=== PATIENT | male | born 1940 | race Caucasian/White ===

== ENCOUNTER 2018-09-17 13:54 | Emergency (ER) | payer OTHER ==
--- NOTE | 2018-09-17 14:24 | RAD REPORT ---
EXAM DESCRIPTION: CT - Ct Stroke Brain Wo Cont - 09/17/2018 2:13 pm CLINICAL HISTORY: Syncope COMPARISON: None. TECHNIQUE: Computed axial tomography of the head was obtained without contrast. All CT scans are performed using dose optimization technique as appropriate and may include automated exposure control or mA/KV adjustment according to patient size. FINDINGS: Right parietal scalp hematoma. Underlying skull fracture is not seen. An intracranial bleed is not seen . The ventricles are normal in caliber. No extra-axial fluid collection is noted. 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 Fluid within the sinuses/ mastoids is not seen. IMPRESSION: No acute intracranial abnormality is seen. If patient's symptoms persist MRI of the bra in would be recommended. Exam discussed doctor Brennan 2:15 p.m. September 17, 2018
[2018-09-17 14:31] LABS: Absolute Lymphocytes (CBC) 1.5 K/uL (0.7-4.9); Absolute Monocytes 0.5 K/uL (0.1-1.3); Absolute Neutrophil 4.9 K/uL (1.8-8.0); Basophils % 0.3 % (0-1.3); Eosinophils % 1.9 % (0-4.4); Hematocrit 44.5 % (39.6-49.0); Lymphocytes % 20.7 % (15.3-44.8); MPV 7.4 fL (7.6-11.3); Monocytes % 7.7 % (3.3-12.3); RBC Red Blood Cell Count 4.96 M/uL (4.33-5.43)
[2018-09-17 14:33] LABS: Protime INR 0.99
[2018-09-17 14:44] LABS: Potassium 4.8 mmol/L (3.5-5.1)
--- NOTE | 2018-09-17 15:03 | RAD REPORT ---
EXAM DESCRIPTION: Saravanan Single View09/17/2018 2:55 pm CLINICAL HISTORY: Chest pain COMPARISON: none FINDINGS: The lungs appear clear of acute infiltrate. The heart is normal size IMPRESSION: No acute abnormalities displayed
[2018-09-17] MEDS ORDERED: NA CHLORIDE 0.9% 1,000 ML ONE (15:09)
--- NOTE | 2018-09-17 15:49 | ER ---
Nurse's Notes [facility] Name: Eleazar Crawford Jr Age: 78 yrs Sex: Male : 1940 Arrival Date: 09/17/2018 Time: 14:02 Bed 23 Private MD: Diagnosis: Fall due to bumping against object;Syncope and collapse-near ;Superficial injury of head-right posterior hematoma;Unspecified kidney failure Presentation: 09/17 13:50 Presenting complaint: EMS states: syncopal episode from standing while outside for sv awhile, unknown LOC. [place] negative per EMS. c/o head injury with small hematoma on right side. Transition of care: patient was not received from another setting of care. An acute neurological deficit is present. The charge nurse has been notified. Pre-hospital glucose is not applicable to this patient. Onset of symptoms was September 17, 2018 at 13:30. Risk Assessment: Do you want to hurt yourself or someone else? Patient reports no desire to harm self or others. Initial Sepsis Screen: Does the patient meet any 2 criteria? No. Patient's initial sepsis screen is negative. Does the patient have a suspected source of infection? No. Patient's initial sepsis screen is negative. Care prior to arrival: Medication(s) given: Normal saline infusion, 500 mL, IV initiated. 20 GA, in the right forearm. 13:50 Method Of Arrival: EMS: [facility] 14:08 Acuity: ALMA 2 sv Triage Assessment: 13:50 The onset of the patients symptoms was less than three hours ago. General: Appears in sv no apparent distress. uncomfortable, well groomed, well developed, Behavior is calm, cooperative, appropriate for age. Pain: Complains of pain in scalp Pain currently is 3 out of 10 on a pain scale. Neuro: Level of Consciousness is awake, alert, obeys commands, Oriented to person, place, time, situation, Electric Clock Mechanic are equal bilaterally Moves all extremities. Full function Speech is normal, Facial symmetry appears normal, Facial symmetry: tongue is midline, Reports blurred vision in right eye and left eye in front of his vision of field. Neuro: Reports a syncopal episode. Respiratory: Airway is patent Respiratory effort is even, unlabored, Respiratory pattern is regular, symmetrical. Derm: Skin is pink, warm \T\ dry. skin tear to the left elbow. Musculoskeletal: Range of motion: intact in all extremities. 13:50 Injury Description: Head injury sustained to right side of the back of head is open, sv small amount of bleeding with unknown LOC. Golf ball size hematoma noted. was sustained less than 30 minutes ago. 15:40 The onset of the patients symptoms was. ao 17:00 The onset of the patients symptoms was September 17, 2018 at 13:00. ao Stroke Activation: Symptom onset < 3 hours Physician: Stroke Attending; Name: ; Notified At: ; Arrived At: Physician: Chief Stroke Resident; Name: ; Notified At: ; Arrived At: Physician: Stroke Resident; Name: ; Notified At: ; Arrived At: Physician: ED Attending; Name: Dr Brennan; Notified At: 14:03; Arrived At: Physician: ED Resident; Name: ; Notified At: ; Arrived At: Historical: - Allergies: 14:28 No Known Allergies; sv - Home Meds: 14:28 Plavix 75 mg Oral tab 1 tab once daily [Active]; metoprolol tartrate 25 mg Oral tab 1 sv tab nightly [Active]; Lipitor 40 mg Oral tab 1 tab once daily [Active]; irbesartan 150 mg oral tab [Active]; lamotrigine 300 mg oral tr24 1 tab once daily [Active]; Melatonin Oral [Active]; - 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 - Social history:: Smoking status: Patient/guardian denies using tobacco. - Ebola Screening: : No symptoms or risks identified at this time. - Family history:: not pertinent. Screenin:05 Abuse screen: Denies threats or abuse. Denies injuries from another. Nutritional sv screening: No deficits noted. Tuberculosis screening: No symptoms or risk factors identified. Fall Risk None identified. Assessment: 13:55 VAN Scoring: Arm Drift: Patients demonstrates NO arm weakness. Patient is VAN Negative. sv Visual Disturbance: Field Cut: Abnormal visual paulino noted. Provider notified of +VAN scoring. Pt stated blurry vision in front of him, but stated he had cataract surgery a month ago and vision was clear afterwards. Pt states that for about 2-3 days he has been having blurry vision. Aphasia: No aphasia noted. Neglect: No neglect noted. 14:10 Reassessment: Patient appears in no apparent distress at this time. No changes from sv previously documented assessment. Patient and/or family updated on plan of care and expected duration. Pain level reassessed. Patient is alert, oriented x 3, equal unlabored respirations, skin warm/dry/pink. 14:40 Reassessment: Dr Brennan at bedside. sv 15:00 The patient has not been NPO before screening. The patient is alert, and able to follow ao commands. The patient does not exhibit slurred or garbled speech. The patient is not exhibiting difficulty speaking. The patient does not exhibit difficulty understanding words. The patient is able to swallow own secretions with no drooling or need for suction. Patient tolerated one teaspoon of water. No drooling, immediate coughing, gurgling, or clearing of the throat was noted. The patient tolerated 90mL of water. No drooling, immediate coughing, gurgling, or clearing of the throat was noted. The patient passed the bedside swallow screening. Oral medications may be given as ordered. Contact Physician for further diet orders. Provider notified of bedside swallow screening results: Cristian Brennan MD. 15:00 General: Appears in no apparent distress. comfortable, Behavior is calm, cooperative, ao appropriate for age. Pain: Complains of pain in scalp Pain does not radiate. Pain currently is 3 out of 10 on a pain scale. Neuro: Level of Consciousness is awake, alert, obeys commands, Oriented to person, place, time, situation, Appropriate for age Electric Clock Mechanic are equal bilaterally Moves all extremities. Full function Gait is steady, Speech is normal, Facial symmetry appears normal, Pupils are PERRLA, Intact. Cardiovascular: Heart tones S1 S2 Capillary refill < 3 seconds Patient's skin is warm and dry. Rhythm is regular. Respiratory: Airway is patent Respiratory effort is even, unlabored, Respiratory pattern is regular, symmetrical. GI: Abdomen is flat, non-distended. : No signs and/or symptoms were reported regarding the genitourinary system. EENT: No signs and/or symptoms were reported regarding the EENT system. Derm: Skin is intact, Skin is pink, warm \T\ dry. normal, Skin temperature is warm Wound noted left elbow Wound is Small amount of bleeding noted. Applied a clean dressing with 2x2 antibiotics ointment. Musculoskeletal: Amputation of Range of motion: limited in all extremities. Injury Description: Head injury sustained to scalp is closed, bleeding, had loss of consciousness, Hematoma noted in the back of the head. was sustained 1-2 hours ago. 16:06 Reassessment: DC pending on Cardiac labs at this time. ao 17:00 T-PA (Activase) Screening: Contraindications: Other: Pt negative for stroke per Dr xin Brennan. Pt was syncope. Vital Signs: 13:53 BP 120 / 66; Pulse 73; Resp 18; Temp 97.8(O); Pulse Ox 97% on R/A; sv 14:08 BP 129 / 64; Pulse 77; Resp 16; Pulse Ox 98% on R/A; sv 15:30 BP 126 / 68 Supine; Pulse 65; Resp 14; Pulse Ox 99% on R/A; ao 15:35 BP 156 / 91 Sitting; Pulse 74; ao 15:38 BP 144 / 76; Pulse 77; ao 16:30 BP 142 / 74; Pulse 74; Resp 16; Pulse Ox 98% on R/A; ao NIH Stroke Scale Scores: 13:55 NIHSS Score: 1 sv ED Course: 13:50 Maintain EMS IV. Dressing intact. Good blood return noted. Site clean \T\ dry. Gauge \T\ sv site: 20G R FA. 13:55 Arm band placed on. sv 13:55 Patient has correct armband on for positive identification. Placed in gown. Bed in low sv position. Call light in reach. Side rails up X2. Adult w/ patient. manager monitoring on. Pulse ox on. NIBP on. Door closed. Head of bed elevated. 14:02 Patient arrived in ED. sv 14:02 Blanka Rider RN is Primary Nurse. sv 14:[address] via stretcher. sv 14:08 Triage completed. sv 14:08 Cristian Brennan MD is Attending Physician. renato 14:10 Patient moved back from CT. sv 14:13 CT Stroke Brain w/o Contrast In Process Unspecified. EDMS 14:13 Initial lab(s) drawn, by laborer petroleum refinery, sent to lab. sv 14:24 EKG done, by ag equipment field service technician. reviewed by Cristian Brennan MD. sm3 14:37 X-ray(s) taken. sv 14:37 Report given to Randolph MEZA. sv 14:56 Stroke CXR 1 View In Process Unspecified. EDMS 15:49 Paulo Nicole MD is Referral Physician. renato 16:59 No provider procedures requiring assistance completed. IV discontinued, intact, ao bleeding controlled, No redness/swelling at site. Pressure dressing applied. Administered Medications: 15:07 Drug: NS 0.9% 1000 ml Route: IV; Rate: 1 bolus; Site: right forearm; ao Point of Care Testing: Blood Glucose: 14:27 Blood Glucose: 126 mg/dL; sv Ranges: Outcome: 15:49 Discharge ordered by . renato 15:55 Patient left the ED. renato 16:59 Discharged to home ambulatory. ao 16:59 Condition: stable 16:59 Discharge instructions given to patient, Instructed on discharge instructions, follow up and referral plans. the need for admit, Demonstrated understanding of instructions, follow-up care, wound care. 17:02 Patient left the ED. ao NIH Stroke Scale - NIH Stroke Score Date: 09/17/2018 Time: 13:55 Total Score = 1 1a. Level of Consciousness (LOC) - 0(Alert) 1b. Level of Consciousness (LOC) (Year \T\ Age) - 0(Both) 1c. LOC Commands (Open \T\ Closes Eyes/Organic Lab Worker) - 0(Both) 2. Best Gaze (Lateral Gaze Paresis) - 0(Normal) 3. Visual Field Loss - 1(Partial hemianopia) 4. Facial Palsy - 0(Normal) 5a. Left Arm: Motor (10-second hold) - 0(No drift) 5b. Right Arm: Motor (10-second hold) - 0(No drift) 6a. Left Leg: Motor (5-second hold - always test supine) - 0(No drift) 6b. Right Leg: Motor (5-second hold - always test supine) - 0(No drift) 7. Limb Ataxia (finger/nose \T\ heel/tapia - test with eyes open) - 0(Absent) 8. Sensory Loss (pinprick arms/legs/face) - 0(Normal) 9. Best Language: Aphasia (description/naming/reading) - 0(No aphasia) 10. Dysarthria (speech clarity - read or repeat words) - 0(Normal) 11. Extinction and Inattention (visual/tactile/auditory/spatial/personal) - 0(No abnormality) Initials: sv Signatures: Dispatcher [employer] EDMS Adry, Blanka, RN RN sv Mika, Cristian, MD MD renato Jiménez, Randolph, RN RN ao Romero, Shahnaz Savanna
--- NOTE | 2018-09-17 15:49 | EDPHYS ---
Physician Documentation [facility] Name: Eleazar Crawford Jr Age: 78 yrs Sex: Male : 1940 Arrival Date: 09/17/2018 Time: 14:02 Bed 23 Private MD: ED Physician Cristian Brennan HPI: 09/17 14:42 This 78 yrs old Male presents to ER via EMS with complaints of Syncope, Head renato Injury-Adult. 14:42 The patient has experienced near-syncope, almost passed out. Onset: The renato symptoms/episode began/occurred just prior to arrival. Duration: This was a single episode, that lasted an unknown period of time. Context: the episode(s) was witnessed, by family. Associated injury: The patient did not suffer any apparent associated injury. Associated signs and symptoms: The patient has no apparent associated signs or symptoms. Current symptoms: Currently, the patient is not experiencing any symptoms. 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 - Social history:: Smoking status: Patient/guardian denies using tobacco. - Ebola Screening: : No symptoms or risks identified at this time. - Family history:: not pertinent. ROS: 14:42 Constitutional: Negative for fever, chills, and weight loss, Eyes: Negative for injury, renato pain, redness, and discharge, ENT: Negative for injury, pain, and discharge, Neck: Negative for injury, pain, and swelling, Cardiovascular: Negative for chest pain, palpitations, and edema, Respiratory: Negative for shortness of breath, cough, wheezing, and pleuritic chest pain, Abdomen/GI: Negative for abdominal pain, nausea, vomiting, diarrhea, and constipation, Back: Negative for injury and pain, : Negative for injury, bleeding, discharge, and swelling, MS/Extremity: Negative for injury and deformity, Skin: Negative for injury, rash, and discoloration, Psych: Negative for depression, anxiety, suicide ideation, homicidal ideation, and hallucinations, Allergy/Immunology: Negative for hives, rash, and allergies, Endocrine: Negative for neck swelling, polydipsia, polyuria, polyphagia, and marked weight changes, Hematologic/Lymphatic: Negative for swollen nodes, abnormal bleeding, and unusual bruising. 14:42 Neuro: Positive for near syncope. Exam: 14:42 Constitutional: This is a well developed, well nourished patient who is awake, alert, renato and in no acute distress. Eyes: Pupils equal round and reactive to light, extra-ocular motions intact. Lids and lashes normal. Conjunctiva and sclera are non-icteric and not injected. Cornea within normal limits. Periorbital areas with no swelling, redness, or edema. ENT: Nares patent. No nasal discharge, no septal abnormalities noted. Tympanic membranes are normal and external auditory canals are clear. Oropharynx with no redness, swelling, or masses, exudates, or evidence of obstruction, uvula midline. Mucous membranes moist. Neck: Trachea midline, no thyromegaly or masses palpated, and no cervical lymphadenopathy. Supple, full range of motion without nuchal rigidity, or vertebral point tenderness. No Meningismus. Chest/axilla: Normal chest wall appearance and motion. Nontender with no deformity. No lesions are appreciated. Cardiovascular: Regular rate and rhythm with a normal S1 and S2. No gallops, murmurs, or rubs. Normal PMI, no JVD. No pulse deficits. Respiratory: Lungs have equal breath sounds bilaterally, clear to auscultation and percussion. No rales, rhonchi or wheezes noted. No increased work of breathing, no retractions or nasal flaring. Abdomen/GI: Soft, non-tender, with normal bowel sounds. No distension or tympany. No guarding or rebound. No evidence of tenderness throughout. Back: No spinal tenderness. No costovertebral tenderness. Full range of motion. Male : Normal genitalia with no discharge or lesions. Skin: Warm, dry with normal turgor. Normal color with no rashes, no lesions, and no evidence of cellulitis. MS/ Extremity: Pulses equal, no cyanosis. Neurovascular intact. Full, normal range of motion. Neuro: Awake and alert, GCS 15, oriented to person, place, time, and situation. Cranial nerves II-XII grossly intact. Motor strength 5/5 in all extremities. Sensory grossly intact. Cerebellar exam normal. Normal gait. Psych: Awake, alert, with orientation to person, place and time. Behavior, mood, and affect are within normal limits. 14:42 Head/face: Noted is abrasion(s), that are mild, of the right side of the back of head, contusion, hematoma, swelling, tenderness. 14:42 Eyes: Periorbital structures: appear normal, no acute changes, Pupils: no acute changes, equal, round, and reactive to light and accomodation, Extraocular movements: no acute changes, Conjunctiva: normal, Corneas: are normal, Sclera: no appreciated abnormality. Vital Signs: 13:53 BP 120 / 66; Pulse 73; Resp 18; Temp 97.8(O); Pulse Ox 97% on R/A; sv 14:08 BP 129 / 64; Pulse 77; Resp 16; Pulse Ox 98% on R/A; sv 15:30 BP 126 / 68 Supine; Pulse 65; Resp 14; Pulse Ox 99% on R/A; ao 15:35 BP 156 / 91 Sitting; Pulse 74; ao 15:38 BP 144 / 76; Pulse 77; ao 16:30 BP 142 / 74; Pulse 74; Resp 16; Pulse Ox 98% on R/A; ao NIH Stroke Scale Scores: 13:55 NIHSS Score: 1 sv MDM: 14:08 Patient medically screened. [facility] 14:46 Data reviewed: vital signs, nurses notes, lab test result(s), EKG, radiologic studies, renato CT scan, plain films. 09/17 14:07 Order name: Basic Metabolic Panel; Complete Time: 14:49 sv 09/17 14:07 Order name: CBC with Diff; Complete Time: 14:49 sv 09/17 14:07 Order name: Protime (+inr); Complete Time: 14:49 sv 09/17 14:07 Order name: Ptt, Activated; Complete Time: 14:49 sv 09/17 15:48 Order name: LFT's renato 09/17 15:48 Order name: Magnesium renato 09/17 14:07 Order name: CT Stroke Brain w/o Contrast; Complete Time: 14:49 sv 09/17 14:07 Order name: Stroke CXR 1 View; Complete Time: 15:47 09/17 14:07 Order name: EKG; Complete Time: 14:07 09/17 14:07 Order name: Accucheck; Complete Time: 15:02 sv 09/17 14:07 Order name: Cardiac monitoring; Complete Time: 15:02 09/17 15:48 Order name: NT PRO-BNP [facility] 09/17 15:48 Order name: Troponin (emerg Dept Use Only) [facility] 09/17 14:07 Order name: EKG - Nurse/Tech; Complete Time: 15:02 09/17 14:07 Order name: IV Saline Lock; Complete Time: 15:02 09/17 14:07 Order name: Labs collected and sent; Complete Time: 15:02 09/17 14:07 Order name: NPO; Complete Time: 15:02 09/17 14:07 Order name: O2 Per Protocol; Complete Time: 15:02 09/17 14:07 Order name: O2 Sat Monitoring; Complete Time: 15:02 09/17 14:07 Order name: Stroke Swallow Screen; Complete Time: 15:24 09/17 14:42 Order name: Orthostatic Blood Pressure; Complete Time: 15:40 [facility] 09/17 14:50 Order name: Ice pack; Complete Time: 15:40 [facility] Administered Medications: 15:07 Drug: NS 0.9% 1000 ml Route: IV; Rate: 1 bolus; Site: right forearm; ao Point of Care Testing: Blood Glucose: 14:27 Blood Glucose: 126 mg/dL; sv Ranges: Critical Glucose Levels:Adult <50 mg/dl or >400 mg/dl <40 mg/dl or >180 mg/dl Disposition: 09/17/18 15:49 Discharged to Home. Impression: Fall due to bumping against object, Syncope and collapse - near , Superficial injury of head - right posterior hematoma, Unspecified kidney failure. - Condition is Stable. - Discharge Instructions: Head Injury, Adult, Near-Syncope, Weakness, Near-Syncope, [id number], Syncope, [id number]-[id number], Weakness, Dxsf-pl-[id number], Head Injury, Adult, Rgeu-sk-Govn. - Medication Reconciliation Form, Thank You Letter, Antibiotic Education, Prescription Opioid Use form. - Follow up: Private Physician; When: 2 - 3 days; Reason: Recheck today's complaints, Continuance of care, Re-evaluation by your physician. Follow up: Paulo Nicole; When: 2 - 3 days; Reason: Recheck today's complaints, Continuance of care, Re-evaluation by your physician. - Problem is new. - Symptoms have improved. NIH Stroke Scale - NIH Stroke Score Date: 09/17/2018 Time: 13:55 Total Score = 1 1a. Level of Consciousness (LOC) - 0(Alert) 1b. Level of Consciousness (LOC) (Year \T\ Age) - 0(Both) 1c. LOC Commands (Open \T\ Closes Eyes/Emc Storage Architect) - 0(Both) 2. Best Gaze (Lateral Gaze Paresis) - 0(Normal) 3. Visual Field Loss - 1(Partial hemianopia) 4. Facial Palsy - 0(Normal) 5a. Left Arm: Motor (10-second hold) - 0(No drift) 5b. Right Arm: Motor (10-second hold) - 0(No drift) 6a. Left Leg: Motor (5-second hold - always test supine) - 0(No drift) 6b. Right Leg: Motor (5-second hold - always test supine) - 0(No drift) 7. Limb Ataxia (finger/nose \T\ heel/tapia - test with eyes open) - 0(Absent) 8. Sensory Loss (pinprick arms/legs/face) - 0(Normal) 9. Best Language: Aphasia (description/naming/reading) - 0(No aphasia) 10. Dysarthria (speech clarity - read or repeat words) - 0(Normal) 11. Extinction and Inattention (visual/tactile/auditory/spatial/personal) - 0(No abnormality) Initials: sv Signatures: Dispatcher [employer] Blanka Dejesus RN RN Cristian Wagoner MD MD cha Ortiz, Alex, RN RN xin Corrections: (The following items were deleted from the chart) 15:55 15:49 09/17/2018 15:49 Discharged to Home. Impression: Fall due to bumping renato against object; Syncope and collapse - near ; Superficial injury of head - right posterior hematoma. Condition is Stable. Discharge Instructions: Head Injury, Adult, Near-Syncope, Weakness, Near-Syncope, [id number]-sm-[id number], Syncope, Wyge-fr-Noln, Weakness, Xjzd-vx-Adbs, Head Injury, Adult, Pjmv-or-Obus. Forms are Medication Reconciliation Form, Thank You Letter, Antibiotic Education, Prescription Opioid Use. Follow up: Private Physician; When: 2 - 3 days; Reason: Recheck today's complaints, Continuance of care, Re-evaluation by your physician. Follow up: Paulo Nicole; When: 2 - 3 days; Reason: Recheck today's complaints, Continuance of care, Re-evaluation by your physician. Problem is new. Symptoms have improved. renato 17:02 15:55 09/17/2018 15:49 Discharged to Home. Impression: Fall due to bumping ao against object; Syncope and collapse - near ; Superficial injury of head - right posterior hematoma; Unspecified kidney failure. Condition is Stable. Discharge Instructions: Head Injury, Adult, Near-Syncope, Weakness, Near-Syncope, [id number], Syncope, Zlzd-nv-Birw, Weakness, Viqs-rd-Ipty, Head Injury, Adult, Oedo-zc-Ljmk. Forms are Medication Reconciliation Form, Thank You Letter, Antibiotic Education, Prescription Opioid Use. Follow up: Private Physician; When: 2 - 3 days; Reason: Recheck today's complaints, Continuance of care, Re-evaluation by your physician. Follow up: Paulo Nicole; When: 2 - 3 days; Reason: Recheck today's complaints, Continuance of care, Re-evaluation by your physician. Problem is new. Symptoms have improved. renato
[2018-09-17 16:42] LABS: ALT/SGPT 31 U/L (12-78); AST/SGOT 18 U/L (15-37); Albumin 3.7 g/dL (3.4-5.0); Alkaline Phosphatase 96 U/L (45-117); Bilirubin Direct 0.2 mg/dL (0-0.2); Bilirubin Total 0.8 mg/dL (0.2-1.0); NT PRO-BNP 211 pg/mL (<450); Protein, Total 6.2 g/dL (6.4-8.2); Troponin (Emerg Dept Use Only) < 0.02 ng/mL (0.0-0.045)
== END 2018-09-17 17:02 | disposition home or self-care (01) ==
LOC: ER 13:54
DX: S00.83XA Contusion of other part of head, initial encounter (principal); N19 Unspecified kidney failure; W18.00XA Striking against unspecified object with subsequent fall, initial encounter; Y93.9 Activity, unspecified; Y92.9 Unspecified place or not applicable; Z79.01 Long term (current) use of anticoagulants; Z86.73 Personal history of transient ischemic attack (TIA), and cerebral infarction without residual deficits; G40.909 Epilepsy, unspecified, not intractable, without status epilepticus
CPT/HCPCS: 93005; 85025; 80048; 36415; 83735; 85610; 82962; 80076; 85730; 84484; 83880; 70450; 71045; 99285; J7030

== ENCOUNTER 2024-05-30 11:45 | Emergency (ER) | payer OTHER ==
--- OUTSIDE RECORDS SUMMARY | 2024-05-30 11:53 | XMS REPORT | Continuity of Care Document ---
Author Name Unknown Address [address] [facility] [place] [address] [facility] Address [address] [place] [address] Care Team Providers Care Senior Resident Care Director Name Role Phone Tala Laws MD Primary Care Physician [phone] ILENE KIRK Attending Clinician Unavaila Jerry Kwong Attending Clinician UnavailDarren De La Torre Attending Clinician Unavail KARIN Owen Attending Clinician Unavailable Shalonda Francois MA Attending Clinician UnavaKathy Fry Attending Clinician Unavailable Kathy MACIAS Attending Clinician Unavailable RADIOLOGY Attending Clinician Unavailable Radiology Attending Clinician Unavailable HERMINIO ELLISON Attending Clinician Unavailable Herminio Ellison PA-C Attending Clinician [phone] Unknown, Attending Attending Clinician Unavailab le DIANE HALLMAN Attending Clinician Unavailable Arabella LIBERAL ARTS TEACHER, Cyndrew Attending Clinician +[phone] NOLVIA LLOYD Attending Clinician Unavailab Nolvia Burnham DO Attending Clinician +[phone] Vaccine, [facility] Attending Clinician Unavailable Jose Zelaya DO Attending Clinician [phone] JOSE ZELAYA Attending Clinician Unavail able Luke Plata Attending Clinician Unavailable Nurse, [facility] Pob Immunization Attending Clinician Unavailable Ibikunle LIBERAL ARTS TEACHER, Folusho F Attending Clinician [phone] Doctor Unassigned, Barling Attending Clinician U navailKARIN Owen M.D. Attending Clinician Unava ilable Duarte EMCandice KEBEDE R Attending Clinician + [phone] SEGUNDO PERRY Attending Clinician Unavailable Lupe Briones Attending Clinician [phone] LUPE ARMSTRONG Attending Clinician Unavailable JOBY HOLMAN Attending Clinician Unavailable Trey MEZA, Prabhakar Chowdary Attending Clinician Unavail able Chelsea Schmidt MD Attending Clinician [phone] Marvin CABALLERO, Romana Tucker Attending Clinician + CHELSEA SCHMIDT Attending Clinician Unavailable Venkata Snyder Attending Clinician UnavailOliverio FLEMINGP, Cyndi Brown Attending Clinician [phone] Thomas Allen Attending Clinician UnavailHUGO Junior M.D. Attending Clinician Nelly vailable AMBULATORY, BLOOD Attending Clinician UnavailLIZ Yepez, PHD Attending Clinician Unav ailable Physician, No Primary or Family Admitting Clinic keegan Unavailable Darren Amezcua Admitting Clinician Unavail able Kathy MACIAS Admitting Clinician Unavailable BENNY ROCHA Admitting Clinician Unavailab DIANE Hull Admitting Clinician Unavailable NOLVIA LLOYD Admitting Clinician Unavailab Luke Luu Admitting Clinician Unavailable LUPE ARMSTRONG Admitting Clinician Unavailable Marvin CABALLERO, Romana Tucker Admitting Clinician + UNDEFINED Admitting Clinician Unavailable Kathy MACIAS Admitting Clinician Unavailable Payers Payer Name Policy Type Policy Number Effective Date Expirati on Date Source [facility] MEDIC[facility] ADVANTAGE [id number] 2020 00:00:00 2024 00:00:00 [facility] PPO [id number] 2020 00:00:00 Problems Condition Name Condition Details Condition Category Status Onset Date Resolution Date Last Treatment Date Treating Clinician Comments Source Arterioscl erosis of coronary artery Arterioscl erosis of coronary artery Disease Active 03-24 00:00: 00 Radha Vazquez Hypertensi on Hypertensi on Disease Active 03-24 00:00: 00 Radha Vazquez Obesity Obesity Disease Active 03-24 00:00: 00 Radha Vazquez Stroke Stroke Disease Active 03-24 00:00: 00 Radha Vazquez Seizure Seizure Disease Active 03-24 00:00: 00 Radha Vazquez History of stroke History of stroke Disease Active 03-24 00:00: 00 Radha Vazquez Apraxia Apraxia Disease Active 03-24 00:00: 00 Radha Vazquez F/U BLACK OUTS/SEIZU RES DR. Marshall GONZALEZ TO OVER F/U BLACK OUTS/SEIZU RES DR. Marshall GONZALEZ TO OVER Active 01/05/2021 [facility] Diagnosis Active 01-05 00:00: 00 2021-01-26 08:25:00 Radha Perez TELEPHONE VISIT F/U SEIZURES TELEPHONE VISIT F/U SEIZURES Active 05/04/2020 [facility] Diagnosis Active 2019-07 00:00: 00 2020-05-05 08:37:00 Radha Perez Seizure Seizure Disease Active 2019-07 0 00:00: 00 [facility] Seizure-li ke activity Seizure-li ke activity Disease Active 2019-07 00:00: 00 [facility] TELEMEDICI NE VIA VIRTUAL VIDEO APPOINTME TELEMEDICI NE VIA VIRTUAL VIDEO APPOINTME Active 01/19/2020 [facility] Diagnosis Active 01-18 00:00: 00 2020-02-18 09:26:00 Radha Perez 6 MONTH FOLLOW UP 6 MONTH FOLLOW UP Active 05/21/2019 [facility] Diagnosis Active 2018-07 00:00: 00 2019-07-29 13:08:00 Radha Perez FOLLOW UP PER DR. ALLAN PFEIFFER FOLLOW UP PER DR. ALLAN PFEIFFER Active 12/03/2018 [facility] Diagnosis Active 12-03 00:00: 00 2019-02-10 09:54:00 Radha Perez FOLLOW UP FOLLOW UP Active 09/18/2018 [facility] Diagnosis Active 09-18 00:00: 00 2018-12-03 12:27:00 Radha Perez SEIZURE; SYNCOPE SEIZURE; SYNCOPE Active 11/21/2017 [facility] Diagnosis Active 11-21 00:00: 00 2017-12-09 07:18:00 Radha Perez F/U F/U Active 09/09/2017 [facility] Diagnosis Active 09-09 00:00: 00 2018-06-13 14:17:00 Radha Perez Syncope Syncope Disease Active 2016-07 00:00: 00 [facility] SEIZERS SEIZERS Active 03/18/2017 [facility] Diagnosis Active 03-18 00:00: 00 2017-06-12 11:55:00 Radha Perez NONE NONE Active 03/19/2016 [facility] Diagnosis Active 03-19 00:00: 00 2016-05-25 10:48:00 Radha Perez Expressive aphasia Expressive aphasia Disease Active 11-30 00:00: 00 [facility] TBI TBI Active [facility] Diagnosis Active 11-02 00:00: 00 2015-11-15 16:11:00 Radha Perez NEW PT NEW PT Active 08/01/2015 [facility] Diagnosis Active 08-01 00:00: 00 2015-10-29 16:52:00 Radha Perez DC F/U DC F/U Active 06/29/2015 [facility] Diagnosis Active 2014-07 00:00: 00 2015-08-01 08:53:00 Radha Perez INTRACRANI AL HEMORRHAGE INTRACRANI AL HEMORRHAGE Active 05/17/2015 [facility] Diagnosis Active 2014-07 00:00: 00 2015-05-19 20:38:00 Radha Perez Intracrani al hemorrhage Intracrani al hemorrhage Disease Active 2014-07 00:00: 00 [facility] Cerebral edema Cerebral edema Disease Active 2014-07 00:00: 00 [facility] At risk for seizures At risk for seizures Disease Active 2014-07 00:00: 00 [facility] At risk for aspiration At risk for aspiration Disease Active 2014-07 00:00: 00 [facility] Hemorrhagi c cerebrovas cular accident (CVA) (CMS/HCC) Hemorrhagi c cerebrovas cular accident (CVA) (CMS/HCC) Disease Active 2014-07 00:00: 00 Radha Perez Epic Right hemiplegia (CMS/HCC) Right hemiplegia (CMS/HCC) Disease Active 2014-07 00:00: 00 Radha Perez Epic Right homonymous hemianopsi a Right homonymous hemianopsi a Disease Active 2014-07 00:00: 00 Radha Vazquez INTRACRANI AL HERMORRAGE INTRACRANI AL HERMORRAGE Active 07/01/2000 [facility] Diagnosis Active 07-01 08:00: 00 2016-11-14 16:14:00 Radha Perez No known active problems No known active problems Disease [facility] of [facility]ia [facility] of [facility] of History of cholecyste ctomy History of History of cholecyste ctomy Problem [facility]olve [facility] History of Meniscus tear History of Meniscus tear Problem [facility]olve [facility] 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 Problem Active [facility] Insomnia Insomnia Problem Active [facility] 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 Active [facility] Chronic orthostati c hypotensio n Chronic orthostati c hypotensio n Problem Active [facility] Benign essential hypertensi on Benign essential hypertensi on Problem Active [facility] 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 w/o 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 Problem Active [facility] Impaired memory Impaired memory Problem Active [facility] Obesity, unspecifie d Obesity, unspecifie d 12/31/2018 [facility] Problem 2018-12-31 11:31:01 Radha Perez Other sequelae of cerebral infarction Other sequelae of cerebral infarction 12/31/2018 [facility] Problem 2018-12-31 11:31:01 Radha Perez Final: Intracrani al abscess and granuloma Final: Intracrani al abscess and granuloma 07/02/2015 [facility] Problem 2015-07-02 01:18:55 Radha Perez ENCOUNTER FOR OTHER SPECIFIED SURGICAL A ENCOUNTER FOR OTHER SPECIFIED SURGICAL A Active [facility] Diagnosis Active 2021-01-09 08:16:00 Radha Perez OTHER SEIZURES OTHER SEIZURES Active [facility] Diagnosis Active 2021-01-26 08:25:00 Radha Perez ENCNTR FOR F/U EXAM AFT TRTMT FOR COND O ENCNTR FOR F/U EXAM AFT TRTMT FOR COND O Active [facility] Diagnosis Active 2016-01-11 12:35:00 Radha Perez INTRACRANI AL ABSCESS AND GRANULOMA INTRACRANI AL ABSCESS AND GRANULOMA Active [facility] Diagnosis Active 2015-05-19 20:38:00 Radha Perez ANOXIC BRAIN DAMAGE, 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, 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 Active [facility] Diagnosis Active 2015-08-01 08:53:00 Radha Perez EPILEPSY, UNSP, NOT INTRACTABL E, WITH ST EPILEPSY, UNSP, NOT INTRACTABL E, WITH ST Active [facility] Diagnosis Active 2015-08-30 09:56:00 Radha Perez ESSENTIAL (PRIMARY) HYPERTENSI ON ESSENTIAL (PRIMARY) HYPERTENSI ON Active [facility] Diagnosis Active 2016-07-26 10:44:00 Radha Perez INTCRAN INJ W/O LOSS OF CONSCIOUSN ESS, I INTCRAN INJ W/O LOSS OF CONSCIOUSN ESS, I Active [facility] Diagnosis Active 2016-12-04 12:40:00 Radha Perez EPILEPSY, UNSPECIFIE D, INTRACTABL E, WITH EPILEPSY, UNSPECIFIE D, INTRACTABL E, WITH Active [facility] Diagnosis Active 2017-06-12 11:55:00 Radha Perez UNSPECIFIE D CONVULSION S UNSPECIFIE D CONVULSION S Active [facility] Diagnosis Active 2015-12-07 14:19:00 Radha Perez OBSTRUCTIV E SLEEP APNEA (ADULT) (PEDIATR OBSTRUCTIV E SLEEP APNEA (ADULT) (PEDIATR Active [facility] Diagnosis Active 2016-02-21 09:46:00 Radha Perez DYSPHAGIA, UNSPECIFIE D DYSPHAGIA, UNSPECIFIE D Active [facility] Diagnosis Active 2016-05-25 10:48:00 Radha Perez At risk for dehydratio n At risk for dehydratio n Disease Resolve d 2014-07 00:00: 00 2015-05-12 00:00:00 2015-05-12 15:49:50 [facility] History of Past Illness Condition Name Condition Details Condition Category Status Onset Date Resolution Date Last Treatment Date Treating Clinician Comments Source Unspecifie d convulsion s Unspecifie d convulsion s 01/11/2021 01/13/2021 [facility] Problem 01-11 19:46: 00 2021-01-13 23:50:43 2021-01-13 23:50:43 Radha Perez Personal history of transient ischemic attack (TIA), and cerebral infarction without residual deficits Personal history of transient ischemic attack (TIA), and cerebral infarction without residual deficits 01/11/2021 01/13/2021 [facility] Problem 01-11 19:46: 00 2021-01-13 23:50:43 2021-01-13 23:50:43 Radha Perez Epilepsy, unspecifie d, not intractabl e, without status epilepticu s Epilepsy, unspecifie d, not intractabl e, without status epilepticu s 06/19/2018 12/31/2018 [facility] Problem 2017-07- 06:30: 38 2018-12-31 11:31:2018-12-31 11:31: Radha Perez Allergies, Adverse Reactions, Alerts Allergy Name Allergy Type Status Severity Reaction(s) Onset Date Inactive Date Treating Clinician Comments Source Tams[place] in Allergy to substanc e Active 03-24 00:00: 00 Radha Vazquez No Known Allergie s DA Active U 0 2-10 00:00: 00 [facility] No Known Allergie s DA Active U 0 2-10 00:00: 00 [facility] No Known Allergie s DA Active U 0 1-23 00:00: 00 [facility] No Known Allergie s DA Active U 0 1-23 00:00: 00 [facility] No Known Allergie s DA Active U 1 0- 00:00: 00 [facility] No Known Allergie s DA Active U 2018-07 0- 00:00: 00 [facility] No Known Allergie s DA Active U 0 4-25 00:00: 00 [facility] No Known Allergie s DA Active U 0 1-24 00:00: 00 [facility] [place]ams[place] in Allergy to substanc e Active 02-20 00:00: 00 [facility] tamsulos in DA Active SV 02-20 00:00: 00 [facility] NO KNOWN ALLERGIE S Drug Class Active [facility] Family History Family Member Diagnosis Comments Start Date Stop Date Sourc e Unknown Family Member Family history of HTN (hypertension), benign Other [facility] Unknown Family Member Family history of cardiac disorder Other [facility] Unknown Family Member Family history of cerebrovascular accident (CVA) Other [facility] Sibling Family history of Myocardial infarction in recovery phase [facility] Mother Family history of malignant neoplasm of kidney [facility] Father Family history of dementia [facility] Social History Social Habit Start Date Stop Date Quantity Comments Source Gender identity 2023-09-22 05:48:41 Identifies as male gender (finding) Priyanka Vazquez [facility] Alcoholic beverage intake 2024-01-28 00:00:00 2024-01-28 00:00:00 0 /d [facility] History of Social function 2023-10-18 00:00:00 2023-10-18 00:00:00 [facility] Exposure to SARS-CoV-2 (event) 2022-03-03 00:00:00 2022-03-13 11:03:00 Not sure [facility] Tobacco use and exposure 2022-03-13 00:00:00 2022-03-13 00:00:00 Smokeless tobacco non-user [facility] Alcohol intake 2022-03-13 00:00:00 2022-03-13 00:00:00 Lifetime non-drinker (finding) [facility] Sex assigned at 1940 00:00:00 1940 00:00:00 [facility] Smoking Status Start Date Stop Date Source Tobacco smoking consumption unknown [facility] Never smoked tobacco Radha Perez [facility] Medications Ordered Medication Name Filled Medication Name Start Date Stop Date Current Medication? Ordering Clinician Indication Dosage Frequency Signature (SIG) Comments Components Source NaCl 0.9% (NS) bolus infusion 500 mL 01-27 19:00: 00 01-27 20:47 :00 No 500mL at 999 mL/hr, 500 mL, IV Infusion, ONCE, 1 dose, On Sat01/28/24 at 1400, STAT [facility] lamoTRIgine 300 mg [facility] 01-27 15:44: 52 Yes Take by mouth. [facility] lamoTRIgine (LAMICTAL) 200 mg tablet 01-27 00:00: 00 02-27 04:59 :00 No [id number] 200mg Take 1 tablet by mouth in the morning for 30 days. [facility] lamoTRIgine 300 mg TR24 10-02 09:50: 38 Yes Take by mouth. [facility] midodrine 2.5 mg tablet 10-02 09:50: 38 Yes 2.5mg Take 1 tablet by mouth in the morning and 1 tablet at noon and 1 tablet in the evening. [facility] vitamin B-12 (B-12 DOTS) 500 mcg tablet 10-02 09:50: 38 Yes Take by mouth daily. [facility] benzonatate (TESSALON PERLES) 100 mg capsule 04 00:00: 00 Yes [id number] 100mg Take 1 capsule by mouth every 8 (eight) hours as needed for Cough. [facility] loratadine 10 mg tablet 10-02 00:00: 00 Yes [id number] 10mg Take 1 tablet by mouth in the morning. [facility] Apoaequorin (PREVAGEN PO) Apoaequorin (PREVAGEN PO) 2022-07 0 00:00: 00 Yes = 1 tab, PO, Daily, OTC for memory loss, 0 Refill(s) Radha Vazquez lamoTRIgine (LaMICtal XR) 300 mg tablet sustained-r elease 24 hour 24 hr tablet lamoTRIgine (LaMICtal XR) 300 mg tablet sustained-r elease 24 hour 24 hr tablet 2022-07 0 00:00: 00 10-19 23:59 :00 No Take by mouth at bedtime. Radha Vazquez lidocaine 2% (XYLOCAINE) 20 mg/mL (2 %) injection 10 mL 02-12 03:15: 00 02-12 03:15 :00 No 10mL 10 mL, Infiltrati on, ONCE, 1 dose, On Sat02/11/23 at 2215, CHRISTOFER [facility] spironolact one (Aldactone) 25 MG tablet spironolact one (Aldactone) 25 MG tablet 2021-07 0-05 00:00: 00 Yes QD Take by mouth 1 time each day. Radha Vazquez olmesartan (BENIcar) 40 MG tablet olmesartan (BENIcar) 40 MG tablet 2021-07 0-05 00:00: 00 Yes 40mg QD Take 40 mg by mouth 1 time each day. Radha Vazquez lamoTRIgine (LaMICtal XR) 300 mg tablet sustained-r elease 24 hour 24 hr tablet 7-25 00:00: 00 Yes [facility] clopidogrel (Plavix) 75 MG tablet 6-30 00:00: 00 Yes [facility] spironolact one (Aldactone) 25 MG tablet 6-30 00:00: 00 Yes [facility] olmesartan (BENIcar) 40 MG tablet 6-21 00:00: 00 Yes [facility] carvedilol (Coreg) 6.25 MG tablet 5-12 00:00: 00 Yes [facility] amLODIPine (Norvasc) 10 MG tablet amLODIPine (Norvasc) 10 MG tablet 2020-07 0-13 00:00: 00 Yes 10mg QD Take 10 mg by mouth 1 time each day. Radha Perez Epic fludrocorti sone (Florinef) 0.1 MG tablet fludrocorti sone (Florinef) 0.1 MG tablet 2020-07 0-13 00:00: 00 Yes .1mg/d QD Take 0.1 mg/day by mouth 1 time each day. Radha Perez Epic amLODIPine (Norvasc) 2.5 MG tablet 8- 00:00: 00 Yes 1{tbl} QD Take 1 tablet by mouth 1 (one) time each day. [facility] 24 HR lamotrigine 100 MG Extended Release Tablet - 19:57: 00 Yes See Instructio ns, 1 tab po QAM and 3 tab po QPM. do not crush or chew, # 360 tab, 3 Refill(s), [facility]: [facility] [address], 177.8, cm, 07/29/19 13:21:00 [employer], Height, 82.33, kg, 01/11/21 13:44:00 CDT, Weight Radha Perez ondansetron (ZOFRAN (PF)) injection 4 mg 12-14 16:45: 00 12-14 15:43 :00 No 4mg 4 mg, Slow IV Push, ONCE, 1 dose, Sat12/14/20 at 1145, CHRISTOFER [facility] 24 HR lamotrigine 50 MG Extended Release Tablet 2019-07 16:01: 00 Yes 50 mg = 1 tab, PO, Daily, Add to 300 mg ER nightly dose to make 300 mg ER QPM and 50 mg XR QAM, # 30 tab, 5 Refill(s), [facility]: [facility] [address], 177.8, cm, 07/29/19 13:21:00 [employer], Height, 79.545, kg, 07/29/19 13:21:00 [employer], Weight Radha Perez midodrine 2.5 mg oral tablet 2019-07 15:21: 00 Yes 2.5 mg = 1 tab, PO, TID, 0 Refill(s) Radha Perez Tylenol Extra Strength 500 MG Oral Tablet Tylenol Extra Strength 500 MG Oral Tablet 2019-07 00:00: 00 Yes TAKE 1 TABLET EVERY 4 TO 6 HOURS NEEDED. [facility] lamoTRIgine 300 mg TR24 2019-07 22:14: 36 Yes Take by mouth. [facility] Melatonin 5 mg tablet 2019-07 22:14: 36 Yes 5mg Take 5 mg by mouth as needed for Insomnia. [facility] midodrine 2.5 mg tablet 2019-07 22:14: 36 Yes 2.5mg Take 2.5 mg by mouth 3 (three) times daily. [facility] vitamin B-12 (B-12 DOTS) 500 mcg tablet 2019-07 22:14: 36 Yes Take by mouth daily. [facility] carvediloL 3.125 mg tablet 2019-07 19:07: 42 04-29 00:00 :00 No 3.125mg Take 3.125 mg by mouth 2 (two) times daily with meals. [facility] olmesartan 20 mg tablet 2019-07 19:07: 42 04-29 00:00 :00 No 20mg Take 20 mg by mouth. [facility] Saline Bubble Study 2019-07 18:16: 22 Yes 6mL 6 mL, Injection, SEE-INSTRU CTIONS, Starting Sat04/29/20 at 1316, Until Discontinu ed, Routine [facility] lamoTRIgine 300 mg TR24 2019-07 17:14: 36 Yes Take by mouth. [facility] Melatonin 5 mg tablet 2019-07 17:14: 36 Yes 5mg Take 5 mg by mouth as needed for Insomnia. [facility] midodrine 2.5 mg tablet 2019-07 17:14: 36 Yes 2.5mg Take 2.5 mg by mouth 3 (three) times daily. [facility] vitamin B-12 (B-12 DOTS) 500 mcg tablet 2019-07 17:14: 36 Yes Take by mouth daily. [facility] clopidogreL (PLAVIX) tablet 75 mg 2019-07 14:00: 00 Yes 75mg 75 mg, Oral, DAILY, First dose on Sat04/29/20 at 0900, Until Discontinu ed, Routine [facility] lamoTRIgine (LAMICTAL) tablet 300 mg 2019-07 02:00: 00 Yes 300mg 300 mg, Oral, QHS, First dose on Sat04/28/20 at 2100, Until Discontinu ed [facility] atorvastati n (LIPITOR) tablet 40 mg 2019-07 02:00: 00 Yes 40mg 40 mg, Oral, QHS, First dose on Sat04/28/20 at 2100, Until Discontinu ed, Routine [facility] midodrine (PROAMATINE ) tablet 2.5 mg 2019-07 01:00: 00 Yes 2.5mg 2.5 mg, Oral, TID, First dose on Sat04/28/20 at 2000, Until Discontinu ed, Routine [facility] furosemide (LASIX) 20 mg tablet 2019-07 23:39: 45 04-28 00:00 :00 No 20mg Take 20 mg by mouth every other day. [facility] aspirin 81 mg chewable tablet 2019-07 23:20: 01 04-28 00:00 :00 No 81mg Take 81 mg by mouth daily. [facility] irbesartan (AVAPRO) 300 mg tablet 2019-07 23:18: 47 04-28 00:00 :00 No 150mg Take 150 mg by mouth daily. [facility] metoprolol tartrate 12.5 mg 2019-07 23:18: 38 04-28 00:00 :00 No 12.5mg Take 12.5 mg by mouth every morning. [facility] metoprolol tartrate 25 mg tablet 2019-07 23:18: 35 04-28 00:00 :00 No 25mg Take 25 mg by mouth 2 (two) times daily. [facility] METOPROLOL TARTRATE ORAL 2019-07 23:18: 16 04-28 00:00 :00 No 12.5mg Take 12.5 mg by mouth 2 (two) times daily. [facility] Lamotrigine (LAMICTAL ODT) 25 mg TbDL 2019-07 23:17: 12 04-28 00:00 :00 No 300mg Take 300 mg by mouth once now. [facility] irbesartan 150 mg tablet 2019-07 23:15: 44 04-28 00:00 :00 No 150mg Take 150 mg by mouth at bedtime. [facility] furosemide 20 mg tablet 2019-07 23:15: 26 04-28 00:00 :00 No 20mg Take 20 mg by mouth every other day. [facility] clopidogrel (PLAVIX) 75 mg tablet 2019-07 23:15: 20 04-28 00:00 :00 No 75mg Take 75 mg by mouth daily. [facility] atorvastati n 40 mg tablet 2019-07 23:15: 13 04-28 00:00 :00 No 40mg Take 40 mg by mouth at bedtime. [facility] acetaminoph en (TYLENOL) tablet 650 mg 2019-07 22:34: 02 Yes 650mg 650 mg, Oral, Q6HPRN, Starting Oksana 04/28/20 at 1734, Until Discontinu ed, Routine, Pain (scale 1-3) [facility] ibuprofen (IBU) tablet 600 mg 2019-07 17:30: 00 04-05 16:21 :00 No 600mg 600 mg, Oral, ONCE, 1 dose, 04/05/20 at 1230, CHRISTOFER [facility] atorvastati n 40 mg tablet 11-22 19:13: 38 Yes 40mg Take 40 mg by mouth at bedtime. [facility] lamoTRIgine 300 mg TR24 11-22 19:13: 38 Yes Take by mouth. [facility] carvediloL 3.125 mg tablet 11-22 19:13: 38 Yes 3.125mg Take 3.125 mg by mouth 2 (two) times daily with meals. [facility] midodrine 2.5 mg tablet 11-22 19:13: 38 Yes 2.5mg Take 2.5 mg by mouth 3 (three) times daily. [facility] olmesartan 20 mg tablet 11-22 19:13: 38 Yes 20mg Take 20 mg by mouth. [facility] vitamin B-12 (B-12 DOTS) 500 mcg tablet 11-22 19:13: 37 Yes Take by mouth daily. [facility] lamoTRIgine 300 mg oral tablet, extended release 07-29 20:34: 00 Yes 300 mg = 1 tab, PO, Daily, # 90 tab, 3 Refill(s), Pharmacy: [facility] [id number] Radha Perez carvedilol 3.125 mg oral tablet 07-29 19:23: 00 Yes 3.125 mg = 1 tab, PO, BID, 0 Refill(s) Radha Perez lamoTRIgine 300 mg oral tablet, extended release 07-29 19:23: 00 No 300 mg = 1 tab, PO, Daily, 0 Refill(s) Radha Perez Vitamin B12 1000 mcg oral tablet 07-29 19:23: 00 Yes 1,000 microgram = 1 tab, PO, Daily, 0 Refill(s) Radha Perez olmesartan 20 mg oral tablet 07-29 19:23: 00 Yes 20 mg = 1 tab, PO, Daily, 0 Refill(s) Radha Perez carvedilol (Coreg) 3.125 MG tablet carvedilol (Coreg) 3.125 MG tablet 07-29 00:00: 00 Yes Take by mouth 2 times a day with meals. Rdaha Perez Epic Vitamin B12 1000 MCG Oral Tablet Extended Release Vitamin B12 1000 MCG Oral Tablet Extended Release 2018-07 00:00: 00 Yes QD TAKE 1 TABLET DAILY DIRECTED. [facility] Midodrine HCl - 2.5 MG Oral Tablet Midodrine HCl - 2.5 MG Oral Tablet 2018-07 00:00: 00 Yes 1 Q0.5D TAKE 1 TABLET TWICE DAILY [facility] marcos Carvedilol 6.25 MG Oral Tablet Carvedilol 6.25 MG Oral Tablet 2018-07 00:00: 00 Yes KARIN WESTFALL M.D. 1 in Am and 0.5 at night [facility] Olmesartan Medoxomil 40 MG Oral Tablet Olmesartan Medoxomil 40 MG Oral Tablet 2018-07 00:00: 00 Yes KARIN WESTFALL M.D. 1 QD TAKE 1 TABLET DAILY. [facility] midodrine 5 mg oral tablet 02-10 15:18: 00 Yes 5 mg = 1 tab, PO, TID, # 90 tab, 3 Refill(s) Radha Perez benzonatate 100 mg capsule 12-13 00:00: 00 04-28 00:00 :00 No [id number] 100mg Take 1 capsule by mouth 3 (three) times daily as needed for Cough. [facility] levofloxaci n 250 mg/50 mL intravenous solution 12-03 18:10: 00 No 250 mg, IV, Q24H, # 50 ml, 0 Refill(s) Radha Perez melatonin 5 mg oral tablet 12-03 18:10: 00 Yes 5 mg = 1 tab, PO, Bedtime, PRN for insomnia, # 60 tab, 0 Refill(s) Radha Perez MethylPREDN ISolone Dose Pack 4 mg oral tablet 12-03 18:10: 00 Yes See Instructio ns, PO, Daily, Use as directed on label., # 1 Pack, 0 Refill(s) Radha Perez levofloxaci n 500 mg oral tablet 12-03 18:10: 00 Yes 500 mg = 1 tab, PO, Q24H, x 10 days. Today is 5/10, 0 Refill(s) Radha Perez telmisartan 40 mg oral tablet 12-03 18:09: 00 Yes 40 mg = 1 tab, PO, Daily, 0 Refill(s) Radha Perez metoprolol tartrate 12.5 mg 09-04 21:14: 01 Yes 12.5mg Take 12.5 mg by mouth every morning. [facility] clopidogrel (PLAVIX) 75 mg tablet 09-04 21:14: 01 Yes 75mg Take 75 mg by mouth daily. [facility] furosemide 20 mg tablet 09-04 21:14: 01 Yes 20mg Take 20 mg by mouth every other day. [facility] metoprolol tartrate 25 mg tablet 09-04 21:14: 01 Yes 25mg Take 25 mg by mouth 2 (two) times daily. [facility] atorvastati n 40 mg tablet 09-04 21:14: Yes 40mg Take 40 mg by mouth at bedtime. [facility] irbesartan 150 mg tablet 09-04 21:14: 01 Yes 150mg Take 150 mg by mouth at bedtime. [facility] lamoTRIgine 300 mg TR24 09-04 21:14: 01 Yes Take by mouth. [facility] METOPROLOL TARTRATE ORAL 07-30 04:36: 30 Yes 12.5mg Take 12.5 mg by mouth 2 (two) times daily. [facility] Lamotrigine (LAMICTAL ODT) 25 mg TbDL 07-30 04:36: 30 Yes 300mg Take 300 mg by mouth once now. [facility] irbesartan (AVAPRO) 300 mg tablet 07-30 04:36: 30 Yes 150mg Take 150 mg by mouth daily. [facility] furosemide (LASIX) 20 mg tablet 07-30 04:36: 30 Yes 20mg Take 20 mg by mouth every other day. [facility] aspirin 81 mg chewable tablet 07-30 04:36: 30 Yes 81mg Take 81 mg by mouth daily. [facility] Melatonin 5 mg tablet 07-30 04:36: 30 Yes 5mg Take 5 mg by mouth as needed for Insomnia. [facility] acetaminoph en-codeine (TYLENOL-CO DEINE #3) 300-30 mg tablet 07-30 00:00: 00 04-28 00:00 :00 No [id number] 1{tbl} Take 1 tablet by mouth every 4 (four) hours as needed for Pain (scale 7-10). [facility] ondansetron (ZOFRAN) 4 mg tablet 07-30 00:00: 00 04-28 00:00 :00 No [id number] 4mg Take 1 tablet by mouth every 8 (eight) hours as needed for Nausea and Vomiting (N/V). [facility] lamoTRIgine 300 mg oral tablet, extended release 2017-07 17:18: 33 Yes 300 mg = 1 tab, PO, Daily, X 90 day, # 90 tab, 3 Refill(s), Pharmacy: [place] [id number] Radha Perez lamoTRIgine 300 mg oral tablet, extended release 12-11 18:41: 43 Yes 300 mg = 1 tab, PO, Daily, X 90 day, # 90 tab, 3 Refill(s), Pharmacy: [place] [id number] Radha Perez lamoTRIgine 300 mg oral tablet, extended release 2016-07 19:23: 30 Yes 300 mg = 1 tab, PO, Daily, X 90 day, # 90 tab, 3 Refill(s), Pharmacy: [place] [id number] Radha Perez metoprolol tartrate 25 mg oral tablet 12-04 18:08: 00 Yes 0.5 tab in am and 1 tab at pm, PO, BID, # 180 tab, 0 Refill(s) Radha Perez irbesartan 150 mg oral tablet 12-04 18:08: 00 Yes 150 mg = 1 tab, PO, Daily, # 30 tab, 0 Refill(s) Radha Perez Melatonin ER 5 MG Oral Tablet Extended Release Melatonin ER 5 MG Oral Tablet Extended Release 09-18 00:00: 00 Yes KARIN Mehta ans Fluticasone propionate 0.05 MG/ACTUAT Metered Dose Nasal Cisco 07-26 19:06: 00 Yes 1 spray, NASAL, BID, # 16 gm, 3 Refill(s), Pharmacy: [place] [id number] Radha Perez melatonin 3 mg oral tablet 07-26 16:52: 00 Yes 3 mg = 1 tab, PO, Bedtime, PRN for insomnia, # 60 tab, 0 Refill(s) Radha Perez lamoTRIgine 300 mg oral tablet, extended release 2015-07 17:43: 55 Yes 300 mg = 1 tab, PO, Daily, X 90 day, # 90 tab, 3 Refill(s), Pharmacy: [place] [id number] Patoortega Perez clopidogrel 75 MG Oral Tablet [Plavix] 2015-07 17:18: 00 Yes 75 mg = 1 tab, PO, Daily, 0 Refill(s) Radha Perez Pepcid 2015-07 16:12: 00 Yes 20 mg, PO, PRN, 0 Refill(s) Patoortega Perez Trazodone Hydrochlori de 50 MG Oral Tablet 03-30 21:22: 00 No 100 mg = 2 tab, PO, Bedtime, PRN Sleep, trazodone 50-100 mg po QHS, # 60 tab, 1 Refill(s), Pharmacy: [place] [id number] Radha Perez melatonin 3 mg oral tablet 03-21 18:22: 00 Yes 3 mg = 1 tab, PO, Bedtime, PRN for insomnia, prn sleep, # 60 tab, 0 Refill(s) Radha Perez Furosemide 20 MG Oral Tablet 03-21 18:12: 00 Yes 20 mg = 1 tab, PO, Daily, 0 Refill(s) Patoortega Perez irbesartan 300 mg oral tablet 03-21 18:12: 00 Yes 300 mg = 1 tab, PO, Daily, 0 Refill(s) Patoortega Perez lamoTRIgine ER 300 MG Oral Tablet Extended Release 24 Hour lamoTRIgine ER 300 MG Oral Tablet Extended Release 24 Hour 03-16 00:00: 00 Yes 1 tab daily [facility] Lipitor 40 MG Oral Tablet Lipitor 40 MG Oral Tablet 03-16 00:00: 00 Yes TAKE 1 TABLET DAILY DIRECTED [facility] 24 HR lamotrigine 300 MG Extended Release Enteric Coated Tablet [Lamictal] 02-20 15:24: 00 Yes 300 mg = 1 tab, PO, QAM, # 30 tab, 2 Refill(s), Pharmacy: [place] [id number] Radha Perez lamotrigine 150 MG Oral Tablet 02-20 15:18: 00 No 150 mg = 1 tab, PO, BID, # 60 tab, 4 Refill(s), Pharmacy: [place] [id number] Radha Perez lamotrigine 02-20 15:09: 00 No 125 mg, PO, BID, 0 Refill(s) Radha Perez lamotrigine 100 MG Oral Tablet 01-10 18:33: 00 Yes 100 mg = 1 tab, PO, BID, # 60 tab, 4 Refill(s), Pharmacy: [place] [id number] Radha Perez atorvastati n 40 mg oral tablet 12-06 21:00: 00 Yes 40 mg = 1 tab, PO, Bedtime, 0 Refill(s) Radha Perez Levetiracet am 750 MG Oral Tablet [Keppra] 12-06 21:00: 00 Yes 750 mg = 1 tab, PO, BID, med dose was changed from 500 to 750mgafter ER visit for seizure episode, 0 Refill(s) Radha Perez atorvastati n (Lipitor) 40 MG tablet atorvastati n (Lipitor) 40 MG tablet 12-06 00:00: 00 Yes 40mg Take 40 mg by mouth at bedtime. Radha Perez Epic atorvastati n (Lipitor) 40 MG tablet 11-30 00:00: 00 Yes TAKE 1 TABLET DAILY DIRECTED [facility] lamoTRIgine 25 mg oral tablet 11-08 19:11: 00 Yes See Instructio ns, ramp up dose as directed., # 200 tab, 5 Refill(s), Pharmacy: [place] [id number] Radha Perez Clopidogrel Bisulfate 75 MG Oral Tablet Clopidogrel Bisulfate 75 MG Oral Tablet 10-12 00:00: 00 Yes KARIN WESTFALL M.D. TAKE ONE TABLET BY MOUTH EVERY DAY [facility] Levetiracet am 500 MG Oral Tablet [Keppra] 08-29 17:07: 14 Yes 500 mg = 1 tab, PO, Q12H, # 60 tab, 5 Refill(s), Pharmacy: [place] [id number] Radha Perez Hydrochloro thiazide 08-29 16:30: 00 Yes 12.5 mg, PO, Daily, 0 Refill(s) Patoortega sakshi Redding quinapril 40 mg oral tablet 07-27 16:21: 00 Yes 40 mg = 1 tab, PO, Daily, # 30 tab, 5 Refill(s), Pharmacy: [place] [id number] Patoortega sakshi Chris quinapril 20 mg oral tablet 07-27 14:56: 00 No 20 mg = 1 tab, PO, Daily, 0 Refill(s) Radha Perez Memantine 2014-07 14:30: 00 No Notes: (Same As: Denzel) Radha Perez Memantine 2014-07 03:00: 00 No Notes: (Same As: Denzel) Radha cantor [place] 2 ML Diazepam 0.005 MG/MG Prefilled Applicator [Diastat] 2014-07 23:04: 00 Yes 10 mg, ND, ONCE, # 2 kit, 1 Refill(s) Patoortega sakshi Perez metoprolol tartrate 25 mg oral tablet 2014-07 17:16: 00 Yes 25 mg = 1 tab, PO, Q12H, # 60 tab, 2 Refill(s) Patoortega sakshi Perez Ergocalcife rol [id number] UNT Oral Capsule 2014-07 17:16: 00 Yes 50,000 IntlUnit = 1 cap, PO, QMon, # 5 cap, 2 Refill(s) Patoortega sakshi Perez senna 8.6 mg oral tablet 2014-07 17:16: 00 Yes 8.6 mg = 1 tab, PO, Daily, X 30 day, # 30 tab, 2 Refill(s) Radha Perez lisinopril 5 mg oral tablet 2014-07 17:16: 00 Yes 5 mg = 1 tab, PO, Q12H, # 60 tab, 2 Refill(s) Radha Perez memantine 10 mg oral tablet 2014-07 17:16: 00 Yes 10 mg = 1 tab, PO, BID, From 06/29/15 through 07/05/15 take a full tab (10 mg) in the morning and half a tab (5 mg) at night. Then take 10 mg BID starting 07/06/15 and continue indefinite ly., # 60 tab, 2 Refill(s) Radha Perez Levetiracet am 500 MG Oral Tablet [Keppra] 2014-07 17:16: 00 Yes 500 mg = 1 tab, PO, Q12H, # 60 tab, 2 Refill(s) Radha Perez Famotidine 20 MG Oral Tablet [Pepcid] 2014-07 17:16: 00 Yes 20 mg = 1 tab, PO, Bedtime, # 30 tab, 2 Refill(s) Radha Reyesann clopidogrel 75 mg oral tablet 2014-07 17:16: 00 Yes 75 mg = 1 tab, PO, Daily, # 30 tab, 2 Refill(s) Radha Perez Ergocalcife rol [id number] UNT Oral Capsule 2014-07 15:00: 00 No Notes: (Same as: Vitamin D) "Do Not Crush" Patoortega cantor [place]ding clopidogrel (Plavix) 75 MG tablet clopidogrel (Plavix) 75 MG tablet 2014-07 00:00: 00 Yes QD Take by mouth 1 time each day. Radha cantor Chris Epic Lisinopril 2014-07 03:01: 00 No Notes: (Same as: Bogdan Lowry) Radha Perez Memantine 2014-07 14:30: 00 No Notes: (Same As: Namenda) Patoortega Perez Levetiracet am 500 MG Oral Tablet [Keppra] 2014-07 03:00: 00 No Notes: (Same as:Zee) Patoortega sakshi Perez Keppra 2014-07 15:42: 00 No Notes: Same as Keppra Mix with 100 mL NS, LR or D5W MEDICATION WASTE Product Size: 500 mg Product Wasted: ___ mg Patoortega cantor Chris Lisinopril 2014-07 03:01: 00 No Notes: (Same as: Prinivil, Zestril) Radha Perez Famotidine 20 MG Oral Tablet [Pepcid] 2014-07 03:00: 00 No Notes: (Same as: Pepcid) Radha Fan 2014-07 22:51: 00 No Notes: (Same as: Dustys A.E.R. PADS) Radha Perez hydrocortis one-pramoxi ne rectal foam 2014-07 20:39: 00 No Notes: (Same as: Proctofoam HC) Radha Perez Aspirin 2014-07 14:30: 00 No Notes: Do not crush or chew. (Same As: Ecotrin) Radha Perez senna 8.6 mg oral tablet 2014-07 14:30: 00 No Notes: (Same as: Senokot) Radha Perez Mita 2014-07 23:00: 00 No Notes: (Same as: Dustys A.E.R. PADS) Radha Pierre Yajaira 500 MG/ML Medicated Pad 2014-07 23:00: 00 No 1 ea, Route: ND, Dosing Weight 92.273, kg, QID, Start date: 06/14/15 17:00:00, Duration: 30 day, Stop date: 07/14/15 13:00:00 Radha Engleeduardo 2014-07 22:38: 00 No Notes: (Same as: Dustys A.E.R. PADS) Radha Dawnch Yajaira 500 MG/ML Medicated Pad 2014-07 22:30: 00 No 1 ea, Route: ND, Dosing Weight 92.273, kg, Q1H, PRN Hemorrhoid s, Start date: 06/14/15 16:30:00, Duration: 30 day, Stop date: 07/14/15 16:29:00 Radha Perez Memantine 2014-07 14:30: 00 No Notes: (Same As: Namenda) Radha Perez hydrocortis one-pramoxi ne rectal foam 2014-07 19:00: 00 No Notes: (Same as: Proctofoam HC) Radha Reyesann Fluoxetine 2014-07 14:30: 00 No 20 mg, Route: PO, Drug form: TAB, Daily, Dosing Weight 92.273, kg, Start date: 06/10/15 8:30:00, Duration: 30 day, Stop date: 07/09/15 8:30:00 Memoria l Chris hydrocortis one-pramoxi ne rectal foam 2014-07 03:00: 00 No Notes: (Same as: Proctofoam HC) Memoria l [place] Pramoxine hydrochlori de 10 MG/ML Rectal Foam [Proctofoam ] 2014-07 03:00: 00 No 1 appl, Route: ND, TID, Drug form: FOAM, Start date: 06/09/15 21:00:00, Duration: 30 day, Stop date: 07/09/15 13:00:00 Memoria l [place] hydrocortis one acetate 5 MG/ML / Lidocaine Hydrochlori de 30 MG/ML Rectal Cream 2014-07 03:00: 00 No 1 appl, Route: ND, BID, Start date: 06/09/15 21:00:00, Duration: 30 day, Stop date: 07/09/15 8:30:00 Memoria l Chris Mineral Oil 0.14 MG/MG / Petrolatum 0.719 MG/MG / Phenylephri ne Hydrochlori de 0.0025 MG/MG / Shark liver oil 0.03 MG/MG Rectal Ointment [Preparatio n H] 2014-07 03:00: 00 No Notes: Same as Preparatio n H oint Memoria l [place] Mineral Oil 0.14 MG/MG / Petrolatum 0.719 MG/MG / Phenylephri ne Hydrochlori de 0.0025 MG/MG / Shark liver oil 0.03 MG/MG Rectal Ointment [Preparatio n H] 2014-07 21:54: 00 No Notes: Same as Preparatio n H oint Memoria l [place] hydrocortis one acetate 25 MG Rectal Suppository [Anusol HC] 2014-07 15:13: 00 No Notes: (Same as: Anusol-HC, Hemorrhoid al HC) Patoortega Reyesann Nystatin 100 UNT/MG Topical Powder 2014-07 23:00: 00 No Notes: (Same as:Mycosta tin, Nilstat) For external use only. Radha Perez Claritin 2014-07 13:30: 00 No Notes: 1 hr before meals (Same as: Claritin) Radha Perez donepezil 2014-07 14:30: 00 No Notes: (Same as: Aricept) Patoortega sakshi Perez Levetiracet am 500 MG Oral Tablet 2014-07 14:30: 00 No Notes: (Same as:Keppra) Radha Perez Acetaminoph en 2014-07 17:56: 00 No Notes: Do not exceed 4 gm/day. (Same as: Tylenol) Radha Perez Protonix 2014-07 13:30: 00 No 40 mg, 1 tab, Route: PO, Drug form: ECTAB, Before Breakfast, Dosing Weight 92.273, kg, Start date: 05/24/15 7:30:00, Duration: 30 day, Stop date: 07/22/15 7:30:00 Radha Perez metoprolol tartrate 2014-07 03:00: 00 No Notes: (Same as: Lopressor) Radha Perez pneumococca l capsular polysacchar rosey type 1 vaccine / pneumococca l capsular polysacchar rosey type 10A vaccine / pneumococca l capsular polysacchar rosey type 11A vaccine / pneumococca l capsular polysacchar rosey type 12F vaccine / pneumococca l capsular polysacchar 2014-07 14:30: 00 No 0.5 mL, Route: IM, Drug Form: INJ, Daily, Start date: 05/21/15 8:30:00, Duration: 1 doses or times, Stop date: 05/21/15 8:30:00 Radha Perez influenza virus vaccine, inactivated 2014-07 14:30: 00 No Notes: (Same as: Fluzone Quadrivale nt) Radha Perez Hydralazine Hydrochlori de 50 MG Oral Tablet 2014-07 03:00: 00 No Notes: (Same as: Apresoline ) May interfere w/enteral feedings Take With Food. Radha Perez tamsulosin 2014-07 14:30: 00 No 0.4 mg, 1 cap, Route: PO, Drug form: CAP, After Breakfast, Dosing Weight 90.909, kg, Start date: 05/20/15 8:30:00, Duration: 30 day, Stop date: 06/18/15 8:30:00 Radha Perez clopidogrel 2014-07 14:30: 00 No Notes: (Same As: Plavix) Radha Perez Acetaminoph en 2014-07 06:00: 00 No Notes: Do not exceed 4 gm/day. (Same as: Tylenol) Radha Perez Hydralazine Hydrochlori de 50 MG Oral Tablet 2014-07 05:35: 00 No 50 mg, 0.5 tab, Route: PO, Drug form: TAB, Q12H, Dosing Weight 90.909, kg, Start date: 05/19/15 23:35:00, Duration: 30 day, Stop date: 06/18/15 21:01:00 Radha Perez senna 8.6 mg oral tablet 2014-07 05:33: 00 No Notes: (Same as: Senokot) Radha Perez Levetiracet am 500 MG Oral Tablet 2014-07 05:33: 00 No Notes: (Same as:Keppra) Radha Perez carvedilol 2014-07 05:33: 00 No 6.25 mg, 1 tab, Route: PO, Drug form: TAB, BID-Meals, Dosing Weight 90.909, kg, Start date: 05/19/15 23:33:00, Duration: 30 day, Stop date: 06/18/15 17:00:00 Radha Perez Famotidine 20 MG Oral Tablet 2014-07 05:32: 00 No Notes: (Same as: Pepcid) Radha Perez Lisinopril 2014-07 05:31: 00 No Notes: (Same as: Prinivil, Zestril) Radha Perez docusate sodium 100 mg oral capsule 2014-07 05:31: 00 No 100 mg, 1 cap, Route: PO, Drug form: CAP, BID, Dosing Weight 90.909, kg, Start date: 05/19/15 23:31:00, Duration: 30 day, Stop date: 06/18/15 21:01:00 Radha Perez atorvastati n 2014-07 05:30: 00 No Notes: (Same as: Lipitor) Radha Perez Lorazepam 2014-07 01:50: 00 No Notes: (Same as: Ativan) Radha Perez Levetiracet am 2014-07 01:50: 00 No Notes: Same as Keppra Mix with 100 mL NS, LR or D5W MEDICATION WASTE Product Size: 500 mg Product Wasted: _0__ mg Radha Perez Insulin, Aspart, Human 2014-07 01:50: 00 No Notes: Roll in palms of hands gently; Do not shake vigorously . (Same as: NovoLOG) "single patient use only" Stable for 28 days at room temperatur e. Expires in days from ____Date Radha Perez Albuterol 0.833 MG/ML / Ipratropium [place] 0.167 MG/ML Inhalant Solution 2014-07 01:50: 00 No Notes: (Same as: Mary) Radha Perez Saline Flush 0.9% 2014-07 01:50: 00 No Notes: (Same as: BD Posiflush) Radha Perez Bisacodyl 2014-07 01:50: 00 No Notes: (Same As: Dulcolax, Bisco-Lax) Radha Perez clopidogrel 2014-07 01:10: 00 No 75 mg, PO, Daily, 0 Refill(s) Radha Perez clopidogrel (PLAVIX) 75 mg tablet 2014-07 00:00: 00 Yes 75mg Take 1 Tab by mouth daily. [facility] tamsulosin 0.4 mg oral capsule 2014-07 21:52: 00 No 0.4 mg = 1 cap, PO, Daily Radha Perez lisinopril 20 mg oral tablet 2014-07 21:52: 00 No 20 mg = 1 tab, PO, Q12H Radha Perez senna 8.6 mg oral tablet 2014-07 21:52: 00 No 17.2 mg = 2 tab, PO, BID Radha Perez carvedilol 6.25 mg oral tablet 2014-07 21:52: 00 No 6.25 mg = 1 tab, PO, BID Radha Perez Levetiracet am 500 MG Oral Tablet 2014-07 21:52: 00 No 500 mg = 1 tab, PO, BID Patooria sakshi Perez piperacilli n-tazobacta m 3.375 g intravenous injection 2014-07 21:52: 00 No 3.375 gm, IV, Q6H Radha Perez atorvastati n 40 mg oral tablet 2014-07 21:52: 00 No 40 mg = 1 tab, PO, Bedtime Radha Perez moxifloxaci n 0.5% ophthalmic solution 2014-07 21:52: 00 No 1 drp, BOTH EYES, TID Radha Perez heparin 5000 units/0.5 mL injectable solution 2014-07 21:52: 00 No 0 Refill(s) Radha Perez Acetaminoph en 2014-07 21:52: 00 No 650 mg, PO, Q6H, 0 Refill(s) Radha Perez furosemide 10 mg/mL injectable solution 2014-07 21:52: 00 No 20 mg, IV, Daily Radha Perez vancomycin 750 mg/150 mL-NaCl 0.9% intravenous solution 2014-07 21:52: 00 No 750 mg, IV, Q24H Radha Perez Famotidine 20 MG Oral Tablet 2014-07 21:52: 00 No 20 mg = 1 tab, PO, BID Radha Perez Hydralazine Hydrochlori de 50 MG Oral Tablet 2014-07 21:52: 00 No 50 mg = 1 tab, PO, Q12H Radha Perez docusate sodium 100 mg oral capsule 2014-07 21:52: 00 No 100 mg = 1 cap, PO, BID Radha Perez Immunizations Ordered Immunization Name Filled Immunization Name Date Status Comments Source Influenza, High-dose Seasonal, Quadrivalent, Preservative Free Influenza, High-dose Seasonal, Quadrivalent, Preservative Free 2023-03-27 00:00:00 Completed [facility] Rsv, Bivalent, Protein Subunit Rsvpref, Diluent Reconstituted, 0.5 mL, PF Rsv, Bivalent, Protein Subunit Rsvpref, Diluent Reconstituted, 0.5 mL, PF 2023-03-27 00:00:00 Completed [facility] TD Pres-Free 2023-02-11 00:00:00 Completed [facility] Td (adult), 5 Lf tetanus toxoid, preservative free, adsorbed Td (adult), 5 Lf tetanus toxoid, preservative free, adsorbed 2023-02-11 00:00:00 Completed [facility] SARS-COV-2 COVID-19 LUIS-SUCROSE VACCINE 12 YRS+, BIVALENT 0.3ML, IM, (PFIZER HUFFMAN TOP BOOSTER) 2022-06-14 00:00:00 Completed [facility] SARS-COV-2 COVID-19 LUIS-SUCROSE VACCINE 12 YRS+, BIVALENT 0.3ML, IM, (PFIZER HUFFMAN TOP) 2022-06-14 00:00:00 Completed [facility] SARS-COV-2 COVID-19 LUIS-SUCROSE VACCINE 12 YRS+, BIVALENT 0.3ML, IM, (PFIZER HUFFMAN TOP) 2022-06-14 00:00:00 Completed [facility] Influenza, High-dose Seasonal, Quadrivalent, Preservative Free Influenza, High-dose Seasonal, Quadrivalent, Preservative Free 2022-03-15 00:00:00 Completed [facility] SARS-COV-2 COVID-19 PFIZER LUIS-SUCROSE VACCINE (HUFFMAN TOP) 2021-12-06 00:00:00 Completed [facility] SARS-COV-2 COVID-19 PFIZER LUIS-SUCROSE VACCINE (HUFFMAN TOP) 2021-12-06 00:00:00 Completed [facility] SARS-COV-2 COVID-19 PFIZER LUIS-SUCROSE VACCINE (HUFFMAN TOP) 2021-12-06 00:00:00 Completed [facility] SARS-COV-2 COVID-19 PFIZER LUIS-SUCROSE VACCINE (HUFFMAN TOP) 2021-12-06 00:00:00 Completed [facility] Influenza, High-dose Seasonal, Quadrivalent, Preservative Free Influenza, High-dose Seasonal, Quadrivalent, Preservative Free 2021-04-03 00:00:00 Completed [facility] SARS-COV-2 COVID-19 PFIZER VACCINE 2021-03-10 00:00:00 Completed [facility] SARS-COV-2 COVID-19 PFIZER VACCINE 2021-03-10 00:00:00 Completed [facility] SARS-COV-2 COVID-19 PFIZER VACCINE 2021-03-10 00:00:00 Completed [facility] SARS-COV-2 COVID-19 PFIZER VACCINE 2021-03-10 00:00:00 Completed [facility] SARS-COV-2 COVID-19 PFIZER VACCINE 2021-03-10 00:00:00 Completed [facility] SARS-COV-2 COVID-19 PFIZER VACCINE 2020-08-10 00:00:00 Completed [facility] SARS-COV-2 COVID-19 PFIZER VACCINE 2020-08-10 00:00:00 Completed [facility] SARS-COV-2 COVID-19 PFIZER VACCINE 2020-08-10 00:00:00 Completed [facility] SARS-COV-2 COVID-19 PFIZER VACCINE 2020-08-10 00:00:00 Completed [facility] SARS-COV-2 COVID-19 PFIZER VACCINE 2020-08-10 00:00:00 Completed [facility] SARS-COV-2 COVID-19 PFIZER VACCINE 2020-08-10 00:00:00 Completed [facility] SARS-COV-2 COVID-19 PFIZER VACCINE 2020-08-10 00:00:00 Completed [facility] SARS-COV-2 COVID-19 PFIZER VACCINE 2020-08-10 00:00:00 Completed [facility] SARS-COV-2 COVID-19 PFIZER VACCINE 2020-08-10 00:00:00 Completed [facility] SARS-COV-2 COVID-19 PFIZER VACCINE 2020-07-20 00:00:00 Completed [facility] SARS-COV-2 COVID-19 PFIZER VACCINE 2020-07-20 00:00:00 Completed [facility] SARS-COV-2 COVID-19 PFIZER VACCINE 2020-07-20 00:00:00 Completed [facility] SARS-COV-2 COVID-19 PFIZER VACCINE 2020-07-20 00:00:00 Completed [facility] SARS-COV-2 COVID-19 PFIZER VACCINE 2020-07-20 00:00:00 Completed [facility] SARS-COV-2 COVID-19 PFIZER VACCINE 2020-07-20 00:00:00 Completed [facility] SARS-COV-2 COVID-19 PFIZER VACCINE 2020-07-20 00:00:00 Completed [facility] SARS-COV-2 COVID-19 PFIZER VACCINE 2020-07-20 00:00:00 Completed [facility] SARS-COV-2 COVID-19 PFIZER VACCINE 2020-07-20 00:00:00 Completed [facility] Influenza High Dose Quad 2020-03-29 00:00:00 Completed [facility] Influenza High Dose Quad 2020-03-29 00:00:00 Completed [facility] Influenza High Dose Quad 2020-03-29 00:00:00 Completed [facility] Influenza High Dose Quad 2020-03-29 00:00:00 Completed [facility] Influenza High Dose Quad 2020-03-29 00:00:00 Completed [facility] Influenza High Dose Quad 2020-03-29 00:00:00 Completed [facility] Influenza High Dose Quad 2020-03-29 00:00:00 Completed [facility] Influenza High Dose Quad 2020-03-29 00:00:00 Completed [facility] Influenza High Dose Quad 2020-03-29 00:00:00 Completed [facility] Influenza High Dose Quad 2020-03-29 00:00:00 Completed [facility] Influenza High Dose Quad 2020-03-29 00:00:00 Completed [facility] Influenza High Dose Quad 2020-03-29 00:00:00 Completed [facility] Influenza High Dose Quad 2020-03-29 00:00:00 Completed [facility] Td 2018-12-13 00:00:00 Completed [facility] Td 2018-12-13 00:00:00 Completed [facility] Td 2018-12-13 00:00:00 Completed [facility] Td 2018-12-13 00:00:00 Completed [facility] Td 2018-12-13 00:00:00 Completed [facility] Td 2018-12-13 00:00:00 Completed [facility] Td 2018-12-13 00:00:00 Completed [facility] Td 2018-12-13 00:00:00 Completed [facility] Td 2018-12-13 00:00:00 Completed [facility] Td 2018-12-13 00:00:00 Completed [facility] Td 2018-12-13 00:00:00 Completed [facility] Td 2018-12-13 00:00:00 Completed [facility] Td 2018-12-13 00:00:00 Completed [facility] Td 2018-12-13 00:00:00 Completed [facility] Td 2018-12-13 00:00:00 Completed [facility] Td 2018-12-13 00:00:00 Completed [facility] TD, NOS 2018-12-13 00:00:00 Completed [facility] TD, NOS 2018-12-13 00:00:00 Completed [facility] influenza virus vaccine, inactivated 2016-04-25 17:49:00 Completed [facility] Influenza, injectable, quadrivalent, preservative free Influenza, injectable, quadrivalent, preservative free 2016-04-25 00:00:00 Completed [facility] TD, NOS Unknown Completed [facility] Influenza High Dose Quad Unknown Completed [facility] SARS-COV-2 COVID-19 PFIZER VACCINE Unknown Completed [facility] SARS-COV-2 COVID-19 PFIZER LUIS-SUCROSE VACCINE (HUFFMAN TOP) Unknown Completed [facility] SARS-COV-2 COVID-19 LUIS-SUCROSE VACCINE 12 YRS+, BIVALENT 0.3ML, IM, (PFIZER HUFFMAN TOP) Unknown Completed [facility] TD Pres-Free Unknown Completed [facility] TD, NOS Unknown Completed [facility] Influenza High Dose Quad Unknown Completed [facility] SARS-COV-2 COVID-19 PFIZER VACCINE Unknown Completed [facility] SARS-COV-2 COVID-19 PFIZER LUIS-SUCROSE VACCINE (HUFFMAN TOP) Unknown Completed [facility] SARS-COV-2 COVID-19 LUIS-SUCROSE VACCINE 12 YRS+, BIVALENT 0.3ML, IM, (PFIZER HUFFMAN TOP) Unknown Completed [facility] TD Pres-Free Unknown Completed [facility] TD, NOS Unknown Completed [facility] Influenza High Dose Quad Unknown Completed [facility] SARS-COV-2 COVID-19 PFIZER VACCINE Unknown Completed [facility] SARS-COV-2 COVID-19 PFIZER LUIS-SUCROSE VACCINE (HUFFMAN TOP) Unknown Completed [facility] SARS-COV-2 COVID-19 LUIS-SUCROSE VACCINE 12 YRS+, BIVALENT 0.3ML, IM, (PFIZER HUFFMAN TOP) Unknown Completed [facility] TD Pres-Free Unknown Completed [facility] TD, NOS Unknown Completed [facility] Influenza High Dose Quad Unknown Completed [facility] SARS-COV-2 COVID-19 PFIZER VACCINE Unknown Completed [facility] SARS-COV-2 COVID-19 PFIZER LUIS-SUCROSE VACCINE (HUFFMAN TOP) Unknown Completed [facility] SARS-COV-2 COVID-19 LUIS-SUCROSE VACCINE 12 YRS+, BIVALENT 0.3ML, IM, (PFIZER HUFFMAN TOP) Unknown Completed [facility] TD Pres-Free Unknown Completed [facility] TD, NOS Unknown Completed [facility] Influenza High Dose Quad Unknown Completed [facility] SARS-COV-2 COVID-19 PFIZER VACCINE Unknown Completed [facility] SARS-COV-2 COVID-19 PFIZER LUIS-SUCROSE VACCINE (HUFFMAN TOP) Unknown Completed [facility] SARS-COV-2 COVID-19 LUIS-SUCROSE VACCINE 12 YRS+, BIVALENT 0.3ML, IM, (PFIZER HUFFMAN TOP) Unknown Completed [facility] TD Pres-Free Unknown Completed [facility] Vital Signs Vital Name Observation Time Observation Value Comments S ource Systolic blood pressure 2024-01-28 20:30:00 134 mm[Hg] [facility] Diastolic blood pressure 2024-01-28 20:30:00 73 mm[Hg] [facility] Heart rate 2024-01-28 20:30:00 69 /min [facility] Body temperature 2024-01-28 20:30:00 35.83 Olga [facility] Respiratory rate 2024-01-28 20:30:00 20 /min [facility] Oxygen saturation in Arterial blood by Pulse oximetry 2024-01-28 20:30:00 98 /min [facility] Body height 2024-01-28 16:48:00 177.8 cm [facility] Body weight 2024-01-28 16:48:00 81.647 kg [facility] BMI 2024-01-28 16:48:00 25.83 kg/m2 [facility] Systolic blood pressure 2023-10-18 16:02:00 105 mm[Hg] [facility] Diastolic blood pressure 2023-10-18 16:02:00 66 mm[Hg] [facility] Heart rate 2023-10-18 16:02:00 69 /min [facility] Body temperature 2023-10-18 16:02:00 36.56 Olga [facility] Body height 2023-10-18 16:02:00 177.8 cm [facility] Body weight 2023-10-18 16:02:00 80.74 kg [facility] BMI 2023-10-18 16:02:00 25.54 kg/m2 [facility] Systolic blood pressure 2023-10-03 14:50:00 125 mm[Hg] [facility] Diastolic blood pressure 2023-10-03 14:50:00 75 mm[Hg] [facility] Heart rate 2023-10-03 14:50:00 85 /min [facility] Body temperature 2023-10-03 14:50:00 36.5 Olga [facility] Respiratory rate 2023-10-03 14:50:00 18 /min [facility] Body height 2023-10-03 14:50:00 177.8 cm [facility] Body weight 2023-10-03 14:50:00 82.827 kg [facility] BMI 2023-10-03 14:50:00 26.20 kg/m2 [facility] Oxygen saturation in Arterial blood by Pulse oximetry 2023-10-03 14:50:00 96 /min [facility] Systolic blood pressure 2023-02-12 03:30:00 115 mm[Hg] [facility] Diastolic blood pressure 2023-02-12 03:30:00 69 mm[Hg] [facility] Heart rate 2023-02-12 03:30:00 72 /min [facility] Respiratory rate 2023-02-12 03:30:00 15 /min [facility] Oxygen saturation in Arterial blood by Pulse oximetry 2023-02-12 03:30:00 95 /min [facility] Body temperature 2023-02-12 02:02:00 36.56 Olga [facility] Body height 2023-02-12 02:02:00 177.8 cm [facility] Body weight 2023-02-12 02:02:00 83.462 kg [facility] BMI 2023-02-12 02:02:00 26.40 kg/m2 [facility] Systolic blood pressure 2023-01-15 22:19:48 119 mm[Hg] [facility] Diastolic blood pressure 2023-01-15 22:19:48 70 mm[Hg] [facility] Heart rate 2023-01-15 22:19:48 64 /min [facility] Body temperature 2023-01-15 22:19:48 36.11 Olga [facility] Respiratory rate 2023-01-15 22:19:48 20 /min [facility] Oxygen saturation in Arterial blood by Pulse oximetry 2023-01-15 22:19:48 95 /min [facility] Body height 2023-01-15 21:51:00 177.8 cm [facility] Body weight 2023-01-15 21:51:00 81.647 kg [facility] BMI 2023-01-15 21:51:00 25.83 kg/m2 [facility] Systolic blood pressure 2022-03-13 17:03:00 126 mm[Hg] [facility] Diastolic blood pressure 2022-03-13 17:03:00 74 mm[Hg] [facility] Heart rate 2022-03-13 17:03:00 70 /min [facility] Body temperature 2022-03-13 17:03:00 36.06 Olga [facility] Body height 2022-03-13 17:03:00 177.8 cm [facility] Body weight 2022-03-13 17:03:00 83.915 kg [facility] BMI 2022-03-13 17:03:00 26.54 kg/m2 [facility] Oxygen saturation in Arterial blood by Pulse oximetry 2022-03-13 17:03:00 97 /min [facility] Systolic blood pressure 2021-02-24 05:00:00 131 mm[Hg] [facility] Diastolic blood pressure 2021-02-24 05:00:00 61 mm[Hg] [facility] Heart rate 2021-02-24 05:00:00 80 /min [facility] Respiratory rate 2021-02-24 05:00:00 23 /min [facility] Oxygen saturation in Arterial blood by Pulse oximetry 2021-02-24 05:00:00 96 /min [facility] Body temperature 2021-02-24 03:56:00 36.61 Olga [facility] Body weight 2021-02-24 03:56:00 83.915 kg [facility] BMI 2021-02-24 03:56:00 26.54 kg/m2 [facility] Systolic blood pressure 2020-12-14 18:00:00 120 mm[Hg] [facility] Diastolic blood pressure 2020-12-14 18:00:00 61 mm[Hg] [facility] Heart rate 2020-12-14 18:00:00 52 /min [facility] Respiratory rate 2020-12-14 18:00:00 16 /min [facility] Oxygen saturation in Arterial blood by Pulse oximetry 2020-12-14 18:00:00 97 /min [facility] Body temperature 2020-12-14 16:25:02 35.28 Olga [facility] Body weight 2020-12-14 15:24:00 81.647 kg [facility] BMI 2020-12-14 15:24:00 25.83 kg/m2 [facility] Systolic blood pressure 2020-08-24 04:36:00 174 mm[Hg] [facility] Diastolic blood pressure 2020-08-24 04:36:00 82 mm[Hg] [facility] Heart rate 2020-08-24 04:36:00 73 /min [facility] Body temperature 2020-08-24 04:36:00 37 Olga [facility] Respiratory rate 2020-08-24 04:36:00 18 /min [facility] Body weight 2020-08-24 04:36:00 81.647 kg [facility] BMI 2020-08-24 04:36:00 25.83 kg/m2 [facility] Oxygen saturation in Arterial blood by Pulse oximetry 2020-08-24 04:36:00 100 /min [facility] Systolic blood pressure 2020-06-24 21:00:00 136 mm[Hg] [facility] Diastolic blood pressure 2020-06-24 21:00:00 72 mm[Hg] [facility] Heart rate 2020-06-24 21:00:00 66 /min [facility] Oxygen saturation in Arterial blood by Pulse oximetry 2020-06-24 21:00:00 97 /min [facility] Respiratory rate 2020-06-24 20:00:00 17 /min [facility] Body temperature 2020-06-24 17:24:00 35.78 Olga [facility] Body height 2020-06-24 17:24:00 177.8 cm [facility] Body weight 2020-06-24 17:24:00 81.647 kg [facility] BMI 2020-06-24 17:24:00 25.83 kg/m2 [facility] Body weight 2020-04-29 21:00:00 82.6 kg [facility] BMI 2020-04-29 21:00:00 26.89 kg/m2 [facility] Systolic blood pressure 2020-04-29 16:53:00 143 mm[Hg] [facility] Diastolic blood pressure 2020-04-29 16:53:00 74 mm[Hg] [facility] Heart rate 2020-04-29 16:53:00 79 /min [facility] Body temperature 2020-04-29 16:53:00 36.61 Olga [facility] Respiratory rate 2020-04-29 16:53:00 18 /min [facility] Oxygen saturation in Arterial blood by Pulse oximetry 2020-04-29 16:53:00 93 /min [facility] Body height 2020-04-28 16:13:00 175.3 cm [facility] Systolic blood pressure 2020-04-05 15:43:00 128 mm[Hg] [facility] Diastolic blood pressure 2020-04-05 15:43:00 90 mm[Hg] [facility] Heart rate 2020-04-05 15:43:00 77 /min [facility] Body temperature 2020-04-05 15:43:00 36.22 Olga [facility] Respiratory rate 2020-04-05 15:43:00 18 /min [facility] Body height 2020-04-05 15:43:00 177.8 cm [facility] Body weight 2020-04-05 15:43:00 81.647 kg [facility] BMI 2020-04-05 15:43:00 25.83 kg/m2 [facility] Oxygen saturation in Arterial blood by Pulse oximetry 2020-04-05 15:43:00 96 /min [facility] Systolic blood pressure 2019-11-23 20:00:00 155 mm[Hg] [facility] Diastolic blood pressure 2019-11-23 20:00:00 68 mm[Hg] [facility] Heart rate 2019-11-23 20:00:00 56 /min [facility] Respiratory rate 2019-11-23 20:00:00 16 /min [facility] Oxygen saturation in Arterial blood by Pulse oximetry 2019-11-23 20:00:00 98 /min [facility] Body temperature 2019-11-23 18:24:00 36.17 Olga [facility] Body weight 2019-11-23 18:24:00 77.111 kg [facility] BMI 2019-11-23 18:24:00 25.10 kg/m2 [facility] Systolic (mm Hg) 2021-01-11 18:44:00 [facility] Diastolic (mm Hg) 2021-01-11 18:44:00 [facility] Heart Rate 2021-01-11 18:44:00 [facility] Respitory Rate 2021-01-11 18:44:00 [facility] Weight 2021-01-11 18:44:00 [facility] Systolic blood pressure 2020-09-07 11:46:00 152 mm[Hg] [facility] Diastolic blood pressure 2020-09-07 11:46:00 85 mm[Hg] [facility] Systolic blood pressure 2020-03-04 13:37:00 123 mm[Hg] [facility] Diastolic blood pressure 2020-03-04 13:37:00 76 mm[Hg] [facility] Heart Rate 2020-03-04 13:37:00 64 /min [facility] Systolic blood pressure 2019-11-10 11:16:00 133 mm[Hg] [facility] Diastolic blood pressure 2019-11-10 11:16:00 76 mm[Hg] [facility] Height 2019-07-29 19:11:00 177.8 cm [facility] BMI Calculated 2019-07-29 19:11:00 [facility] Weight 2019-07-29 19:11:00 [facility] Systolic (mm Hg) 2019-07-29 19:11:00 [facility] Diastolic (mm Hg) 2019-07-29 19:11:00 [facility] Heart Rate 2019-07-29 19:11:00 [facility] Respitory Rate 2019-07-29 19:11:00 [facility] BP Systolic 2019-06-03 10:26:00 135 mm[Hg] Location: LUE; Position: Sitting [facility] BP Diastolic 2019-06-03 10:26:00 85 mm[Hg] Location: LUE; Position: Sitting [facility] Height 2019-06-03 10:26:00 69.5 [in_us] [facility] Weight 2019-06-03 10:26:00 172.5 [lb_av] [facility] Body Mass Index Calculated 2019-06-03 10:26:00 25.11 kg/m2 [facility] Heart Rate 2019-06-03 10:26:00 60 /min [facility] BP Systolic 2019-05-12 10:19:00 143 mm[Hg] Location: LUE; Position: Sitting [facility] BP Diastolic 2019-05-12 10:19:00 76 mm[Hg] Location: LUE; Position: Sitting [facility] Height 2019-05-12 10:19:00 69.5 [in_us] [facility] Weight 2019-05-12 10:19:00 172 [lb_av] [facility] Body Mass Index Calculated 2019-05-12 10:19:00 25.04 kg/m2 [facility] Heart Rate 2019-05-12 10:19:00 64 /min Location: L Brachial Artery; [facility] Systolic (mm Hg) 2019-02-10 15:05:00 [facility] Diastolic (mm Hg) 2019-02-10 15:05:00 [facility] Heart Rate 2019-02-10 15:05:00 [facility] Respitory Rate 2019-02-10 15:05:00 [facility] Height 2019-02-10 15:05:00 175.26 cm [facility] BMI Calculated 2019-02-10 15:05:00 [facility] Weight 2019-02-10 15:05:00 [facility] Weight 2018-12-03 18:04:00 [facility] BMI Calculated 2018-12-03 18:04:00 [facility] Height 2018-12-03 18:04:00 180.26 cm [facility] Respitory Rate 2018-12-03 18:04:00 [facility] Systolic (mm Hg) 2018-12-03 18:04:00 [facility] Diastolic (mm Hg) 2018-12-03 18:04:00 [facility] Heart Rate 2018-12-03 18:04:00 [facility] BP Systolic 2018-11-04 12:20:00 121 mm[Hg] Location: LUE; Position: Sitting [facility] BP Diastolic 2018-11-04 12:20:00 72 mm[Hg] Location: LUE; Position: Sitting [facility] Height 2018-11-04 12:20:00 69.5 [in_us] [facility] Weight 2018-11-04 12:20:00 170.375 [lb_av] [facility] Body Mass Index Calculated 2018-11-04 12:20:00 24.8 kg/m2 [facility] Heart Rate 2018-11-04 12:20:00 75 /min Location: L Brachial Artery; [facility] BP Systolic 2018-08-19 10:14:00 143 mm[Hg] Location: RUE; Position: Sitting [facility] BP Diastolic 2018-08-19 10:14:00 85 mm[Hg] Location: RUE; Position: Sitting [facility] Height 2018-08-19 10:14:00 70 [in_us] [facility] Weight 2018-08-19 10:14:00 174 [lb_av] [facility] Body Mass Index Calculated 2018-08-19 10:14:00 24.97 kg/m2 [facility] Heart Rate 2018-08-19 10:14:00 58 /min Location: R Brachial Artery; [facility] Height 2018-06-12 16:44:00 175.26 cm [facility] Weight 2018-06-12 16:44:00 [facility] BMI Calculated 2018-06-12 16:44:00 [facility] Systolic (mm Hg) 2018-06-12 16:44:00 [facility] Diastolic (mm Hg) 2018-06-12 16:44:00 [facility] Respitory Rate 2018-06-12 16:44:00 [facility] Heart Rate 2018-06-12 16:44:00 [facility] Heart Rate 2017-12-11 18:02:00 [facility] Respitory Rate 2017-12-11 18:02:00 [facility] Temperature Oral (F) 2017-12-11 18:02:00 97.6 F [facility] Height 2017-12-11 18:02:00 176.53 cm [facility] BMI Calculated 2017-12-11 18:02:00 [facility] Weight 2017-12-11 18:02:00 [facility] Systolic (mm Hg) 2017-12-11 18:02:00 [facility] Diastolic (mm Hg) 2017-12-11 18:02:00 [facility] Systolic (mm Hg) 2017-12-09 14:00:00 [facility] Diastolic (mm Hg) 2017-12-09 14:00:00 [facility] Respitory Rate 2017-12-09 14:00:00 [facility] Systolic (mm Hg) 2017-12-09 13:59:00 [facility] Diastolic (mm Hg) 2017-12-09 13:59:00 [facility] Respitory Rate 2017-12-09 13:59:00 [facility] Systolic (mm Hg) 2017-12-09 13:58:00 [facility] Diastolic (mm Hg) 2017-12-09 13:58:00 [facility] Respitory Rate 2017-12-09 13:58:00 [facility] BMI Calculated 2017-12-09 12:43:00 [facility] Weight 2017-12-09 12:43:00 [facility] Height 2017-12-09 12:43:00 175.26 cm [facility] Respitory Rate 2017-06-12 20:04:00 [facility] Systolic (mm Hg) 2017-06-12 20:04:00 [facility] Diastolic (mm Hg) 2017-06-12 20:04:00 [facility] Heart Rate 2017-06-12 20:04:00 [facility] Respitory Rate 2017-06-12 19:59:00 [facility] Systolic (mm Hg) 2017-06-12 19:59:00 [facility] Diastolic (mm Hg) 2017-06-12 19:59:00 [facility] Heart Rate 2017-06-12 19:59:00 [facility] Heart Rate 2017-06-12 19:55:00 [facility] Respitory Rate 2017-06-12 19:55:00 [facility] Systolic (mm Hg) 2017-06-12 19:55:00 [facility] Diastolic (mm Hg) 2017-06-12 19:55:00 [facility] BMI Calculated 2016-12-18 16:06:00 [facility] Weight 2016-12-18 16:06:00 [facility] Height 2016-12-18 16:06:00 175.26 cm [facility] Respitory Rate 2016-12-18 16:06:00 [facility] Heart Rate 2016-12-18 16:06:00 [facility] Systolic (mm Hg) 2016-12-18 16:06:00 [facility] Diastolic (mm Hg) 2016-12-18 16:06:00 [facility] Heart Rate 2016-12-04 18:05:00 [facility] Respitory Rate 2016-12-04 18:05:00 [facility] Height 2016-12-04 18:05:00 175.26 cm [facility] BMI Calculated 2016-12-04 18:05:00 [facility] Weight 2016-12-04 18:05:00 [facility] Systolic (mm Hg) 2016-12-04 18:05:00 [facility] Diastolic (mm Hg) 2016-12-04 18:05:00 [facility] Height 2016-07-26 16:48:00 177.8 cm [facility] BMI Calculated 2016-07-26 16:48:00 [facility] Weight 2016-07-26 16:48:00 [facility] Respitory Rate 2016-07-26 16:48:00 [facility] Heart Rate 2016-07-26 16:48:00 [facility] Systolic (mm Hg) 2016-07-26 16:48:00 [facility] Diastolic (mm Hg) 2016-07-26 16:48:00 [facility] Height 2016-06-19 17:11:00 175.26 cm [facility] Weight 2016-06-19 17:11:00 [facility] BMI Calculated 2016-06-19 17:11:00 [facility] Systolic (mm Hg) 2016-06-19 17:11:00 [facility] Diastolic (mm Hg) 2016-06-19 17:11:00 [facility] Respitory Rate 2016-06-19 17:11:00 [facility] Heart Rate 2016-06-19 17:11:00 [facility] Systolic (mm Hg) 2016-06-05 19:22:00 [facility] Diastolic (mm Hg) 2016-06-05 19:22:00 [facility] Respitory Rate 2016-06-05 19:22:00 [facility] Heart Rate 2016-06-05 19:22:00 [facility] Weight 2016-04-25 16:04:00 [facility] BMI Calculated 2016-04-25 16:04:00 [facility] Height 2016-04-25 16:04:00 176.53 cm [facility] Heart Rate 2016-04-25 16:04:00 [facility] Respitory Rate 2016-04-25 16:04:00 [facility] Systolic (mm Hg) 2016-04-25 16:04:00 [facility] Diastolic (mm Hg) 2016-04-25 16:04:00 [facility] Weight 2016-03-21 18:10:00 [facility] BMI Calculated 2016-03-21 18:10:00 [facility] Height 2016-03-21 18:10:00 175.26 cm [facility] Systolic (mm Hg) 2016-03-21 18:10:00 [facility] Diastolic (mm Hg) 2016-03-21 18:10:00 [facility] Respitory Rate 2016-03-21 18:10:00 [facility] Heart Rate 2016-03-21 18:10:00 [facility] Systolic (mm Hg) 2016-02-21 15:02:00 [facility] Diastolic (mm Hg) 2016-02-21 15:02:00 [facility] Height 2016-02-21 15:02:00 177.8 cm [facility] Heart Rate 2016-02-21 15:02:00 [facility] BMI Calculated 2016-02-21 15:02:00 [facility] Weight 2016-02-21 15:02:00 [facility] Respitory Rate 2016-02-21 15:02:00 [facility] Systolic (mm Hg) 2016-01-11 18:24:00 [facility] Diastolic (mm Hg) 2016-01-11 18:24:00 [facility] Heart Rate 2016-01-11 18:24:00 [facility] Respitory Rate 2016-01-11 18:24:00 [facility] Height 2016-01-11 18:07:00 177.8 cm [facility] Weight 2016-01-11 18:07:00 [facility] BMI Calculated 2016-01-11 18:07:00 [facility] Respitory Rate 2016-01-11 18:07:00 [facility] BMI Calculated 2015-12-07 20:59:00 [facility] Weight 2015-12-07 20:59:00 [facility] Height 2015-12-07 20:59:00 152.4 cm [facility] Heart Rate 2015-12-07 20:59:00 [facility] Respitory Rate 2015-12-07 20:59:00 [facility] Systolic (mm Hg) 2015-12-07 20:59:00 [facility] Diastolic (mm Hg) 2015-12-07 20:59:00 [facility] Height 2015-11-09 18:38:00 177.8 cm [facility] Weight 2015-11-09 18:38:00 [facility] BMI Calculated 2015-11-09 18:38:00 [facility] Respitory Rate 2015-11-09 18:38:00 [facility] Heart Rate 2015-11-09 18:38:00 [facility] Systolic (mm Hg) 2015-11-09 18:38:00 [facility] Diastolic (mm Hg) 2015-11-09 18:38:00 [facility] Weight 2015-11-01 16:02:00 [facility] Height 2015-11-01 16:02:00 177 cm [facility] BMI Calculated 2015-11-01 16:02:00 [facility] Systolic (mm Hg) 2015-11-01 16:02:00 [facility] Diastolic (mm Hg) 2015-11-01 16:02:00 [facility] Respitory Rate 2015-11-01 16:02:00 [facility] Heart Rate 2015-11-01 16:02:00 [facility] Respitory Rate 2015-10-27 18:11:00 [facility] Heart Rate 2015-10-27 18:11:00 [facility] Systolic (mm Hg) 2015-10-27 18:11:00 [facility] Diastolic (mm Hg) 2015-10-27 18:11:00 [facility] Height 2015-08-30 16:21:00 177.8 cm [facility] BMI Calculated 2015-08-30 16:21:00 [facility] Weight 2015-08-30 16:21:00 [facility] Respitory Rate 2015-08-30 16:21:00 [facility] Systolic (mm Hg) 2015-08-30 16:21:00 [facility] Diastolic (mm Hg) 2015-08-30 16:21:00 [facility] Heart Rate 2015-08-30 16:21:00 [facility] Respitory Rate 2015-08-01 15:25:00 [facility] Systolic (mm Hg) 2015-08-01 15:25:00 [facility] Diastolic (mm Hg) 2015-08-01 15:25:00 [facility] Heart Rate 2015-08-01 15:25:00 [facility] BMI Calculated 2015-08-01 15:25:00 [facility] Height 2015-08-01 15:25:00 177.8 cm [facility] Weight 2015-08-01 15:25:00 [facility] Heart Rate 2015-07-27 22:15:00 [facility] Systolic (mm Hg) 2015-07-27 22:15:00 [facility] Diastolic (mm Hg) 2015-07-27 22:15:00 [facility] Systolic (mm Hg) 2015-07-27 15:08:00 [facility] Diastolic (mm Hg) 2015-07-27 15:08:00 [facility] Respitory Rate 2015-07-27 15:08:00 [facility] Heart Rate 2015-07-27 15:08:00 [facility] Respitory Rate 2015-07-27 14:49:00 [facility] BMI Calculated 2015-07-27 14:49:00 [facility] Height 2015-07-27 14:49:00 172.72 cm [facility] Weight 2015-07-27 14:49:00 [facility] Systolic (mm Hg) 2015-07-27 14:49:00 [facility] Diastolic (mm Hg) 2015-07-27 14:49:00 [facility] Heart Rate 2015-07-27 14:49:00 [facility] Rate 2015-07-21 00:03:00 [facility] Systolic (mm Hg) 2015-07-21 00:03:00 [facility] Diastolic (mm Hg) 2015-07-21 00:03:00 [facility] Rate 2015-07-13 19:11:00 [facility] Systolic (mm Hg) 2015-07-13 19:11:00 [facility] Diastolic (mm Hg) 2015-07-13 19:11:00 [facility] Height 2015-07-13 17:00:00 177.8 cm [facility] Diastolic (mm Hg) 2015-06-29 14:50:00 [facility] Heart Rate 2015-06-29 14:50:00 [facility] Respitory Rate 2015-06-29 14:50:00 [facility] Systolic (mm Hg) 2015-06-29 14:50:00 [facility] Temperature Oral (F) 2015-06-28 22:05:00 97.7 F [facility] Respitory Rate 2015-06-28 22:05:00 [facility] Rate 2015-06-28 22:05:00 [facility] Diastolic (mm Hg) 2015-06-28 22:05:00 [facility] Systolic (mm Hg) 2015-06-28 22:05:00 [facility] Systolic (mm Hg) 2015-06-28 13:17:00 [facility] Respitory Rate 2015-06-28 13:17:00 [facility] Diastolic (mm Hg) 2015-06-28 13:17:00 [facility] Rate 2015-06-28 13:17:00 [facility] Temperature Oral (F) 2015-06-25 22:00:00 98.4 F [facility] Temperature Oral (F) 2015-06-25 13:30:00 97.9 F [facility] Height 2015-06-13 18:47:00 177.8 cm [facility] Height 2015-05-20 05:17:00 177.8 cm [facility] Weight 2015-05-20 05:14:00 [facility] BMI Calculated 2015-05-20 05:14:00 [facility] Height 2015-05-20 05:14:00 177.8 cm [facility] Weight 2015-05-20 02:00:00 [facility] BMI Calculated 2015-05-20 02:00:00 [facility] Procedures Procedure Date / Time Performed Performing Clinician Source URINALYSIS 2024-01-28 19:22:00 Kathy Macais [facility] CT HEAD WO CONTRAST 2024-01-28 18:35:41 Kathy Macias [facility] XR CHEST 1 VW 2024-01-28 17:29:26 Kathy Macias [facility] MAGNESIUM 2024-01-28 16:58:00 Kathy Macias [facility] TROPONIN I 2024-01-28 16:58:00 Kathy Macias [facility] COMP. METABOLIC PANEL (21208) 2024-01-28 16:58:00 Kathy Macias [facility] CBC WITH DIFF 2024-01-28 16:58:00 Kathy Macias [facility] N-TERMINAL PRO-BNP 2024-01-28 16:58:00 Kathy Macias [facility] US ABDOMEN COMPLETE 2023-10-10 20:02:00 Requisition, Paper [facility] XR CHEST 2 VW 2023-10-09 20:48:00 Requisition, Paper [facility] POCT MOLECULAR FLU 2023-10-03 14:55:00 Unknown, Attending [facility] POCT SARS-COV-2 ANTIGEN (BINAX NOW) 2023-10-03 14:46:00 Herminio Ellison [facility] CT HEAD WO CONTRAST 2023-02-12 02:33:27 Diane Hallman [facility] NOTICE OF PRIVACY PRACTICES 2023-02-12 01:45:53 Doctor Unassigned, Barling [facility] CONSENT/REFUSAL FOR DIAGNOSI S AND TREATMENT 2023-02-12 01:45:11 Doctor Unassigned, Barling [facility] CONSENT/REFUSAL FOR DIAGNOSI S AND TREATMENT 2023-01-15 21:47:33 Doctor Unassigned, Barling [facility] SARS-COV-2 COVID-19 LUIS-SUCROSE VACCINE 12 YRS+, BIVALENT 0.3ML, IM, (PFIZER HUFFMAN TOP BOOSTER) 2022-06-14 18:13:55 Doctor Unassigned, Barling [facility] SARS-COV-2 COVID-19 VACCINE 12 YRS+,0.3ML,IM (PFIZER - [facility]) 2021-12-06 19:37:34 Doctor Unassigned, Barling [facility] SARS-COV-2 COVID-19 VACCINE,0.3ML,IM (PFIZER) 2021-03-10 15:49:30 Doctor Unassigned, Barling [facility] LIPASE 2021-02-24 04:13:00 Nolvia Lloyd [facility] TROPONIN I 2021-02-24 04:13:00 Nolvia Lloyd [facility] COMP. METABOLIC PANEL (43680) 2021-02-24 04:13:00 Nolvia Lloyd [facility] CBC WITH DIFF 2021-02-24 04:13:00 Nolvia Lloyd [facility] NOTICE OF PRIVACY PRACTICES 2021-02-24 03:49:53 Doctor Unassigned, Barling [facility] NOTICE OF PRIVACY PRACTICES 2021-02-24 03:49:44 Doctor Unassigned, Barling [facility] CONSENT/REFUSAL FOR DIAGNOSI S AND TREATMENT 2021-02-24 03:49:24 Doctor Unassigned, Barling [facility] CT HEAD WO CONTRAST 2020-12-14 16:54:36 Jayson Padgett [facility] XR CHEST 1 VW 2020-12-14 16:40:56 Jayson Padgett [facility] COVID-19 (ID NOW RAPID TESTING) 2020-12-14 15:44:00 Jayson Padgett [facility] LIPASE 2020-12-14 15:37:00 Chelsea Schmidt [facility] TROPONIN I 2020-12-14 15:37:00 Chelsea Schmidt [facility] COMP. METABOLIC PANEL (05430) 2020-12-14 15:37:00 Chelsea Schmidt [facility] CBC WITH DIFF 2020-12-14 15:37:00 Chelsea Schmidt [facility] PROTHROMBIN TIME / INR 2020-12-14 15:37:00 Chelsea Schmidt [facility] ACTIVATED PARTIAL THRMPLAS MADELINE 2020-12-14 15:37:00 Chelsea Schmidt [facility] N-TERMINAL PRO-BNP 2020-12-14 15:37:00 Jayson Padgett [facility] CONSENT/REFUSAL FOR DIAGNOSI S AND TREATMENT 2020-12-14 15:14:15 Doctor Unassigned, Barling [facility] CONSENT/REFUSAL FOR DIAGNOSI S AND TREATMENT 2020-08-24 04:29:13 Doctor Unassigned, Barling [facility] URINALYSIS 2020-06-24 19:17:00 Lupe Armstrong [facility] XR CHEST 1 VW 2020-06-24 18:28:31 Lupe Armstrong [facility] TROPONIN I 2020-06-24 17:38:00 Lupe Armstrong [facility] COMP. METABOLIC PANEL (11301) 2020-06-24 17:38:00 Lupe Armstrong [facility] CBC WITH DIFF 2020-06-24 17:38:00 Lupe Armstrong [facility] AUTHORIZATION FOR RELEASE OF PHI 2020-05-12 06:01:00 Doctor Unassigned, Barling [facility] MRI Brain wo contrast 16500 2020-05-03 00:00:00 [facility] [[facility]MD] MRI Brain without Contrast 2020-05-02 00:00:00 [facility] BASIC METABOLIC PANEL (NA, K , CL, CO2, GLUCOSE, BUN, CREATININE, CA) 2020-04-29 20:45:00 [facility] W/DOPPLER COLOR 2020-04-29 16:02:20 Tristan Carbajal [facility] CORTISOL AM 2020-04-29 09:17:00 Solomon [facility] THYROXINE, TOTAL 2020-04-29 09:17:00 Solomon [facility] THYROID STIMULATING HORMONE 2020-04-29 09:17:00 Solomon [facility] BASIC METABOLIC PANEL (NA, K , CL, CO2, GLUCOSE, BUN, CREATININE, CA) 2020-04-29 09:17:00 Alejo Wolfe [facility] CBC WITHOUT DIFF 2020-04-29 09:17:00 Alejo Wolfe [facility] OSMOLALITY URINE 2020-04-29 04:08:00 Yaneth [facility] URINALYSIS 2020-04-29 04:08:00 Yaneth [facility] SODIUM, URINE RANDOM 2020-04-29 04:08:00 Yaneth [facility] OSMOLALITY SERUM 2020-04-29 00:17:00 Yaneth [facility] TROPONIN I 2020-04-29 00:17:00 Yaneth [facility] FREE T4 2020-04-29 00:17:00 Tristan Carbajal [facility] ELECTROENCEPHALOGRAM 2020-04-29 00:00:00 Reese Duran [facility] COVID-19 (ID NOW RAPID TESTING) 2020-04-28 19:30:00 Brayan [facility] BASIC METABOLIC PANEL (NA, K , CL, CO2, GLUCOSE, BUN, CREATININE, CA) 2020-04-28 17:30:00 Chelsea Schmidt [facility] CT HEAD WO CONTRAST 2020-04-28 16:57:21 Brayan [facility] MAGNESIUM 2020-04-28 16:24:00 Brayan [facility] TROPONIN I 2020-04-28 16:24:00 Brayan [facility] HEPATIC FUNCTION PANEL (39202) (ALB,T.PRO,BILI T,BU/BC,ALT,AST,ALK PHOS) 2020-04-28 16:24:00 Brayan [facility] BASIC METABOLIC PANEL (NA, K , CL, CO2, GLUCOSE, BUN, CREATININE, CA) 2020-04-28 16:24:00 [facility]FF 2020-04-28 16:24:00 [facility] / INR 2020-04-28 16:24:00 [facility] ACTIVATED PARTIAL THRMPLAS MADELINE 2020-04-28 16:24:00 Brayan [facility] HB ECG ROUTINE & RHYTHM STRIP 2020-04-28 16:11:52 Chelsea Schmidt [facility] EMERGENCY SERVICES AGREEMENT S AND AUTHORIZATIONS 2020-04-28 05:01:00 Doctor Unassigned, Barling [facility] XR KNEE 3 VW RIGHT 2020-04-05 16:46:14 Cyndi Cano [facility] CONSENT/REFUSAL FOR DIAGNOSI S AND TREATMENT 2020-04-05 15:29:10 Doctor Unassigned, Barling [facility] CT HEAD WO CONTRAST 2019-11-23 19:25:16 Kathy Macias [facility] NOTICE OF PRIVACY PRACTICES 2019-11-23 18:16:46 Doctor Unassigned, Barling [facility] CONSENT/REFUSAL FOR DIAGNOSI S AND TREATMENT 2019-11-23 18:16:16 Doctor Unassigned, Barling [facility] [id number] 2019-08-10 00:00:00 [facility] [id number] 2019-08-10 00:00:00 [facility] HOSPITAL ADMISSION 2019-05-29 06:01:00 Doctor Unassigned, Barling [facility] Procedure<sup>1</sup> 2019-05-19 06:00:00 [facility] Blood Pressure Monitor (In Office) 2019-05-12 00:00:00 [facility] BP Monitoring - Wearable 2019-05-12 00:00:00 [facility] [[facility]] TSH, 3RD GENERATION W/REFLEX TO FT4 2018-08-19 00:00:00 [facility] [[facility]] VITAMIN B12 2018-08-19 00:00:00 [facility] [[facility]] VITAMIN D, 25-HYDROXY, LC/MS/MS 2018-08-19 00:00:00 [facility] History of Cholecystectomy [facility] History of Previous Stent Placement [facility] Herniorrhaphy<sup>2</sup> Me [facility] Placement of stent<sup>3</sup> [facility] Repair of meniscus<sup>4</sup> [facility] Plan of Care Planned Activity Planned Date Details Comments Source Diagnostic Test Pending 2020-05-03 00:00:00 MRI Brain wo contrast 85708 [code = 49049] [facility] Diagnostic Test Pending 2020-05-03 00:00:00 MRI Brain wo contrast 73301 [code = 96957] [facility] Encounters Start Date/Time End Date/Time Encounter Type Admission Type Attending Clinicians Care Facility Care Department Encounter ID Source 2022-12-07 14:48:30 Outpatient [facility] [id number] [facility] 2021-07-12 01:03:23 Outpatient ILENE LR [facility] [id number] [facility] 2021-05-01 18:27:47 Emergency [facility] [id number] [facility] 2021-05-01 01:34:17 Emergency [facility] [id number] [facility] 2021-04-30 00:56:51 Emergency [facility] [id number] [facility] 2021-03-12 01:07:03 Outpatient MONIQUEILENE PAK [facility] [id number] [facility] 2021-01-15 01:05:53 Outpatient ILENE LR [facility] [id number] [facility] 2020-05-20 14:17:00 Inpatient EL Jerry Maxwell [facility] [id number] [facility] 2020-05-06 14:13:00 Inpatient EL Jerry Maxwell [facility] [id number] [facility] 2019-08-20 13:32:00 Inpatient EL Darren Amezcua [facility] [id number] [facility] 2019-08-10 07:30:00 Inpatient Darren Nowak [facility] [id number] [facility] 2024-10-20 11:30:00 2024-10-20 11:30:00 Outpatient KARIN WESTFALL [facility] [id number] [facility] 2024-04-01 13:30:00 2024-04-01 14:00:00 External Contact Moniquemanoharjennifer Ilene chowdary EXT RIRDP LOCATION 1.2.840.114 350.1.13.58 9.2.7.2.686 [id number] [facility] 2024-03-24 00:00:00 2024-03-24 19:06:53 Abstract Shalonda Francois Schantiel [facility] 1.2.840.114 350.1.13.70 8.2.7.2.686 [id number] Radha Perez [facility] 2024-02-05 13:30:00 2024-02-05 13:30:00 Outpatient ILENE LR [facility] [id number] [facility] 2024-01-28 11:46:00 2024-01-28 16:05:00 Emergency X Kathy MACIAS K [facility] E[facility] [id number] [facility] 2024-01-28 11:46:00 2024-01-28 16:05:00 Emergency Kathy Macias [facility] 1.2.840.114 350.1.13.10 4.2.7.2.686 [id number] [facility] 2023-10-18 11:00:00 2023-10-18 11:47:43 Office Visit Karin Westfall [facility] [address] [facility] 1.2.840.114 350.1.13.58 9.2.7.2.686 [id number] [facility] 2023-10-10 14:24:06 2023-10-10 23:59:00 Outpatient R RADIOLOGY [facility] [id number] [facility] 2023-10-10 13:45:00 2023-10-10 23:59:00 Hospital Encounter Radiology [facility] 1.2.840.114 350.1.13.10 4.2.7.2.686 [id number] [facility] 2023-10-09 15:30:23 2023-10-09 23:59:00 Outpatient R RADIOLOGY [facility] [id number] [facility] 2023-10-09 15:30:23 2023-10-09 23:59:00 Hospital Encounter Radiology [facility] 1.2.840.114 350.1.13.10 4.2.7.2.686 [id number] [facility] 2023-10-03 09:20:00 2023-10-03 10:24:21 Outpatient R HERMINIO ELLISON [facility] [id number] [facility] 2023-10-03 09:20:00 2023-10-03 10:24:21 Urgent Care Herminio Ellison Unknown, Attending [facility] 1.84.114 350.1.13.10 4.2.7.2.686 [id number] [facility] 2023-10-03 00:00:00 2023-10-03 00:00:00 Refill Herminio Ellison [facility] 1..840.114 350.1.13.10 4.2.7.2.686 [id number] [facility] 2023-08-06 11:30:00 2023-08-06 11:30:00 Outpatient KARIN WESTFALL [facility] [id number] [facility] 2023-04-03 12:45:00 2023-04-03 12:45:00 External Contact ILENE LR EXT [facility] LOCATION 1..84.114 350.1.13.58 9.2.7.2.686 [id number] [facility] 2023-02-11 21:04:00 2023-02-11 22:53:00 Emergency X DIANE HALLMAN [facility] ERT [id number] [facility] 2023-02-11 21:04:00 2023-02-11 22:53:00 Emergency Diane Hallman [facility] 1.84.114 350.1.13.10 4.2.7.2.686 [id number] [facility] 2023-01-15 17:00:00 2023-01-15 18:17:00 Emergency X NOLVIA LLOYD [facility] ERT [id number] [facility] 2023-01-15 17:00:00 2023-01-15 18:17:00 Emergency Nolvia Lloyd [facility] 1.2.840.114 350.1.13.10 4.2.7.2.686 [id number] [facility] 2022-06-14 16:00:00 2022-06-14 16:10:00 Imm/Inj Visit Vaccine, [facility] 1..840.114 350.1.13.10 4.2.7.2.686 [id number] [facility] 2022-06-14 16:00:00 2022-06-14 16:00:00 Outpatient Kevin ZELAYA [facility] [id number] [facility] 2022-04-04 12:45:00 2022-04-04 12:45:00 Outpatient AYESHA ILENE Chowdary [facility] [id number] [facility] 2022-03-13 11:30:00 2022-03-13 11:30:00 Office Visit KARIN WESTFALL [facility] [address] [facility] 1.2.840.114 350.1.13.58 9.2.7.2.686 [id number] [facility] 2021-12-06 15:00:00 2021-12-06 15:00:00 Outpatient JOSE GARNER [facility] [id number] [facility] 2021-12-06 15:00:00 2021-12-06 15:00:00 Imm/Inj Visit Vaccine [facility] 1.2.840.114 350.1.13.10 4.2.7.2.686 [id number] [facility] 2021-05-20 03:52:00 2021-05-21 12:20:00 Inpatient KHOI Plata [place] HCAWU TELE [id number] [facility] 2021-05-20 03:52:00 2021-05-21 12:20:00 Inpatient KHOI Plata Luke DIANDRAWU TELE [id number] [facility] 2021-04-19 00:00:00 2021-04-19 00:00:00 EXT MHH OP EXT MSRDP LOCATION 1.2.840.114 350.1.13.58 9.2.7.2.686 [id number] [facility] 2021-04-19 00:00:00 2021-04-19 00:00:00 EXT MHH OP EXT MSRDP LOCATION 1.2840.114 350.1.13.58 9.2.7.2.686 [id number] [facility] 2021-03-10 11:00:00 2021-03-10 11:00:00 Outpatient [facility] [id number] [facility] 2021-03-10 10:48:28 2021-03-10 10:48:35 Imm/Inj Visit Nurse, Adc Pomedhat ImmunizatiJose Dorantes [facility] Professio [facility] 1.2.840.114 350.1.13.10 4.2.7.2.686 [id number] [facility] 2021-02-23 22:50:00 2021-02-24 00:38:00 Emergency Nolvia Lloyd [place] 1.2.840.114 350.1.13.10 4.2.7.2.686 [id number] [facility] 2021-01-11 18:21:00 2021-01-12 04:59:00 Outpatient Mehnaz [facility]) [id number] Radha Perez 2020-12-14 10:28:00 2020-12-14 13:56:00 Emergency Jayson Padgett [place] 1.2840.114 350.1.13.10 4.2.7.2.686 [id number] [facility] 2020-12-14 00:00:00 2020-12-14 00:00:00 Orders Only Doctor Unassigned, Barling [facility] 1.2840.114 350.1.13.10 4.2.7.2.686 [id number] [facility] 2020-09-07 11:30:00 2020-09-07 11:30:00 Appointmen t; KARIN WESTFALL M.D. SHARRIEF, ANJAIL, M.D. [facility] Neurology [facility] [id number] [facility] 2020-09-06 10:00:00 2020-09-06 10:00:00 Appointmen t; KARIN WESTFALL M.D. SHARRIEF, ANJAIL, M.D. [facility] [id number] [facility] 2020-08-23 22:38:00 2020-08-23 23:28:00 Emergency Candice Duarte R [place] 1.84.114 350.1.13.10 4.2.7.2.686 [id number] [facility] 2020-08-10 12:20:00 2020-08-10 12:20:00 Outpatient SEGUNDO SHETTY [facility] [id number] [facility] 2020-07-20 12:40:00 2020-07-20 12:40:00 Outpatient SEGUNDO SHETTY [facility] [id number] [facility] 2020-06-24 11:22:00 2020-06-24 15:25:00 Emergency Armstrong Lupe S [place] 1.2.840.114 350.1.13.10 4.2.7.2.686 [id number] [facility] 2020-06-24 11:22:00 2020-06-24 15:25:00 Emergency X LUPE ARMSTRONG [facility] ERT [id number] [facility] 2020-05-12 00:00:00 2020-05-12 00:00:00 Orders Only Doctor Unassigned, [place] [facility] 1.2.840.114 350.1.13.10 4.2.7.2.686 [id number] [facility] 2020-05-12 00:00:00 2020-05-12 00:00:00 Orders Only Doctor Unassigned, Barling [facility] 1.20.114 350.1.13.10 4.2.7.2.686 [id number] 2020-05-05 14:35:00 2020-05-06 05:59:00 Outpatient [facility] ([facility]) [id number] Radha Perez 2020-05-02 11:00:00 2020-05-02 11:00:00 AppointJOBY Lopes AMMAR [facility]TP Neurology - [facility] [id number] [facility] 2020-05-02 00:00:00 2020-05-02 00:00:00 Transition of Care Prabhakar Yang 1.2840.114 350.1.13.10 4.2.7.2.686 [id number] [facility] 2020-05-02 00:00:00 2020-05-02 00:00:00 Transition of Care Prabhakar Yang 1.2.840.114 350.1.13.10 4.2.7.2.686 [id number] 2020-04-28 11:08:00 2020-04-29 17:14:00 Hospital Encounter Chelsea Schmidt [facility]nell Rotkiewicz, [facility] 1.2840.114 350.1.13.10 4.2.7.2.686 [id number] [facility] 2020-04-28 11:08:00 2020-04-28 11:08:00 Emergency X CHELSEA SCHMIDT [facility] E[facility] [id number] [facility] 2020-04-26 18:47:00 2020-04-26 18:47:00 Outpatient Jerry Maxwell HCACL LABO [id number] [facility] 2020-04-12 11:30:00 2020-04-12 11:30:00 Outpatient Venkata Snyder HCATO RADI [id number] [facility] 2020-04-05 10:47:00 2020-04-05 12:59:00 Emergency Cyndi Cano [place] 1.840.114 350.1.13.10 4.2.7.2.686 [id number] [facility] 2020-04-05 10:30:00 2020-04-05 10:30:00 Emergency X [facility] E[facility] [id number] [facility] 2020-04-05 00:00:00 2020-04-05 00:00:00 Orders Only Doctor Unassigned, [place] [facility] 1.840.114 350.1.13.10 4.2.7.2.686 [id number] [facility] 2020-03-04 13:00:00 2020-03-04 13:00:00 Appointmen t; KARIN WESTFALL M.D. SHARRIEF, ANJAIL, M.D. [facility] Neurology - [facility]'S [facility] [id number] [place] [facility] 2020-02-18 14:00:00 2020-02-19 04:59:00 Outpatient Mehnaz brown [facility] ([facility]) [id number] Radha Perez 2019-11-23 13:29:19 2019-11-23 15:40:00 Emergency Kathy Macias [place] 1.840.114 350.1.13.10 4.2.7.2.686 [id number] [facility] 2019-11-23 13:29:19 2019-11-23 15:40:00 Emergency X Kathy MACIAS [facility] ERT [id number] [facility] 2019-11-23 00:00:00 2019-11-23 00:00:00 Orders Only Doctor Unassigned, [facility] 1.2.840.114 350.1.13.10 4.2.7.2.686 [id number] [facility] 2019-11-10 11:00:00 2019-11-10 11:00:00 Appointmen t; KARIN WESTFALL M.D. SHARRIEF, ANJAIL, M.D. [facility] Neurology - [facility] [id number] [place] 2019-07-29 18:59:00 2019-07-30 05:59:00 Outpatient [facility] ([facility]) [id number] [facility] sakshi [place] 2019-07-23 13:27:00 2019-07-23 13:27:00 Outpatient Darren Amezcua [facility] [id number] [facility] 2019-07-23 00:00:00 2019-07-23 00:00:00 Outpatient Darren Nowak [facility] 3DAY [id number] [facility] 2019-06-03 10:30:00 2019-06-03 10:30:00 Appointmen t; HUGO COTA M.D. PRAKASH, SIDDHARTH, M.D. [facility] Cardiology [facility] [id number] [place] 2019-06-01 12:45:00 2019-06-01 12:45:00 Appointmen t; AMBULATORY , BLOOD AMBULATORY, BLOOD [facility] [id number] [place] 2019-05-29 00:00:00 2019-05-29 00:00:00 Orders Only Doctor Unassigned, [place] 1.2.840.114 350.1.13.10 4.2.7.2.686 [id number] [facility] 2019-05-29 00:00:00 2019-05-29 00:00:00 Orders Only Doctor Unassigned, [place] 1.2.840.114 350.1.13.10 4.2.7.2.686 [id number] 2019-05-12 11:00:00 2019-05-12 11:00:00 Appointmen t; KARIN WESTFALL M.D. SHARRIEF, ANJAIL, M.D. [facility] Neurology - [facility] [id number] [place] 2019-02-10 14:44:00 2019-02-11 04:59:00 Outpatient nullFlavo r TR BT- Adult BI (ABIR) [id number] Radha Perez 2018-12-03 17:15:00 2018-12-04 04:59:00 Outpatient [facility]Flavo r [facility] ([facility] [id number] [facility] [place] 2018-11-04 14:00:00 2018-11-04 14:00:00 Appointmen t; KARIN WESTFALL M.D. SHARRIEF, ANJAIL, M.D. [facility] Neurology [id number] [place] 2018-10-02 10:30:00 2018-10-02 10:30:00 Appointmen t; LIZ MENDOZA, PHD LIZ MENDOZA, PHD [facility] [id number] [place] 2018-08-19 11:30:00 2018-08-19 11:30:00 Appointmen t; KARIN WESTFALL M.D. SHARRIEF, ANJAIL, M.D. [facility] Neurology [id number] [place] 2018-06-12 16:27:00 2018-06-13 05:59:00 Outpatient nullFlavo r [facility] [id number] Radha Perez 2017-12-11 17:09:00 2017-12-12 04:59:00 Outpatient nullFlavo r [facility] [id number] [facility] 2017-12-09 12:10:00 2017-12-10 04:59:00 Outpatient nullFlavo r [facility] [id number] [facility] [place] 2017-06-12 17:53:00 2017-06-13 05:59:00 Outpatient nullFlavo r [facility] [id number] Radha cantor [place] 2017-03-19 13:00:00 2017-03-19 13:00:00 Appointmen t; KARIN WESTFALL M.D. SHARRIEF, ANJAIL, M.D. [facility] UTP [id number] [place] 2016-12-18 15:49:00 2016-12-19 04:59:00 Outpatient nullFlavo r [facility] [id number] [facility] [place] 2016-12-04 17:31:00 2016-12-05 04:59:00 Outpatient nullFlavo r [facility] [id number] [facility] [place] 2016-09-18 13:00:00 2016-09-18 13:00:00 Appointmen t; KARIN WESTFALL M.D. SHARRIEF, ANJAIL, M.D. [facility] UTP [id number] [place] [facility] 2016-07-26 16:36:00 2016-07-27 05:59:00 Outpatient nullFlavo r [facility] [id number] [facility] [place] 2016-06-19 16:33:00 2016-06-20 05:59:00 Outpatient nullFlavo r [facility] [id number] [facility] [place] 2016-06-05 19:05:00 2016-06-06 05:59:00 Outpatient nullFlavo r [facility] [id number] [facility] [place] 2016-04-25 15:59:00 2016-04-26 04:59:00 Outpatient nullFlavo r [facility] [id number] [place] cantor [place] 2016-03-21 17:29:00 2016-03-22 04:59:00 Outpatient nullFlavo r [facility] [id number] [facility] [place] 2016-02-21 14:37:00 2016-02-22 04:59:00 Outpatient nullFlavo r [facility] [id number] a[place] cantor [place] 2016-01-11 17:26:00 2016-01-12 04:59:00 Outpatient nullFlavo r [facility] [id number] [place] cantor Chris 2015-11-15 14:51:00 2015-12-15 04:59:00 Tots Therapy nullFlavo r [facility] [id number] Radha Perez 2015-12-07 19:11:00 2015-12-08 04:59:00 Outpatient nullFlavo r [facility] [id number] [place] sakshi Chris 2015-11-09 18:02:00 2015-11-10 04:59:00 Outpatient nullFlavo r [facility] [id number] [place] sakshi Perez 2015-11-01 15:51:00 2015-11-02 04:59:00 Outpatient nullFlavo r [facility] [id number] Radha Perez 2015-10-27 17:48:00 2015-10-28 04:59:00 Outpatient nullFlavo r [facility] [id number] Radha Perez 2015-08-12 17:00:00 2015-09-11 05:59:00 Tots Therapy nullFlavo r [facility] [id number] Radha Perez 2015-08-30 15:53:00 2015-08-31 05:59:00 Outpatient nullFlavo r [facility] [id number] Radha Perez 2015-07-13 16:00:00 2015-08-12 05:59:00 Tots Therapy nullFlavo r [facility] [id number] Radha Perez 2015-08-01 14:40:00 2015-08-02 05:59:00 Outpatient nullFlavo r [facility] [id number] Radha Perez 2015-07-27 14:50:00 2015-07-28 05:59:00 Outpatient nullFlavo r [facility] [id number] Radha Perez 2015-05-20 02:36:00 2015-06-29 17:30:00 Inpatient Rehab Mehnaz Perez [id number] Radha Perez Results Test Description Test Time Test Comments Results Result Comments Source CT HEAD WO CONTRAST 2024-01-01 0 18:41:46 FULL RESULT: Examination: CT HEAD WO CONTRAST on 01/28/2024 1:20 PM Clinical Indication: Transient alteration of awareness Comparison: 02/11/2023 Technique: Noncontrast imaging was obtained from base to vertex. Findings: The sulci and ventricles are unchanged. 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 There is no hemorrhage or other clearly acuteintracranial process. [id number] 17:39:44* Test Item Value Reference Range Interpretation Comme nts NT-proBNP (test code = 91048-6) 173 pg/mL <=125 MIHAELA (test code = MIHAELA) Result Indeterminate-Consid er causes of NT-proBNP elevation other than Heart failure such as acute coronary syndrome, pulmonary embolism, pulmonary hypertension, sepsis, stroke, and renal dysfunction. Lab Interpretation (test code = 68368-2) [facility] [id number] 17:33:43HISTORY: Syncope. TECHNIQUE: Portable AP view of the chest is obtained. Comparison is madewith 10/09/2023 study. FINDINGS: Linear areas of fibrosis and/or atelectasis is noted in both lungbases. No acute pneumonia. No pneumothorax or pleural effusion or pulmonarycongestion detected. Cardiac size is within upper normal limits. Electronicloop recording device noted projected over the left side of the heart.Bipolar permanent pacemaker inserted through left subclavian appeared to bein good position.Clips are seen in the right upper quadrant of theabdomen. CONCLUSIONS: No signs of acute cardiopulmonary disease.[facility]2024-07-30 17:30:41* Test Item Value Reference Range Interpretation Comme nts MAGNESIUM (test code = 7769037966) 2.2 mg/dL 1.7-2.4 Lab Interpretation (test cod e = 48201-0) [facility] (47311)2024-01-28 17:30:26* Test Item Value Reference Range Interpretation Comme nts NA (test code = 1098161586) 133 mmol/L 135-145 L K (test code = 5769280869) 4.7 mmol/L 3.5-5.0 CL (test code = 1334612679) 96 mmol/L 98-108 L CO2 TOTAL (test code = 5948941463) 26 mmol/L 23-31 AGAP (test code = 2343421156) 11 2-16 BUN (test code = 1120337711) 21 mg/dL 7-23 GLUCOSE (test code = 2603711468) 115 mg/dL 70-110 H CREATININE (test code = 2160-0) 1.47 mg/dL 0.60-1.25 H TOTAL BILI (test code = 3219153727) 1.4 mg/dL 0.1-1.1 H CALCIUM (test code = 5161901022) 9.2 mg/dL 8.6-10.6 T PROTEIN (test code = 7508072744) 7.2 g/dL 6.3-8.2 ALBUMIN (test code = 7078659767) 4.3 g/dL 3.5-5.0 ALK PHOS (test code = 1844393874) 75 U/L 34-122 ALTv (test code = 1742-6) 21 U/L 5-50 AST(SGOT) (test code = 7948359513) 26 U/L 13-40 eGFR (test code = 22625-2) 47.0 mL/min/1.73m2 CKD-EPI eGFR (2020). Assuming creatinine has been stable day-to-day for at least three months, the eGFR indicates Category G3a (45 - 59 mL/min/1.73 m2) Lab Interpretation (test code = 53229-3) Abnormal [facility] with [id number] 17:18:42* Test Item Value Reference Range Interpretation Comme nts WBC (test code = 6690-2) 10.16 4.20-10.70 RBC (test code = 789-8) 4.86 4.26-5.52 HGB (test code = 718-7) 15.5 g/dL 12.2-16.4 HCT (test code = 4544-3) 45.8 % 38.4-49.3 MCV (test code = 787-2) 94.2 fL 81.7-95.6 MCH (test code = 785-6) 31.9 pg 26.1-32.7 MCHC (test code = 786-4) 33.8 g/dL 31.2-35.0 RDW-SD (test code = 07749-0) 42.4 fL 38.5-51.6 RDW-CV (test code = 788-0) 12.3 % 12.1-15.4 PLT (test code = 777-3) 229 150-328 MPV (test code = 06733-9) 9.1 fL 9.8-13.0 L NRBC/100 WBC (test code = 6432658944) 0.0 0.0-10.0 NRBC x10^3 (test code = 2872663614) See_Comment [Automated messa ge] The system which generated this result transmitted reference range: 10*3/?L. The reference range was not used to interpret this result as normal/abnormal. GRAN MAT (NEUT) % (test code = 770-8) 61.6 % IMM GRAN % (test code = 9015392653) 0.70 % LYMPH % (test code = 736-9) 24.6 % MONO % (test code = 5905-5) 10.8 % EOS % (test code = 713-8) 1.8 % BASO % (test code = 706-2) 0.5 % GRAN MAT x10^3(ANC) (test code = 0823249951) 6.26 10*3/uL 1.99-6.95 IMM GRAN x10^3 (test code = 7814912917) 0.07 10*3/uL 0.00-0.06 H LYMPH x10^3 (test code = 731-0) 2.50 10*3/uL 1.09-3.23 MONO x10^3 (test code = 742-7) 1.10 10*3/uL 0.36-1.02 H EOS x10^3 (test code = 711-2) 0.18 10*3/uL 0.06-0.53 BASO x10^3 (test code = 704-7) 0.05 10*3/uL 0.01-0.09 Lab Interpretation (test code = 87655-3) Abnormal [facility] ABDOMEN [id number] 20:11:33HISTORY: ? Abdominal pain. TECHNIQUE: Upper abdominal organs were evaluated in multiple planes withthe patient in multiple different positions, without and with colorimaging. FINDINGS: Comparison hasbeen made with previous ultrasound study of08/05/2018. Liver is 15 cm, spleen is 10.5 x 4.3 cm, rightkidney is 11.3 x 5.9 x 4.4cm and left kidney is 11.4 x 5.1 x 5.4 cm in size. 2.7 x 2.5 cm cyst notedin the left kidney near the inferior pole. This cyst has increased in sizefrom 1.4 x 1.3 cm in 2019study. Right kidney contains an 11 mm small cyst,slightly increased in size from 8 mm in previous study. Cortex of bothkidneys range between 9 mm and 15 mm. Small calcified granulomas are seenin the spleen. No hydronephrosis, free fluid in the upper abdomen or aorticaneurysm detected. Pancreas is completely obscured by gas. Hepatic andportal venous system appear patent, with hepatopetal portal flow noted. Gallbladder has been removed. Common hepatic duct could not be visualizedbecause of intestinal gas in the right upper quadrant of the abdomen.However, there is no dilatation of the intrahepatic bile ducts. CONCLUSIONS:1. S/P cholecystectomy. Common bile duct and pancreas obscured byintestinal gas. Intrahepatic bile ducts are not dilated.2. Bilateral renal cysts, compatible with Bosniak type I cyst.[facility] 2 [id number] 20:56:35HISTORY: ?Chest pain. TECHNIQUE: PA and lateral views of the chest are obtained. Comparison hasbeenmade with 12/14/2020 study. FINDINGS: Poor inspiratory effort is shown by the patient in both viewswi th crowding of bronchovascular markings in lung bases. No acute pneumoniadetected. No pneumothorax or pleural effusion or pulmonary congestion.Cardiac size is probably mildly enlarged. Dual electrodepacemaker insertedthrough left subclavian appeared to be in good position. A loop recordingdevice is seen projected over the left side of the heart. Faint clips are seen in the right upper abdomen from cholecystectomy. Old,healed fracture deformity noted in some of the posterior right lower ribs.Minimal wedge-shaped deformity of T8 and T9 vertebral bodies noted. Noaggressive bone lesions visualized. CONCLUSIONS: No signs of acute cardiopulmonary disease.[facility] Molecular [id number] 15:07:09* Test Item Value Reference Range Interpretation Comme nts POCT Molecular FluA (test co de = 35680-6) Negative Negative POCT Molecular FluB (test co de = 40918-4) Negative Negative Lab Interpretation (test cod e = 94792-7) Normal [facility] SARS-COV-2 ANTIGEN (BINAX NOW)2023-10-03 15:02:00* Test Item Value Reference Range Interpretation Comme [facility] POCT SARS-COV-2 ANTIGEN (rica t code = 72965-7) Not Detected Not Detected On board controls acceptable with C Line (test code = 3574) Yes Lab Interpretation (test cod e = 46051-0) Normal [facility] XR CHEST 2 [id number] 08:20:00 [facility] 1940 Sex: M Patient Name: JENNA BROWN Unit No: [id number] EXAMS: CPT CODE: [id number] XR CHEST 2 V 98114 EXAM: Chest 2 views. Location: HISTORY: S/P ICD, , COMPARISON: 05/20/2020 FINDINGS: Pacemaker generator overlies the left axilla with leads in right atrium and ventricle right ventricle. Further cardiac monitoring device overlies the left thorax. Lung volumes are slightly low. Minimal airspace opacitiesare noted at the lower lobes. Cardiac silhouette is normal in size. Aorta and mediastinal contours and pulmonary vasculature are within normal limits. There are no pleural effusions or pneumothorax. Old healed right posterior lateral rib fractures are redemonstrated. Remaining skeletal structures are unremarkable. IMPRESSION: 1. Low lung volumes and bilateral lower lobe atelectasis versus furtherconsolidation. 2. Redemonstration of pacemaker as well as cardiac monitoring device. at 0820 Reported and signed by: Shine Bean M.D. CC: Ngozi Nicole MD; Luke Plata; Benny Rocha MD Technologist: Danny Coello (RT) (R) Transcrpt Date/Tm/Trnsp: 05/21/2021 (08) t.[email or web address] Orig Print D/T: S: 05/21/2021 (823) [facility] NAME: JENNA BROWN [address] [place] [address] PHYS: [place] [address] : 1940 AGE: 81 SEX: M LOC: Z.Joan A PHONE #: [phone] EXAM DATE: 05/21/2021 STATUS: ADM IN FAX #: [phone] RADIOLOGY NO: PAGE 1 Signed ReportBASIC METABOLIC [id number] 05:36:00* Test Item Value Reference Range Interpretation Comme nts SODIUM (test code = NA) 133 MMOL/L 137-145 L POTASSIUM (test code = K) 4.0 MMOL/L 3.5-5.1 N CHLORIDE (test code = CL) 105 MMOL/L 98-107 N CARBON DIOXIDE (test code = CO2) 24 MMOL/L 22-30 N GLUCOSE (test code = GLU) 92 MG/DL 74-106 N BLOOD UREA NITROGEN (test code = BUN) 12 MG/DL 9-20 N GLOMERULAR FILTRATION RATE (test code = GFR) > 60 Reporting units: ml/min/1.73 m2 (Modified MDRD Formula)Reference Range: > or = 60 ml/min/1.73 m2 CREATININE (test code = CREAT) 1.00 MG/DL 0.66-1.25 N CALCIUM (test code = CA) 8.5 MG/DL 8.4-10.2 N CBC W/AUTO [id number] 05:23:00* Test Item Value Reference Range Interpretation Comme nts WHITE BLOOD CELL (test code = WBC) 8.2 K/MM3 3.8-9.8 N RED BLOOD CELL (test code = RBC) 4.37 M/MM3 3.95-5.67 N HEMOGLOBIN (test code = HGB) 14.0 G/DL 12.4-16.7 N HEMATOCRIT (test code = HCT) 39.4 % 35.9-49.5 N MEAN CELL VOLUME (test code = MCV) 90 fL 81.7-96.1 N MEAN CELL HGB (test code = MCH) 32.0 pg 27.6-33.2 N MEAN CELL HGB CONCETRATION (test code = MCHC) 35.5 % 32.9-35.5 N RED CELL DISTRIBUTION WIDTH (test code = RDW) 12.8 % 12.1-15.2 N PLATELET COUNT (test code = PLT) 178 K/MM3 129-368 N MEAN PLATELET VOLUME (test c ode = MPV) 9.4 fl 7.4-10.4 N NEUTROPHIL % (test code = NT%) 60.7 % 43-75 N IMMATURE GRANULOCYTE % (test code = IG%) 0.4 % 0.0-2.0 N LYMPHOCYTE % (test code = LY%) 22.3 % 14-44 N MONOCYTE % (test code = MO%) 13.5 % 4-13 H EOSINOPHIL % (test code = EO%) 2.7 % 0-6 N BASOPHIL % (test code = BA%) 0.4 % 0-2 N NUCLEATED RBC % (test code = NRBC%) 0.0 % 0-1.0 N NEUTROPHIL # (test code = NT#) 5.00 K/mm3 2.0-7.6 N IMMATURE GRANULOCYTE # (test code = IG#) 0.03 x10 3/uL 0-0.03 N LYMPHOCYTE # (test code = LY#) 1.83 K/mm3 1.0-3.8 N MONOCYTE # (test code = MO#) 1.11 K/mm3 0.1-0.8 H EOSINOPHIL # (test code = EO#) 0.22 K/mm3 0.0-0.2 H BASOPHIL # (test code = BA#) 0.03 K/mm3 0.0-0.2 N NUCLEATED RBC # (test code = NRBC#) 0.00 K/mm3 0.0-0.1 N - XR CHEST [id number] 11:08:00 [facility] 1940 Sex: M Patient Name: JENNA BROWN Unit No: [id number] EXAMS: CPT CODE: [id number] XR CHEST 1V 02873 Chest Radiograph History: S/P ICD Comparison: None at this time Location: H45 A single frontal view of the chest is submitted. The heart is within normal limits in size. Pulmonary vasculature is unremarkable.The visualized lung paulino appear to be free of disease. The bones appear unremarkable. There are old right rib fractures. IMPRESSION: There is no radiographic evidence of acute cardiopulmonary disease. 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 No pneumothorax is identified. at 1108 Reported and signed by: Benny Celis MD CC: Ngozi Nicole MD; Benny Rocha MD Technologist: Adrienne Doyle, RT(R) Transcrpt Date/Tm/Trnsp: 05/20/2021 (1108) [email or web address].PMT Orig Print D/T: S: 05/20/2021 (1111) [facility] NAME: JENNA BROWN [address] PHYS: [place] [address] : 1940 AGE: 81 SEX: M LOC: Z.DC4T A PHONE #: [phone] EXAM DATE: 05/20/2021 STATUS: ADM IN FAX #: [phone] RADIOLOGY NO: PAGE 1 Signed ReportLIPID PROFILE (CORONARY RISK)2021-05-20 07:00:00* Test Item Value Reference Range Interpretation Comme nts TRIGLYCERIDES (test code = TRIG) 71 MG/DL 150-199 L TRIGLYCERIDES REFERENCE RANGE:Normal: <150 mg/dLBorderline High: 150-199 mg/dLHigh: 200-499 mg/dLVery High: >=500 mg/dL CHOLESTEROL (test code = CHOL) 126 MG/DL <200 HDL CHOLESTEROL (test code = HDL) 44 MG/DL 40-59 N LIPOPROTEIN LDL (test code = LDL) 58 MG/DL 0-99 N OPTIMAL......... <100 mg/dLNEAR OPTIMAL/ABOVE OPTIMAL.........100-12 9 mg/dL BORDERLINE HIGH.........130-159 mg/dL HIGH.........160-189 mg/dL VERY HIGH.........>/= 190 mg/dL Is this a LINE draw? [id number] 07:00:00* Test Item Value Reference Range Interpretation Comme nts MAGNESIUM (test code = MAG) 1.9 MG/DL 1.6-2.3 N Is this a LINE draw? NBASIC METABOLIC [id number] 07:00:00* Test Item Value Reference Range Interpretation Comme nts SODIUM (test code = NA) 132 MMOL/L 137-145 L POTASSIUM (test code = K) 4.4 MMOL/L 3.5-5.1 N CHLORIDE (test code = CL) 102 MMOL/L 98-107 N CARBON DIOXIDE (test code = CO2) 24 MMOL/L 22-30 N GLUCOSE (test code = GLU) 107 MG/DL 74-106 H BLOOD UREA NITROGEN (test code = BUN) 13 MG/DL 9-20 N GLOMERULAR FILTRATION RATE (test code = GFR) > 60 Reporting units: ml/min/1.73 m2 (Modified MDRD Formula)Reference Range: > or = 60 ml/min/1.73 m2 CREATININE (test code = CREAT) 1.00 MG/DL 0.66-1.25 N CALCIUM (test code = CA) 9.1 MG/DL 8.4-10.2 N Is this a LINE draw? NPROTHROMBIN [id number] 06:40:00* Test Item Value Reference Range Interpretation Comme nts PROTHROMBIN TIME PATIENT (test code = PTP) 11.1 SECONDS 9.5-12.7 N INTERNATIONAL NORMAL RATIO (test code = INR) 1.0 0.86-1.14 N The INR is to be used only for monitoring oral anticoagulanttherap y. INDICATION INR VALUE -------1. Prophylaxis, deep venous thrombosis, including high risk surgery. 2.0 - 3.0 2. Prophylaxis, deep venous thrombosis, hip surgery, treatment for deep venous thrombosis or pulmonary prevention of systemic embolism in patients with valvular heart disease, atrial fibrillation, tissue heart valve, or acute myocardial infarction. 2.0 - 3.0 3. Mechanical prosthesis heart valves, recurrent systemic embolism. 3.0 - 4.5 PTT [id number] 06:40:00* Test Item Value Reference Range Interpretation Comme [facility] PTT ACTIVATED (test code = APTT) 34.1 SECONDS 25.1-36.5 N CBC W/AUTO [id number] 06:29:00* Test Item Value Reference Range Interpretation Comme nts WHITE BLOOD CELL (test code = WBC) 7.4 K/MM3 3.8-9.8 N RED BLOOD CELL (test code = RBC) 4.77 M/MM3 3.95-5.67 N HEMOGLOBIN (test code = HGB) 14.9 G/DL 12.4-16.7 N HEMATOCRIT (test code = HCT) 42.8 % 35.9-49.5 N MEAN CELL VOLUME (test code = MCV) 90 fL 81.7-96.1 N MEAN CELL HGB (test code = MCH) 31.2 pg 27.6-33.2 N MEAN CELL HGB CONCETRATION (test code = MCHC) 34.8 % 32.9-35.5 N RED CELL DISTRIBUTION WIDTH (test code = RDW) 12.7 % 12.1-15.2 N PLATELET COUNT (test code = PLT) 211 K/MM3 129-368 N MEAN PLATELET VOLUME (test c ode = MPV) 8.7 fl 7.4-10.4 N NEUTROPHIL % (test code = NT%) 62.0 % 43-75 N IMMATURE GRANULOCYTE % (test code = IG%) 0.3 % 0.0-2.0 N LYMPHOCYTE % (test code = LY%) 22.6 % 14-44 N MONOCYTE % (test code = MO%) 12.0 % 4-13 N EOSINOPHIL % (test code = EO%) 2.8 % 0-6 N BASOPHIL % (test code = BA%) 0.3 % 0-2 N NUCLEATED RBC % (test code = NRBC%) 0.0 % 0-1.0 N NEUTROPHIL # (test code = NT#) 4.60 K/mm3 2.0-7.6 N IMMATURE GRANULOCYTE # (test code = IG#) 0.02 x10 3/uL 0-0.03 N LYMPHOCYTE # (test code = LY#) 1.68 K/mm3 1.0-3.8 N MONOCYTE # (test code = MO#) 0.89 K/mm3 0.1-0.8 H EOSINOPHIL # (test code = EO#) 0.21 K/mm3 0.0-0.2 H BASOPHIL # (test code = BA#) 0.02 K/mm3 0.0-0.2 N NUCLEATED RBC # (test code = NRBC#) 0.00 K/mm3 0.0-0.1 N Is this a LINE draw? NCOVID 19 Asymptomatic IH [id number] 05:27:00* Test Item Value Reference Range Interpretation Comme nts COVID 19 Asymptomatic IH AG (test code = COVNONPUIAG) NEGATIVE Negative "Negative result s from patients with symptom onset beyondfive days, should be treated as presumptive, andconfirmation with a molecular assay, if necessary forpatient management may be performed. Negative results do notrule out COVID-19 and should not be used as the sole basisfor treatment or patient management decisions, includinginfection control decisions. Negative results should beconsidered in the context of a patients recent exposures,history, and the presence of clinical signs and symptomsconsistent with COVID-19.This test detects both viable andnon-viable SARS-CoV and SARS CoV-2.Test performance dependson the amount of virus (antigen) in the sample." TROPONIN [id number] 04:45:45* Test Item Value Reference Range Interpretation Comments TROPONIN I (test code = 6689201849) 0.002 ng/mL See_Comment [Automated message] The system which generated this result transmitted reference range: <=0.034. The reference range was not used to interpret this result as normal/abnormal. MIHAELA (test code = MIHAELA) Reference (Normal) Range (defined by the 99th percentile reference limit): <= 0.034 ng/mL Note: Cardiac troponin begins to rise 3-4 hours after the onset of ischemia. Repeat in 4-6 hours if the sample was drawn within 3-4 hours of the onset of the symptom and found normal. Diagnosis of myocardial injury is made with acute changes in cTn concentrations with at least one serial sample above the 99th percentile upper reference limit (URL), taken together with the patient's clinical presentation. Biotin has been reported to cause a negative bias, interpret results relative to patient's use of biotin. Lab Interpretation (test code = 71100-9) [facility] [id number] 04:45:45* Test Item Value Reference Range Interpretation Comme nts TROPONIN I (test code = 9641314502) 0.002 ng/mL See_Comment [Automated messa ge] The system which generated this result transmitted reference range: <=0.034. The reference range was not used to interpret this result as normal/abnormal. MIHAELA (test code = MIHAELA) Lab Interpretation (test code = 70704-5) [facility] METABOLIC PANEL ([id number])2021-02-24 04:35:23* Test Item Value Reference Range Interpretation Comme nts NA (test code = 6413910618) 125 mmol/L 135-145 L K (test code = 0250755438) 4.6 mmol/L 3.5-5.0 CL (test code = 6197519170) 93 mmol/L 98-108 L CO2 TOTAL (test code = 3047299616) 22 mmol/L 23-31 L AGAP (test code = 3605302939) 2-16 BUN (test code = 6791186429) 16 mg/dL 7-23 GLUCOSE (test code = 0018170142) 115 mg/dL 70-110 H CREATININE (test code = 3145438755) 1.03 mg/dL 0.60-1.25 TOTAL BILI (test code = 6465925013) 0.8 mg/dL 0.1-1.1 CALCIUM (test code = 4547266032) 9.0 mg/dL 8.6-10.6 T PROTEIN (test code = 5004288909) 6.9 g/dL 6.3-8.2 ALBUMIN (test code = 6909877812) 4.4 g/dL 3.5-5.0 ALK PHOS (test code = 3444645080) 130 U/L 34-122 H ALTv (test code = 1742-6) 21 U/L 5-50 AST(SGOT) (test code = 5770090398) 25 U/L 13-40 eGFR (test code = 5250212851) mL/min/1.73m2 MIHAELA (test code = MIHAELA) Association of Glomerular Filtration Rate (GFR) and Staging of Kidney Disease* + --+ --+ ------+| GFR (mL/min/1.73 m2) ?| With Kidney Damage ?| ?Without Kidney Damage+ --------+ --------+ +| ?>90 ?| ?Stage one ?| ? Normal ?+ ---+ ---+ -------+| ?60-89 ?| ?Stage two ?| ? Decreased GFR ? + --+ --+ ------+| ?30-59 ?| ?Stage three ?| ? Stage three ? + --+ --+ ------+| ?15-29 ?| ?Stage four ? | ? Stage four ?+ ---+ ---+ -------+| ?<15 (or dialysis) ? ?| ?Stage five ? | ? Stage five ?+ ---+ ---+ -------+ *Each stage assumes the associated GFR level has been in effect for at least three months. ?Stages 1 to 5, with or without kidney disease, indicate chronic kidney disease. Notes: Determination of stages one and two (with eGFR >59mL/min/1.73 m2) requires estimation of kidney damage for at least three months as defined by structural or functional abnormalities of the kidney, manifested by either:Pathological abnormalities or Markers of kidney damage (including abnormalities in the composition of the blood or urine or abnormalities in imaging tests). Lab Interpretation (test code = 56238-9) [facility]normal [facility]OL[facility] PANEL ([id number])2021-02-24 04:35:23* Test Item Value Reference Range Interpretation Comme nts NA (test code = 0727639231) 125 mmol/L 135-145 L K (test code = 8743844342) 4.6 mmol/L 3.5-5.0 CL (test code = 5920871402) 93 mmol/L 98-108 L CO2 TOTAL (test code = 3879785375) 22 mmol/L 23-31 L AGAP (test code = 7933400500) 2-16 BUN (test code = 5948291056) 16 mg/dL 7-23 GLUCOSE (test code = 5856222646) 115 mg/dL 70-110 H CREATININE (test code = 7352767052) 1.03 mg/dL 0.60-1.25 TOTAL BILI (test code = 1828250745) 0.8 mg/dL 0.1-1.1 CALCIUM (test code = 4044484698) 9.0 mg/dL 8.6-10.6 T PROTEIN (test code = 2185474276) 6.9 g/dL 6.3-8.2 ALBUMIN (test code = 9694260843) 4.4 g/dL 3.5-5.0 ALK PHOS (test code = 6305716411) 130 U/L 34-122 H ALTv (test code = 1742-6) 21 U/L 5-50 AST(SGOT) (test code = 6177396077) 25 U/L 13-40 eGFR (test code = 0549607171) mL/min/1.73m2 MIHAELA (test code = MIHAELA) Lab Interpretation (test cod e = 88432-9) [facility]normal [facility]IP[facility], [id number] 04:34:48* Test Item Value Reference Range Interpretation Comme nts LIPASE (test code = 9473275961) 118 U/L 0-220 Lab Interpretation (test cod e = 58334-0) [facility], [id number] 04:34:48* Test Item Value Reference Range Interpretation Comme nts LIPASE (test code = 1454634550) 118 U/L 0-220 Lab Interpretation (test cod e = 49246-9) Normal [facility] WITH [id number] 04:22:47* Test Item Value Reference Range Interpretation Comme nts WBC (test code = 6690-2) See_Comment [Automated messa ge] The system which generated this result transmitted reference range: 4.20 - 10.70 10*3/?L. The reference range was not used to interpret this result as normal/abnormal. RBC (test code = 789-8) See_Comment [Automated messa ge] The system which generated this result transmitted reference range: 4.26 - 5.52 10*6/?L. The reference range was not used to interpret this result as normal/abnormal. HGB (test code = 718-7) 14.9 g/dL 12.2-16.4 HCT (test code = 4544-3) 42.1 % 38.4-49.3 MCV (test code = 787-2) 88.3 fL 81.7-95.6 MCH (test code = 785-6) 31.2 pg 26.1-32.7 MCHC (test code = 786-4) 35.4 g/dL 31.2-35.0 H RDW-SD (test code = 39341-8) 39.0 fL 38.5-51.6 RDW-CV (test code = 788-0) 12.0 % 12.1-15.4 L PLT (test code = 777-3) See_Comment [Automated messa ge] The system which generated this result transmitted reference range: 150 - 328 10*3/?L. The reference range was not used to interpret this result as normal/abnormal. MPV (test code = 12489-6) 8.7 fL 9.8-13.0 L NRBC/100 WBC (test code = 2347366583) See_Comment [Automated CONWEAVER ssage] The system which generated this result transmitted reference range: 0.0 - 10.0 /100 WBCs. The reference range was not used to interpret this result as normal/abnormal. NRBC x10^3 (test code = 4435277025) <0.01 See_Comment [Automated messa ge] The system which generated this result transmitted reference range: 10*3/?L. The reference range was not used to interpret this result as normal/abnormal. GRAN MAT (NEUT) % (test code = 770-8) 56.5 % IMM GRAN % (test code = 8697427671) 0.80 % LYMPH % (test code = 736-9) 24.3 % MONO % (test code = 5905-5) 11.5 % EOS % (test code = 713-8) 6.2 % BASO % (test code = 706-2) 0.7 % GRAN MAT x10^3(ANC) (test code = 2939610927) 5.22 10*3/uL 1.99-6.95 IMM GRAN x10^3 (test code = 6923653362) 0.07 10*3/uL 0.00-0.06 H LYMPH x10^3 (test code = 731-0) 2.24 10*3/uL 1.09-3.23 MONO x10^3 (test code = 742-7) 1.06 10*3/uL 0.36-1.02 H EOS x10^3 (test code = 711-2) 0.57 10*3/uL 0.06-0.53 H BASO x10^3 (test code = 704-7) 0.06 10*3/uL 0.01-0.09 Lab Interpretation (test code = 23519-1) Abnormal [facility] WITH [id number] 04:22:47* Test Item Value Reference Range Interpretation Comme nts WBC (test code = 6690-2) See_Comment [Automated messa ge] The system which generated this result transmitted reference range: 4.20 - 10.70 10*3/?L. The reference range was not used to interpret this result as normal/abnormal. RBC (test code = 789-8) See_Comment [Automated messa ge] The system which generated this result transmitted reference range: 4.26 - 5.52 10*6/?L. The reference range was not used to interpret this result as normal/abnormal. HGB (test code = 718-7) 14.9 g/dL 12.2-16.4 HCT (test code = 4544-3) 42.1 % 38.4-49.3 MCV (test code = 787-2) 88.3 fL 81.7-95.6 MCH (test code = 785-6) 31.2 pg 26.1-32.7 MCHC (test code = 786-4) 35.4 g/dL 31.2-35.0 H RDW-SD (test code = 70119-8) 39.0 fL 38.5-51.6 RDW-CV (test code = 788-0) 12.0 % 12.1-15.4 L PLT (test code = 777-3) See_Comment [Automated minicabita ge] The system which generated this result transmitted reference range: 150 - 328 10*3/?L. The reference range was not used to interpret this result as normal/abnormal. MPV (test code = 57179-7) 8.7 fL 9.8-13.0 L NRBC/100 WBC (test code = 6884789307) See_Comment [Automated CONWEAVER ssage] The system which generated this result transmitted reference range: 0.0 - 10.0 /100 WBCs. The reference range was not used to interpret this result as normal/abnormal. NRBC x10^3 (test code = 5165728540) <0.01 See_Comment [Automated minicabita ge] The system which generated this result transmitted reference range: 10*3/?L. The reference range was not used to interpret this result as normal/abnormal. GRAN MAT (NEUT) % (test code = 770-8) 56.5 % IMM GRAN % (test code = 8160068156) 0.80 % LYMPH % (test code = 736-9) 24.3 % MONO % (test code = 5905-5) 11.5 % EOS % (test code = 713-8) 6.2 % BASO % (test code = 706-2) 0.7 % GRAN MAT x10^3(ANC) (test code = 3429509611) 5.22 10*3/uL 1.99-6.95 IMM GRAN x10^3 (test code = 7672689464) 0.07 10*3/uL 0.00-0.06 H LYMPH x10^3 (test code = 731-0) 2.24 10*3/uL 1.09-3.23 MONO x10^3 (test code = 742-7) 1.06 10*3/uL 0.36-1.02 H EOS x10^3 (test code = 711-2) 0.57 10*3/uL 0.06-0.53 H BASO x10^3 (test code = 704-7) 0.06 10*3/uL 0.01-0.09 Lab Interpretation (test code = 86235-4) [facility]normal [facility]CT HEAD WO [id number] 18:28:16No acute intracranial hemorrhage or mass effect. 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 Preliminary Report Dictated by Resident: Lauren Aponte MD., have reviewed this study and agree with theabove report.EXAM: CT HEAD WO CONTRAST HISTORY: 80 years -old Male with Mental status change, unknown cause , anepisode of shaking, sweating and loss of consciousness. COMPARISON: CT head 04/28/2020, 11/23/2019. TECHNIQUE: Contiguous axial imaging to the base of skull was obtained with2.5 mm slices without intravenous contrast. 5 mm axial, coronal, andsagittal reformats were obtained. 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 A coarsecalcification is again noted within the gliotic territory. The ventricles and cerebral sulci are otherwise normal in caliber andconfiguration. No hydrocephalus, midline shift or pathological extra-axialfluid collection is present.The basal cisterns are unremarkable. Probablechronic ischemic changes of the white matter. There isno acute intracranial hemorrhage or significant mass effect. The mastoid air cells and paranasal air sinuses are clear. The calvariumand central skull base are unremarkable. [facility], Radiant Results Inft User - 12/14/2020 1:29 PM CDT EXAM: CTHEAD WO CONTRASTHISTORY: 80 years -old Male with Mental status change, unknown cause , anepisode ofshaking, sweating and loss of consciousness.COMPARISON: CT head 04/28/2020, 11/23/2019. TECHNIQUE: Contiguous axial imaging to the base of skull was obtained with2.5 mm slices without intravenous contrast. 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 A co arsecalcification is again noted within the gliotic territory.The ventricles and cerebral sulci areotherwise normal in caliber andconfiguration. No hydrocephalus, midline shift or pathological extra-axialfluid collection is present. The basal cisterns are unremarkable. Probablechronic ischemic changes of the white matter.There is no acute intracranial hemorrhage or significant mass effect. The mastoid air cells and paranasal air sinuses are clear. 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 FINDINGS: 2 AP views of the chest are obtained and compared to 06/24/2020study. Increased markings are seen in the right lower lung, likely chronicand unchanged when compared with previous study. Loop recording devicenoted projected over the left hilum. Cardiac size is within upper limits ofnormal. No pneumothorax or pleural effusion. CONCLUSIONS: No radiographic signs of acute cardiopulmonary disease. [facility], Radiant Results Inft User - 12/14/2020 11:48 AM CDTFormatting of thisnote might be different from the original.HISTORY: Syncope.FINDINGS: 2 AP views of the chest are obtained and compared to 06/24/2020study. Increased markings are seen in the right lower lung, likely chronicand unchanged when compared with previous study. Loop recording devicenoted projected over the left hilum. Cardiac size is within upper limits ofnormal. No pneumothorax or pleural effusion.CONCLUSIONS: No radiographic signs of acute cardiopulmonary disease.[facility]COVID-[facility] (ID NOW RAPID TESTING)2020-12-14 16:25:15* Test Item Value Reference Range Interpretation Comme [facility] SARS-CoV-2 Rapid ID NOW (test code = 66425-5) Not Detected Not Detected MIHAELA (test code = MIHAELA) ID NOW COVID-19 As say is an isothermal nucleic acid amplification test intended for the qualitative detection of nucleic acid from SARS-CoV-2 viral RNA in nasopharyngeal (RN BARIATRIC) specimens. It is used under Emergency Use Authorization (EUA) by FDA. The limit of detection (LOD) of the assay is 125 Genome Equivalents/mL. A positive result is indicative of the presence of SARS-CoV-2 RNA. ?Clinical correlation with patient history and other diagnostic information is necessary to determine patient infection status. A negative (Not Detected) result does not preclude SARS-CoV-2 infection. In patients with clinical symptoms and other tests that are consistent with SARS-CoV-2 infection, negative results should be treated as presumptive negative and a new specimen should be tested with alternative PCR molecular test. Invalid: Please collect a new specimen for repeat patient testing if clinically indicated. Lab Interpretation (test code = 45539-2) Normal [facility] IrvingTR[facility] [id number] 16:24:49* Test Item Value Reference Range Interpretation Comme [facility] TROPONIN I (test code = 9212587303) 0.003 ng/mL See_Comment [Automated message] The system which generated this result transmitted reference range: <=0.034. The reference range was not used to interpret this result as normal/abnormal. MIHAELA (test code = MIHAELA) Equal or Less than 0.034 ng/ml---Normal ?Note: Cardiac troponin begins to rise 3-4 hours after the onset of ischemia. Repeat in 4-6 hours if the sample was drawn within 3-4 hours of the onset of the symptom and found normal. Between 0.035 and 0.120 ng/mL--- Borderline. Questionable myocardial injury or necrosis ? ?Note: Serial measurement may be necessary to confirm or exclude the diagnosis of myocardial injury or necrosis; Clinical correlation (symptoms, EKGs, imaging studies, and others) required; Repeat in 4-6 hours if clinically indicated. ? Equal or Higher than 0.121 ng/mL---Abnormal. Myocardial Injury or Necrosis Likely ? Biotin has been reported to cause a negative bias, interpret results relative to patient's use of biotin. ? Lab Interpretation (test code = 71688-6) Normal [facility] IrvingN-TERMINAL [id number] 16:20:14* Test Item Value Reference Range Interpretation Comme nts NT-proBNP (test code = 3414780441) 142 pg/mL See_Comment [Automated message] The system which generated this result transmitted reference range: <=450. The reference range was not used to interpret this result as normal/abnormal. MIHAELA (test code = MIHAELA) Biotin has been reported to cause a negative bias, interpret results relative to patient's use of biotin. Lab Interpretation (test code = 30748-5) Normal [facility] IrvingCOMP. METABOLIC PANEL ([id number])2020-12-14 16:17:38* Test Item Value Reference Range Interpretation Comme nts NA (test code = 1703354659) 131 mmol/L 135-145 L K (test code = 4747869372) 4.3 mmol/L 3.5-5.0 CL (test code = 3753688939) 99 mmol/L 98-108 CO2 TOTAL (test code = 6807262871) 24 mmol/L 23-31 AGAP (test code = 3804598205) 2-16 BUN (test code = 9666991380) 16 mg/dL 7-23 GLUCOSE (test code = 8897010302) 146 mg/dL 70-110 H CREATININE (test code = 4309746891) 1.08 mg/dL 0.60-1.25 TOTAL BILI (test code = 6446595905) 1.0 mg/dL 0.1-1.1 CALCIUM (test code = 6697783264) 9.2 mg/dL 8.6-10.6 T PROTEIN (test code = 0680014252) 6.6 g/dL 6.3-8.2 ALBUMIN (test code = 2612021923) 4.2 g/dL 3.5-5.0 ALK PHOS (test code = 8525322726) 104 U/L 34-122 ALTv (test code = 1742-6) 18 U/L 5-50 AST(SGOT) (test code = 0059522081) 25 U/L 13-40 eGFR (test code = 1862393809) mL/min/1.73m2 MIHAELA (test code = MIHAELA) Association of Glomerular Filtration Rate (GFR) and Staging of Kidney Disease* + --+ --+ ------+| GFR (mL/min/1.73 m2) ?| With Kidney Damage ?| ?Without Kidney Damage+ --------+ --------+ +| ?>90 ?| ?Stage one ?| ? Normal ?+ ---+ ---+ -------+| ?60-89 ?| ?Stage two ?| ? Decreased GFR ? + --+ --+ ------+| ?30-59 ?| ?Stage three ?| ? Stage three ? + --+ --+ ------+| ?15-29 ?| ?Stage four ? | ? Stage four ?+ ---+ ---+ -------+| ?<15 (or dialysis) ? ?| ?Stage five ? | ? Stage five ?+ ---+ ---+ -------+ *Each stage assumes the associated GFR level has been in effect for at least three months. ?Stages 1 to 5, with or without kidney disease, indicate chronic kidney disease. Notes: Determination of stages one and two (with eGFR >59mL/min/1.73 m2) requires estimation of kidney damage for at least three months as defined by structural or functional abnormalities of the kidney, manifested by either:Pathological abnormalities or Markers of kidney damage (including abnormalities in the composition of the blood or urine or abnormalities in imaging tests). Lab Interpretation (test code = 12092-1) [facility]normal [facility] IrvingLIPASE, [id number] 16:17:38* Test Item Value Reference Range Interpretation Comme [facility] LIPASE (test code = 7764551184) 61 U/L 0-220 Lab Interpretation (test cod e = 87712-6) Normal [facility] IrvingaPTT2021-06-16 16:07:30* Test Item Value Reference Range Interpretation Comme [facility] APTT Patient (test code = 3173-2) See_Comment [Automated message] The system which generated this result transmitted reference range: 23 - 38 Seconds. The reference range was not used to interpret this result as normal/abnormal. MIHAELA (test code = MIHAELA) The [facility] patient population mean normal value for aPTT is 30 seconds. Lab Interpretation (test code = 63049-6) Normal [facility] IrvingPROTHROMBIN TIME / [id number] 16:05:28* Test Item Value Reference Range Interpretation Comme nts PROTIME PATIENT (test code = 5964-2) See_Comment [Automated minicabita Modumetal] The system which generated this result transmitted reference range: 12.0 - 14.7 Seconds. The reference range was not used to interpret this result as normal/abnormal. INR (test code = 6301-6) Normal INR <1.1; Warfarin Therapeutic range 2.0 to 3.0 or 2.5 to 3.5, depending upon the indications. Lab Interpretation (test code = 04407-6) Normal [facility] IrvingCBC WITH [id number] 15:51:48* Test Item Value Reference Range Interpretation Comme nts WBC (test code = 6690-2) See_Comment [Automated minicabita Modumetal] The system which generated this result transmitted reference range: 4.20 - 10.70 10*3/?L. The reference range was not used to interpret this result as normal/abnormal. RBC (test code = 789-8) See_Comment [Automated minicabita Modumetal] The system which generated this result transmitted reference range: 4.26 - 5.52 10*6/?L. The reference range was not used to interpret this result as normal/abnormal. HGB (test code = 718-7) 15.2 g/dL 12.2-16.4 HCT (test code = 4544-3) 43.9 % 38.4-49.3 MCV (test code = 787-2) 89.4 fL 81.7-95.6 MCH (test code = 785-6) 31.0 pg 26.1-32.7 MCHC (test code = 786-4) 34.6 g/dL 31.2-35.0 RDW-SD (test code = 82791-7) 41.5 fL 38.5-51.6 RDW-CV (test code = 788-0) 12.7 % 12.1-15.4 PLT (test code = 777-3) See_Comment [Automated messa ge] The system which generated this result transmitted reference range: 150 - 328 10*3/?L. The reference range was not used to interpret this result as normal/abnormal. MPV (test code = 58481-7) 9.1 fL 9.8-13.0 L NRBC/100 WBC (test code = 2374186455) See_Comment [Automated CONWEAVER ssage] The system which generated this result transmitted reference range: 0.0 - 10.0 /100 WBCs. The reference range was not used to interpret this result as normal/abnormal. NRBC x10^3 (test code = 7519621553) <0.01 See_Comment [Automated messa ge] The system which generated this result transmitted reference range: 10*3/?L. The reference range was not used to interpret this result as normal/abnormal. GRAN MAT (NEUT) % (test code = 770-8) 60.4 % IMM GRAN % (test code = 2682109015) 0.40 % LYMPH % (test code = 736-9) 26.5 % MONO % (test code = 5905-5) 9.8 % EOS % (test code = 713-8) 2.5 % BASO % (test code = 706-2) 0.4 % GRAN MAT x10^3(ANC) (test code = 0525485063) 5.57 10*3/uL 1.99-6.95 IMM GRAN x10^3 (test code = 0761361233) 0.04 10*3/uL 0.00-0.06 LYMPH x10^3 (test code = 731-0) 2.45 10*3/uL 1.09-3.23 MONO x10^3 (test code = 742-7) 0.91 10*3/uL 0.36-1.02 EOS x10^3 (test code = 711-2) 0.23 10*3/uL 0.06-0.53 BASO x10^3 (test code = 704-7) 0.04 10*3/uL 0.01-0.09 Lab Interpretation (test code = 47611-7) [facility]normal [facility] IrvingURINALYSIS2020-12-25 20:09:00* Test Item Value Reference Range Interpretation Comme nts APPEARANCE (test code = 4438712186) Clear Clear COLOR (test code = 1248053392) Yellow Yellow PH (test code = 1620877982) 4.8-8.0 SP GRAVITY (test code = 5441314429) 1.003-1.030 GLU U QUAL (test code = 1528055239) Normal Normal BLOOD (test code = 7194343207) Negative Negative KETONES (test code = 4223449883) Negative Negative PROTEIN (test code = 2887-8) Negative Negative UROBILIN (test code = 9300780215) Normal Normal BILIRUBIN (test code = 4294833250) Negative Negative NITRITE (test code = 1651905360) Negative Negative LEUK JORGE ALBERTO (test code = 0525923199) Negative Negative RBC/HPF (test code = 6659987449) <1 See_Comment [Automated minicabita ge] The system which generated this result transmitted reference range: 0 - 3 HPF. The reference range was not used to interpret this result as normal/abnormal. WBC/HPF (test code = 4698257448) See_Comment [Automated minicabita ge] The system which generated this result transmitted reference range: 0 - 5 HPF. The reference range was not used to interpret this result as normal/abnormal. BACTERIA (test code = 2312101480) Negative Negative MUCOUS (test code = 6986593837) Slight Negative LPF A SQ EPITH (test code = 2194926310) <1 HPF Lab Interpretation (test code = 78907-8) [facility]normal [facility] IrvingXR [facility] 1 [id number] 19:04:44No acute cardiopulmonary process. Preliminary Report Dictated by Resident: Jaqueline Martinez MD., have reviewed this study and agree with theabove report.EXAM: XR CHEST 1 VW COMPARISON: Chest x-ray 12/13/2018 HISTORY: somnolence ? TECHNIQUE: Frontal view of the chest was obtained. FINDINGS: Lungs/pleura: ?The lungs are clear. No focal consolidation identified. Nopleural effusion or pneumothorax is identified. Heart/Mediastinum: The cardiac silhouette is normal in size. Cardiac looprecorder is noted. No acute osseous abnormality. Healing right posterior fifth-eighth ribfractures. [facility], Radiant Results Inft User - 06/24/2020 1:05 PM CSTEXAM: XR CHEST 1 VWCOMPARISON: Chest x-ray 12/13/2018HISTORY: somnolence TECHNIQUE: Frontal view of the chest was obtained.FINDINGS:Lungs/pleura: The lungs are clear. No focal consolidation identified. Nopleural effusion or pneumothorax is identified.Heart/Mediastinum: The cardiac silhouette is normal in size. Cardiac looprecorder is noted.No acute osseous abnormality. Healing right posterior fifth-eighth ribfractures.IMPRESSIONNo acute cardiopulmonary process.Preliminary Report Dictated by Resident: Marjorie Urrutia, Celso Beal MD., have reviewed this study and agree with theabove report.[facility] [id number] 18:18:00* Test Item Value Reference Range Interpretation Comme nts TROPONIN I (test code = 9499720436) <0.012 See_Comment [Automated message] The system which generated this result transmitted reference range: <=0.034 ng/mL. The reference range was not used to interpret this result as normal/abnormal. MIHAELA (test code = MIHAELA) Equal or Less than 0.034 ng/ml---Normal ?Note: Cardiac troponin begins to rise 3-4 hours after the onset of ischemia. Repeat in 4-6 hours if the sample was drawn within 3-4 hours of the onset of the symptom and found normal. Between 0.035 and 0.120 ng/mL--- Borderline. Questionable myocardial injury or necrosis ? ?Note: Serial measurement may be necessary to confirm or exclude the diagnosis of myocardial injury or necrosis; Clinical correlation (symptoms, EKGs, imaging studies, and others) required; Repeat in 4-6 hours if clinically indicated. ? Equal or Higher than 0.121 ng/mL---Abnormal. Myocardial Injury or Necrosis Likely ? Biotin has been reported to cause a negative bias, interpret results relative to patient's use of biotin. ? Lab Interpretation (test code = 12089-3) [facility]OL[facility] (09578)2020-06-24 18:06:00* Test Item Value Reference Range Interpretation Comme nts NA (test code = 8875535197) 130 mmol/L 135-145 L K (test code = 1633540135) 4.3 mmol/L 3.5-5 CL (test code = 0753944706) 96 mmol/L 98-108 L CO2 TOTAL (test code = 6567102688) 24 mmol/L 23-31 AGAP (test code = 9260389818) 2-16 BUN (test code = 7083080018) 12 mg/dL 7-23 GLUCOSE (test code = 6147158968) 138 mg/dL 70-110 H CREATININE (test code = 2289587465) 0.96 mg/dL 0.6-1.25 TOTAL BILI (test code = 8571316604) 1.4 mg/dL 0.1-1.1 H CALCIUM (test code = 5172446765) 9.6 mg/dL 8.6-10.6 T PROTEIN (test code = 6667758158) 6.9 g/dL 6.3-8.2 ALBUMIN (test code = 1497677807) 4.1 g/dL 3.5-5 ALK PHOS (test code = 6247820585) 104 U/L 34-122 ALTv (test code = 1742-6) 14 U/L 5-50 AST(SGOT) (test code = 5414068932) 23 U/L 13-40 eGFR Calculation (Non-) (test code = 6745083210) mL/min/1.73m2 eGFR Calculation () (test code = 8006878669) mL/min/1.73m2 MIHAELA (test code = MIHAELA) Association of Glomerular Filtration Rate (GFR) and Staging of Kidney Disease* + --+ --+ ------+| GFR (mL/min/1.73 m2) ?| With Kidney Damage ?| ?Without Kidney Damage+ --------+ --------+ +| ?>90 ?| ?Stage one ?| ? Normal ?+ ---+ ---+ -------+| ?60-89 ?| ?Stage two ?| ? Decreased GFR ? + --+ --+ ------+| ?30-59 ?| ?Stage three ?| ? Stage three ? + --+ --+ ------+| ?15-29 ?| ?Stage four ? | ? Stage four ?+ ---+ ---+ -------+| ?<15 (or dialysis) ? ?| ?Stage five ? | ? Stage five ?+ ---+ ---+ -------+ *Each stage assumes the associated GFR level has been in effect for at least three months. ?Stages 1 to 5, with or without kidney disease, indicate chronic kidney disease. Notes: Determination of stages one and two (with eGFR >59mL/min/1.73 m2) requires estimation of kidney damage for at least three months as defined by structural or functional abnormalities of the kidney, manifested by either:Pathological abnormalities or Markers of kidney damage (including abnormalities in the composition of the blood or urine or abnormalities in imaging tests). Lab Interpretation (test code = 64707-2) Abnormal [facility] WITH [id number] 17:44:00* Test Item Value Reference Range Interpretation Comme nts WBC (test code = 6690-2) See_Comment [[employer]] The system which generated this result transmitted reference range: 4.20 - 10.70 10*3/?L. The reference range was not used to interpret this result as normal/abnormal. RBC (test code = 789-8) See_Comment [[employer]] The system which generated this result transmitted reference range: 4.26 - 5.52 10*6/?L. The reference range was not used to interpret this result as normal/abnormal. HGB (test code = 718-7) 14.4 g/dL 12.2-16.4 HCT (test code = 4544-3) 42.5 % 38.4-49.3 MCV (test code = 787-2) 87.6 fL 81.7-95.6 MCH (test code = 785-6) 29.7 pg 26.1-32.7 MCHC (test code = 786-4) 33.9 g/dL 31.2-35 RDW-SD (test code = 74289-5) 41.3 fL 38.5-51.6 RDW-CV (test code = 788-0) 12.7 % 12.1-15.4 PLT (test code = 777-3) See_Comment [Automated messa ge] The system which generated this result transmitted reference range: 150 - 328 10*3/?L. The reference range was not used to interpret this result as normal/abnormal. MPV (test code = 72054-5) 8.5 fL 9.8-13 L NRBC/100 WBC (test code = 7749505730) See_Comment [Automated [employer] ssage] The system which generated this result transmitted reference range: 0.0 - 10.0 /100 WBCs. The reference range was not used to interpret this result as normal/abnormal. NRBC x10^3 (test code = 4894474941) <0.01 See_Comment [Automated messa ge] The system which generated this result transmitted reference range: 10*3/?L. The reference range was not used to interpret this result as normal/abnormal. GRAN MAT (NEUT) % (test code = 770-8) 67.8 % IMM GRAN % (test code = 1727700619) 0.50 % LYMPH % (test code = 736-9) 21.6 % MONO % (test code = 5905-5) 8.2 % EOS % (test code = 713-8) 1.7 % BASO % (test code = 706-2) 0.2 % GRAN MAT x10^3(ANC) (test code = 2140558476) 5.92 10*3/uL 1.99-6.95 IMM GRAN x10^3 (test code = 9835001860) 0.04 10*3/uL 0-0.06 LYMPH x10^3 (test code = 731-0) 1.89 10*3/uL 1.09-3.23 MONO x10^3 (test code = 742-7) 0.72 10*3/uL 0.36-1.02 EOS x10^3 (test code = 711-2) 0.15 10*3/uL 0.06-0.53 BASO x10^3 (test code = 704-7) <0.03 0.01-0.09 Lab Interpretation (test code = 52312-8) [facility] Asymptomatic IH [id number] 12:30:00 * Test Item Value Reference Range Interpretation Comme nts COVID 19 Asymptomatic IH AG (test code = COVNONPUIAG) NEGATIVE NEGATIVE COVID 19 Asymptomatic IH [id number] 12:30:00* Test Item Value Reference Range Interpretation Comme nts COVID 19 Asymptomatic IH AG (test code = COVNONPUIAG) NEGATIVE NEGATIVE BASIC METABOLIC PANEL (NA, K, CL, CO2, GLUCOSE, BUN, CREATININE, CA)2020-04-29 21:08:00* Test Item Value Reference Range Interpretation Comme nts NA (test code = 6177702398) 124 mmol/L 135-145 L K (test code = 9395833430) 4.3 mmol/L 3.5-5 CL (test code = 5817662771) 91 mmol/L 98-108 L CO2 TOTAL (test code = 3260370081) 27 mmol/L 23-31 AGAP (test code = 1033971231) 2-16 BUN (test code = 6775760907) 13 mg/dL 7-23 GLUCOSE (test code = 0332502649) 129 mg/dL 70-110 H CREATININE (test code = 9788600841) 0.96 mg/dL 0.6-1.25 CALCIUM (test code = 1807244531) 8.6 mg/dL 8.6-10.6 eGFR Calculation (Non-) (test code = 3331017435) mL/min/1.73m2 eGFR Calculation () (test code = 6662380194) mL/min/1.73m2 MIHAELA (test code = MIHAELA) Association of Glomerular Filtration Rate (GFR) and Staging of Kidney Disease* + --+ --+ ------+| GFR (mL/min/1.73 m2) ?| With Kidney Damage ?| ?Without Kidney Damage+ --------+ --------+ +| ?>90 ?| ?Stage one ?| ? Normal ?+ ---+ ---+ -------+| ?60-89 ?| ?Stage two ?| ? Decreased GFR ? + --+ --+ ------+| ?30-59 ?| ?Stage three ?| ? Stage three ? + --+ --+ ------+| ?15-29 ?| ?Stage four ? | ? Stage four ?+ ---+ ---+ -------+| ?<15 (or dialysis) ? ?| ?Stage five ? | ? Stage five ?+ ---+ ---+ -------+ *Each stage assumes the associated GFR level has been in effect for at least three months. ?Stages 1 to 5, with or without kidney disease, indicate chronic kidney disease. Notes: Determination of stages one and two (with eGFR >59mL/min/1.73 m2) requires estimation of kidney damage for at least three months as defined by structural or functional abnormalities of the kidney, manifested by either:Pathological abnormalities or Markers of kidney damage (including abnormalities in the composition of the blood or urine or abnormalities in imaging tests). Lab Interpretation (test code = 67670-7) [facility]normal [facility] Irving[facility]YROID STIMULATING [id number] 15:44:00 * Test Item Value Reference Range Interpretation Comme nts TSH (test code = 7599036441) See_Comment [Automated [employer]] The system which generated this result transmitted reference range: 0.45 - 4.70 mIU/L. The reference range was not used to interpret this result as normal/abnormal. Lab Interpretation (test code = 69682-8) Normal [facility] IrvingCORTISOL [id number] 15:44:00* Test Item Value Reference Range Interpretation Comme nts ALBERT AM (test code = 4905594184) 9.3 ug/dL 4.5-23 MIHAELA (test code = MIHAELA) Biotin has been reported to cause a positive bias, interpret results relative to patient's use of biotin. Lab Interpretation (test code = 33095-9) [facility] IrvingTHYROXINE, [id number] 15:31:00* Test Item Value Reference Range Interpretation Comme nts T4 TOTAL (test code = 8750740388) See_Comment [Automated [employer]] The system which generated this result transmitted reference range: 5.5 - 11.0 mcg/dL. The reference range was not used to interpret this result as normal/abnormal. Lab Interpretation (test code = 80924-8) [facility] IrvingFREE [id number] 15:21:00* Test Item Value Reference Range Interpretation Comme nts FREE T4 (test code = 1154054343) See_Comment [Automated [employer]] The system which generated this result transmitted reference range: 0.78 - 2.20 ng/dL:. The reference range was not used to interpret this result as normal/abnormal. Lab Interpretation (test code = 54406-5) Normal [facility] METABOLIC PANEL (NA, K, CL, CO2, GLUCOSE, BUN, CREATININE, CA)2020-04-29 10:00:00* Test Item Value Reference Range Interpretation Comme nts NA (test code = 7701621326) 125 mmol/L 135-145 L K (test code = 4936633236) 4.8 mmol/L 3.5-5 CL (test code = 4912843896) 94 mmol/L 98-108 L CO2 TOTAL (test code = 6090871339) 24 mmol/L 23-31 AGAP (test code = 4627283211) 2-16 BUN (test code = 4856001982) 14 mg/dL 7-23 GLUCOSE (test code = 9992635787) 97 mg/dL 70-110 CREATININE (test code = 9319387076) 0.91 mg/dL 0.6-1.25 CALCIUM (test code = 5029901051) 8.8 mg/dL 8.6-10.6 eGFR Calculation (Non-) (test code = 7553545753) mL/min/1.73m2 eGFR Calculation () (test code = 2606998699) mL/min/1.73m2 MIHAELA (test code = MIHAELA) Association of Glomerular Filtration Rate (GFR) and Staging of Kidney Disease* + --+ --+ ------+| GFR (mL/min/1.73 m2) ?| With Kidney Damage ?| ?Without Kidney Damage+ --------+ --------+ +| ?>90 ?| ?Stage one ?| ? Normal ?+ ---+ ---+ -------+| ?60-89 ?| ?Stage two ?| ? Decreased GFR ? + --+ --+ ------+| ?30-59 ?| ?Stage three ?| ? Stage three ? + --+ --+ ------+| ?15-29 ?| ?Stage four ? | ? Stage four ?+ ---+ ---+ -------+| ?<15 (or dialysis) ? ?| ?Stage five ? | ? Stage five ?+ ---+ ---+ -------+ *Each stage assumes the associated GFR level has been in effect for at least three months. ?Stages 1 to 5, with or without kidney disease, indicate chronic kidney disease. Notes: Determination of stages one and two (with eGFR >59mL/min/1.73 m2) requires estimation of kidney damage for at least three months as defined by structural or functional abnormalities of the kidney, manifested by either:Pathological abnormalities or Markers of kidney damage (including abnormalities in the composition of the blood or urine or abnormalities in imaging tests). Lab Interpretation (test code = 40084-6) Abnormal [facility] IrvingCB WITHOUT [id number] 09:42:00* Test Item Value Reference Range Interpretation Comme nts WBC (test code = 6690-2) See_Comment H [Automated message] The system which generated this result transmitted reference range: 4.20 - 10.70 10*3/?L. The reference range was not used to interpret this result as normal/abnormal. RBC (test code = 789-8) See_Comment [Automated message] The system which generated this result transmitted reference range: 4.26 - 5.52 10*6/?L. The reference range was not used to interpret this result as normal/abnormal. HGB (test code = 718-7) 14.8 g/dL 12.2-16.4 HCT (test code = 4544-3) 42.0 % 38.4-49.3 MCH (test code = 785-6) 30.8 pg 26.1-32.7 MCV (test code = 787-2) 87.3 fL 81.7-95.6 MCHC (test code = 786-4) 35.2 g/dL 31.2-35 H PLT (test code = 777-3) See_Comment [Automated message] The system which generated this result transmitted reference range: 150 - 328 10*3/?L. The reference range was not used to interpret this result as normal/abnormal. MPV (test code = 10539-4) 8.7 fL 9.8-13 L RDW-CV (test code = 788-0) 12.0 % 12.1-15.4 L RDW-SD (test code = 77840-0) 38.5 fL 38.5-51.6 NRBC x10^3 (test code = 7522858732) <0.01 See_Comment [Automated minicabita ge] The system which generated this result transmitted reference range: 10*3/?L. The reference range was not used to interpret this result as normal/abnormal. NRBC/100 WBC (test code = 6964559683) See_Comment [Automated minicabita ge] The system which generated this result transmitted reference range: 0.0 - 10.0 /100 WBCs. The reference range was not used to interpret this result as normal/abnormal. IPF % (test code = 7839105902) Lab Interpretation (test code = 23885-6) [facility]normal [facility] IrvingURINALYSIS2020-10-30 08:57:00* Test Item Value Reference Range Interpretation Comme nts APPEARANCE (test code = 1972657207) Clear Clear COLOR (test code = 6544772695) Yellow Yellow PH (test code = 8831034882) 4.8-8.0 SP GRAVITY (test code = 0560099080) 1.003-1.030 GLU U QUAL (test code = 9634605732) Normal Normal BLOOD (test code = 0980715446) Negative Negative KETONES (test code = 1510144314) Negative Negative PROTEIN (test code = 2887-8) Negative Negative UROBILIN (test code = 4919825131) Normal Normal BILIRUBIN (test code = 0576344200) Negative Negative NITRITE (test code = 7545222661) Negative Negative LEUK JORGE ALBERTO (test code = 7405580022) Negative Negative RBC/HPF (test code = 7445806907) See_Comment [Automated minicabita ge] The system which generated this result transmitted reference range: 0 - 3 HPF. The reference range was not used to interpret this result as normal/abnormal. WBC/HPF (test code = 5584371294) See_Comment [Automated minicabita ge] The system which generated this result transmitted reference range: 0 - 5 HPF. The reference range was not used to interpret this result as normal/abnormal. BACTERIA (test code = 8063540573) Negative Negative Lab Interpretation (test code = 27742-6) Normal [facility] IrvingSODIUM, URINE [id number] 08:33:00* Test Item Value Reference Range Interpretation Comme nts NA URINE (test code = 7271780924) 54 mmol/L [facility] IrvingOSMOLALITY [id number] 07:40:00* Test Item Value Reference Range Interpretation Comme nts OSMO U (test code = 6108677154) See_Comment [Automated minicabita ge] The system which generated this result transmitted reference range: 50-1,100 mOsm/kg. The reference range was not used to interpret this result as normal/abnormal. Lab Interpretation (test code = 56013-5) Normal [facility] IrvingOSMOLALITY [id number] 01:08:00* Test Item Value Reference Range Interpretation Comme nts OSMOLALITY (test code = 4143330895) See_Comment L [Automated minicabita ge] The system which generated this result transmitted reference range: 278 - 305 mOsm/kg. The reference range was not used to interpret this result as normal/abnormal. Lab Interpretation (test code = 68246-9) Abnormal [facility] IrvingTROPONIN [id number] 00:53:00* Test Item Value Reference Range Interpretation Comme nts TROPONIN I (test code = 9903966037) 0.013 ng/mL See_Comment [Automated message] The system which generated this result transmitted reference range: <=0.034. The reference range was not used to interpret this result as normal/abnormal. MIHAELA (test code = MIHAELA) Equal or Less than 0.034 ng/ml---Normal ?Note: Cardiac troponin begins to rise 3-4 hours after the onset of ischemia. Repeat in 4-6 hours if the sample was drawn within 3-4 hours of the onset of the symptom and found normal. Between 0.035 and 0.120 ng/mL--- Borderline. Questionable myocardial injury or necrosis ? ?Note: Serial measurement may be necessary to confirm or exclude the diagnosis of myocardial injury or necrosis; Clinical correlation (symptoms, EKGs, imaging studies, and others) required; Repeat in 4-6 hours if clinically indicated. ? Equal or Higher than 0.121 ng/mL---Abnormal. Myocardial Injury or Necrosis Likely ? Biotin has been reported to cause a negative bias, interpret results relative to patient's use of biotin. ? Lab Interpretation (test code = 28453-9) [facility] IrvingElectroencephalogram (EEG) - Duration of test: 20-60 [id number] 00:00:00Date and Time of Procedure: 04/29/2020, 8:48:29- 9:09:18 REPORT TECHNICAL SUMMARY: The EEG was recorded digitally. Electrodes were applied using the International 10/20 System of electrode placement. Eye movements and rhythm strip ECG were monitored on separate channels of the ongoing EEG recording.The occipital dominant rhythm consists of moderate amplitude 8.5-9 Hz activity. More anteriorly, similar as well as faster frequencies are present, including low amplitude 18-22 Hz activities in the a nterior leads. There is intermittent left frontal slowing in 4-6 Hz. Drowsiness does not reveal anyabnormalities. Sleep is not seen. Photic stimulation does not elicit any abnormalities. IMPRESSION:This study is abnormal due to 1. Intermittent left frontal slowing suggestive of focal disturbance of that area. An EMU (epilepsy monitoring unit) referral or long-term (24-96 hours) EEG might be beneficial in this case if clinically indicated, as they have significantly greater sensitivity than a 20-60 minute EEG, which has low sensitivity for detecting epileptiform abnormalities especially whensleep is not seen. The absence of epileptiform abnormalities in a 20-60 minute EEG does not necessarily rule out a diagnosis of epilepsy or the potential for epileptic seizures to occur. No epileptiform discharges or electrographic seizure seen. Amy Richards MD I personally reviewed and discussed EEG on 04/29/[address] Richards's ?note. ?I actively participated in the decision-making process. ?Please see the fellow's note for additional details. Finn Riley MD Date [facility]: [facility]2020[facility]ID [facility]ING[facility] 2020-04-28 19:58:00* Test Item Value Reference Range Interpretation Comme nts SARS-CoV-2 Rapid ID NOW (test code = 07059-4) Not Detected Not Detected MIHAELA (test code = MIHAELA) ID NOW COVID-19 As say is an isothermal nucleic acid amplification test intended for the qualitative detection of nucleic acid from SARS-CoV-2 viral RNA in nasopharyngeal (RN BARIATRIC) specimens. It is used under Emergency Use Authorization (EUA) by FDA. The limit of detection (LOD) of the assay is 125 Genome Equivalents/mL. A positive result is indicative of the presence of SARS-CoV-2 RNA. ?Clinical correlation with patient history and other diagnostic information is necessary to determine patient infection status. A negative (Not Detected) result does not preclude SARS-CoV-2 infection. In patients with clinical symptoms and other tests that are consistent with SARS-CoV-2 infection, negative results should be treated as presumptive negative and a new specimen should be tested with alternative PCR molecular test. Invalid: Please collect a new specimen for repeat patient testing if clinically indicated. Lab Interpretation (test code = 45316-7) Normal [facility] METABOLIC PANEL (NA, K, CL, CO2, GLUCOSE, BUN, CREATININE, CA)2020-04-28 18:03:00* Test Item Value Reference Range Interpretation Comme nts NA (test code = 6492121048) 124 mmol/L 135-145 L K (test code = 5875736552) 5.1 mmol/L 3.5-5 H CL (test code = 0274562204) 92 mmol/L 98-108 L CO2 TOTAL (test code = 7165851104) 25 mmol/L 23-31 AGAP (test code = 7060459072) 2-16 BUN (test code = 4239834009) 15 mg/dL 7-23 GLUCOSE (test code = 4471064375) 159 mg/dL 70-110 H CREATININE (test code = 3934611983) 0.84 mg/dL 0.6-1.25 CALCIUM (test code = 5312610641) 9.0 mg/dL 8.6-10.6 eGFR Calculation (Non-) (test code = 8351250117) mL/min/1.73m2 eGFR Calculation () (test code = 5349714841) mL/min/1.73m2 MIHAELA (test code = MIHAELA) Association of Glomerular Filtration Rate (GFR) and Staging of Kidney Disease* + --+ --+ ------+| GFR (mL/min/1.73 m2) ?| With Kidney Damage ?| ?Without Kidney Damage+ --------+ --------+ +| ?>90 ?| ?Stage one ?| ? Normal ?+ ---+ ---+ -------+| ?60-89 ?| ?Stage two ?| ? Decreased GFR ? + --+ --+ ------+| ?30-59 ?| ?Stage three ?| ? Stage three ? + --+ --+ ------+| ?15-29 ?| ?Stage four ? | ? Stage four ?+ ---+ ---+ -------+| ?<15 (or dialysis) ? ?| ?Stage five ? | ? Stage five ?+ ---+ ---+ -------+ *Each stage assumes the associated GFR level has been in effect for at least three months. ?Stages 1 to 5, with or without kidney disease, indicate chronic kidney disease. Notes: Determination of stages one and two (with eGFR >59mL/min/1.73 m2) requires estimation of kidney damage for at least three months as defined by structural or functional abnormalities of the kidney, manifested by either:Pathological abnormalities or Markers of kidney damage (including abnormalities in the composition of the blood or urine or abnormalities in imaging tests). 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 Theventricles and cerebral sulci are otherwise normalin caliber andconfiguration. No hydrocephalus, midline shift or pathological extra-axialfluid collection is present. The basal cisterns are unremarkable. No acute intracranial hemorrhage or mass effect is present. A remoteinfarct is seen in the left frontal lobe with mild ex vacuo dilatation ofthe left lateral ventricle frontal horn as noted above. A coarsecalcification is again noted within the gliotic territory. The huffman-whitematter differentiation is otherwise preserved. A few patchy foci ofhypoattenuation in the biconvexity deep white matter are nonspecific andlikely represent ischemic small vessel disease. The calvarium and skull base are unremarkable. The mastoid air cells andvisualized paranasal air sinuses are clear. [facility], [facility]iant Results Inft User - 04/28/2020 12:50 PM CDTCT HEADWO CONTRASTHISTORY: Male 79 years Ped, seizures, partial COMPARISON: CT head dated 11/23/2019TECHNIQUE: Routine CT head without contrastFINDINGS:Mild ex vacuo dilatation of the left lateral ventricle frontal horn. Theventricles and cerebral sulci are otherwise normal in caliber andconfiguration. No hydrocephalus, midline shift or pathological extra- axialfluid collection is present. The basal cisterns are unremarkable.No acute intracranial hemorrhage or mass effect is present. A remoteinfarct is seen in the left frontal lobe with mild ex vacuo dilatation ofthe left lateral ventricle frontal horn as noted above. A coarsecalcification is again noted within the gliotic territory. The huffman-whitematter differentiation is otherwise preserved. A few patchy foci ofhypoattenuation in the biconvexitydeep white matter are nonspecific andlikely represent ischemic small vessel disease.The calvarium and skull base are unremarkable. The mastoid air cells andvisualized paranasal air sinuses are clear.IMPRESSIONNo acute intracranial abnormalityRemote left frontal infarct and background mild ischemic small vesseldisease, unchangedMethod[facility] [id number] 17:06:00* Test Item Value Reference Range Interpretation Comme nts TROPONIN I (test code = 0519056818) <0.012 See_Comment [Automated message] The system which generated this result transmitted reference range: <=0.034 ng/mL. The reference range was not used to interpret this result as normal/abnormal. MIHAELA (test code = MIHAELA) Equal or Less than 0.034 ng/ml---Normal ?Note: Cardiac troponin begins to rise 3-4 hours after the onset of ischemia. Repeat in 4-6 hours if the sample was drawn within 3-4 hours of the onset of the symptom and found normal. Between 0.035 and 0.120 ng/mL--- Borderline. Questionable myocardial injury or necrosis ? ?Note: Serial measurement may be necessary to confirm or exclude the diagnosis of myocardial injury or necrosis; Clinical correlation (symptoms, EKGs, imaging studies, and others) required; Repeat in 4-6 hours if clinically indicated. ? Equal or Higher than 0.121 ng/mL---Abnormal. Myocardial Injury or Necrosis Likely ? Biotin has been reported to cause a negative bias, interpret results relative to patient's use of biotin. ? Lab Interpretation (test code = 85380-1) [facility] (NA, K, CL, CO2, GLUCOSE, BUN, CREATININE, CA)2020-04-28 16:55:00* Test Item Value Reference Range Interpretation Comme nts NA (test code = 7865125498) 125 mmol/L 135-145 L K (test code = 9585487799) 4.8 mmol/L 3.5-5 CL (test code = 7875591893) 91 mmol/L 98-108 L CO2 TOTAL (test code = 2400597780) 28 mmol/L 23-31 AGAP (test code = 8080644833) 2-16 BUN (test code = 0404418653) 14 mg/dL 7-23 GLUCOSE (test code = 6703620658) 159 mg/dL 70-110 H CREATININE (test code = 8658358564) 0.90 mg/dL 0.6-1.25 CALCIUM (test code = 7010195488) 9.2 mg/dL 8.6-10.6 eGFR Calculation (Non-) (test code = 3998983452) mL/min/1.73m2 eGFR Calculation () (test code = 4101828706) mL/min/1.73m2 MIHAELA (test code = MIHAELA) Association of Glomerular Filtration Rate (GFR) and Staging of Kidney Disease* + --+ --+ ------+| GFR (mL/min/1.73 m2) ?| With Kidney Damage ?| ?Without Kidney Damage+ --------+ --------+ +| ?>90 ?| ?Stage one ?| ? Normal ?+ ---+ ---+ -------+| ?60-89 ?| ?Stage two ?| ? Decreased GFR ? + --+ --+ ------+| ?30-59 ?| ?Stage three ?| ? Stage three ? + --+ --+ ------+| ?15-29 ?| ?Stage four ? | ? Stage four ?+ ---+ ---+ -------+| ?<15 (or dialysis) ? ?| ?Stage five ? | ? Stage five ?+ ---+ ---+ -------+ *Each stage assumes the associated GFR level has been in effect for at least three months. ?Stages 1 to 5, with or without kidney disease, indicate chronic kidney disease. Notes: Determination of stages one and two (with eGFR >59mL/min/1.73 m2) requires estimation of kidney damage for at least three months as defined by structural or functional abnormalities of the kidney, manifested by either:Pathological abnormalities or Markers of kidney damage (including abnormalities in the composition of the blood or urine or abnormalities in imaging tests). Lab Interpretation (test code = 22171-8) Abnormal [facility] (ALB, T.PRO, BILI T, BU/BC, ALT, AST, ALK PHOS)2020-04-28 16:55:00* Test Item Value Reference Range Interpretation Comme nts TOTAL BILI (test code = 1597144122) 1.4 mg/dL 0.1-1.1 H BILI UNCON (test code = 5059167614) 1.2 mg/dL 0.1-1.1 H BILI CONJ (test code = 1008341403) 0.0 mg/dL 0-0.3 T PROTEIN (test code = 5518440479) 6.7 g/dL 6.3-8.2 ALBUMIN (test code = 4014552378) 3.9 g/dL 3.5-5 ALK PHOS (test code = 4453757513) 85 U/L 34-122 ALTv (test code = 1742-6) 22 U/L 5-50 AST(SGOT) (test code = 3285991037) 22 U/L 13-40 Lab Interpretation (test cod e = 80474-3) [facility]normal [facility]2020-10-29 16:55:00* Test Item Value Reference Range Interpretation Comme nts MAGNESIUM (test code = 9316414835) 1.8 mg/dL 1.7-2.4 Lab Interpretation (test cod e = 41967-6) Normal [facility]2020-10-29 16:48:00* Test Item Value Reference Range Interpretation Comme [facility] APTT Patient (test code = 3173-2) See_Comment [Automated message] The system which generated this result transmitted reference range: 23 - 38 Seconds. The reference range was not used to interpret this result as normal/abnormal. MIHAELA (test code = MIHAELA) The [facility] patient population mean normal value for aPTT is 30 seconds. Lab Interpretation (test code = 37654-9) Normal [facility] Irving[facility]thrombin Time (PT) / [id number] 16:46:00 * Test Item Value Reference Range Interpretation Comme [facility] PROTIME PATIENT (test code = 5964-2) See_Comment [Automated minicabita ge] The system which generated this result transmitted reference range: 12.0 - 14.7 Seconds. The reference range was not used to interpret this result as normal/abnormal. INR (test code = 6301-6) Normal INR <1.1; Warfarin Therapeutic range 2.0 to 3.0 or 2.5 to 3.5, depending upon the indications. Lab Interpretation (test code = 84953-3) Normal [facility] with Yvbawyrnygec9420-22-52 16:41:00* Test Item Value Reference Range Interpretation Comme [facility] WBC (test code = 6690-2) See_Comment [Automated minicabita ge] The system which generated this result transmitted reference range: 4.20 - 10.70 10*3/?L. The reference range was not used to interpret this result as normal/abnormal. RBC (test code = 789-8) See_Comment [Automated minicabita ge] The system which generated this result transmitted reference range: 4.26 - 5.52 10*6/?L. The reference range was not used to interpret this result as normal/abnormal. HGB (test code = 718-7) 15.2 g/dL 12.2-16.4 HCT (test code = 4544-3) 44.2 % 38.4-49.3 MCV (test code = 787-2) 88.8 fL 81.7-95.6 MCH (test code = 785-6) 30.5 pg 26.1-32.7 MCHC (test code = 786-4) 34.4 g/dL 31.2-35 RDW-SD (test code = 32536-9) 38.3 fL 38.5-51.6 L RDW-CV (test code = 788-0) 11.9 % 12.1-15.4 L PLT (test code = 777-3) See_Comment [Automated messa ge] The system which generated this result transmitted reference range: 150 - 328 10*3/?L. The reference range was not used to interpret this result as normal/abnormal. MPV (test code = 37404-1) 8.4 fL 9.8-13 L NRBC/100 WBC (test code = 8270354412) See_Comment [Automated CONWEAVER ssage] The system which generated this result transmitted reference range: 0.0 - 10.0 /100 WBCs. The reference range was not used to interpret this result as normal/abnormal. NRBC x10^3 (test code = 9682195950) <0.01 See_Comment [Automated messa ge] The system which generated this result transmitted reference range: 10*3/?L. The reference range was not used to interpret this result as normal/abnormal. GRAN MAT (NEUT) % (test code = 770-8) 73.5 % IMM GRAN % (test code = 2967444068) 0.60 % LYMPH % (test code = 736-9) 14.1 % MONO % (test code = 5905-5) 9.7 % EOS % (test code = 713-8) 1.7 % BASO % (test code = 706-2) 0.4 % GRAN MAT x10^3(ANC) (test code = 6401118442) 7.52 10*3/uL 1.99-6.95 H IMM GRAN x10^3 (test code = 9432534461) 0.06 10*3/uL 0-0.06 LYMPH x10^3 (test code = 731-0) 1.44 10*3/uL 1.09-3.23 MONO x10^3 (test code = 742-7) 0.99 10*3/uL 0.36-1.02 EOS x10^3 (test code = 711-2) 0.17 10*3/uL 0.06-0.53 BASO x10^3 (test code = 704-7) 0.04 10*3/uL 0.01-0.09 Lab Interpretation (test code = 60282-0) Abnormal [facility] Coronavirus 2018 Upotqxs0559-07-90 09:59:00* Test Item Value Reference Range Interpretation Comme nts Novel Coronavirus 2018 Inhouse (test code = COVNONPUI) Negative Negative Positive resul ts are indicative of the presence qkMHMP-FgE-0 RNA, clinical correlation with patient historyand other diagnostic information is necessary to determinepatient infection status. Positive results do not rule outbacterial infection or co-infection with other viruses. Negative results do not preclude SARS-CoV-2 infection andshould not be used as the sole basis for patient managementdecisions. Negative results must be combined with otherclinical observations, patient history, and epidemiologicalinformation . Detection of SARS-CoV-2 RNA may be affected bysample collection methods, storage conditions, and/or stageof infection. Viral RNA mutations, vaccinations, antiviraltherapeutics, antibiotics, chemotherapeutic orimmunosuppressant drugs have not been evaluated for effectson detection. Results are for the identification of SARS-CoV-2 RNA usingthe [employer] M2000 System under the FDA Emergency UseAuthorization. The testing is performed by personneltrained in the procedures for the Mart[employer]nez M2000 moleculardiagnostic SARS-CoV-2 assay in vitro. SPECIMEN COMMENT: NNovel Coronavirus 2018 Sfvqrbk5513-24-85 09:59:00* Test Item Value Reference Range Interpretation Comme nts Novel Coronavirus 2018 Inhouse (test code = COVNONPUI) Negative Negative Positive resul ts are indicative of the presence akWGVR-DzI-6 RNA, clinical correlation with patient historyand other diagnostic information is necessary to determinepatient infection status. Positive results do not rule outbacterial infection or co-infection with other viruses. Negative results do not preclude SARS-CoV-2 infection andshould not be used as the sole basis for patient managementdecisions. Negative results must be combined with otherclinical observations, patient history, and epidemiologicalinformation . Detection of SARS-CoV-2 RNA may be affected bysample collection methods, storage conditions, and/or stageof infection. Viral RNA mutations, vaccinations, antiviraltherapeutics, antibiotics, chemotherapeutic orimmunosuppressant drugs have not been evaluated for effectson detection. Results are for the identification of SARS-CoV-2 RNA usingthe [employer] M2000 System under the FDA Emergency UseAuthorization. The testing is performed by personneltrained in the procedures for the Mart[employer]nez M2000 moleculardiagnostic SARS-CoV-2 assay in vitro. SPECIMEN COMMENT: N- MRI LW JNT W/O CONT [id number] 12:40:00Patient Name: JENNA BROWN Unit No: [id number] EXAMS: CPT CODE: [id number] MRI LW JNT W/[place] [address] MRI OF THE RIGHT KNEE DIAGNOSIS: 1. Horizontal and free edge tearing of the body and posterior horn the medial meniscus tibial articular surface. 2. Irregularity of the posterior horn of the lateral meniscus consistent with a free edge tear. 3. Sprain of the anterior cruciate ligament without evidence for tear. 4. 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 A smalljoint effusion is seen without evidence for a loose body. COMMENT: COMPARISON: No prior exams available. Scans were performed in the sagittal, axial and coronal planes utilizing T1, spin density withfat saturation and T2-weighted pulse sequences. Bony and hyaline cartilage abnormalities are present as noted. The body and posterior horn the medial meniscus and the posterior horn lateral meniscus are abnormal as described. The anterior horns of the lateral abnormally increased T2-weighted signalis seen within the anterior sprain. The posterior cruciate and medial and lateral collateral ligaments are intact. No abnormality is seen involving the quadriceps or patellar tendons. A small popliteal cyst is noted. at 1240 Reported and signed by: Jesus Be MD CC: Venkata Snyder MD Technologist: AUBREE OVALLEscrirandolph D/ (1240) RolyJCL [facility] NAME: JENNA BROWNJR [address] PHYS: Venkata Hull MD : 1940 AGE: 79 SEX: M [place], [place] [address] LOC: Y.MRI PHONE #: [phone] EXAM DATE: 04/12/2020 STATUS: REG CLI FAX #: [phone] RAD #: D/C DT PAGE 1 Signed Report Patient Name: JENNA BROWN JR UnitNo: [id number] EXAMS: CPT CODE: [id number] MRI LW JNT W/[place] [address] <Continued> Orig PrintD/T: S: 04/12/2020 (1243) [facility] NAME: JENNA BROWN JR [address] PHYS: Venkata Hull MD : 1940 AGE: 79 SEX: M [place], [place] [address] LOC: Y.MRI PHONE #: [phone] EXAM DATE: 04/12/2020 STATUS: REG CLI FAX #: [phone] RAD #: D/C DT PAGE 2 Signed ReportXR KNEE 3 VW [id number] 17:00:46HISTORY: ?Pain. FINDINGS: AP, lateral, oblique views of right knee showed no acute fractureor dislocation. Moderate right knee joint effusion and degenerative changespredominantly medial knee joint noted with slightly narrowed medial kneejoint space with mild subchondral sclerosis and very small ost eophytesalong the articular edges of the bones. No soft tissue calcifications. 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 [facility], Radiant Results Inft User - 04/05/2020 12:01 PM CDTHISTORY: Pain.FINDINGS: AP, lateral, oblique views of right knee showed no acute fractureor dislocation. Moderate right knee joint effusion and degenerative changespredominantly medial knee joint noted with slightly narrowed medial kneejoint space with mild subchondral sclerosis and very small osteophytesalong the articular edges of the bones. 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 and minimalin thepatellofemoral compartment.[facility] ISTAT-6+2019-08-17 11:02:00* Test Item Value Reference Range Interpretation Comme nts ISTAT-HEMOGLOBIN (test code = HBP) 14.6 g/dL 12-16 N ISTAT-HEMATOCRIT (test code = HCTP) 43 % 38-51 N ISTAT-SODIUM (test code = NAP) 131 mmol/L 138-146 L ISTAT-POTASSIUM (test code = KP) 5.2 mmol/L 3.5-4.9 H ISTAT-CHLORIDE (test code = CLP) 96 mmol/L 98-109 L ISTAT-GLUCOSE (test code = GLUP) 98 mg/dL 70-105 N ISTAT-BUN (test code = BUN-P) 17 mg/dL 8-26 N HGB [id number] 06:07:00* Test Item Value Reference Range Interpretation Comme nts HEMOGLOBIN (test code = HGB) 12.0 g/dL 12-16 N HEMATOCRIT (test code = HCT) 34.5 % 37-47 L BASIC METABOLIC [id number] 06:56:00* Test Item Value Reference Range Interpretation Comme nts SODIUM (test code = NA) 131 mmol/L 136-145 L POTASSIUM (test code = K) 4.4 mmol/L 3.5-5.1 N CHLORIDE (test code = CL) 95.0 mmol/L 98-107 L CARBON DIOXIDE (test code = CO2) 25.1 mmol/L 21-32 N GLUCOSE (test code = GLU) 127 mg/dL 70-110 H BLOOD UREA NITROGEN (test code = BUN) 18 mg/dL 7-18 N GLOMERULAR FILTRATION RATE (test code = GFR) 80.4 >60 Unit of m easure: mL/min/1.73 e4Pkicoxrzc Range:Healthy Adults >90 mL/min/1.73 m2 For Chronic Kidney Disease: Stage II Mild Decrease in GFR 60-90 Stage III Moderate Decrease in GFR 30-59 Stage IV Severe Decrease in GFR 15-29 Stage V Kidney Failure <15 CREATININE (test code = CREAT) 0.91 mg/dL 0.55-1.30 N CALCIUM (test code = CA) 8.1 mg/dL 8.2-10.1 L HGB [id number] 06:28:00* Test Item Value Reference Range Interpretation Comme nts HEMOGLOBIN (test code = HGB) 12.3 g/dL 12-16 N HEMATOCRIT (test code = HCT) 33.9 % 37-47 L - XR SPINE 1 V SPEC [id number] 10:04:00Patient Name: JENNA BROWN JR Unit No: [id number] EXAMS: CPT CODE: [id number] XR SPINE 1 V SPEC LEVEL 70401 INTRAOPERATIVE LATERAL LUMBAR SPINE Film 1. Markers are posterior to L2 and L4. Film 2. Surgical instruments are posterior to L4 and L5. at 1004 Reported and signed by: Jesus Be MD CC: Darren Amezcua MD Technologist: BENITA GUERRA (RT.R) Transcribed D/ (1004) LuliL [facility] NAME: JENNA BROWN JR [address] PHYS: Darren Tadeo : 1940 AGE: 79 SEX: M [place] [address] LOC: Y.514 A PHONE #: [phone] EXAM DATE: 08/10/2019 STATUS: ADM IN FAX #: [phone] RAD #: D/C DT PAGE 1 Signed ReportPatient Name: JENNA BROWN JR Unit No: [id number] EXAMS: CPT CODE: [id number] XR SPINE 1 V SPEC LEVEL 86885 <Continued> Orig Print D/T: S: 08/11/2019 (1007) [facility]: [facility] [address] [facility] PHYS: MARIN McphersonuckeyDarren Michael : 1940 AGE: 79 SEX: M [place] [address] LOC: Y.514 A PHONE #: [phone] EXAM DATE: 08/10/2019 STATUS: ADM IN FAX #: [phone] RAD #: D/C DT PAGE 2 Signed Report- XR SPINE 1 V SPEC [id number] 10:04:00Patient Name: JENNA BROWN JR Unit No: [id number] EXAMS: CPT CODE: [id number] XR SPINE 1 V SPEC LEVEL 96989 INTRAOPERATIVE LATERAL LUMBAR SPINE Film 1. Markers are posterior to L2 and L4. Film 2. Surgical instruments are posterior to L4 and L5. at 1004 Reported and signed by: Jesus Be MD CC: Darren Amezcua MD Technologist: BENITA GUERRA (RT.R) Transcribed D/ (1004) tALEXANDRIAJCL [facility] NAME: JENNA BROWN JR [address] PHYS: Darren Tadeoean Michael : 1940 AGE: 79 SEX: M [place] [address] LOC: Y.514 A PHONE #: [phone] EXAM DATE: 08/10/2019 STATUS: ADM IN FAX #: [phone] RAD #: D/C DT PAGE 1 Signed ReportPatient Name: JENNA BROWN JR Unit No: [id number] EXAMS: CPT CODE: [id number] XR SPINE 1V SPEC LEVEL 14659 <Continued> Orig Print D/T: S: 08/11/2019 (1007) [facility] [address] [facility] PHYS: Darren Tadeo : 1940 AGE: 79 SEX: M [place] [address] LOC: Y.514 A PHONE #: [phone] EXAMDATE: 08/10/2019 STATUS: ADM IN FAX #: [phone] RAD #: D/C DT PAGE 2 Signed Report- XR SPINE 1 V SPEC [id number] 10:03:00Patient Name: JENNA BROWN JR Unit No: [id number] EXAMS: CPT CODE: [id number] XR SPINE 1 V SPEC LEVEL 48265 INTRAOPERATIVE LATERAL LUMBAR SPINE COMMENT: Anterior and posterior fusion is being performed at L4-5. at 1003 Reported and signed by: Jesus Be MD CC: Darren Amezcua MD Technologist: SHANTANU CALLEJAS RT(R) Transcribed D/ (1003) tALEXANDRIACHI [facility] NAME: JENNA BROWN JR [address] PHYS: MARIN AmezcuaDarren Fernandez Michael : 1940 AGE: 79 SEX: M [place], [place] [address] LOC: Y.514 A PHONE #: [phone] EXAM DATE: 08/10/2019 STATUS: ADM IN FAX #: [phone] RAD #: D/C DT PAGE 1 Signed Report Patient Name: JENNA BROWN JR Unit No: [id number] EXAMS: CPT CODE: [id number] XR SPINE 1 V SPEC LEVEL 63320 <Continued> Orig Print D/T: S: 08/11/2019 (1006) [facility] NAME: JENNA BROWN JR [address] PHYS: Darren Tadeo Jim Michael : 1940 AGE: 79 SEX: M [place], [place] [address] LOC: Y.514 A PHONE #: [phone] EXAM DATE: 08/10/2019 STATUS: ADM IN FAX #: [phone] RAD #: D/C DT PAGE 2 Signed Report - XR SPINE 1 V SPEC [id number] 10:02:00Patient Name: JENNA BROWN JR Unit No: [id number] EXAMS: CPT CODE: [id number] XR SPINE 1 V SPEC LEVEL 98104 INTRAOPERATIVE LATERAL LUMBAR SPINE COMMENT: Anterior and posterior fusion has been performed at L4-5. at 1002 Reported and signed by: Jesus Be MD CC: Darren Amezcua MD Technologist: SHANTANU CALLEJAS RT(R) Transcribed D/ (1002) [email or web address] NAME: JENNA BROWN JR [address] PHYS: STURY - GoldieDarren aldrich : 1940 AGE: 79 SEX: M [place], [place] [address] LOC: Y.514 A PHONE #: [phone] EXAM DATE: 08/10/2019 STATUS: ADM IN FAX #: [phone] RAD #: D/C DT PAGE 1 Signed Report Patient Name: JENNA BROWN JR Unit No: [id number] EXAMS: CPT CODE: [id number] XR SPINE 1 V SPEC LEVEL 24514 <Continued> Orig Print D/T: S: 08/11/2019 (1005) [facility] NAME: JENNA BROWN JR [address] PHYS: MARIN McphersonDarren aldrich : 1940 AGE: 79 SEX: M [place], [place] [address] LOC: Y.514 A PHONE #: [phone] EXAM DATE: 08/10/2019 STATUS: ADM IN FAX#: [phone] RAD #: D/C DT PAGE 2 Signed ReportHGB [id number] 06:39:00* Test Item Value Reference Range Interpretation Comme nts HEMOGLOBIN (test code = HGB) 13.6 g/dL 12-16 N HEMATOCRIT (test code = HCT) 37.9 % 37-47 N CBC W/AUTO [id number] 13:36:00* Test Item Value Reference Range Interpretation Comme nts WHITE BLOOD CELL (test code = WBC) 9.0 K/mm3 5.7-10.5 N RED BLOOD CELL (test code = RBC) 5.29 M/mm3 4.2-5.4 N HEMOGLOBIN (test code = HGB) 16.6 g/dL 12-16 H HEMATOCRIT (test code = HCT) 47.5 % 37-47 H MEAN CELL VOLUME (test code = MCV) 90 fL 80-98 N MEAN CELL HGB (test code = MCH) 31.4 pg 27-34 N MEAN CELL HGB CONCENTRATION (test code = MCHC) 34.9 g/dL 30.8-34.1 H RED CELL DISTRIBUTION WIDTH (test code = RDW) 12.5 % 11-16 N PLT (test code = PLT) 208 K/mm3 130-400 N MEAN PLATELET VOLUME (test c ode = MPV) 9.1 fL 8.9-12.1 N NEUTROPHIL % (test code = NT%) 63.5 % 45-70 N LYMPHOCYTE % (test code = LY%) 24.5 % 20-40 N MONOCYTE % (test code = MO%) 9.6 % 3-10 N EOSINOPHIL % (test code = EO%) 1.7 % 1-5 N BASOPHIL % (test code = BA%) 0.3 % 0.0-1.1 N NEUTROPHIL # (test code = NT#) 5.68 K/mm3 2.00-7.50 N LYMPHOCYTE # (test code = LY#) 2.19 K/mm3 1.50-4.00 N MONOCYTE # (test code = MO#) 0.86 K/mm3 0.2-0.8 H EOSINOPHIL # (test code = EO#) 0.15 K/mm3 0.04-0.4 N BASOPHIL # (test code = BA#) 0.03 K/mm3 0.02-0.10 N MANUAL DIFF REQUIRED (test c ode = MDIFF) NO MANUAL DIFF NUCLEATED RED BLOOD CELL (te st code = NRBC) 0 % 0-0 N BASIC METABOLIC [id number] 13:13:00* Test Item Value Reference Range Interpretation Comme nts SODIUM (test code = NA) 136 mmol/L 136-145 N POTASSIUM (test code = K) 4.7 mmol/L 3.5-5.1 N CHLORIDE (test code = CL) 98.0 mmol/L 98-107 N CARBON DIOXIDE (test code = CO2) 30.3 mmol/L 21-32 N GLUCOSE (test code = GLU) 98 mg/dL 70-110 N BLOOD UREA NITROGEN (test code = BUN) 13 mg/dL 7-18 N GLOMERULAR FILTRATION RATE (test code = GFR) 68.1 >60 Unit of m easure: mL/min/1.73 u9Erewflzyq Range:Healthy Adults >90 mL/min/1.73 m2 For Chronic Kidney Disease: Stage II Mild Decrease in GFR 60-90 Stage III Moderate Decrease in GFR 30-59 Stage IV Severe Decrease in GFR 15-29 Stage V Kidney Failure <15 CREATININE (test code = CREAT) 1.05 mg/dL 0.55-1.30 N CALCIUM (test code = CA) 9.2 mg/dL 8.2-10.1 N PROTHROMBIN [id number] 13:01:00* Test Item Value Reference Range Interpretation Comme nts PROTHROMBIN TIME PATIENT (test code = PTP) 11.4 secs 10.1-12.5 N INTERNATIONAL NORMAL RATIO (test code = INR) 1.02 <2.0 RECOMMENDED THER APEUTIC RANGE FOR ORAL ANTICOAGULANTTREATMENT: CONDITION INRProphylaxis of venous thrombosis in 2.0 - 3.0 high-risk medical or surgical patientsTreatment of venous thrombosis 2.0 - 3.0Prevention of embolism 2.0 - 3.0Prevention of recurrent embolism, or 3.0 - 4.5 patients with mechanical prosthetic intravascular valves IS PATIENT ON ANTICOAGULANTS ? YLIST ANTICOAGULANT/ANTI PLT MEDICATION : OtherHas Lab been notifiedif Patient is on Heparin Drip? NOTHROMBOPLASTIN TIME [id number] 13:01:00* Test Item Value Reference Range Interpretation Comme nts PTT ACTIVATED (test code = APTT) 26.3 secs 24.9-37.0 N IS PATIENT ON ANTICOAGULANTS ? YLIST ANTICOAGULANT/ANTI PLT MEDICATION : OtherHas Lab been notifiedif Patient is on Heparin Drip? NONM BONE SPECT SCAN 2019-06-18 12:30:33CLINICAL INDICATION: M51.36 Other intervertebral disc degeneration, lumbar cyzobqV31.16 Intervertebral disc disorders w radiculopathy, lumbar regionMODALITY: Discovery NM/CT 670TECHNIQUE: 25 mCi Tc 99m MDP are injected IV. After a suitable time delay, whole body imaging images were obtained. SPECT imaging of the lumbar spine is performed with computer and physician-assisted 2-D and 3-D reconstruction. Co-registered low dose limited diagnostic CT images are obtained at the level of SPECT imaging.Computed Tomography Dose Index: 5.44 mGy.FINDINGS:COMPARISON: Fusion CT exam.CT Comments: none.Symmetric bilateral renal function is observed.Mild to moderate uptake left acromioclavicular joint, mild symmetric uptake at the glenohumeral, sternoclavicular and hip joints bilaterally. Fractures of the right 4th - 8th ribs noted posterior and lateral.SPECT CT fusion imaging of the lumbar spine demonstrates mild to moderate uptake at the left L4-5 intervertebral disc. A large disc extrusion at the L level exhibits low-level activity, representing a chronic finding with calcification. Severe spinal stenosis is noted secondarily. 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 10 mm right posterior disc extrusion with caudal migration of disc material at the L4-L5 level.2. Considerably smaller posterior disc protrusions at remaining lumbar levels, detailed below.3. Multilevel bilat eral lumbar neural foraminal stenosis and facet arthrosis, detailed at specific levels below.4. Transitional S1 vertebra.FINDINGS:COMPARISON: Correlation is made with lumbar spine series of same date.General observations: Transitional S1 vertebra is present. Minimal lower lumbar levoscoliosis is evident. Moderate anterior spondylosis involves the L4-L5 level. The L4-L5 intervertebral disc is severely diminished in height and severely desiccated. L1-L4 and L5 - transitional S1 intervertebral discs are mildly to moderately desiccated without loss of height. The S1-S2 intervertebral disc demonstrates diminished in height, secondary to transitional nature of the S1 vertebra. Conus medullaris terminates at the L1 level.FINDINGS AT SPECIFIC LEVELS:Transitional S1-S2: Rudimentary intervertebral disc is present. Central canal and bilateral neural foramina are patent.L5 - transitional S1: 2 mm posterior protrusion minimally effaces the anterior aspect of thecal sac. Central canal is patent. Moderate bilateral neural foraminal stenosis is evident. Moderate bilateral facet arthropathy is present.L4-L5: Large posterior disc extrusion with caudal migration of disc material is present. The extruded disc fragment measures 10 mm in anteroposterior dimension, 15 mm in transverse dimension, with 16 mm caudal migration of disc material. The extruded disc material is eccentric to the right side, markedly effacing the right anterior aspect of thecal sac and resulting in severe attenuation of theright lateral recess. Subarachnoid space is attenuated. The thecal sac measures 5 mm in anteroposterior dimension at the midline. Moderate bilateral neural foraminal stenosis is evident. Moderate bilateral facet arthropathy is seen.L3-L4: 1-2 mm very broad-based posterior protrusion is evident. Central canal is patent. Minimal bilateral neural foraminal stenosis is evident. Moderate bilateral facet arthropathy is evident, worse on the right.L2- L3: 2 mm left posterolateral and 3 mm right posterolateral protrusions are evident, effacing the right and to a lesser extent left aspects of thecal sac. Central canal is patent. Mild bilateral neural foraminal stenosis is evident. Moderate bilateral facet arthropathy is evident, worse on the right.L1-L2: Significant disc bulge or protrusion is not seen. Central canal and bilateral neural foramina are patent. Mild bilateral facet arthropathy is evident.CR - XRAY LUMBAR XR MIN OF 4 [id number] 09:23:01CLINICAL INDICATION: M51.36 Other intervertebral disc degeneration, lumbar okcjqoI44.16FINDINGS:COMPARISON: NoneFive lumbar vertebrae are present. There is a normal lumbar lordosis and alignment. Narrowing of the L4-L5 disc is present. Other discs are maintained in height.Facet joints appear unremarkable.Vertebral body heights are well maintained. Spondylotic spurring is noted.No abnormal motion is elicited on the flexion and extension views.IMPRESSION:Lumbar spondylosisBASIC METABOLIC PANEL 2019-05-20 09:39:00* Test Item Value Reference Range Interpretation Comme nts SODIUM (test code = NA) 131 MMOL/L 137-145 L POTASSIUM (test code = K) 4.4 MMOL/L 3.5-5.1 N CHLORIDE (test code = CL) 95 MMOL/L 98-107 L CARBON DIOXIDE (test code = CO2) 26 MMOL/L 22-30 N GLUCOSE (test code = GLU) 99 MG/DL 74-106 N BLOOD UREA NITROGEN (test code = BUN) 14 MG/DL 9-20 N GLOMERULAR FILTRATION RATE (test code = GFR) > 60 Reporting units: ml/min/1.73 m2 (Modified MDRD Formula)Reference Range: > or = 60 ml/min/1.73 m2 CREATININE (test code = CREAT) 1.00 MG/DL 0.66-1.25 N CALCIUM (test code = CA) 9.3 MG/DL 8.4-10.2 N [id number] 09:39:00* Test Item Value Reference Range Interpretation Comme nts MAGNESIUM (test code = MAG) 1.9 MG/DL 1.6-2.3 N BASIC METABOLIC [id number] 09:38:00* Test Item Value Reference Range Interpretation Comme nts SODIUM (test code = NA) 131 MMOL/L 137-145 L POTASSIUM (test code = K) 4.4 MMOL/L 3.5-5.1 N CHLORIDE (test code = CL) 95 MMOL/L 98-107 L CARBON DIOXIDE (test code = CO2) MMOL/L 22-30 GLUCOSE (test code = GLU) MG/DL 74-106 BLOOD UREA NITROGEN (test code = BUN) MG/DL 9-20 GLOMERULAR FILTRATION RATE (test code = GFR) > 60 Reporting units: ml/min/1.73 m2 (Modified MDRD Formula)Reference Range: > or = 60 ml/min/1.73 m2 CREATININE (test code = CREAT) 1.00 MG/DL 0.66-1.25 N CALCIUM (test code = CA) MG/DL 8.7-9.7 [id number] 09:38:00* Test Item Value Reference Range Interpretation Comme nts MAGNESIUM (test code = MAG) MG/DL 1.6-2.3 BASIC METABOLIC [id number] 09:36:00* Test Item Value Reference Range Interpretation Comme nts SODIUM (test code = NA) 131 MMOL/L 137-145 L POTASSIUM (test code = K) 4.4 MMOL/L 3.5-5.1 N CHLORIDE (test code = CL) 95 MMOL/L 98-107 L CARBON DIOXIDE (test code = CO2) MMOL/L 22-30 GLUCOSE (test code = GLU) MG/DL 74-106 BLOOD UREA NITROGEN (test co de = BUN) MG/DL 9-20 GLOMERULAR FILTRATION RATE ( test code = GFR) CREATININE (test code = CREAT) MG/DL 0.66-1.25 CALCIUM (test code = CA) MG/DL 8.7-9.7 [id number] 09:36:00* Test Item Value Reference Range Interpretation Comme nts MAGNESIUM (test code = MAG) MG/DL 1.6-2.3 PROTHROMBIN [id number] 09:33:00* Test Item Value Reference Range Interpretation Comme nts PROTHROMBIN TIME PATIENT (test code = PTP) 10.6 SECONDS 9.6-11.6 N INTERNATIONAL NORMAL RATIO (test code = INR) 1.0 0.8-1.1 N The INR is to be used only for monitoring oral anticoagulanttherap y. INDICATION INR VALUE -------1. Prophylaxis, deep venous thrombosis, including high risk surgery. 2.0 - 3.0 2. Prophylaxis, deep venous thrombosis, hip surgery, treatment for deep venous thrombosis or pulmonary prevention of systemic embolism in patients with valvular heart disease, atrial fibrillation, tissue heart valve, or acute myocardial infarction. 2.0 - 3.0 3. Mechanical prosthesis heart valves, recurrent systemic embolism. 3.0 - 4.5 PTT [id number] 09:33:00* Test Item Value Reference Range Interpretation Comme nts PTT ACTIVATED (test code = APTT) 28.3 SECONDS 22.0-33.0 N CBC W/AUTO [id number] 09:15:00* Test Item Value Reference Range Interpretation Comme nts WHITE BLOOD CELL (test code = WBC) 8.1 K/MM3 3.8-9.8 N RED BLOOD CELL (test code = RBC) 5.26 M/MM3 3.95-5.67 N HEMOGLOBIN (test code = HGB) 16.6 G/DL 12.4-16.7 N HEMATOCRIT (test code = HCT) 48.4 % 35.9-49.5 N MEAN CELL VOLUME (test code = MCV) 92 fL 81.7-96.1 N MEAN CELL HGB (test code = MCH) 31.6 pg 27.6-33.2 N MEAN CELL HGB CONCETRATION (test code = MCHC) 34.3 % 32.9-35.5 N RED CELL DISTRIBUTION WIDTH (test code = RDW) 12.9 % 12.1-15.2 N PLATELET COUNT (test code = PLT) 206 K/MM3 129-368 N MEAN PLATELET VOLUME (test c ode = MPV) 8.5 fl 7.4-10.4 N NEUTROPHIL % (test code = NT%) 67.2 % 43-75 N IMMATURE GRANULOCYTE % (test code = IG%) 0.5 % 0.0-2.0 N LYMPHOCYTE % (test code = LY%) 21.0 % 14-44 N MONOCYTE % (test code = MO%) 9.3 % 4-13 N EOSINOPHIL % (test code = EO%) 1.6 % 0-6 N BASOPHIL % (test code = BA%) 0.4 % 0-2 N NUCLEATED RBC % (test code = NRBC%) 0.0 % 0-1.0 N NEUTROPHIL # (test code = NT#) 5.42 K/mm3 2.0-7.6 N IMMATURE GRANULOCYTE # (test code = IG#) 0.04 x10 3/uL 0-0.03 H LYMPHOCYTE # (test code = LY#) 1.69 K/mm3 1.0-3.8 N MONOCYTE # (test code = MO#) 0.75 K/mm3 0.1-0.8 N EOSINOPHIL # (test code = EO#) 0.13 K/mm3 0.0-0.2 N BASOPHIL # (test code = BA#) 0.03 K/mm3 0.0-0.2 N NUCLEATED RBC # (test code = NRBC#) 0.00 K/mm3 0.0-0.1 N - XR FLUORO FOR SPINE [id number] 18:05:00Patient Name: JENNA BROWN Unit No: [id number] EXAMS: CPT CODE: [id number] XR FLUORO FOR SPINE INJ [id number] LUMBAR AND THORACIC DISCOGRAM AND INTRADISCAL INJECTION REFERRING PHYSICIAN: None PREOPERATIVE DIAGNOSIS: Discogenic Low Back Pain POSTOPERATIVE DIAGNOSIS: Possible partially symptomatic T11-12 and L4-5 discs PROCEDURE PERFORMED: 1. Fluoroscopically guided needle localization of the T11-T12 and L4- 5 discs with provocative discography and therapeutic intradiscal injection of local anesthetic and steroid. FINDINGS: Both discs showed marked loss of disc space height with diffuseannular degeneration. Aspiration was positive for gas at L4-5. Provocation was negative. Anestheticresponse was negative with the patient in persistent right hip pain. Preinjection VAS 9/10. Postinjection VAS 7/10. Steroid response pending follow-up. ANTIBIOTIC: Cefazolin IV and intradiscal. ESTIMATED BLOOD LOSS: Minimal ANESTHESIA: TIVA COMPLICATIONS: None DETAILS OF PROCEDURE: After obtaining stable vital signs, informed consent and IV access, with no contraindications to proceeding, the patient received preoperative antibiotics and was taken to the fluoroscopy suite where the patient was placed in a prone position with all extremities padded and appropriate monitors placed. The patient was sterilely prepped and draped over the lumbosacral spine. Under fluoroscopic visualization the selected discs were visualized and the insertion sites were marked for paramedian approaches. Using standard double needle no-touch technique, a 20 gauge spinal introducer needle was advanced to the level of the facets and a curved 25-gauge needle was then passed through the introducer and advanced into the center of each disc without paresthesias. Isovue 300 contrast 0.2 ml with [id number] mg/mL 0.2 ml was then injected to produce each discogram. Bupivacaine 0.75% 0.25 mL with lidocaine 4% 0.5 ml with triamcinolone 30 mg was then injected, provocation was recorded and the needles were removed. There were no signs of intravascular or intrathecal uptake. The patient's vital signs remained stable. The patient was taken to the PACU in good condition. [facility] NAME: JENNA BROWN [address] PHYS: Camilo Woods MD [place], [place] [address] : 1940 AGE: 78 SEX: M LOC: SURYA PHONE #: [phone] EXAM DATE: 03/31/2019STATUS: [facility] [place] FAX #: [phone] RAD #: D/C DT PAGE 1 Signed Report (CONTINUED) Patient Name: JENNA BROWN JR Unit No: [id number] EXAMS: CPT CODE: [id number] XR FLUORO FOR SPINE INJ 20674 <Continued> at 1805 Reported and signed by: Camilo Rome M.D. CC: Technologist: Jahaira Damon(Kevin) Transcribed D/ (7793) [place].[facility] NAME: JENNA BROWN JUAN COULTER [address] PHYS: Camilo Woods MD [place], [place] [address] : 1940 AGE: 78 SEX: M LOC: SURYA PHONE #: [phone] EXAM DATE: 03/31/2019 STATUS: [facility] [place] FAX #: [phone] RAD #: D/C DT PAGE 2 Signed Report Patient Name: JENNA BROWN JR UnitNo: [id number] EXAMS: CPT CODE: [id number] XR FLUORO FOR SPINE INJ [id number] <Continued> Orig Print D/T: S: 03/31/2019 (1809) [facility] [place] NAME: JENNA BROWN JR [address] PHYS: Camilo Woods MD [place], [place] [address] : 1940 AGE: 78 SEX: M LOC: SURYA PHONE #: [phone] EXAM DATE: 03/31/2019 STATUS: [facility] [place] FAX #: [phone] RAD #: D/C DT PAGE 3 Signed Report- XR FLUORO FOR SPINE [id number] 18:50:00Patient Name: JENNA BROWN Unit No: [id number] EXAMS: CPT CODE: [id number] XR FLUORO FOR SPINEINJ 91834 LUMBAR DISCOGRAM AND INTRADISCAL INJECTION REFERRING PHYSICIAN: None PREOPERATIVE DIAGNOSIS: Discogenic Low Back Pain POSTOPERATIVE DIAGNOSIS: Possible symptomatic L4-5 disc PROCEDURE PERFORMED: 1. Fluoroscopically guided needle localization of the L4-5 disc with provocative discographyand therapeutic intradiscal injection of local anesthetic and steroid. FINDINGS: The L4-5 disc shows marked loss of disc space height with diffuse annular degeneration and mild endplate osteophytosis. Provocation with injection was negative. Anesthetic response was positive with the patient noting complete relief of his right low back pain. Preinjection VAS 1-9/10. Postinjection VAS 0/10. Steroid response pending follow-up. ANTIBIOTIC: Cefazolin IV and intradiscal. ESTIMATED BLOOD LOSS: Minimal ANESTHESIA: TIVA COMPLICATIONS: None DETAILS OF PROCEDURE: After obtaining stable vital signs, informed consent and IV access, with no contraindications to proceeding, the patient received preoperative antibiotics and was taken to the fluoroscopy suite where the patient was placed in a prone position with all extremities padded and appropriate monitors placed. The patient was sterilely prepped and draped over the lumbosacral spine. Under fluoroscopic visualization the selected disc was visualized and the insertion site was marked for a right paravertebral approach. Using standard double needle no-touch technique, a 20 gauge spinal introducer needle was advanced to the level of the facets and a curved 25-gauge needle was then passed through the introducer and advanced into the center of the disc without paresthesias. Isovue 300 contrast 0.2 ml with [id number] mg/mL 0.2 ml was then injected to produce the discogram. Bupivacaine 0.75% 0.25 mL with lidocaine 4% 0.5 ml with triamcinolone 40 mg was then injected, provocation was recorded and the needles were removed. There were no signs of intravascular or intrathecal uptake. The patient's vital signs remained stable. The patient was taken to the PACU in good condition. [facility] NAME: JENNA BROWN Manohar [address] PHYS: Camilo Woods MD [place], [place] [address] : 1940 AGE: 78 SEX: M LOC: HerbCARMEL PHONE #: [phone] EXAM DATE: 10/23/2018 STATUS: [facility] [place] FAX #: [phone] RAD #: D/C DT PAGE 1 Signed Report (CONTINUED) Patient Name: JENNA BROWN Unit No: [id number] EXAMS: CPT CODE: [id number] XR FLUORO FOR SPINE INJ 19897 <Continued> at 1850 Reported and signed by: Camilo Rome M.D. CC: Technologist: Jahaira Damon(R) Transcribed D/ (1849) [facility] NAME: STEPHNAIEJENNA Villela [address] PHYS: Camilo Woods MD [place], [place] [address] : 1940 AGE: 78 SEX: M LOC: HerbCARMEL PHONE #: [phone] EXAM DATE: 10/23/2018 STATUS: [facility] [place] FAX #: [phone] RAD #: D/C DT PAGE 2 Signed Report Patient Name: JENNA BROWN Unit No: [id number] EXAMS: CPT CODE: [id number] XR FLUORO FOR SPINE INJ 97831 <Continued> Orig Print D/T: S: 10/23/2018 (1853) [facility] NAME: JENNA BROWN [address] PHYS: Camilo Woods MD [place], [place] [address] : 1940 AGE: 78 SEX: M LOC: SURYA PHONE #: [phone] EXAM DATE: 10/23/2018 STATUS: [facility] [place] FAX #: [phone] RAD #: D/C DT PAGE 3 Signed [id number] 06:56:00* Test Item Value Reference Range Interpretation Comme nts MAGNESIUM (test code = MAG) 2.1 MG/DL 1.6-2.3 N PROTHROMBIN [id number] 06:55:00* Test Item Value Reference Range Interpretation Comme nts PROTHROMBIN TIME PATIENT (test code = PTP) 10.8 SECONDS 9.6-11.6 N INTERNATIONAL NORMAL RATIO (test code = INR) 1.0 0.8-1.1 N The INR is to be used only for monitoring oral anticoagulanttherap y. INDICATION INR VALUE -------1. Prophylaxis, deep venous thrombosis, including high risk surgery. 2.0 - 3.0 2. Prophylaxis, deep venous thrombosis, hip surgery, treatment for deep venous thrombosis or pulmonary prevention of systemic embolism in patients with valvular heart disease, atrial fibrillation, tissue heart valve, or acute myocardial infarction. 2.0 - 3.0 3. Mechanical prosthesis heart valves, recurrent systemic embolism. 3.0 - 4.5 Comments to Electrical Line Splicer: ASAPPTT [id number] 06:55:00* Test Item Value Reference Range Interpretation Comme nts PTT ACTIVATED (test code = APTT) 30.3 SECONDS 22.0-33.0 N Comments to Electrical Line Splicer: ASAPLIPID PROFILE (CORONARY RISK)2018-07-25 07:56:00* Test Item Value Reference Range Interpretation Comme nts TRIGLYCERIDES (test code = TRIG) 88 MG/DL TRIGLYCERIDES REFERENCE RANGE:Normal: <150 mg/dLBorderline High: 150-199 mg/dLHigh: 200-499 mg/dLVery High: >=500 mg/dL CHOLESTEROL (test code = CHOL) 109 MG/DL <200 HDL CHOLESTEROL (test code = HDL) 37 MG/DL 40-59 L LIPOPROTEIN LDL (test code = LDL) 57 MG/DL 0-99 N OPTIMAL......... <100 mg/dLNEAR OPTIMAL/ABOVE OPTIMAL.........100-12 9 mg/dL BORDERLINE HIGH.........130-159 mg/dL HIGH.........160-189 mg/dL VERY HIGH.........>/= 190 mg/dL GLYCOSYLATED HEMOGLOBIN [id number] 07:56:00* Test Item Value Reference Range Interpretation Comme nts GLYCOSYLATED HEMOGLOBIN (HA1C) (test code = GLYHGB) 5.1 % 4.8-5.9 N Any condition th at shortens erythocyte survival or decreasesmean erythrocyte age (e.g., recovery from acute blood loss,hemolytic anemia) will falsely lower HGBA1c resultsregardless of the method used. HGBA1c results from patientswith HbSS, HbCC, and HbSc must be interpreted with cautiongiven the pathological processes, including anemia,increased red cell turnover, transfusion requirements, thatadversely impact HGBA1c as a marker of long-term glycemiccontrol. Alternative forms of testing such as fructosamineshould be considered for these patients. MEAN BLOOD GLUCOSE (test code = MBG) 100 MG/DL 70-110 N LIPID PROFILE (CORONARY RISK)2018-07-25 07:47:00* Test Item Value Reference Range Interpretation Comme nts TRIGLYCERIDES (test code = TRIG) 88 MG/DL TRIGLYCERIDES REFERENCE RANGE:Normal: <150 mg/dLBorderline High: 150-199 mg/dLHigh: 200-499 mg/dLVery High: >=500 mg/dL CHOLESTEROL (test code = CHOL) 109 MG/DL <200 HDL CHOLESTEROL (test code = HDL) 37 MG/DL 40-59 L LIPOPROTEIN LDL (test code = LDL) MG/DL 0-99 [id number] 18:53:00* Test Item Value Reference Range Interpretation Comme nts TROPONIN-I (test code = TROPI) < 0.012 NG/ML 0.012-0.033 L [id number] 12:41:00* Test Item Value Reference Range Interpretation Comme nts TROPONIN-I (test code = TROPI) < 0.012 NG/ML 0.012-0.033 L BASIC METABOLIC [id number] 07:45:00* Test Item Value Reference Range Interpretation Comme nts SODIUM (test code = NA) 136 MMOL/L 137-145 L POTASSIUM (test code = K) 4.0 MMOL/L 3.5-5.1 N CHLORIDE (test code = CL) 103 MMOL/L 98-107 N CARBON DIOXIDE (test code = CO2) 27 MMOL/L 22-30 N GLUCOSE (test code = GLU) 94 MG/DL 74-106 N BLOOD UREA NITROGEN (test code = BUN) 14 MG/DL 9-20 N GLOMERULAR FILTRATION RATE (test code = GFR) > 60 Reporting units: ml/min/1.73 m2 (Modified MDRD Formula)Reference Range: > or = 60 ml/min/1.73 m2 CREATININE (test code = CREAT) 1.00 MG/DL 0.66-1.25 N CALCIUM (test code = CA) 9.3 MG/DL 8.4-10.2 N [id number] 07:45:00* Test Item Value Reference Range Interpretation Comme nts TROPONIN-I (test code = TROPI) < 0.012 NG/ML 0.012-0.033 L BASIC METABOLIC [id number] 07:32:00* Test Item Value Reference Range Interpretation Comme nts SODIUM (test code = NA) 136 MMOL/L 137-145 L POTASSIUM (test code = K) 4.0 MMOL/L 3.5-5.1 N CHLORIDE (test code = CL) 103 MMOL/L 98-107 N CARBON DIOXIDE (test code = CO2) 27 MMOL/L 22-30 N GLUCOSE (test code = GLU) 94 MG/DL 74-106 N BLOOD UREA NITROGEN (test code = BUN) 14 MG/DL 9-20 N GLOMERULAR FILTRATION RATE (test code = GFR) > 60 Reporting units: ml/min/1.73 m2 (Modified MDRD Formula)Reference Range: > or = 60 ml/min/1.73 m2 CREATININE (test code = CREAT) 1.00 MG/DL 0.66-1.25 N CALCIUM (test code = CA) 9.3 MG/DL 8.4-10.2 N [id number] 07:32:00* Test Item Value Reference Range Interpretation Comme nts TROPONIN-I (test code = TROPI) NG/ML 0.0-0.045 CBC W/AUTO [id number] 07:13:00* Test Item Value Reference Range Interpretation Comme nts WHITE BLOOD CELL (test code = WBC) 6.5 K/MM3 3.8-9.8 N RED BLOOD CELL (test code = RBC) 4.83 M/MM3 3.95-5.67 N HEMOGLOBIN (test code = HGB) 14.8 G/DL 12.4-16.7 N HEMATOCRIT (test code = HCT) 43.3 % 35.9-49.5 N MEAN CELL VOLUME (test code = MCV) 90 fL 81.7-96.1 N MEAN CELL HGB (test code = MCH) 30.6 pg 27.6-33.2 N MEAN CELL HGB CONCETRATION (test code = MCHC) 34.2 % 32.9-35.5 N RED CELL DISTRIBUTION WIDTH (test code = RDW) 12.3 % 12.1-15.2 N PLATELET COUNT (test code = PLT) 156 K/MM3 129-368 N MEAN PLATELET VOLUME (test c ode = MPV) 9.6 fl 7.4-10.4 N NEUTROPHIL % (test code = NT%) 60.8 % 43-75 N IMMATURE GRANULOCYTE % (test code = IG%) 0.3 % 0.0-2.0 N LYMPHOCYTE % (test code = LY%) 26.9 % 14-44 N MONOCYTE % (test code = MO%) 9.2 % 4-13 N EOSINOPHIL % (test code = EO%) 2.5 % 0-6 N BASOPHIL % (test code = BA%) 0.3 % 0-2 N NUCLEATED RBC % (test code = NRBC%) 0.0 % 0-1.0 N NEUTROPHIL # (test code = NT#) 4.0 K/mm3 2.0-7.6 N IMMATURE GRANULOCYTE # (test code = IG#) 0.02 x10 3/uL 0-0.03 N LYMPHOCYTE # (test code = LY#) 1.8 K/mm3 1.0-3.8 N MONOCYTE # (test code = MO#) 0.60 K/mm3 0.1-0.8 N EOSINOPHIL # (test code = EO#) 0.2 K/mm3 0.0-0.2 N BASOPHIL # (test code = BA#) 0.02 K/mm3 0.0-0.2 N NUCLEATED RBC # (test code = NRBC#) 0.0 K/mm3 0.0-0.1 N CHEM [id number] 19:25:0053[facility] [id number] 19:22:00 17.8[facility] [id number] 19:22:005.4[facility] HermannCHEM PANEL 2015-11-09 20:45:0052[facility] [id number] 20:45:002.2[facility] HermannCHEM [id number] 11:38:001.6[facility] [id number] 11:38:000.0[facility] HermannCHEM [id number] 10:48:002.2[facility] Chris [id number] 10:48:0014.1[facility] [id number] 10:48:00 1.5[facility] HermannCHEM [id number] 23:46:002.0[facility] HermannHEMATOLOGY 2015-06-19 23:46:000.1[facility] HermannURINE AND [id number] 23:46:00Negative (06/19/15 5:46 PM)[facility] HermannANEMIA [id number] 10:50:09276Cjevcwdb HermannCHEM [id number] 10:50:000.6[facility] DcnvjvgMBKLTEYYWC9457-50-14 10:50:00Non Reactive *NA*(06/16/15 4:50 AM)[facility] 2015-06-08 23:01:00Light Yellow *NA*(06/08/15 5:01 PM)[facility] 2015-05-30 11:59:00Normal (05/30/15 5:59 AM)[facility] [id number] 11:50:002.6[facility] UuzxdeiCBKWHGLNHR7445-40-85 11:50:0023.9[facility] [id number] 11:50:0023[facility] HermannSPECIAL [id number] 11:50:00 5.5[facility] Notes Upcoming Encounters Date/Time Note Provider Source 2024-04-01 13:43:15 Neurology Clinic Note Provider List: Provider List No qualifying data available. Chief Complaint: Seziure management f/u History of Present Illness: The patient is a pleasant 83-year-old right-handed male who was last seen in March 2022. 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 I was initially on levetiracetam which was making him foggy. He has now transition to lamotrigine. He was also diagnosed with orthostatic hypotension which was causing him to have blackout episodes. He is now on midodrine, managed by his glue maker bone. I had shifted him to lamotrigine extended release after he had some drowsiness in the morning. He has had episodes of hyponatremia precipitated seizures in the past. On December 14, 2020, he had an episode where he was a passenger in the car driving back from his daughter's home in [place]. They had stopped and his found that he was initially staring, initially responsive and then stopped talking. He then had upper extremity stiffening and jerking movements with oral automatisms. It lasted for a few minutes and then he returned to baseline. He went to an ER and was again found to have a low sodium. Labs from that visit were reviewed as well as CT scan of the head and all scanned into the chart. His water intake continues to be poor. He tried to increase his salt intake and found that his blood pressure went up. Late December 2020-he was shaving, looking 'funny' and then fell on the floor. He had another episode on Mar 01, 2021, He started 'bubbling at his mouth'. He was clammy, his fists were clenched. He answered his initially and then lost consciousness. He lost control of his bladder. He regained consciousness after a few minutes. He was then driven home, was sleepy, then woke up and was 'fine'. He is no longer on midodrine, but taking fludrocortisone. His amlodipine dose was changed to accommodate his BP. He then had a pacemaker put in after many 'blackout' spells in May 2021. He had another spell on November 12, 2021 blacking out, but he did not seek any emergent attention then. Since last seen, he also has not had any seizures When seen in 2021-he has not had any seizures, but has had at least 2 episodes of fainting in the context of diarrhea. He also had another fall when he tripped on a garden hose. No changes in dose of lamotrigine so far. He went to the ER on both occasions after he had a fall. CAT scan of head did not demonstrate any new changes. These were reviewed from the [facility] records. I saw him last in March 2023. He has had a breakthrough episode on 01/28/2024. He was taken to the [facility] emergency room in [place]. The discharge diagnosis was syncope. His vital signs are stable. His pulse was 69. He was afebrile. Apparently the patient was waiting in his truck at a [employer] while his was getting her hair done. After she was there, they walked out to the truck and then while stated that he was just staring off into the space and did not answer her. She went in the shop to get help, came back to the truck and found that he was back to normal within a few seconds. EMS was called. During this episode, he did not lose consciousness or collapse. It was recommended that he increase his dose of lamotrigine in the morning to 200 mg and maintain the nocturnal dose at 300 mg. I increased his dose of lamotrigine in the morning to 150 mg and maintain the nocturnal dose at 300 mg, after I saw him in January 2024. he has not had any adverse effects from increasing the medication. He has not had any seizures. He is also drinking enough water. Review of Systems: GENERAL: No fevers or chills. CARDIOVASCULAR: No chest pain or palpitations. LUNGS: No shortness of breath or wheezing. ABDOMEN: No nausea, vomiting, or diarrhea. HEENT: No headache, hearing changes, or neck stiffness. SKIN: No rashes or hair loss. GENITOURINARY: No dysuria or hematuria. PSYCHIATRIC: No symptoms of anxiety or depression. MUSCULOSKELETAL: No pain that disrupts sleep ENDOCRINE: No heat or cold intolerance. HEMATOLOGICAL: No abnormal bleeding or bruising No qualifying data available. Treatment History: Treatment History No qualifying data available. Physical Exam: Vitals & Measurements HT: 177.8 cm HT Collection: Stated WT: 81.534 kg WT Collection: Estimated BP: 126/82 HR(Peripheral): 73 bpm RR: 19 BRMIN T(Te): 98.0 DegF BP Site: Left arm BP Collection Position: Sitting BMI: 25.79 m2 BSA: 2.0067 m2 SpO2: 96 % GENERAL: He is a pleasant elderly man who is seated in no apparent distress. HEENT: His Mallampati scale score is 3. He has no retrognathia or micrognathia. He has normal nasal patency. CARDIOVASCULAR: S1, S2 regular. LUNGS: Clear to auscultation bilaterally. ABDOMEN: Soft and nontender. NECK: No palpable neck masses. EXTREMITIES: No icterus or cyanosis. pedal edema present NEUROLOGIC: He is awake, alert, and oriented x 3. Cranial nerves II-XII are intact. He has no language deficits. His visual paulino are full bilaterally. His motor strength is 5/5 in all extremities. His reflexes are 2+ throughout. He has plantar flexor responses. Sensation is intact and symmetric. His coordination and gait are actually better. He has a wide based gait Assessment/Plan: 1. Seizure (R56.9) The patient is a pleasant 83-year-old gentleman who I have been following for poststroke epilepsy. He has not had any further seizures since we increased the dose of lamotrigine to 150 mg PO QAM and 300 mg PO QPM. We will check repeat labs today, since he has had a dose increase. He also has a pacemaker and therefore monitoring with EKG is routinely performed by his glue maker bone. Approximately 30 minutes were spent in this visit, most of the time reviewing his history, exam, above education , and documentation 2. History of stroke (Z86.73) Problem List/Past Medical History: Ongoing Apraxia CAD - Coronary artery disease Hemorrhagic stroke History of stroke HTN - Hypertension Obesity Right hemiplegia Right homonymous hemianopsia Seizure Stroke Patient Portal Entered Past Medical History No qualifying data available. No qualifying data available. Patient Portal Entered Problem History No qualifying data available. Procedure/Surgical History: Procedure (05/19/2019) Herniorrhaphy Placement of stent Repair of meniscus Patient Portal Entered Procedure History No qualifying data available. Medications: amLODIPine 10 mg oral tablet, 10 mg= 1 tab, PO, Daily atorvastatin 40 mg oral tablet, 40 mg= 1 tab, PO, Bedtime carvedilol 3.125 mg oral tablet, 3.125 mg= 1 tab, PO, BID clopidogrel 75 mg oral tablet, 75 mg= 1 tab, PO, Daily, 2 refills fludrocortisone 0.1 mg oral tablet, 0.1 mg= 1 tab, PO, Daily lamoTRIgine 300 mg oral tablet, extended release, 300 mg= 1 tab, PO, Bedtime, 3 refills lamoTRIgine 50 mg oral tablet, extended release, 150 mg= 3 tab, PO, QAM, 3 refills olmesartan 40 mg oral tablet, 40 mg= 1 tab, PO, Daily, per pt & , dose increzsed from 20mg to 40mg Prevagen, 1 tab, PO, Daily, OTC for memory loss spironolactone 25 mg oral tablet, 25 mg= 1 tab, PO, Daily Allergies: Flomax Social History: Electronic Cigarette/Vaping Electronic Cigarette Use: Never. Tobacco Use: Never smoker. Type: Cigarettes. Ready to change: No. Household tobacco concerns: No. Tobacco smoke exposure: None. Did the Patient Smoke Cigarettes Anytime During the Last 365 Days? No. Cessation Counseling Provided? No. Patient Portal Entered Social History No qualifying data available. No qualifying data available. Family History: Heart attack: Brother. Kidney tumor.: Mother. Prostate carcinoma: Father. Patient Portal Entered Family Medical History No qualifying data available. Immunizations: Vaccine Date Status influenza virus vaccine, inactivated 04/25/2016 Given pneumococcal 23-valent vaccine - Not Given influenza virus vaccine, inactivated - Not Given Neurology Physician [facility] Due Date Last Done Comments Lipid Panel 1940 Medicare Annual Wellness (AWV) 1940 Pneumococcal Vaccine: 65+ Years (1 of 2 - PCV) 1946 Zoster Vaccines (1 of 2) 1990 DTaP/Tdap/Td Vaccines (1 - Tdap) 02/12/2023 02/11/2023 Influenza Vaccine (#1) 2024 , 03/15/2022, 04/03/2021, Additional history exists Respiratory Syncytial Virus (RSV) or >=60 Completed 03/27/2023 HIB Vaccines Aged Out No longer eligi ble based on patient's age to complete this topic HPV Vaccines Aged Out No longer eligi ble based on patient's age to complete this topic Hepatitis A Vaccines Aged Out No long er eligible based on patient's age to complete this topic Hepatitis B Vaccines Aged Out No long er eligible based on patient's age to complete this topic IPV Vaccines Aged Out No longer eligi ble based on patient's age to complete this topic Meningococcal Vaccine Aged Out No sincere ephraim eligible based on patient's age to complete this topic Rotavirus Vaccines Aged Out No longer eligible based on patient's age to complete this topic [id number]01 [id number] 16:04:12 Pt discharged with diagnosis of seizure, syncope, transient alteration of awareness. Printed and verbal instructions reviewed with and given to patient. Prescriptions given x 1. Patient verbalized understanding of teaching, medication administration, and recommended follow-up. Denies questions or concerns at this time. Pt ambulatory at discharge. Appears in no apparent distress. No ataxia noted. Accompanied by . Ana Lilia Curran [facility]qrw[facility]1797-[facility] 12:41:17 Orthostatics 01/28/24 1238 01/28/24 1239 01/28/24 1240 Vitals Pulse 60 60 68 Heart Rate (monitor) 60 60 60 Resp 21 25 24 BP 105/65 113/66 102/70 MAP (mmHg) 78 81 81 SpO2 97 % 95 % 95 % [id number] 11:46:41 Pt was waiting in truck at [employer] for his getting her hair done. He remembers passing out and states this has happened before. When came out she called EMS due to him "being out a little while". He's been to the doctor for this but was told no abnormal findings.A&Ox4. Zulma Wilson [id number] 22:46:00 Pt given printed and verbal discharge instructions regarding laceration of forehead, injury of head, abrasion of right knee, encouraged hydration. Pt verbalized understanding of instructions, pt awake alert oriented, resp reg unlabored, skin w/d,color appropriate for race, moves all ext well,pt encouraged to follow up with pcp. Advised to seek medical attention for new/prolonged/worsening of symptoms. No adverse reaction to meds given in ER noted upon discharge. Awake, alert oriented, resp reg unlabored, skin w/d, pt leaving amb with steady gait, in no apparent distress, accompanied by significant other. Jordyn Smith [facility] [id number] 20:59:17 Pt presents with laceration to right forehead. Pt reports falling and hitting head on concrete, No LOC, pt reports being on blood thinners (plavix). Pt states his missed step and fell. 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 Bleeding controlled during triage. Pt A&OX4, NAD. Pt tdap is not utd. Blanca Mills [id number] 16:48:31 Patient here for a fall. Was in the restroom, got dizzy, fell and hit the back of his head on the floor. Patient is on plavix. Denies LOC. Rubio Serrano [facility] [id number] 16:46:00 Images from the original note were not included. [facility] Emergency Department Note Patient Name: Jenna Brown Jr. Date of : 1940 82 year old male Treatment Room: Room/bed info not found Primary Care Physician: Benny Rocha Patient Escorted by: Family [5] Mode of Arrival: Personal means [1] EMS Treatment Prior to ED Arrival: Travel and Exposure Screening: Symptoms Does patient have any of these symptoms?: (not recorded) Exposure Screening Has patient had contact with someone with a communicable disease in the last month?: (not recorded) Diseases exposed to:: (not recorded) Is Patient ?: (not recorded) Exposure Date: (not recorded) Chief Complaint: No chief complaint on file. History of Present Illness: The patient presents from home for evaluation status post mechanical fall while leaving the restroom near [facility] approximately 2 to 3 hours prior to arrival. He states he fell backwards hitting his head but did not have any loss of conscious. He was amatory at the scene. He does take Plavixdaily. He complains of a slight pain to the back of his head. No neck pain. No weakness to his armsor legs. No blurry vision. No change in his speech. No medications taken for pain. He is acting normal to his who is here with him and did finish to drive back home today. Here for evaluation. Past Medical History/Immunizations: Past Medical History: Diagnosis Date HLD (hyperlipidemia) HTN (hypertension) Hx of heart artery stent Hyperlipidemia Hypertension Seizures Stroke Tetanus received in last 5 years: Unknown Allergies: No Known Allergies Past Social History: Tobacco Use Never smoked or used smokeless tobacco. Past Surgical History: Past Surgical History: Procedure Laterality Date ARTHROTOMY,OPEN REPAIR MENISCUS CHOLECYSTECTOMY HERNIA REPAIR STENT PLACEMENT (SHX) Review of Systems: Review of Systems Constitutional: Negative for chills and fever. Respiratory: Negative for cough and shortness of breath. Cardiovascular: Negative for chest pain. Gastrointestinal: Negative for abdominal pain and vomiting. Genitourinary: Negative for dysuria. Musculoskeletal: Negative for arthralgias, neck pain and neck stiffness. Skin: Negative for wound. Neurological: Positive for headaches. Psychiatric/Behavioral: Negative for agitation. Endocrine: Negative for goiter. Physical Exam: ED Triage Vitals [01/15/23 1651] Weight 81.6 kg (180 lb) Actual or estimated Height 1.778 m (5' 10") BP (!) 137/96 Pulse 72 Resp 16 Temp 36.6 ?C (97.9 ?F) Temp source Oral SpO2 97 % Measured on Room air Physical Exam Vitals and nursing note reviewed. Constitutional: Appearance: Normal appearance. He is normal weight. HENT: Head: Normocephalic. Mouth/Throat: Mouth: Mucous membranes are dry. Neck: Comments: No vertebral body tenderness to cervical spine. Cardiovascular: Rate and Rhythm: Normal rate. Pulses: Normal pulses. Pulmonary: Effort: Pulmonary effort is normal. No respiratory distress. Abdominal: General: There is no distension. Palpations: Abdomen is soft. Tenderness: There is no abdominal tenderness. Musculoskeletal: General: Normal range of motion. Cervical back: Normal range of motion and neck supple. No tenderness. Skin: General: Skin is warm and dry. Neurological: General: No focal deficit present. Mental Status: He is alert and oriented to person, place, and time. Radiology: CT TRAUMA HEAD WO CONTRAST Preliminary Result EXAM: CT TRAUMA HEAD WO CONTRAST, CT TRAUMA CERVICAL SPINE WO CONTRAST HISTORY: 82 years-old Male; fall, on plavix COMPARISON: Prior CT head dated 12/14/2020 TECHNIQUE: Axial images of the head and cervical spine were obtained without IV contrast. Coronal and sagittal reformats were constructed. FINDINGS: HEAD: A small right posterior parietal subgaleal hematoma is seen. A remote infarct is again noted in the left frontal lobe with ex vacuo dilation of the frontal horn of the left lateral ventricle. An unchanged coarse calcification is noted in this region. The ventricles and sulci are otherwise proportionally prominent and consistent with the patient's age. No hydrocephalus, midline shift or pathological extra-axial fluid collection is present. The basal cisterns are unremarkable. There is no acute intracranial hemorrhage or significant mass effect. Periventricular and patchy deep white matter hypoattenuation is nonspecific and likely represents ischemic small vessel changes. The huffman-white matter differentiation is preserved. The mastoid air cells and paranasal air sinuses are clear. The calvarium and central skull base are unremarkable. CERVICAL SPINE: Reversal of cervical lordosis is noted. Stepwise mild retrolisthesis of C4 on C5 and C5 on C6. The vertebral bodies are otherwise normal in height and alignment. No acute fracture or dislocation is present. Normal alignment of the craniocervical junction and atlantoaxial joint. Moderate to severe multilevel degenerative changes are noted in the form of disc space narrowing, endplate sclerosis, marginal osteophytes and facet arthrosis. These findings are most conspicuous at C4-C5 and C5-C6. The prevertebral soft tissues are unremarkable. The visualized cervical soft tissues are unremarkable. IMPRESSION No acute intracranial hemorrhage or mass effect. Small right posterior parietal subgaleal hematoma without underlying calvarial fracture. No acute fracture or traumatic subluxation of the cervical spine. Preliminary Report Dictated by Resident: Brown Tovar CT TRAUMA CERVICAL SPINE WO CONTRAST Preliminary Result EXAM: CT TRAUMA HEAD WO CONTRAST, CT TRAUMA CERVICAL SPINE WO CONTRAST HISTORY: 82 years-old Male; fall, on plavix COMPARISON: Prior CT head dated 12/14/2020 TECHNIQUE: Axial images of the head and cervical spine were obtained without IV contrast. Coronal and sagittal reformats were constructed. FINDINGS: HEAD: A small right posterior parietal subgaleal hematoma is seen. A remote infarct is again noted in the left frontal lobe with ex vacuo dilation of the frontal horn of the left lateral ventricle. An unchanged coarse calcification is noted in this region. The ventricles and sulci are otherwise proportionally prominent and consistent with the patient's age. No hydrocephalus, midline shift or pathological extra-axial fluid collection is present. The basal cisterns are unremarkable. There is no acute intracranial hemorrhage or significant mass effect. Periventricular and patchy deep white matter hypoattenuation is nonspecific and likely represents ischemic small vessel changes. The huffman-white matter differentiation is preserved. The mastoid air cells and paranasal air sinuses are clear. The calvarium and central skull base are unremarkable. CERVICAL SPINE: Reversal of cervical lordosis is noted. Stepwise mild retrolisthesis of C4 on C5 and C5 on C6. The vertebral bodies are otherwise normal in height and alignment. No acute fracture or dislocation is present. Normal alignment of the craniocervical junction and atlantoaxial joint. Moderate to severe multilevel degenerative changes are noted in the form of disc space narrowing, endplate sclerosis, marginal osteophytes and facet arthrosis. These findings are most conspicuous at C4-C5 and C5-C6. The prevertebral soft tissues are unremarkable. The visualized cervical soft tissues are unremarkable. IMPRESSION No acute intracranial hemorrhage or mass effect. Small right posterior parietal subgaleal hematoma without underlying calvarial fracture. No acute fracture or traumatic subluxation of the cervical spine. Preliminary Report Dictated by Resident: Brown Tovar Lab Results: Lab Results - No data to display EKG: If EKG completed, see Procedure Note. Orders and Treatments: Orders Placed This Encounter Procedures CT TRAUMA HEAD WO CONTRAST CT TRAUMA CERVICAL SPINE WO CONTRAST No orders of the defined types were placed in this encounter. First Provider Eval: ED Events Date/Time Event User Comments 01/15/23 164 Medical Screening Begins NOLVIA LLOYD DO -- 01/15/23 164 First Provider Evaluation NOLVIA LLOYD DO -- ED COURSE Diagnosis/Impression as of 01/15/23 1814 Fall, initial encounter Injury of head, initial encounter Procedures: Procedures MDM: Medical Decision Making The patient presents from home with his for evaluation status post mechanical fall that occurred approximately 2 or 3 hours prior to arrival. They were driving home from [facility] and were around the [facility] area when he was leaving a restaurant. He tripped and fell backwards landingon his head. He denies any loss of conscious. He was able to get up on his own. He does take Plavix. His then continues to drive them back home. He complains of pain to the back of his head buthas not had any medications for that. No neck pain. He denies any weakness to his arms or legs, change in his speech or abnormal vision. Vital signs are stable here in the ER. He has no vertebral body tenderness to cervical spine. He has a cephalhematoma to the back of his head with a superficial abrasion. No focal neurologic deficit on examination. We will obtain a CT of his head and cervical spine to eval for possible traumatic injury including intracranial bleeding. We will continue to monitor the patient here in the ER. Final disposition pending. 1811 -the patient is doing well here in the ER. The CT of the head and cervical spine showed no acute intracranial abnormalities. He remained stable here in the ER and is okay for discharge home with PCP follow-up. Problems Addressed: Fall, initial encounter: acute illness or injury Amount and/or Complexity of Data Reviewed Radiology: ordered and independent interpretation performed. Decision-making details documented in ED Course. Flowsheet Documentation: Scoring Tools: No data recorded Disposition/Condition: ED Disposition ED Disposition Disch - Home Condition Stable Comment -- Discharge Medications: Patient's Medications START taking these medications No medications on file CONTINUE taking these medications which have NOT CHANGED ATORVASTATIN (LIPITOR) 40 MG TABLET Take 1 tablet by mouth at bedtime. CLOPIDOGREL (PLAVIX) 75 MG TABLET Take 1 Tab by mouth daily. LAMOTRIGINE 300 MG TR24 Take by mouth. MELATONIN 5 MG TABLET Take 5 mg by mouth as needed for Insomnia. MIDODRINE 2.5 MG TABLET Take 2.5 mg by mouth 3 (three) times daily. VITAMIN B-12 (B-12 DOTS) 500 MCG TABLET Take by mouth daily. START taking Modified Medications as Prescribed No medications on file STOP taking these medications No medications on file Follow-up: Electronically signed by: Nolvia Lloyd DO 01/15/231813 . [facility] - [id number] 07:56:[id number] [place] [address] PATIENT NAME: JENNA BROWN ADMIT DATE: 05/20/21 ACCOUNT NO: [id number] ROOM NO: [facility] AGE: 81 REPORT TYPE: ELECTROCARDIOGRAM SEX: M ADMITTING PHYSICIAN:Luke Plata MD ATTENDING PHYSICIAN:Luke Plata MD Order: [id number] Test Reason : SSS/PPI/CAD Test Date/Time Stamp: SatMay 21 2021 07:56:30 Blood Pressure : / mmHG Vent. Rate : 081 BPM Atrial Rate : 081 BPM P-R Int : 204 ms QRS Dur : 084 ms QT Int : 370 ms P-R-T Axes : 043 034 033 degrees QTc Int : 429 ms Normal sinus rhythm Normal ECG When compared with ECG of 20-MAY-2021 11:36, Sinus rhythm has replaced Electronic atrial pacemaker Confirmed by ISAK ANDERSON MD ([id number]) on 05/21/2021 10:17:08 AM Referred By: Luke Plata Confirmed by:ISAK ANDERSON MD at 1017 PATIENT NAME: JENNA BROWN 07:56:00 [phone] [place] [address] PATIENT NAME: JENNA BROWN ADMIT DATE: 05/20/21 ACCOUNT NO: [id number] ROOM NO: [facility] AGE: 81 REPORT TYPE: ELECTROCARDIOGRAM SEX: M ADMITTING PHYSICIAN:Luke Plata MD ATTENDING PHYSICIAN:Luke Plata MD Order: [id number] Test Reason : SSS/PPI/CAD Test Date/Time Stamp: SatMay 21 2021 07:56:30 Blood Pressure : / mmHG Vent. Rate : 081 BPM Atrial Rate : 081 BPM P-R Int : 204 ms QRS Dur : 084 ms QT Int : 370 ms P-R-T Axes : 043 034 033 degrees QTc Int : 429 ms Normal sinus rhythm Normal ECG When compared with ECG of 20-MAY-2021 11:36, Sinus rhythm has replaced Electronic atrial pacemaker Reconfirmed by NGOZI NICOLE ([id number]) on 05/21/2021 10:25:33 AM Referred By: Luek lPata Confirmed by:NGOZI NICOLE at 1025 PATIENT NAME: JENNA BROWN 06:58:00 [facility] ([facility] Cardiology Progress Note REPORT#:[id number] REPORT STATUS: Signed DATE:05/21/21 TIME: 0658 PATIENT: JENNA BROWN UNIT #: [id number] ROOM/BED: [address] : 40 AGE: 81 SEX: M ATTEND: Luke Plata MD ADM AUTHOR: Venkata Humphrey MD * ALL edits or amendments must be made on the electronic/computer document * Subjective Chief Complaint: Pacemaker Patient reports: No: chest pain, palpitations, shortness of breath. Objective General VS/I O: 24 hour I O ending at 0700: 05/21 0700 05/20 1900 Intake Total 200 Output Total Balance 200 Intake, Oral 200 Number Voids 3 Patient 84.091 kg Weight Weight Stated/Reported Measurement Method Vital Signs: Date Time Temp Pulse Resp B/P B/P Pulse O2 O2 Flow FiO2 Mean Ox Delivery Rate 05/21 0511 98.2 74 18 122/74 89.8 94 05/21 0016 97.5 72 18 116/69 84.3 93 05/20 2007 98.2 83 17 127/71 89.7 93 05/20 1650 97.2 90 18 126/77 93.6 95 05/20 1556 98.1 83 20 112/70 84.0 95 PATIENT WEIGHT: Weight (lb): 185 Weight (oz): 6.22 Weight (kg): 84.091 Medications: Active Meds + DC'd Last 24 Hrs Lamotrigine (LaMICtaL) 100 MG DAILY PO Atorvastatin Calcium (LIPITOR) 40 MG BEDTIME PO Losartan Potassium (COZAAR) 50 MG BEDTIME PO Cefazolin Sodium (ANCEF) 1,000 MG Q8H IV (DC) Sodium Chloride (SODIUM CHLORIDE 0.9%) 10 ML Spironolactone (ALDACTONE) 25 MG QAM PO Fludrocortisone Acetate (FLORINEF ACETATE) 0.1 MG DAILY PO Cyanocobalamin (VITAMIN B-12) 1,000 MCG DAILY PO Carvedilol (COREG) 3.125 MG BID PO Clopidogrel Bisulfate (PLAVIX) 75 MG DAILY PO Amlodipine Besylate (NORVASC) 10 MG DAILY PO Acetaminophen (TYLENOL) 650 MG Q4H PRN PRN PO Hydrocodone Bitart/Acetaminophen (NORCO 5/325 TABLET (C-II)) 1 TAB Q4H PRN PRN PO Ondansetron HCl (ZOFRAN) 4 MG Q8H PRN PRN IV Lidocaine (XYLOCAINE 1%) 0 .STK-MED ONE .ROUTE (DC) Cefazolin Sodium (ANCEF) 0 .STK-MED ONE .ROUTE (DC) Fentanyl Citrate (SUBLIMAZE (C-II)) 0 .STK-MED ONE .ROUTE (DC) Midazolam HCl (VERSED (C-IV)) 0 .STK-MED ONE .ROUTE (DC) Sodium Chloride (SODIUM CHLORIDE 0.9%) 1,000 ML Q20H IV Physical Exam General appearance: alert, awake, oriented Head/Eyes: atraumatic, normocephalic ENT: moist mucosal membranes Neck: no JVD Cardiovascular: CV assessment: regular rate and rhythm Respiratory: clear to auscultation, no distress Lower extremity: LE assessment: no edema Musculoskeletal: full range of motion Neuro/TOBACCO STEMMER: alert, oriented X 3, CN II-XII intact Skin: dry, intact Psychiatry: normal affect, normal judgment/insight, normal mood Results Findings/Data: Laboratory Tests 05/21 415 Chemistry Sodium (137 - 145 MMOL/L) 133 L Potassium (3.5 - 5.1 MMOL/L) 4.0 Chloride (98 - 107 MMOL/L) 105 Carbon Dioxide (22 - 30 MMOL/L) 24 BUN (9 - 20 MG/DL) 12 Creatinine (0.66 - 1.25 MG/DL) 1.00 Glomerular Filtr Rate > 60 Glucose (74 - 106 MG/DL) 92 Calcium (8.4 - 10.2 MG/DL) 8.5 Laboratory Tests 05/21 415 Hematology WBC (3.8 - 9.8 K/MM3) 8.2 RBC (3.95 - 5.67 M/MM3) 4.37 Hgb (12.4 - 16.7 G/DL) 14.0 Hct (35.9 - 49.5 %) 39.4 MCV (81.7 - 96.1 fL) 90 MCH (27.6 - 33.2 pg) 32.0 MCHC (32.9 - 35.5 %) 35.5 RDW (12.1 - 15.2 %) 12.8 Plt Count (129 - 368 K/MM3) 178 MPV (7.4 - 10.4 fl) 9.4 Neut % (Auto) (43 - 75 %) 60.7 Lymph % (Auto) (14 - 44 %) 22.3 [place] % (Auto) (4 - 13 %) 13.5 H Eos % (Auto) (0 - 6 %) 2.7 Baso % (Auto) (0 - 2 %) 0.4 Neut # (Auto) (2.0 - 7.6 K/mm3) 5.00 Lymph # (Auto) (1.0 - 3.8 K/mm3) 1.83 [place] # (Auto) (0.1 - 0.8 K/mm3) 1.11 H Eos # (Auto) (0.0 - 0.2 K/mm3) 0.22 H Baso # (Auto) (0.0 - 0.2 K/mm3) 0.03 Immature Gran % (0.0 - 2.0 %) 0.4 Nucleated RBC % (0 - 1.0 %) 0.0 Nucleated RBCs # (Man) (0.0 - 0.1 K/mm3) 0.00 Radiology data: Recent Impressions: RADIOLOGY - XR CHEST 1V 05/20 1050 Report Impression - Status: SIGNED Entered: 05/20/2021 1111 IMPRESSION: There is no radiographic evidence of acute cardiopulmonary disease. 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 No pneumothorax is identified. Impression By: Aroldo Celis MD Diagnosis, Assessment Plan Hospital course to date: IMP: Syncope s/p MDT PPM PLAN: Pacemaker interrogation d/c planning. at 0636 RPT #:[id number] END OF [id number] 12:17:00 [facility] ([facility]) Hospitalist History Physical REPORT#:[id number] REPORT STATUS: Signed DATE:05/20/21 TIME: 1216 PATIENT: JENNA BROWN UNIT #: [id number] ROOM/BED: [address] : 40 AGE: 81 SEX: M ATTEND: Luke Plata MD ADM AUTHOR: Camilo Richardson MD R2 * ALL edits or amendments must be made on the electronic/computer document * Camilo Richardson 05/20/21 1217: History of Present Illness HPI Chief complaint: sick sinus syndrome PCP: PCP: Benny Rocha MD HPI: Patient is an 81y M with CAD and a loop recorder presenting today after permanent pacemaker implantation for episodes of syncope. Denies trauma from syncopal episodes or seizure-like activity during recent syncopal episodes. Reports nighttime urinary incontinence, two episodes recently. Denies urinary frequency, urgency, incomplete voiding, weak stream, and patient follows with urology. Reports history of hemorrhagic stroke in 2014, unclear etiology with right sided weakness, no aphasia. He was rehabilitated for 41 days and has no residual weakness. Ambulates without assistance. Patient reports history of seizures, last seizure episode remote and unrecalled. He is maintained on lamictal and follows closely with neurologist at [facility]. Syncopal episodes have been increasing over the past year. The patient has not had any significant arrhythmia until lately when he has had several syncopal episodes with documented pauses of 4 seconds. The patient's last cardiac catheterization was on 07/26/2018 and at that time, he had patent stents double vessel coronary artery disease back on 07/06/1999. He had RCA stent and LAD stents. The patient's last carotid Doppler showed less than 50% disease. He has had normal ejection fraction on recent echo. Denies chest pain, shortness of breath, dizziness, lightheadedness, nausea, vomiting. Reports HTN, HLD, denies DMT2, denies cancer. History Past Medical Surgical Hx Patient History: 1. Coronary artery disease Additional medical history: Stroke BPH HTN HLD Additional surgical history: Stents x2 Hernia repair Cholecystectomy Knee arthroscopy Lumbar fusion Cataract surgery Family History Family history: Reports: Hypertension, Kidney disease/stones. Additional family history: Prostate cancer Social History Alcohol use: Denies EtOH use Drug use: Denies recreational drugs Smoking status: Smoking status for patients 13 years old or older: Never Smoker Medication/Allergy-Vaccine Hx Medications: Home Medications: MELATONIN 1 TAB SL BEDTIME PRN INSOMNIA CARVEDILOL (COREG) 3.125 MG PO BID CYANOCOBALAMIN (VITAMIN B-12) 1,000 MCG PO DAILY CLOPIDOGREL (PLAVIX) 75 MG PO DAILY lamoTRIgine ODT (LaMICtal ODT) 100 MG PO DAILY FLUDROCORTISONE ACETATE (FLORINEF) 0.1 MG PO DAILY SPIRONOLACTONE (ALDACTONE) 25 MG PO QAM amLODIPine (NORVASC) 10 MG PO DAILY ATORVASTATIN (LIPITOR) 40 MG PO BEDTIME OLMESARTAN (BENICAR) 40 MG PO BEDTIME Allergies: Coded Allergies: No Known Allergies (08/10/19) Review of Systems Constitutional: Denies: chills, fatigue, fever, generalized weakness, lethargy, malaise, recent wt loss. Cardiovascular: Denies: chest pain, JENNINGS (dyspnea on exertion), edema, orthopnea, palpitations, parox nocturnal dyspnea. : Denies: dysuria, flank pain, frequency, hematuria, nocturia, penile discharge, penile lesion, testicular pain, testicular swelling, urgency, urinary retention. Neuro: Denies: bladder dysfunction, bowel dysfunction, change in LOC, confusion, dizziness, focal weakness, gait problem, headache, lightheaded, numbness, seizure, slurred speech, spinning sensation, syncope, unable to speak, vision change, weakness. All systems rev neg: except as noted Physical Exam VS/I O: Patient Weight and BMI Weight (kg): BMI: General appearance: alert, awake, oriented, no acute distress Neck: full range of motion, non-tender Cardiovascular: pacemaker, normal capillary refill, normal heart sounds, regular rate rhythm, no ectopy Respiratory: aerating well, clear to auscultation, symmetric expansion, no distress Abdomen: non-tender, normal bowel sounds, soft, no distention Extremities: moves all, normal capillary refill, no edema Neuro/TOBACCO STEMMER: alert, oriented X 3, CNII-XII intact, normal speech Skin: dry Psychiatry: normal affect, normal judgment/insight, normal mood Results Findings/Data: Laboratory Tests: 05/20 05/20 0622 0500 Chemistry Sodium (137 - 145 MMOL/L) 132 L Potassium (3.5 - 5.1 MMOL/L) 4.4 Chloride (98 - 107 MMOL/L) 102 Carbon Dioxide (22 - 30 MMOL/L) 24 BUN (9 - 20 MG/DL) 13 Creatinine (0.66 - 1.25 MG/DL) 1.00 Glomerular Filtr Rate > 60 Glucose (74 - 106 MG/DL) 107 H Calcium (8.4 - 10.2 MG/DL) 9.1 Magnesium (1.6 - 2.3 MG/DL) 1.9 Triglycerides (150 - 199 MG/DL) 71 L Cholesterol (<200 MG/DL) 126 LDL Cholesterol Measurd (0 - 99 MG/DL) 58 HDL Cholesterol (40 - 59 MG/DL) 44 Coagulation INR (0.86 - 1.14) 1.0 APTT (25.1 - 36.5 SECONDS) 34.1 PT Patient/Control Mix (9.5 - 12.7 SECONDS) 11.1 Hematology WBC (3.8 - 9.8 K/MM3) 7.4 RBC (3.95 - 5.67 M/MM3) 4.77 Hgb (12.4 - 16.7 G/DL) 14.9 Hct (35.9 - 49.5 %) 42.8 MCV (81.7 - 96.1 fL) 90 MCH (27.6 - 33.2 pg) 31.2 MCHC (32.9 - 35.5 %) 34.8 RDW (12.1 - 15.2 %) 12.7 Plt Count (129 - 368 K/MM3) 211 MPV (7.4 - 10.4 fl) 8.7 Neut % (Auto) (43 - 75 %) 62.0 Lymph % (Auto) (14 - 44 %) 22.6 [place] % (Auto) (4 - 13 %) 12.0 Eos % (Auto) (0 - 6 %) 2.8 Baso % (Auto) (0 - 2 %) 0.3 Neut # (Auto) (2.0 - 7.6 K/mm3) 4.60 Lymph # (Auto) (1.0 - 3.8 K/mm3) 1.68 [place] # (Auto) (0.1 - 0.8 K/mm3) 0.89 H Eos # (Auto) (0.0 - 0.2 K/mm3) 0.21 H Baso # (Auto) (0.0 - 0.2 K/mm3) 0.02 Immature Gran % (0.0 - 2.0 %) 0.3 Nucleated RBC % (0 - 1.0 %) 0.0 Nucleated RBCs # (Man) (0.0 - 0.1 K/mm3) 0.00 Serology SARS-CoV-2 Ag (Rapid) (Negative) NEGATIVE Laboratory Tests 05/20/21 0622: [Embedded Image Not Available] Radiology data: Recent Impressions: RADIOLOGY - XR CHEST 1V 05/20 1050 Report Impression - Status: SIGNED Entered: 05/20/2021 1111 IMPRESSION: There is no radiographic evidence of acute cardiopulmonary disease. 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 No pneumothorax is identified. Impression By: Aroldo Celis MD Diagnosis, Assessment Plan Problem List/A P: 1. S/P placement of cardiac pacemaker 2. Sick sinus syndrome 3. Coronary artery disease 4. Benign prostatic hyperplasia 5. HISTORY OF HEMORRHAGIC STROKE WITHOUT RESIDUAL WEAKNESS 6. Seizure disorder Maintained on Lamictal Last seizure episode remote Follows in [facility] Free Text A P: Patient is an 81y M with CAD history of hemorrhagic stroke presenting after implantation of permanent pace maker for sick sinus syndrome. Plan Continue to monitor CV status, vital signs stable at this time without subjective complaints No electrolyte abnormalities Continue home medications Pain meds PRN Plan for dc in AM Diet: Cardiac Resuscitation discussion: Discussed with: patient Code status: full code Quality: Gen Med Crit Care VTE Prophylaxis VTE prophylaxis initiated: yes Current Medications Current medication review: I attest that the foregoing medication list in the medical record is true, accurate, and complete to the best of my knowledge. Advanced Care Plan 65 or Older Discussed with: patient Discussion included: code status (full code) Attestations Attestation needed: supervising physician Luke Plata 05/20/21 2330: Attestations Teaching Physician Attestation 1st visit w/ resident: I was present with the resident, Camilo Richardson, PGY2, during the history and exam. I discussed the case with the resident and agree with the findings and plan as documented in his note. at 1253 at 2332 [facility] #:[id number] END OF [id number] 11:36:[id number] [place] [address] PATIENT NAME: JENNA BROWN ADMIT DATE: 05/20/21 ACCOUNT NO: [id number] ROOM NO: [facility] AGE: 81 REPORT TYPE: ELECTROCARDIOGRAM SEX: M ADMITTING PHYSICIAN:Rock Petersno MD ATTENDING PHYSICIAN:Rock Peterson MD Order: [id number] Test Reason : S/P PPI Test Date/Time Stamp: [facility] May 20 2021 11:36:53 Blood Pressure : / mmHG Vent. Rate : 066 BPM Atrial Rate : 066 BPM P-R Int : 214 ms QRS Dur : 094 ms QT Int : 422 ms P-R-T Axes : 060 077 063 degrees QTc Int : 442 ms Demand pacemaker, interpretation is based on intrinsic rhythm Atrial-paced rhythm Low voltage QRS Abnormal ECG When compared with ECG of 20-MAY-2021 05:58, Significant changes have occurred Confirmed by NGOZI NICOLE ([id number]) on 05/20/2021 11:41:22 AM Referred By: Self Referred Confirmed by:NGOZI NICOLE at 1141 PATIENT NAME: JENNA BROWN 11:36:[address] [place] [address] PATIENT NAME: JENNA BORWN ADMIT DATE: 05/20/21 ACCOUNT NO: [id number] ROOM NO: [facility] AGE: 81 REPORT TYPE: ELECTROCARDIOGRAM SEX: M ADMITTING PHYSICIAN:Luke Plata MD ATTENDING PHYSICIAN:Luke Plata MD Order: [id number] Test Reason : S/P PPI Test Date/Time Stamp: [facility] May 20 2021 11:36:53 Blood Pressure : / mmHG Vent. Rate : 066 BPM Atrial Rate : 066 BPM P-R Int : 214 ms QRS Dur : 094 ms QT Int : 422 ms P-R-T Axes : 060 077 063 degrees QTc Int : 442 ms Demand pacemaker, interpretation is based on intrinsic rhythm Atrial-paced rhythm Low voltage QRS Abnormal ECG When compared with ECG of 20-MAY-2021 05:58, Significant changes have occurred Confirmed by NGOZI NICOLE ([id number]) on 05/22/2021 5:05:27 PM Referred By: Self Referred Confirmed by:NGOZI NICOLE at 1705 PATIENT NAME: JENNA BROWN 10:30:00 [id number] [place] [address] PATIENT NAME: JENNA BROWN ADMIT DATE: 05/20/21 ACCOUNT NO: [id number] ROOM NO: [facility] AGE: 81 REPORT TYPE: CARDIAC CATHETERIZATION REPORT SEX: M ADMITTING PHYSICIAN:Rock Peterson MD ATTENDING PHYSICIAN:Rock Peterson MD PROCEDURE DATE: 05/20/2021 [employer]: Ngozi iNcole MD TITLE OF THE PROCEDURE: Dual-chamber permanent pacemaker implantation. INDICATION FOR THE PROCEDURE: Syncope with documented pauses of 4 seconds on the loop recorder. ESTIMATED BLOOD LOSS: Minimal. COMPLICATIONS: None. CONTRAST: None. ANESTHESIA: Conscious sedation with Versed and fentanyl and 1% lidocaine for local anesthesia. FINAL DIAGNOSIS: Successful dual-chamber permanent pacemaker implantation. The loop recorder was left alone. It was far away from the incision and the pacemaker area. PROCEDURE IN DETAIL: After informed consent, the patient was brought to the cardiac catheterization lab in a stable fasting nonsedated state. He was prepped and draped in the usual sterile fashion. He received Ancef 2 g in the holding area right before the procedure. A standardized procedure was carried to form the pocket for the pacemaker on the left deltopectoral area. It appeared that the loop recorder is far away from the surgery site, so we did not remove the loop recorder. I did access to the vein using 2 separate wires and the right ventricular lead was placed first, the RV lead was Medtronic [id number], the length was 58, model number was 5076-58. The threshold was 0.75. The R-wave was 18.4. The atrial lead was then placed using standard techniques and the atrial lead was Medtronic, model number 5076-52, length was 52, the serial number was [id number] and was placed in the right atrial appendage and the threshold was 1.5 with the P-wave of 1.9. The leads and the pacemaker are MRI compatible. The leads were sutured with silk and the pacemaker was attached to the leads after flushing the pocket with antibiotic solution. The pacemaker generator was model number [id number], serial number [id number] it is Medtronic attached to the leads and secured inside the pocket. Then, I did a closure of the wound with 2 layers, 2-0 and 4-0 subcutaneous and then applied Steri-Strips and regular dressing followed by pressure dressing. Left arm sling was also placed. The patient tolerated the procedure well. PATIENT NAME: JENNA BROWN There were no complications. He was transiently hypotensive during the procedure after I lowered his legs and he received saline and that resolved. The patient was transferred back to the holding area for observation and then he will be admitted for observation overnight and antibiotic therapy. Dictated By: Ngozi Nicole MD WT: CATH:SHORTY/HEATHER/SMITH Conf#: [id number]/DID#: [id number] Authenticated by Ngozi Nicole MD On 05/20/2021 11:18:17 AM at 1118 PATIENT NAME: JENNA BROWN 05:58:00 [id number] [place] [address] PATIENT NAME: JENNA BROWN ADMIT DATE: 05/20/21 ACCOUNT NO: [id number] ROOM NO: [facility] AGE: 81 REPORT TYPE: ELECTROCARDIOGRAM SEX: M ADMITTING PHYSICIAN:Luke Plata MD ATTENDING PHYSICIAN:Luke Plata MD Order: [id number] Test Reason : ARRHYTHMIA Test Date/Time Stamp: SatMay 20 2021 05:58:36 Blood Pressure : / mmHG Vent. Rate : 065 BPM Atrial Rate : 065 BPM P-R Int : 122 ms QRS Dur : 082 ms QT Int : 402 ms P-R-T Axes : 000 050 002 degrees QTc Int : 418 ms Normal sinus rhythm Nonspecific ST and T wave abnormality Abnormal ECG When compared with ECG of 06-DEC-2012 06:15, Nonspecific T wave abnormality now evident in Inferior leads Confirmed by NGOZI NICOLE ([id number]) on 05/22/2021 5:05:34 PM Referred By: Self Referred Confirmed by:NGOZI NICOLE at 1705 PATIENT NAME: JENNA BROWN 05:58:00 [id number] [place] [id number] PATIENT NAME: JENNA BROWN JR ADMIT DATE: 05/20/21 ACCOUNT NO: [id number] ROOM NO: AGE: 81 REPORT TYPE: ELECTROCARDIOGRAM SEX: M ADMITTING PHYSICIAN: ATTENDING PHYSICIAN:Ngozi Nicole MD Order: [id number] Test Reason : ARRHYTHMIA Test Date/Time Stamp: SatMay 20 2021 05:58:36 Blood Pressure : / mmHG Vent. Rate : 065 BPM Atrial Rate : 065 BPM P-R Int : 122 ms QRS Dur : 082 ms QT Int : 402 ms P-R-T Axes : 000 050 002 degrees QTc Int : 418 ms Normal sinus rhythm Nonspecific ST and T wave abnormality Abnormal ECG When compared with ECG of 06-DEC-2012 06:15, Nonspecific T wave abnormality now evident in Inferior leads Confirmed by NGOZI NICOLE ([id number]) on 05/20/2021 6:14:25 AM Referred By: Self Referred Confirmed by:NGOZI NICOLE at 0614 PATIENT NAME: JENNA BROWN 07:29:[id number] [address] PATIENT NAME: JENNA BROWN ADMIT DATE: ACCOUNT NO: [id number] ROOM NO: AGE: 81 REPORT TYPE: PREOP HISTORY AND PHYSICAL SEX: M ADMITTING PHYSICIAN: ATTENDING PHYSICIAN:Ngozi Nicole MD PATIENT NAME: JENNA BROWN JUAN COULTER ADMIT DATE:05/20/2021 ADMISSION DATE: 05/20/2021 [employer]: Ngozi Nicole MD REASON FOR ADMISSION: Dual-chamber permanent pacemaker implantation, for syncope and documented pauses. HISTORY OF PRESENT ILLNESS: Jenna is an 81-year-old patient of mine who I have been following in my clinic since 1999. The patient has a long history of coronary artery disease, which is stable at this time. His main problem lately has been syncope. It was thought to be orthostatic at one point and his medications were adjusted. He has fluctuation in his blood pressures. He was evaluated by EP and had an event loop recorder implanted on 05/20/2019. The patient has not had any significant arrhythmia until lately when he has had several syncopal episodes with documented pauses of 4 seconds. Given this information and after discussion with the patient and Dr. Humphrey, the patient's loop recorder will be changed into a dual-chamber permanent pacemaker implantation. The patient continues to have significant syncope at this time with documented pauses despite multiple medication changes and several adjustments in his medications. He has had over the years several event recorders from 2016, 2017, and 2018 and they were all negative, so then we decided to do the loop recorder. The patient's last cardiac catheterization was on 07/26/2018 and at that time, he had patent stents double vessel coronary artery disease back on 07/06/1999. He had RCA stent and LAD stents. The patient's last carotid Doppler showed less than 50% disease. He has had normal ejection fraction on recent echos. He has had a negative nuclear stress test back in 2016, but his last cardiac catheterization was on 07/26/2018. He has been pretty much asymptomatic from the coronary artery disease standpoint. His main problem has been the episodes of syncope and the fluctuation in his blood pressure. PAST MEDICAL HISTORY: Remarkable for the above in addition to history of paroxysmal supraventricular tachycardia, hypertension, hyperlipidemia, history of stroke, acid reflux, diabetes, metabolic syndrome, degenerative lumbosacral spine disease, osteoarthritis, vitamin B12 and D deficiency. 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 ALLERGIES: NO KNOWN DRUG ALLERGIES. PATIENT NAME: JENNA BROWN MEDICATIONS: Reviewed and listed. The patient has been off beta karlie therapy. He has been on midodrine 2.5 mg b.i.d., amlodipine 5 mg daily, Plavix, and aspirin, vitamins, olmesartan 40 mg daily, atorvastatin 40 mg daily. SOCIAL HISTORY: There is no history of smoking, alcohol, or street drug use. FAMILY HISTORY: Negative for premature atherosclerosis. REVIEW OF SYSTEMS: Remarkable for the above, easy bruisability, dizziness. No acute GI or symptoms. No TIAs or strokes. PHYSICAL EXAMINATION: GENERAL: Reveals a pleasant elderly male, in no acute distress. VITAL SIGNS: Blood pressure 114/76, pulse 79 and regular, respiratory rate 16 and unlabored, and temperature afebrile. HEENT: Head, atraumatic and normocephalic. Eyes and ENT examination within normal for age. NECK: Supple. No jugular venous distention, bruits, or lymphadenopathy. Normal upstroke. LUNGS: Clear and resonant. HEART: Regular rate and rhythm. I/ systolic ejection murmur at the left lower sternal border. No gallops. ABDOMEN: Soft. No tenderness, no organomegaly, no masses or bruits. EXTREMITIES: A 2+ distal pulses. No edema, cyanosis, or clubbing. NEUROLOGIC: Alert and oriented x3. The examination appears to be nonfocal. LABORATORY DATA: Pending. Noninvasive cardiovascular workup enclosed. IMPRESSION: This is an 81-year-old patient with a long history of syncope and finally we documented 4-second pauses with the syncope episodes. The patient has implanted loop recorder, which is going to be removed and changed to a dual-chamber permanent pacemaker implantation. The patient has extensive cardiovascular history detailed above and it has been stable. The recommendation is to proceed with the above-mentioned procedures. The risks and benefits of the planned procedures were discussed in detail with the patient and his , and the patient is willing to proceed. Rest as per orders. Dictated By: Ngozi Nicole MD WT: PREOPHP:ELIS/HEATHER/SMITH Conf#: [id number]/DID#: [id number] Authenticated and Edited by Ngozi Nicole MD On 05/19/21 4:44:42 PM at 0445 PATIENT NAME: JENNA BROWN JR 12:18:[id number] [place] [address] PATIENT NAME: JENNA BROWN JR ADMIT DATE: 05/20/20 ACCOUNT NO: [id number] ROOM NO: AGE: 80 REPORT TYPE: OPERATIVE REPORT SEX: M ADMITTING PHYSICIAN: ATTENDING PHYSICIAN:Jerry Maxwell MD OPERATION DATE: 05/20/2020 FINAL DIAGNOSES: 1. Right knee medial meniscus tear, S83.221A. 2. Right knee osteoarthritis, M17.11. FINAL PROCEDURES: Right knee arthroscopy with partial medial meniscectomy, synovectomy of medial compartment, debridement of synovitis of anterior cruciate ligament notch, 14540. PREOPERATIVE DIAGNOSIS: Right knee medial meniscus tear and chondromalacia. POSTOPERATIVE DIAGNOSES: 1. Right knee medial meniscus tear, S83.221A. 2. Right knee osteoarthritis, M17.11. PROCEDURES: Right knee arthroscopy with partial medial meniscectomy, synovectomy of medial compartment, debridement of synovitis of anterior cruciate ligament notch, 72997. SURGEON: Jerry Maxwell MD AMMONIA DISTILLER: None. ANESTHESIA: General. BRIEF CLINICAL HISTORY: 80-year-old male with right knee pain. Pain is predominantly medial. He has had pain for approximately 6 to 8 weeks. He has previously had an aspiration and injection of cortisone, which helped for only a few days. He has an MRI, which demonstrates medial meniscus tear with medial compartment chondromalacia. He now presents for operative intervention. The knee arthroplasty would be definitive; however, he does not have severe osteoarthritis based upon the MRI. He now presents for arthroscopic intervention. PROCEDURE DETAIL: The right knee was appropriately identified. The patient was then placed under general anesthesia and placed in the supine position. The right knee was prepped and draped in sterile fashion. Superomedial inflow portal was established. INTRAARTICULAR FLUID: 50 mL, dark yellow with multiple chondral fragments. PATIENT NAME: JENNA BROWN JR Anterolateral and anteromedial portals were established. FINDINGS IN THE NOTCH: ACL: Intact. PCL: Intact. OTHER: Significant synovitis in the notch with the hypertrophic thickened ligamentum mucosum. All of this was debrided using a 4-mm shaver. The tissue was very friable and had good blood supply, therefore, there was mild to moderate bleeding with this. FINDINGS IN THE MEDIAL COMPARTMENT: ARTICULAR CARTILAGE: Diffuse grade II and III chondromalacia of the entire medial femoral condyle, stable, did not need to be addressed. MENISCUS: Complex tear of what appeared to be a prior injury or deficiency of the medial meniscus. There was significant horizontal cleavage component posteriorly, there was a midbody split. Mild MCL recession was done for exposure, and a partial medial meniscectomy was done using a 4 mm shaver to a stable transition. Approximately 20% to 30% resection was done to a stable rim. Arthroscope was placed medially and laterally for full visualization. OTHER: None. FINDINGS IN THE LATERAL COMPARTMENT: ARTICULAR CARTILAGE: Intact. MENISCUS: Mild fraying. OTHER: None. FINDINGS IN THE PATELLOFEMORAL COMPARTMENT: PATELLAR ARTICULAR CARTILAGE: Grade II and III changes, stable, did not need to be addressed. TROCHLEAR ARTICULAR CARTILAGE: Grade II changes, stable, did not to be addressed. OTHER: None. MEDIAL GUTTER: Significant thickening of the plica and synovium in the medial gutter, debrided using a 4-mm shaver. LATERAL GUTTER: None. SUPRAPATELLAR POUCH: None. All instruments were then removed from the knee and the portal sites were closed using 3-0 Monocryl suture. The knee was injected with morphine. Dressings were then placed. COMPLICATIONS: None. PROGNOSIS: Cautious. He had significant chondral delamination as noted by the initial entry into the knee with efflux of 50 mL of fluid from multiple chondral fragments. Additionally, the articular cartilage of the medial femoral condyle was grade III and is very friable. This likely will progress. Arthroscopic surgery may or may not give him relief. He should be on protected weightbearing for up to the first 2 weeks. In the future, he may benefit from injections of cortisone. He is not a candidate for antiinflammatories because he takes Plavix. His was instructed to not give him the Naprosyn postoperatively. Dictated By: Jerry Maxwell MD PATIENT NAME: JENNA BROWN WT: OP:LEIDY/RAMON/SMITH Conf#: [id number]/DID#: [id number] Authenticated by Jerry Maxwell MD On 05/23/2020 10:56:28 AM at 1056 PATIENT NAME: JENNA BROWN JR 06:13:00 [facility] ([facility]) Brief Op Note REPORT#:[id number] REPORT STATUS: Signed DATE:05/20/20 TIME: 06 PATIENT: JENNA BROWN JR UNIT #: [id number] ROOM/BED: : 40 AGE: 80 SEX: M ATTEND: Jerry Maxwell MD ADM AUTHOR: Jerry Maxwell MD * ALL edits or amendments must be made on the electronic/computer document * Op/Inv Proc Note - Brief Pre-procedure diagnosis: right knee medial meniscus tear, OA Post-procedure diagnosis: same as pre procedure dx Procedures performed: right knee arthroscopy with partial medial meniscectomy Primary Surgeon: MD Alissa Credit Administration Manager(s): none Findings: none Complications: none Estimated blood loss in ml's: none Specimens removed/altered: none at 1314 RPT #:[id number] END OF REPORT [id number] 05:58:[id number] [place] [address] PATIENT NAME: JENNA BROWN JR ADMIT DATE: 05/20/20 ACCOUNT NO: [id number] ROOM NO: AGE: 80 REPORT TYPE: HISTORY AND PHYSICAL SEX: M ADMITTING PHYSICIAN: ATTENDING PHYSICIAN:Jerry Maxwell MD ADMISSION DATE: 05/20/2020 DATE OF ANTICIPATED SURGERY: Will be 05/20/2020. CHIEF COMPLAINT: Right knee pain. HISTORY OF PRESENT ILLNESS: This is an 80-year-old male with right knee pain for the past two months. He has pain with weightbearing activities. He has difficulty getting out of a chair. Associated symptoms include difficulty walking, swelling, and instability. Most of his pain is posterior. He has tried activity modifications, medications, as well as an aspiration injection, which have not helped his pain. He has moderate pain and disability and now presents for surgical intervention. PAST MEDICAL HISTORY: Hypertension, heart attack, stroke, varicose veins, enlarged prostate, heart disease, heart stent, hypercholesterolemia, and stroke. PAST SURGICAL HISTORY: Knee scope L4-L5, cataract surgery, heart stent, cholecystectomy, hernia surgery, and cervical spine surgery. MEDICATIONS: 1. Carvedilol. 2. Olmesartan. 3. Atorvastatin. 4. Lamictal. 5. B12. 6. Midodrine. 7. Plavix. ALLERGIES: NO KNOWN DRUG ALLERGIES. REVIEW OF SYSTEMS: HEENT: Negative. PULMONARY: Negative. RENAL: Negative. CARDIOVASCULAR: Significant for heart disease, status post stent and on anticoagulation. GASTROINTESTINAL: Negative. NEUROLOGIC: Negative. ENDOCRINE: Negative. PHYSICAL EXAMINATION: PATIENT NAME: JENNA BROWN GENERAL: This is a well-developed, well-nourished 80-year-old male, in no acute distress. HEENT: Normal. PULMONARY: Spontaneous breathing. CARDIOVASCULAR: Spontaneous pulse. ABDOMEN: Soft. EXTREMITIES: Examination of the right lower extremity demonstrates well-healed previous surgical scar incisions. Joint effusion and limited range of motion. The patient has 135 degrees of flexion and lacks 5 degrees of full extension. Knee is stable to all ligamentous testing. Positive Sage's exam. DIAGNOSTIC STUDIES: Outside MRI reviewed of the right knee demonstrates horizontal oblique tear of the posterior horn mid body of the medial meniscus, patchy grade III chondromalacia of the medial tibial plateau and medial femoral condyle with associated subchondral edema, more significant grade III chondromalacia of the patella, medium effusion, fluid in the semimembranosus bursa with some leakage into the posterior compartment. ASSESSMENT: Right knee medial meniscus tear, symptomatic. PLAN: Right knee arthroscopy with partial medial meniscectomy and any associated procedures. Risks and benefits have been detailed to the patient including limitations of knee scope with degenerative changes. The patient understands and is ready to proceed. Dictated By: Chely Marrero PA-C for Jerry Maxwell MD WT: HP:LEIDY/SORAYAU-ZDAVIDJU/NTS Conf#: [id number]/DID#: [id number] Authenticated by Chely Marrero PA-C On 05/20/2020 01:18:37 PM Authenticated by Jerry Maxwell MD On 05/23/2020 10:56:23 AM at 1056 at 1056 PATIENT NAME: JENNA BROWN JR 06:34:[id number] [place] [address] PATIENT NAME: JENNA BROWN JR ADMIT DATE: 08/10/19 ACCOUNT NO: [id number] ROOM NO: Y.514 AGE: 79 REPORT TYPE: OPERATIVE REPORT SEX: M ADMITTING PHYSICIAN:Darren Amezcua MD ATTENDING PHYSICIAN:Darren Amezcua MD OPERATION DATE: 08/10/2019 PREOPERATIVE DIAGNOSES: 1. Lumbar spondylosis with lumbar radiculopathy. 2. Lumbar spinal stenosis. 3. Degenerative disk disease of lumbar spine. 4. Lumbar disk herniation. POSTOPERATIVE DIAGNOSES: 1. Lumbar spondylosis with lumbar radiculopathy. 2. Lumbar spinal stenosis. 3. Degenerative disk disease of lumbar spine. 4. Lumbar disk herniation. PROCEDURES: 1. L4 laminectomy. 2. Partial laminectomy of L5. 3. L4-L5 transforaminal lumbar interbody fusion with posterolateral fusion. 4. L4-L5 posterior spinal instrumentation (Alphatec Zodiac 6.5 x 45 mm screws bilaterally at L4-L5). 5. L4-L5 intervertebral device (Zodiac PEEK spacer 9 large). 6. Use of autograft for spinal fusion through same incision. SURGEON: Darren Amezcua M.D. AMMONIA DISTILLER: CHET Rowe (certified physician assistant was necessary for the case in its entirety for assistance with patient positioning as well as intraoperatively for adequate exposure and retraction and assistance with wound closure). ANESTHESIA: General. ESTIMATED BLOOD LOSS: 100 mL. INTRAVENOUS FLUIDS: 2000 mL of crystalloid, 500 mL of albumin. URINE OUTPUT: 350 mL. COMPLICATIONS: None. CONDITION: Stable to recovery room. INDICATIONS FOR PROCEDURE: Mr. Brown is a 79-year-old male with history of PATIENT NAME: JENNA BROWN low back and right lower extremity pain. Clinical and imaging evaluation revealed advanced degeneration of the disk at L4-L5 with a large extruded disk fragment resulting in severe stenosis. ____ spondylosis resulting in lumbar radicular syndrome. Due to his progressive symptoms and failure of nonoperative intervention, surgical intervention was discussed and recommended to include laminectomy and decompression as well as transforaminal lumbar interbody fusion with posterolateral fusion. Risks, benefits, alternatives, and complications were discussed inclusive but not exclusive of infection, bleeding, injury to blood vessels or nerve roots resulting in numbness, weakness, increased pain, injury to the dura, spinal fluid leak, failure of fusion, failure of instrumentation, need for further surgery, blood clots including DVT or pulmonary embolism, cardiac arrhythmia, cardiac arrest, stroke, blindness, and even . Following this, informed consent was obtained. DESCRIPTION OF PROCEDURE: The patient was identified in the preoperative holding area. The operative site was marked at that time. He was subsequently transferred to the operative theater where general anesthesia was induced and monitored by anesthesia staff. Armstrong catheter was placed. This was removed at the end of the case. MAIA hose and SCDs were placed and present for the case in its entirety. He was carefully transferred to the prone position on the Rafael frame. Care was taken to pad all bony prominences. ____. Using a standard technique, a bur followed by a pedicle finder, followed by a probe, followed by a tap, followed by a profile probe, followed by screws and screws were placed bilaterally at L4-L5. All 4 screws had good bites and were found in appropriate position on intraoperative AP and lateral fluoroscopy. Attention was then turned back to midline, at which time laminectomy was performed at L4 as well as partial laminectomy at L5. On the right side, there was a large extruded disk fragment that extended distally posterior to the L5 vertebral body. This was excised. Please note that the decompression was performed to adequately decompress the nerve roots in addition to that necessary for preparation of the disk space. Then we approached the transforaminal lumbar interbody fusion portion of the procedure. Following the decompression, I was able to freely pass a ball-tip probe out of the exiting foramen bilaterally at L4 along the traversing L5 nerve root down the L5 foramen. The dura was inspected and found to be free of leak. Attention was then turned to the left side, partial medial facetectomy was performed. The lateral aspect of the dura was identified. The exiting L4 nerve root was identified as well as the traversing L5 nerve root. All structures were protected. The lateral aspect of the disk space was identified. A 15 blade scalpel was utilized to perform annulotomy. The endplates were prepared superiorly and inferiorly and disk was evacuated. A 9 mm interbody graft was templated and found to be appropriate size. This was then filled with autograft harvested during decompression and tamped into place. Please note that prior to placement of the graft, filled autograft was placed in the anterior aspect of the disk space for spinal fusion. ____ irrigated prior to placement of the graft. The dura was again inspected and found to be free of leak. Attention was then turned to the posterolateral gutter on the left side, at which time the transverse process was decorticated. Autograft was then placed in the posterolateral gutter for posterior spinal fusion. Hemovac drain was placed. One gram of vancomycin powder was placed deep to the lumbodorsal fascia. Lumbodorsal fascia was reapproximated with #1 Vicryl suture. Subcutaneous tissue was reapproximated with 2-0 Vicryl suture and the skin was closed with 3-0 Vicryl running subcuticular type stitch. The wound was dressed PATIENT NAME: JENNA BROWN with Steri-Strips, 4 x 4s, and Medipore tape. Anesthesia was reversed. He was extubated and transferred to recovery room in stable condition. PLAN: Mr. Brown will be discharged to PACU and to the floor later this afternoon. We will plan to mobilize him out of bed later today. Dictated By: Darren Amezcua MD WT: OP:LEIDY/MARIN/SMITH Conf#: [id number]/DID#: [id number] Authenticated by Darren Amezcua MD On 08/15/2019 08:50:20 AM at 0850 PATIENT NAME: JENNA BROWN JR 17:27:00 [facility] ([facility]) Discharge Summary REPORT#:[id number] REPORT STATUS: Signed DATE:08/12/19 TIME: 1727 PATIENT: JENNA BROWN JR UNIT #: [id number] ROOM/BED: [address] : 40 AGE: 79 SEX: M ATTEND: Darren Amezcua MD ADM AUTHOR: Darren Amezcua MD * ALL edits or amendments must be made on the electronic/computer document * PCP PCP Discharge to: home General Information Date of admission: Observation Start Date: Date of admission: 08/10/19 Date of discharge: 08/13/19 Hospital course: L4-5 TLIF on the date of admission without complication. He mobilized OOb POD # 0. He was frank po intake, his pain was controlled with po meds and he was felt to be stable for d/c home after his drain O/P improved. Med Rec Med Rec Discharge meds: Stop taking the following medications: CLOPIDOGREL (PLAVIX) 75 MG TAB 75 MILLIGRAM ORAL DAILY. Continue taking these medications: lamoTRIgine XR (LaMICtal XR) 300 MG TAB.ER.24H 300 MILLIGRAM ORAL BEDTIME. ATORVASTATIN (LIPITOR) 40 MG TAB 40 MILLIGRAM ORAL BEDTIME. MELATONIN (MELATONIN) 5 MG TAB.SL 1 TABLET SUBLINGUAL BEDTIME. as needed for INSOMNIA MIDODRINE (PROAMATINE) 5 MG TAB 5 MILLIGRAM ORAL THREE TIMES A DAY. Instructions: TAKEN DURING DAYTIME HOURS AND <4 HOURS BEFORE BEDTIME CARVEDILOL (COREG) 3.125 MG TAB 3.125 MILLIGRAM ORAL TWICE DAILY. OLMESARTAN (BENICAR) 20 MG TAB 20 MILLIGRAM ORAL BEDTIME. CYANOCOBALAMIN (VITAMIN B-12) 1,000 MCG TAB 1,000 MICROGRAM ORAL DAILY. Start taking the following new medications: METHOCARBAMOL (ROBAXIN) 500 MG TAB 500 MILLIGRAM ORAL EVERY 8 HR NEEDED. as needed for MUSCLE SPASM EQUA/ GREATER 65YR Qty = 21 No Refills ACETAMINOPHEN/CODEINE (TYLENOL WITH CODEINE #3 300/30 MG) 300 MG-30 MG TAB 1-2 UD TABLET ORAL EVERY 4 HOURS NEEDED. as needed for PAIN SCALE 4-5 Qty = 41 No Refills Discharge Instructions Diet: regular Activity: no bending, no lifting, no twisting, non-strenuous Wound/dressing care: Keep wound clean and dry, Leave steri strips, FOLLOW WOUND CARE INSTRUCTIONS Return to work/school: No Follow-up Appointments PCP: PCP: Undefined Provider Attending Physician: Attending Physician: Darren Amezcua MD Follow up: In 1-2 weeks at 1905 RPT #:[id number] END OF REPORT [id number] 09:23:00 [facility] ([facility]) Ortho / Spine Progress Note REPORT#:[id number] REPORT STATUS: Signed DATE:08/12/19 TIME: 922 PATIENT: JENNA BROWN JR UNIT #: [id number] ROOM/BED: [address] : 40 AGE: 79 SEX: M ATTEND: Darren Amezcua MD ADM AUTHOR: Darren Amezcua MD * ALL edits or amendments must be made on the electronic/computer document * Subjective Chief Complaint: LBP and RLE pain Patient Reports: ambulating, comfortable, pain controlled Comments: Pre-op RLE pain improved Objective General VS/I O: Vital Signs: Date Time Temp Pulse Resp B/P B/P Pulse O2 O2 Flow FiO2 Mean Ox Delivery Rate 08/12 0707 36.6 76 16 115/61 79.4 97 Room air 08/12 0400 37.2 75 17 132/67 88.9 95 Room air 08/12 0220 96 Nasal 3.279986 32 cannula 08/11 2258 37.3 76 18 154/73 99.6 95 Room air 08/11 2020 95 Nasal 3.954358 32 cannula 08/11 1921 37.1 88 18 155/76 102.4 97 Room air 08/11 1630 97 Room air 08/11 1542 37.0 86 18 124/72 88.9 93 Room air 08/11 1148 36.0 85 18 116/67 0.0 94 Room air 24 hour I O ending at 0700: 08/12 0700 08/11 1900 Intake Total 210.00 Output Total 735 170 Balance -525.00 -170 Intake, IV 210.00 Number Voids 1 2 Output, 135 170 Drainage Output, Urine 600 Patient 76.657 kg Weight Patient Weight Weight (lb): 169 Weight (oz): 12.1 Weight (kg): 76.657 Post Op: day 2 Status post: Status Post: lumbar decompression, lumbar fusion Physical Exam General appearance: alert, awake, oriented, no acute distress, pleasant, conversational, mental status normal, no respiratory distress LE Neuro/Lumbar: Bilateral: No obv. LE deficit:, hip flexor:, hip abductor:, hip adductor:, knee extension:, knee flexion:, ankle inversion:, ankle eversion:, ankle dorsiflexion :, ankle plantiflexion:, EHL:, sensation L1:, sensation L2:, sensation L3:, sensation L4:, sensation L5:, sensation S1:. Foot - Left: normal pulses Foot - Right: normal pulses Lower leg - Left: no evidence of DVT Lower leg - Right: no evidence of DVT Diagnosis, Assessment Plan Free Text A P: 1. Doing well s/p L4-5 TLIF 2. Mobilize OOB 3. ADAT slowly 4. Monitor drain O/P 5. D/C planning for home at 1723 RPT #:[id number] END OF REPORT [id number] 05:56:00 [facility] ([facility]) Clinical Note REPORT#:[id number] REPORT STATUS: Signed DATE:08/12/19 TIME: 0556 PATIENT: JENNA BROWN UNIT #: [id number] ROOM/BED: Y514-A : 40 AGE: 79 SEX: M ATTEND: Darren Amezcua MD ADM AUTHOR: Brody Patel MD * ALL edits or amendments must be made on the electronic/computer document * Clinical Note Note: Vital Signs: Date Time Temp Pulse Resp B/P B/P Pulse O2 O2 Flow FiO2 Mean Ox Delivery Rate 08/12 0400 99.0 75 17 132/67 88.9 95 Room air 08/12 0220 96 Nasal 3.185092 32 cannula 08/11 2258 99.1 76 18 154/73 99.6 95 Room air 08/11 2019 95 Nasal 3.690707 32 cannula 08/11 1921 98.8 88 18 155/76 102.4 97 Room air 08/11 1630 97 Room air 08/11 1542 98.6 86 18 124/72 88.9 93 Room air 08/11 1148 96.8 85 18 116/67 0.0 94 Room air 08/11 0750 95 Nasal 3.724477 32 cannula 08/11 0708 98.2 98 18 118/66 83.1 97 Room air Sleeping; arouses ok; had stable night; vss; doing well at 0557 RPT #:[id number] END OF REPORT [id number] 06:08:[id number] [place] [address] PATIENT NAME: JENNA BROWN JR ADMIT DATE: 08/10/19 ACCOUNT NO: [id number] ROOM NO: Y514 AGE: 79 REPORT TYPE: CONSULTATION REPORT SEX: M ADMITTING PHYSICIAN:Darren Amezcua MD ATTENDING PHYSICIAN:Darren Amezcua MD CONSULTATION DATE: 08/11/2019 CONSULTING PHYSICIAN: Brody Patel MD HISTORY OF PRESENT ILLNESS: The patient is a 79-year-old male, who underwent surgery yesterday for lumbar spondylosis with radiculopathy. He underwent laminectomy, decompression, and TIF this morning. The patient is alert and reports he is very comfortable. He denies any chest pain or shortness of breath. PAST MEDICAL HISTORY: Hypertension, coronary artery disease with stents x3, history of hypotension, history of CVA in 2015. He had a seizure at that time. His preoperative cardiovascular exam was within normal limits. PAST SURGICAL HISTORY: Cardiac stent, cholecystectomy, and knee surgery. MEDICATIONS: Plavix, carvedilol, lamotrigine, atorvastatin, olmesartan, midodrine. ALLERGIES: NONE. SOCIAL HISTORY: No tobacco use. REVIEW OF SYSTEMS: He denies chest pain or shortness of breath. PHYSICAL EXAMINATION: GENERAL APPEARANCE: The patient is alert who reports being comfortable. HEART: Regular rate and rhythm. RESPIRATORY: Lungs paulino are clear anterior. EXTREMITIES: He moves his lower extremities normally. IMPRESSION: 1. Status post lumbar decompression. 2. Coronary artery disease, which is stable. 3. Hypertension. 4. History of cerebrovascular accident. 5. History of hypotensive episodes. PLAN: Continue postoperative care. The patient is very comfortable at this time. Thank you for the consultation. PATIENT NAME: JENNA BROWN JR Dictated By: Brody Patel MD WT: CON:LEIDY/RADHA/NTS Conf#: [id number]/DID#: [id number] Authenticated by Brody Patel MD On 08/11/2019 05:46:31 PM at 1746 PATIENT NAME: JENNA BROWN JR 13:34:00 [facility] ([facility]) Brief Op Note REPORT#:[id number] REPORT STATUS: Signed DATE:08/10/19 TIME: 1334 PATIENT: JENNA BROWN JR UNIT #: [id number] [facility] AGE: 79 SEX: M ATTEND: Darren Amezcua MD ADM AUTHOR: Darren Amezcua MD * ALL edits or amendments must be made on the electronic/computer document * Op/Inv Proc Note - Brief Pre-procedure diagnosis: Lumbar spinal stenosis Post-procedure diagnosis: same as pre procedure dx Procedures performed: L4-5 laminectomy and PSF with TLIF Primary Surgeon: Darren Amezcua MD Credit Administration Manager(s): CHET Bagley Anesthesia: general anesthesia Findings: Lumbar spinal stenosis Complications: none Estimated blood loss in ml's: 100 Specimens removed/altered: none at 0946 [facility] #:[id number] END OF REPORT [id number] 14:19:[id number] [place] [address] PATIENT NAME: JENNA BROWN ADMIT DATE: 05/20/19 ACCOUNT NO: [id number] ROOM NO: AGE: 79 REPORT TYPE: CARDIAC CATHETERIZATION REPORT SEX: M ADMITTING PHYSICIAN: ATTENDING PHYSICIAN:Venkata Humphrey MD PROCEDURE DATE: 05/20/2019 PROCEDURE: Loop recorder implant. PREPROCEDURE DIAGNOSIS: Recurrent syncope. POSTPROCEDURE DIAGNOSIS: Recurrent syncope. PROCEDURE DETAILS: After informed consent was obtained explaining to the patient risks, benefits, and alternatives, the patient was brought to the cardiac catheterization lab in the fasting postabsorptive state. The fourth left parasternal intercostal space was marked with a sterile pen. The chest was prepped and draped in sterile fashion. Local anesthesia was applied over the fourth intercostal space with 1% lidocaine with epinephrine. A small incision was made with the LINQ insertion kit blade. The LINQ insertion kit was then utilized to place the LINQ loop recorder. The incision was closed with 3 interrupted 2-0 Prolene sutures. The patient tolerated the procedure well with no complications. CONCLUSIONS: 1. Successful loop recorder implant. 2. Estimated blood loss negligible. 3. No complications. Dictated By: Venkata Humphrey MD WT: CATH:SHORTY/RAMONITA/SMITH Conf#: [id number]/DID#: [id number] Authenticated by Venkata Humphrey MD On 05/22/2019 06:30:15 AM at 0630 PATIENT NAME: JENNA BROWN 09:19:00 [id number] [address] PATIENT NAME: JENNA BROWN ADMIT DATE: 05/20/19 ACCOUNT NO: [id number] ROOM NO: AGE: 79 REPORT TYPE: ELECTROCARDIOGRAM SEX: M ADMITTING PHYSICIAN: ATTENDING PHYSICIAN:Venkata Humphrey MD Order: [id number] Test Reason : LOOP IMPLANT Test Date/Time Stamp: SatMay 20 2019 09:19:11 Blood Pressure : / mmHG Vent. Rate : 059 BPM Atrial Rate : 059 BPM P-R Int : 188 ms QRS Dur : 084 ms QT Int : 420 ms P-R-T Axes : 048 051 056 degrees QTc Int : 415 ms Sinus bradycardia Otherwise normal ECG When compared with ECG of 26-JUL-2018 10:09, No significant change was found Confirmed by NGOZI NICOLE ([id number]) on 05/20/2019 5:53:04 PM Referred By: Venkata Humphrey Confirmed by:NGOZI NICOLE at 1753 PATIENT NAME: JENNA BROWN 11:07:00 [facility] ([facility]) Discharge Summary REPORT#:[id number] REPORT STATUS: Signed DATE:07/26/18 TIME: 1107 PATIENT: JENNA BROWN UNIT #: [id number] ROOM/BED: [address] : 40 AGE: 78 SEX: M ATTEND: Ruth Ann Gonzalez MD ADM AUTHOR: Ruth Ann Gonzalez MD * ALL edits or amendments must be made on the electronic/computer document * PCP PCP Discharge to: home General Information Date of discharge: 07/26/18 Admission diagnosis: unstable agina history of HTN, CAD, stroke, seizure Discharge diagnosis: STABLE CAD Hospital course: PT WAS ADMITTED WITH CHEST PAIN AND FOR LHC. 07/24/18 -will admit to CVU -will do serial troponins, EKG -asa, plavix and lovenox started by glue maker bone -obtain echo -echo shows ejection fraction 55-60%. Wall motion is normal - his home meds were resumed -dvt ppx: on lovenox 07/25/18 -pt is doing well. no cp. cont current management -troponin negative x3 -plan for [facility] am. 07/26/18 [facility] WAS DONE THIS MORNING. REPORTEDLY NEGATIVE AND CLEARED BY CARDIOLOGY FOR DISCHARGE HOME TODAY. PT HAS BEEN DOING WELL, DENIES ANY CHEST PAIN SINCE ADMISSION HIS VITALS STABLE. REMAINS AFEBRILE. HE IS BEING DISCHARGED IN STABLE CONDTION. Med Rec PCP PCP: PCP: Undefined Provider Med Rec Discharge meds: Continue taking these medications: ATORVASTATIN (LIPITOR) 40 MG TAB 40 MILLIGRAM ORAL BEDTIME. CLOPIDOGREL (PLAVIX) 75 MG TAB FUROSEMIDE (LASIX) 20 MG TAB 20 MILLIGRAM ORAL EVERY OTHER DAY IRBESARTAN (AVAPRO) 150 MG TAB 150 MILLIGRAM ORAL BEDTIME. lamoTRIgine XR (LaMICtal XR) 300 MG TAB.ER.24H 300 MILLIGRAM ORAL DAILY. METOPROLOL SUCC XL (TOPROL XL) 25 MG TAB.SR.24H 12.5 MILLIGRAM ORAL DAILY. MELATONIN (MELATONIN) 3 MG TAB 6 MILLIGRAM ORAL AT BEDTIME NEEDED. as needed for INSOMNIA Discharge Instructions Diet: cardiac Follow-up Appointments PCP: PCP: Undefined Provider Follow up timeframe: In 5 days Consulting provider 1: Provider 1: Ngozi Nicole MD Specialty: CARDIOVASC DIS Follow up timeframe: In 6 days Objective VS/I O Last Documented: Result Date Time Pulse Ox 98 07/26 1104 FiO2 21 07/26 1104 O2 Delivery Room air 07/26 1104 B/P 146/79 07/26 1055 B/P Mean 100.9 07/26 1055 Temp 36.3 07/26 1055 Pulse 52 07/26 1055 Resp 18 07/26 1055 O2 Flow Rate 0.678811 07/25 2323 24 hour I O ending at 0700: 07/26 0700 07/25 1900 Intake Total 200 Output Total Balance 200 Intake, Oral 200 Number Voids 2 General appearance: alert, awake, oriented, no acute distress, mental status normal, no respiratory distress Head/Eyes: atraumatic, clear cornea, EOMI, normocephalic, normal conjunctiva/ sclera, normal fundi, normal eyelids/periorb., PERRLA ENT: normal dentition, normal ear left, normal ear right, normal nose, normal pharynx, normal sinus Neck: full range of motion, non-tender, no bruit/NL carotids, no JVD, no lymphadenopathy, no masses or swelling, normal thyroid, supple/no meningismus Cardiovascular: normal capillary refill, regular rate rhythm Respiratory: clear to auscultation, no distress, no tenderness GI: soft, non-tender, no guarding, no rebound, no distention, no mass/ organomegaly, no pulsatile mass, no hernia, normal abdominal aorta Genitourinary: not indicated Extremities: moves all, no edema-all extremities, normal capillary refill, normal range of motion, normal sensory, normal motor function Musculoskeletal: full range of motion, normal inspection Neuro/TOBACCO STEMMER: alert, oriented X 3 Quality Medications Current medication review: I attest that the foregoing medication list in the medical record is true, accurate, and complete to the best of my knowledge. Heart Failure:DC on BB,ALLAN/ARB LVEF: > 40% Beta karlie Rx at DC: yes; medication: ACEI/ARB Rx at DC: yes; medication: BMI Screening > 25 or < 18.5 Patient's BMI: Current BMI: Tobacco Use/Counseling Tobacco use/counseling: non tobacco user HTN Screening/Follow-up B/P assess/follow-up: pre-existing hx of HTN at [address] [facility] #:[id number] END OF [id number] 10:09:[id number] [place] [address] PATIENT NAME: JENNA BROWN ADMIT DATE: 07/24/18 ACCOUNT NO: [id number] ROOM NO: Z.358 AGE: 78 REPORT TYPE: ELECTROCARDIOGRAM SEX: M ADMITTING PHYSICIAN:Ruth Ann Gonzalez MD ATTENDING PHYSICIAN:Ruth Ann Gonzalez MD Order: [id number] Test Reason : CAD Test Date/Time Stamp: SatJul 26 2018 10:09:41 Blood Pressure : / mmHG Vent. Rate : 052 BPM Atrial Rate : 052 BPM P-R Int : 188 ms QRS Dur : 092 ms QT Int : 440 ms P-R-T Axes : 035 041 077 degrees QTc Int : 409 ms Sinus bradycardia Otherwise normal ECG When compared with ECG of 26-JUL-2018 06:57, No significant change was found Confirmed by NGOZI NICOLE ([id number]) on 07/26/2018 3:27:44 PM Referred By: Ruth Ann Gonzalez Confirmed by:NGOZI NICOLE at 1527 PATIENT NAME: JENNA BROWN 08:40:00 [id number] [place] [address] PATIENT NAME: JENNA BROWN ADMIT DATE: 07/24/18 ACCOUNT NO: [id number] [facility] 78 REPORT TYPE: CARDIAC CATHETERIZATION REPORT SEX: M ADMITTING PHYSICIAN:Ruth Ann Gonzalez MD ATTENDING PHYSICIAN:Ruth Ann Gonzalez MD PROCEDURE DATE: 07/26/2018 CARDIOLOGY PROCEDURE SENIOR NAVAL PARACHUTIST: Ngozi Nicole MD TITLE OF THE PROCEDURE: Left heart catheterization. INDICATION FOR THE PROCEDURE: Unstable angina, coronary artery disease, and previous stents. ESTIMATED BLOOD LOSS: Minimal. COMPLICATIONS: None. CONTRAST: 50 mL. ANESTHESIA: Conscious sedation with Versed and fentanyl and 1% lidocaine for local anesthesia. FINAL DIAGNOSES: Stable coronary artery disease, patent stents in the left anterior descending and the right coronary artery and the posterolateral branch to the right coronary artery. The recommendation is medical therapy. PROCEDURE IN DETAIL: After informed consent, the patient was brought to the cardiac catheterization lab in a stable fasting nonsedated state. He was prepped and draped in the usual sterile fashion. After conscious sedation, 1% lidocaine was administered to the right common femoral artery area for local anesthesia. A 6-Romanian sheath was placed in the right common femoral artery using standard techniques and fluoroscopy. After heparinization, left coronary angiogram showed patent LAD stent, 20% plaques in the proximal and distal LAD. There was a very small ramus intermedius. The left posterolateral branch had 35% plaquing, which is unchanged from before. Right coronary angiogram showed 30% proximal plaquing, patent stent in the mid to distal vessel. The right PDA had a 45% mid vessel plaquing before was about 50%. The posterolateral stent was widely patent with 0% residual. Left ventricular angiogram showed an ejection fraction of 65%, left ventricular end-diastolic pressure of 24. No wall motion abnormality or aortic valve gradient. The right groin was sealed using basket. There were no complications. The patient tolerated the procedure well. The patient was transferred back to the holding area for observation, to be discharged later on today on medical therapy and risk factor modification. PATIENT NAME: JENNA BROWN Dictated By: Ngozi Nicole MD WT: CATH:SHORTY/HEATHER/SMITH Conf#: [id number]/DID#: [id number] Authenticated by Ngozi Nicole MD On 07/26/2018 10:23:00 AM at 1023 PATIENT NAME: JENNA BROWN 08:09:00 [facility] Cardiology Progress Note REPORT#:[id number] REPORT STATUS: Signed DATE:07/26/18 TIME: 08 PATIENT: JENNA BROWN UNIT #: [id number] ROOM/BED: [address] : [address] AGE: 78 SEX: M ATTEND: Ruth Ann Gonzalez MD ADM AUTHOR: Ngozi Nicloe MD * ALL edits or amendments must be made on the electronic/computer document * Subjective Chief Complaint: Chest pain-resolved for L Cath poss this am. Patient reports: No: complaints. Nursing reports: No: complaints. Objective General VS/I O: 24 hour I O ending at 0700: 07/26 0700 07/25 1900 Intake Total 200 Output Total Balance 200 Intake, Oral 200 Number Voids 2 Vital Signs: Date Time Temp Pulse Resp B/P B/P Pulse O2 O2 Flow FiO2 Mean Ox Delivery Rate 07/26 0618 97.7 61 18 105/62 76.3 95 Room air 07/26 0039 65 136/77 96.9 98 07/25 2323 96 Room air 0.597502 21 07/25 2314 98.1 70 18 150/89 109.3 95 Room air 07/25 1604 97.5 63 16 146/75 98.6 98 Room air 07/25 1109 97.3 66 16 131/68 88.9 97 Room air Medications: Active Meds + DC'd Last 24 Hrs Heparin Sodium/Sodium Chloride 1,000 ML .STK-MED ONE IV (DC) Lidocaine 0 .STK-MED ONE .ROUTE (DC) Fentanyl Citrate 0 .STK-MED ONE .ROUTE (DC) Heparin Sodium 0 .STK-MED ONE .ROUTE (DC) Iopamidol 0 .STK-MED ONE .ROUTE (DC) Midazolam HCl 0 .STK-MED ONE .ROUTE (DC) Aspirin 325 MG ONCE ONE PO (DC) Diazepam 5 MG ONCE ONE PO (DC) Diphenhydramine HCl 25 MG ONCE ONE PO (DC) Aspirin 0 .STK-MED ONE .ROUTE (DC) Clopidogrel Bisulfate 0 .STK-MED ONE .ROUTE (DC) Diazepam 0 .STK-MED ONE .ROUTE (DC) Diphenhydramine HCl 0 .STK-MED ONE .ROUTE (DC) Patient Own Medication 1 EACH BEDTIME PO Atorvastatin Calcium 40 MG BEDTIME PO Lamotrigine 150 MG BID PO (DC) Losartan Potassium 50 MG BEDTIME PO Nitroglycerin 1 INCH Q8HR TRANSDERM Acetaminophen 650 MG Q4H PRN PRN PO Docusate Sodium 100 MG BID PRN PRN PO Labetalol HCl 20 MG Q4H PRN PRN IV Ondansetron HCl 4 MG Q8H PRN PRN IV Zolpidem Tartrate 5 MG BEDTIME PRN PRN PO Melatonin 6 MG BEDTIME PRN PRN PO Aspirin 81 MG DAILY PO Clopidogrel Bisulfate 75 MG DAILY PO Metoprolol Succinate 12.5 MG DAILY PO Enoxaparin Sodium 60 MG 0600,1800 SUBQ (DC) Morphine Sulfate 2 MG Q4H PRN PRN IV Physical Exam General appearance: alert, awake, oriented, no acute distress, pleasant, conversational, mental status normal Head/Eyes: atraumatic, normocephalic ENT: moist mucosal membranes Neck: no bruit/NL carotids, no JVD, no masses or swelling Cardiovascular: CV assessment: regular rate and rhythm, BP pulses = bilaterally Respiratory: clear to auscultation, no distress Abdomen: soft, non-tender, no mass/organomegaly, no pulsatile mass Lower extremity: LE assessment: no edema, 2+ peripheral pulses Musculoskeletal: full range of motion Neuro/TOBACCO STEMMER: alert, oriented X 3, CN II-XII intact, no motor deficits Skin: dry, intact Psychiatry: normal affect, normal judgment/insight, normal mood, no hallucinations Results Findings/Data: Laboratory Tests 07/26 634 Chemistry Magnesium (1.6 - 2.3 MG/DL) 2.1 Laboratory Tests 07/26 634 Coagulation INR (0.8 - 1.1) 1.0 APTT (22.0 - 33.0 SECONDS) 30.3 PT Patient/Control Mix (9.6 - 11.6 SECONDS) 10.8 Laboratory Tests 07/26 634 Chemistry Magnesium (1.6 - 2.3 MG/DL) 2.1 Laboratory Tests 07/26 634 Coagulation APTT (22.0 - 33.0 SECONDS) 30.3 Results: labs reviewed, vital signs stable, echo personally reviewed, EKG personally reviewed, rhythm personally rev'd, x-ray personally reviewed, current med profile rev'd EKG Interpretation: sinus bradycardia Telemetry Interpretation: SB Echo results: stable Treatment Prophylaxis Treatment Prophylaxis Armstrong documentation: The data below has been imported from nursing documentation. Any exceptions have been noted below under Provider comments. _ Nursing Documentation Date armstrong inserted: Date armstrong discontinued: _ Provider comments: [] Diagnosis, Assessment Plan Free Text A P: IMP: Chest pain, relieved by NTG, poss [place] No [place] CAD, previous stents HTN HLP PSVT Bradycardia PLAN: Left heart catheterizationposs PCI this am Risks/benefits explained in detail, pt willing to proceed. Orders: Procedure Date/time Status PROTHROMBIN TIME 07/26 513 Complete MAGNESIUM 07/26 513 Complete PTT ACTIVATED 07/26 513 Complete CATHETERIZATION 07/26 05 Active EKG 07/26 0500 Active Code status: full code Plan discussed with: patient, spouse/partner, admitting physician, patient care team, nurse at 0844 RPT #:[id number] END OF [id number] 06:57:[id number] [place] [id number] PATIENT NAME: JENNA BROWN ADMIT DATE: 07/24/18 ACCOUNT NO: [id number] ROOM NO: Z.358 AGE: 78 REPORT TYPE: ELECTROCARDIOGRAM SEX: M ADMITTING PHYSICIAN:Ruth Ann Gonzalez MD ATTENDING PHYSICIAN:Ruth Ann Gonzalez MD Order: [id number] Test Reason : CAD Test Date/Time Stamp: SatJul 26 2018 06:57:16 Blood Pressure : / mmHG Vent. Rate : 060 BPM Atrial Rate : 060 BPM P-R Int : 170 ms QRS Dur : 082 ms QT Int : 424 ms P-R-T Axes : 053 053 039 degrees QTc Int : 424 ms Normal sinus rhythm Normal ECG When compared with ECG of 25-JUL-2018 04:54, No significant change was found Confirmed by NGOZI NICOLE ([id number]) on 07/26/2018 7:56:48 AM Referred By: Ruth Ann Gonzalez Confirmed by:NGOZI NICOLE at 0757 PATIENT NAME: JENNA BROWN 18:14:00 [facility] Hospitalist Progress Note REPORT#:[id number] REPORT STATUS: Signed DATE:07/25/18 TIME: 1813 PATIENT: JENNA GUEVARA UNIT #: [id number] [facility] AGE: 78 SEX: M ATTEND: Ruth Ann Gonzalez MD ADM AUTHOR: Ruth Ann Gonzalez MD * ALL edits or amendments must be made on the electronic/computer document * Subjective Chief Complaint: PT IS DOING WELL TODAY. DENIES ANY CHEST PAIN OR SOB VSS. Review of Systems Systems reviewed negative: Allergy/Immun, Constitutional, Endocrine, ENT, Eyes , GI, , Heme, Musculoskeletal, Neuro, Psych, Respiratory, Skin Objective General VS/I O: Vital Signs: Date Time Temp Pulse Resp B/P B/P Pulse O2 O2 Flow FiO2 Mean Ox Delivery Rate 07/25 1604 36.4 63 16 146/75 98.6 98 Room air 07/25 1109 36.3 66 16 131/68 88.9 97 Room air 07/25 0706 36.4 50 15 109/62 77.7 97 Room air 07/25 0451 36.3 56 17 104/55 71.5 95 07/24 2325 36.8 58 18 109/61 76.9 96 07/24 2007 36.6 63 18 131/74 93.2 97 Room air 07/24 1908 96 Room air 0.015635 21 Medications: Active Meds + DC'd Last 24 Hrs Patient Own Medication 1 EACH BEDTIME PO Atorvastatin Calcium 40 MG BEDTIME PO Lamotrigine 150 MG BID PO (DC) Losartan Potassium 50 MG BEDTIME PO Nitroglycerin 1 INCH Q8HR TRANSDERM Acetaminophen 650 MG Q4H PRN PRN PO Docusate Sodium 100 MG BID PRN PRN PO Labetalol HCl 20 MG Q4H PRN PRN IV Ondansetron HCl 4 MG Q8H PRN PRN IV Zolpidem Tartrate 5 MG BEDTIME PRN PRN PO Melatonin 6 MG BEDTIME PRN PRN PO Aspirin 81 MG DAILY PO Clopidogrel Bisulfate 75 MG DAILY PO Metoprolol Succinate 12.5 MG DAILY PO Enoxaparin Sodium 60 MG 0600,1800 SUBQ (DC) Morphine Sulfate 2 MG Q4H PRN PRN IV Physical Exam General appearance: alert, awake, oriented, no acute distress, mental status normal, no respiratory distress Head/Eyes: atraumatic, clear cornea, EOMI, normal conjunctiva/sclera, normal eyelids/periorb., PERRL ENT: normal dentition, normal ear left, normal ear right, normal nose, normal pharynx, normal sinus Neck: full range of motion, non-tender, normal thyroid, supple/no meningismus, no bruit/NL carotids, no JVD, no masses or swelling Cardiovascular: normal capillary refill, regular rate rhythm Respiratory: clear to auscultation, no distress Abdomen: non-tender, normal bowel sounds, soft, no distention, no guarding, no hernial, no mass/organomegaly, no rebound Rectal: not indicated Extremities: moves all, normal capillary refill, normal range of motion, no edema Musculoskeletal: normal inspection Neuro/TOBACCO STEMMER: alert, oriented X 3 Results Findings/Data: Laboratory Tests 07/25 07/25 0647 0647 Chemistry Mean Blood Glucose (70 - 110 MG/DL) 100 Hemoglobin A1c (4.8 - 5.9 %) 5.1 Triglycerides (MG/DL) 88 Cholesterol (<200 MG/DL) 109 LDL Cholesterol Measurd (0 - 99 MG/DL) 57 HDL Cholesterol (40 - 59 MG/DL) 37 L Treatment Prophylaxis Treatment Prophylaxis Armstrong documentation: The data below has been imported from nursing documentation. Any exceptions have been noted below under Provider comments. _ Nursing Documentation Date armstrong inserted: Date armstrong discontinued: _ Provider comments: [] Diagnosis, Assessment Plan Hospital course to date: unstable agina history of HTN, CAD, stroke, seizure 07/24/18 -will admit to CVU -will do serial troponins, EKG -asa, plavix and lovenox started by glue maker bone -obtain echo -echo shows ejection fraction 55-60%. Wall motion is normal - his home meds were resumed -dvt ppx: on lovenox 07/25/18 -pt is doing well. no cp. cont current management -troponin negative x3 -plan for [facility] am. Quality Medications Current medication review: I attest that the foregoing medication list in the medical record is true, accurate, and complete to the best of my knowledge. Heart Failure:DC on BB,ALLAN/ARB LVEF: > 40% Beta karlie Rx at DC: yes; medication: ACEI/ARB Rx at DC: yes; medication: Tobacco Use/Counseling Tobacco use/counseling: non tobacco user HTN Screening/Follow-up B/P assess/follow-up: pre-existing hx of HTN at 1818 RPT #:[id number] END OF [id number] 06:19:00 [facility] Cardiology Progress Note REPORT#:[id number] REPORT STATUS: Signed DATE:07/25/18 TIME: 618 PATIENT: JENNA GUEVARA UNIT #: [id number] ROOM/BED: [address] : 40 AGE: 78 SEX: M ATTEND: Ruth Ann Gonzalez MD ADM AUTHOR: Venkata Humphrey MD * ALL edits or amendments must be made on the electronic/computer document * Subjective Chief Complaint: Chest pain. Patient reports: No: chest pain, palpitations, shortness of breath. Objective General VS/I O: Vital Signs: Date Time Temp Pulse Resp B/P B/P Pulse O2 O2 Flow FiO2 Mean Ox Delivery Rate 07/25 0451 97.3 56 17 104/55 71.5 95 07/24 2325 98.2 58 18 109/61 76.9 96 07/24 2006 97.9 63 18 131/74 93.2 97 Room air 07/24 1908 96 Room air 0.541549 21 01/24 1616 98.8 57 18 134/76 95.2 97 Room air 07/24 1419 96 Room air 07/24 1151 98.1 59 18 144/74 97.3 97 Room air 07/24 0758 97.9 56 18 146/73 97.2 97 Room air Medications: Active Meds + DC'd Last 24 Hrs Atorvastatin Calcium 40 MG BEDTIME PO Lamotrigine 150 MG BID PO Losartan Potassium 50 MG BEDTIME PO Nitroglycerin 1 INCH Q8HR TRANSDERM Lamotrigine 150 MG BID PO (DC) Acetaminophen 650 MG Q4H PRN PRN PO Docusate Sodium 100 MG BID PRN PRN PO Labetalol HCl 20 MG Q4H PRN PRN IV Ondansetron HCl 4 MG Q8H PRN PRN IV Zolpidem Tartrate 5 MG BEDTIME PRN PRN PO Melatonin 6 MG BEDTIME PRN PRN PO Aspirin 81 MG DAILY PO Clopidogrel Bisulfate 75 MG DAILY PO Metoprolol Succinate 12.5 MG DAILY PO Enoxaparin Sodium 60 MG 0600,1800 SUBQ Morphine Sulfate 2 MG Q4H PRN PRN IV Physical Exam General appearance: alert, awake, oriented Head/Eyes: atraumatic, normocephalic ENT: moist mucosal membranes Neck: no JVD Cardiovascular: CV assessment: regular rate and rhythm Respiratory: clear to auscultation, no distress Lower extremity: LE assessment: no edema Musculoskeletal: full range of motion Neuro/TOBACCO STEMMER: alert, oriented X 3, CN II-XII intact Skin: dry, intact Psychiatry: normal affect, normal judgment/insight, normal mood Results Findings/Data: Laboratory Tests 07/24 07/24 07/24 1805 1200 0634 Chemistry Sodium (137 - 145 MMOL/L) 136 L Potassium (3.5 - 5.1 MMOL/L) 4.0 Chloride (98 - 107 MMOL/L) 103 Carbon Dioxide (22 - 30 MMOL/L) 27 BUN (9 - 20 MG/DL) 14 Creatinine (0.66 - 1.25 MG/DL) 1.00 Glomerular Filtr Rate > 60 Glucose (74 - 106 MG/DL) 94 Calcium (8.4 - 10.2 MG/DL) 9.3 Troponin I (0.012 - 0.033 NG/ML) < 0.012 L < 0.012 L < 0.012 L Laboratory Tests 07/24 0634 Hematology WBC (3.8 - 9.8 K/MM3) 6.5 RBC (3.95 - 5.67 M/MM3) 4.83 Hgb (12.4 - 16.7 G/DL) 14.8 Hct (35.9 - 49.5 %) 43.3 MCV (81.7 - 96.1 fL) 90 MCH (27.6 - 33.2 pg) 30.6 MCHC (32.9 - 35.5 %) 34.2 RDW (12.1 - 15.2 %) 12.3 Plt Count (129 - 368 K/MM3) 156 MPV (7.4 - 10.4 fl) 9.6 Neut % (Auto) (43 - 75 %) 60.8 Lymph % (Auto) (14 - 44 %) 26.9 [place] % (Auto) (4 - 13 %) 9.2 Eos % (Auto) (0 - 6 %) 2.5 Baso % (Auto) (0 - 2 %) 0.3 Neut # (Auto) (2.0 - 7.6 K/mm3) 4.0 Lymph # (Auto) (1.0 - 3.8 K/mm3) 1.8 [place] # (Auto) (0.1 - 0.8 K/mm3) 0.60 Eos # (Auto) (0.0 - 0.2 K/mm3) 0.2 Baso # (Auto) (0.0 - 0.2 K/mm3) 0.02 Immature Gran % (0.0 - 2.0 %) 0.3 Nucleated RBC % (0 - 1.0 %) 0.0 Nucleated RBCs # (Man) (0.0 - 0.1 K/mm3) 0.0 Laboratory Tests 07/24 07/24 07/24 1805 1200 0634 Chemistry Troponin I (0.012 - 0.033 NG/ML) < 0.012 L < 0.012 L < 0.012 L Diagnosis, Assessment Plan Free Text A P: IMP: Chest pain No [place] CAD PLAN: Left heart catheterization by Dr. Nicole. at 0624 RPT #:[id number] END OF [id number] 04:54:[id number] [address] PATIENT NAME: JENNA GUEVARA ADMIT DATE: 07/24/18 ACCOUNT NO: [id number] ROOM NO: [facility] AGE: 78 REPORT TYPE: ELECTROCARDIOGRAM SEX: M ADMITTING PHYSICIAN:Ruth Ann Gonzalez MD ATTENDING PHYSICIAN:Ruth Ann Gonzalez MD Order: [id number] Test Reason : CAD Test Date/Time Stamp: SatJul 25 2018 04:54:40 Blood Pressure : / mmHG Vent. Rate : 051 BPM Atrial Rate : 051 BPM P-R Int : 170 ms QRS Dur : 086 ms QT Int : 466 ms P-R-T Axes : 038 050 079 degrees QTc Int : 429 ms Sinus bradycardia Otherwise normal ECG When compared with ECG of 24-JUL-2018 06:23, No significant change was found Confirmed by NGOZI NICOLE ([id number]) on 07/25/2018 4:50:15 PM Referred By: Ruth Ann Gonzalez Confirmed by:NGOZI NICOLE at 1650 PATIENT NAME: JENNA GUEVARA 14:59:00 [facility] ([facility] History Physical - Adult REPORT#:[id number] REPORT STATUS: Signed DATE:07/24/18 TIME: 1459 PATIENT: JENNA GUEVARA UNIT #: [id number] ROOM/BED: [facility] : 40 AGE: 78 SEX: M ATTEND: Ruth Ann Gonzalez MD ADM AUTHOR: Ruth Ann Gonzalez MD * ALL edits or amendments must be made on the electronic/computer document * History of Present Illness HPI Chief complaint: chest pain HPI: pt has a history of htn, cad with 3 stents in 1999, stroke 4 years ago, seizure disorder who was transferred overnight from outside ER for chest pain. per patient the chest pain started yesterday evening when he was siting in the pinky watching TV. he describe the chest pain pressure like and substernal. he said the pain stopped after he arrived ER. he denie any sob, dizziness, fever, chills , diaphoresis, syncopal episode. his primary glue maker bone is Dr Nicole who accepted patient to transfer to [facility]. History Smoking status for patients 13 years old or older: Never Smoker Medication/Allergy-Vaccine Hx Medications: Home Medications: ATORVASTATIN (LIPITOR) 40 MG PO BEDTIME CLOPIDOGREL (PLAVIX) FUROSEMIDE (LASIX) 20 MG PO QODAY IRBESARTAN (AVAPRO) 150 MG PO BEDTIME lamoTRIgine XR (LaMICtal XR) 300 MG PO DAILY METOPROLOL SUCC XL (TOPROL XL) 12.5 MG PO DAILY MELATONIN 6 MG PO BEDTIME PRN PRN INSOMNIA Allergies: Coded Allergies: No Known Allergies (07/24/18) Review of Systems Constitutional: Denies: chills, fatigue, fever, generalized weakness, lethargy, malaise, recent wt loss, other. Skin: Denies: abrasion, bruising, contusion, diaphoresis, ecchymosis, itching, laceration, rash, swelling, other. Allergy/Immun: Denies: allergic reaction, anaphylaxis, hives, itching, rhinorrhea, sneezing, other. Eyes: Denies: redness, discharge, visual loss/blurred, itching, diplopia, eye pain, photophobia, swelling, other. ENT: Denies: ear drainage, ear ringing, earache, hearing loss, mouth pain, nasal congestion, nose bleeding, sinus problem, sore throat, throat pain, throat swelling, tongue pain, tongue swelling, toothache, voice change, other. Respiratory: Denies: JENNINGS (dyspnea on exertion), hemoptysis, non productive cough, parox nocturnal dyspnea, pleurisy, pleuritic pain, pneumonia, productive cough (sputum ), SOB, wheezing, other. Cardiovascular: Reports: chest pain. Denies: JENNINGS (dyspnea on exertion), edema, orthopnea, palpitations, parox nocturnal dyspnea, other. GI: Denies: abdominal pain, anorexia, constipation, diarrhea, dysphagia, GERD, hematemesis, hematochezia, hiatal hernia, melena, nausea, rectal pain, vomiting, other. Musculoskeletal: Denies: arthritis, extremity pain, extremity swelling, joint pain, joint swelling, lumbar pain, myalgias, neck pain, thoracic pain, other. Heme: Denies: adenopathy, bleeding, bruising, petechiae, other. Endocrine: Denies: cold intolerance, heat intolerance, polydipsia, polyphagia, polyuria, weight gain, weight loss, other. Neuro: Denies: bladder dysfunction, bowel dysfunction, change in LOC, confusion, dizziness, focal weakness, gait problem, headache, lightheaded, numbness, seizure, slurred speech, spinning sensation, syncope, unable to speak, vision change, weakness, other. Physical Exam VS/I O Vital Signs: Date Time Temp Pulse Resp B/P B/P Pulse O2 O2 Flow FiO2 Mean Ox Delivery Rate 07/24 1419 96 Room air 21 07/24 1151 36.7 59 18 144/74 97.3 97 Room air 07/24 0758 36.6 56 18 146/73 97.2 97 Room air 07/24 0452 36.6 56 18 132/71 91.2 98 Room air 07/24 0138 36.7 56 18 154/77 102.7 98 Room air 24 hour I O ending at 0700: 07/24 0700 07/23 1900 Intake Total 250 Output Total Balance 250 Intake, Oral 250 Number Voids 1 Patient 77.111 kg Weight General appearance: alert, awake, oriented, no acute distress, mental status normal, no respiratory distress Head/Eyes: atraumatic, clear cornea, EOMI, normocephalic, normal conjunctiva/ sclera, normal eyelids/periorb, PERRLA ENT: normal dentition, normal ear left, normal ear right, normal nose, normal pharynx, normal sinus Neck: full range of motion, non-tender, no bruit/NL carotids, no JVD, no lymphadenopathy, no masses or swelling, normal thyroid, supple/no meningismus Cardiovascular: normal capillary refill, regular rate rhythm Respiratory: clear to auscultation, no distress, no tenderness Abdomen/GI: active bowel sounds, soft, non-tender, no guarding, no rebound, no distention, no mass/organomegaly, no pulsatile mass, no hernia, normal abdominal aorta Extremities: moves all, no edema-all extremities, normal capillary refill, normal range of motion, normal sensory, normal motor function Musculoskeletal: full range of motion, normal inspection Neuro/TOBACCO STEMMER: alert, oriented X 3, normal speech Treatment Prophylaxis Treatment Prophylaxis Armstrong documentation: The data below has been imported from nursing documentation. Any exceptions have been noted below under Provider comments. _ Nursing Documentation Date armstrong inserted: Date armstrong discontinued: _ Provider comments: [] Diagnosis, Assessment Plan Free Text A P: unstable agina history of HTN, CAD, stroke, seizure -will admit to CVU -will do serial troponins, EKG -asa, plavix and lovenox started by glue maker bone -obtain echo -echo shows ejection fraction 55-60%. Wall motion is normal - his home meds were resumed -dvt ppx: on lovenox Quality Medications Current medication review: I attest that the foregoing medication list in the medical record is true, accurate, and complete to the best of my knowledge. Heart Failure:DC on BB,ALLAN/ARB LVEF: > 40% Beta karlie Rx at DC: yes; medication: ACEI/ARB Rx at DC: yes; medication: BMI Screening > 25 or < 18.5 Patient's BMI: Current BMI: Tobacco Use/Counseling Tobacco use/counseling: non tobacco user HTN Screening/Follow-up Last documented vitals: Last Documented: Result Date Time Pulse Ox 96 07/24 1419 FiO2 21 07/24 1419 O2 Delivery Room air 07/24 1419 B/P 144/74 07/24 1151 B/P Mean 97.3 07/24 1151 Temp 36.7 07/24 1151 Pulse 59 07/24 1151 Resp 18 07/24 1151 B/P assess/follow-up: pre-existing hx of HTN Blood pressure ranges/guide: Screening for Hypertension and follow up measure #317 Blood pressure parameters Normal B/P SBP </= 119 DBP </= 79 Pre-hypertensive SBP 120-139 DBP 80-89 Hypertensive SBP >/= 140 DBP >/= 90 at 1537 RPT #[id number] END OF [id number] [address] PATIENT NAME: JENNA BROWN ADMIT DATE: 07/24/18 ACCOUNT NO: [id number] ROOM NO: [facility] AGE: 78 REPORT TYPE: CONSULTATION REPORT SEX: M ADMITTING PHYSICIAN:Ruth Ann Gonzalez MD ATTENDING PHYSICIAN:Ruth Ann Gonzalez MD CONSULTATION DATE: 07/24/2018 CONSULTING PHYSICIAN: Venkata Humphrey MD REFERRING PHYSICIAN: Dr. Peterson. REASON FOR CONSULTATION: We were asked to evaluate this patient for chest pain. HISTORY OF PRESENT ILLNESS: This is a 78-year-old male with a history of coronary artery disease, status post PTCA and stent x3, who presented to the [facility] Emergency Room with complaints of chest pain. Yesterday evening while at rest, he had the acute onset of mid precordial chest tightness. There was moderate discomfort without radiation. There was no associated shortness of breath, nausea, or vomiting. The pain resolved after receiving sublingual nitroglycerin in the Emergency Room at [facility]. He was transferred here for further care. The pain is now resolved. The patient had a recent negative stress test and echocardiogram. PAST MEDICAL HISTORY: 1. Coronary artery disease, status post PTCA and stent x3. 2. Hyperlipidemia. 3. Hypertension. 4. History of hemorrhagic cerebrovascular accident. 5. Seizure disorder. FAMILY HISTORY: Noncontributory. SOCIAL HISTORY: No tobacco. HOME MEDICATIONS: Clopidogrel, atorvastatin, irbesartan, metoprolol, Lamictal, furosemide, and melatonin. REVIEW OF SYSTEMS: CONSTITUTIONAL: No fever. ENMT: No complaints of headache. EYES: No complaints of visual changes. RESPIRATORY: No shortness of breath. CARDIOVASCULAR: Chest discomfort as noted above. No palpitations. GASTROINTESTINAL: No nausea or vomiting. GENITOURINARY: No urinary frequency or dysuria. MUSCULOSKELETAL: No complaints of joint pain. NEUROLOGIC: No residual weakness. No recent seizures. PATIENT NAME: JENNA BROWN SKIN: No complaints of rashes. PHYSICAL EXAMINATION: GENERAL: Elderly male, in no acute distress. VITAL SIGNS: Temperature 97.9, blood pressure 146/73, pulse 56, respiratory rate 18, O2 saturations 97%. ENMT: Atraumatic, normocephalic head. RESPIRATORY: Normal effort. Clear to auscultation bilaterally. CARDIOVASCULAR: Normal S1 and S2. No S3 or S4. NECK: JVP is normal. There are no carotid bruits. ABDOMEN: Soft, nontender. Normal bowel sounds. No hepatosplenomegaly. EXTREMITIES: No edema. Pulses, posterior tibial pulses 2+ bilaterally. NEUROLOGIC: Cranial nerves II through XII are intact. No focal motor deficits noted. LABORATORY DATA: White blood cell count 6.5, hemoglobin 14.8, and platelets 156. Sodium 136, potassium 4, chloride 103, CO2 27, BUN 14, creatinine 1.0, glucose 94, calcium 9.3. Troponin less than 0.012. DIAGNOSTIC STUDIES: Electrocardiogram, sinus bradycardia, otherwise normal. IMPRESSION: 1. Chest pain, relieved with nitroglycerin. 2. History of coronary artery disease, status post multiple percutaneous transluminal coronary angioplasty and stents. 3. Hypertension. 4. Hyperlipidemia. 5. History of cerebrovascular accident. 6. History of seizure disorder. RECOMMENDATIONS: 1. Rule out myocardial infarction, serial electrocardiograms, and cardiac enzymes. 2. Continue home medications. 3. We will plan for coronary angiography. Given his recent negative stress test, we will need to evaluate for possible balanced ischemia. Dictated By: Venkata Humphrey MD WT: CON:ELIS/RAMONITA/NTS Conf#: [id number]/DID#: [id number] Authenticated by Venkata Humphrey MD On 07/28/2018 06:56:57 AM at 0657 PATIENT NAME: JENNA BROWN 08:34:00 [id number] [place] [address] PATIENT NAME: JENNA GUEVARA ADMIT DATE: 07/24/18 ACCOUNT NO: [id number] ROOM NO: Z.358 AGE: 78 REPORT TYPE: ECHOCARDIOGRAM SEX: M ADMITTING PHYSICIAN:Ruth Ann Gonzalez MD ATTENDING PHYSICIAN:Ruth Ann Gonzalez MD *[facility]* [id number] [id number] Transthoracic Echocardiogram Patient: Jenna Guevara Study Date: 07/24/2018 BP: 132 / 71 Location: [facility] URN: [id number] : 1940 Age: 78 Height: 68 in / 172.7 cm Gender: M Weight: 169.6 lb / 77.1 kg BMI/BSA: 25.8 kg/m 2 / 1.94 m 2 *Ordering Physician: * Ngozi Nicole MD *Interpreting Physician: * Ngozi Nicole MD *Property Consultant: Nadia Ayala RDCS, [place] Indications: CAD. Study data: Transthoracic echocardiogram. Procedure: Transthoracic echocardiography was performed. Images were obtained using a [employer] cardiac ultrasound machine. Image quality was adequate. Complete 2D, complete spectral Doppler, and color Doppler. Patient room number: 358-A. Findings Left ventricle: The cavity size is normal. Wall thickness is normal. Systolic function is normal. The estimated ejection fraction is 55-60%. Wall motion is normal; there are no regional wall motion abnormalities. Doppler parameters are consistent with abnormal left ventricular relaxation (grade 1 diastolic dysfunction). Right ventricle: The cavity size is normal. Systolic function is normal. Systolic pressure is within the normal range. PATIENT NAME: JENNA GUEVARA Left atrium: The atrium is normal in size. Right atrium: The atrium is normal in size. Atrial septum: No defect or patent foramen ovale is identified. Aorta: The aorta is normal size. Aortic valve: The valve is trileaflet. The leaflets are mildly thickened. Cusp separation is normal. Transvalvular velocity is within the normal range. There is no evidence of stenosis. There is no regurgitation. The LVOT to aortic valve VTI ratio is 0.68. The valve area by the velocity-time integral method is 2.30 cm 2. The valve area index by the velocity-time integral method is 1.19 cm 2/m 2. The ratio of LVOT to aortic valve peak velocity is 0.66. The valve area by the peak velocity method is 2.25 cm 2. The valve area index by the peak velocity method is 1.16 cm 2/m 2. The ratio of LVOT to aortic valve mean velocity is 0.68. The valve area by the mean velocity method is 2.3 cm 2. The valve area index by the mean velocity method is 1.19 cm 2/m 2. The mean systolic gradient is 3.2 mm Hg. The peak systolic gradient is 6.0 mm Hg. Mitral valve: The annulus is mildly calcified. There is no evidence of stenosis. There is trivial regurgitation. The valve area is 2.5 cm 2. The valve area index is 1.27 cm 2/m 2. The valve area by pressure half-time is 2.7 cm 2. The valve area index by pressure half-time is 1.4 cm 2/m 2. The valve area (LVOT continuity) is 2.5 cm 2. The valve area index (LVOT continuity) is 1.27 cm 2/m 2. The mean diastolic gradient is 1.4 mm Hg. The peak diastolic gradient is 3.4 mm Hg. Tricuspid valve: The valve is structurally normal. There is no evidence of stenosis. There is trivial regurgitation. Pulmonic valve: The valve is structurally normal. There is no evidence of stenosis. There is trivial regurgitation. The peak systolic gradient is 4.1 mm Hg. Pericardium: There is no pericardial effusion. Measurements Left ventricle Value Ref Left atrium Value Ref JEREMY, LAX 4.6 cm 4.2 - 5.8 LA ID 3.8 cm ESD, LAX 3.3 cm 2.5 - 4.0 AP dim, ES 3.84 cm 3.00 - 4.00 ESD/bsa, LAX 1.7 cm/m 2 1.3 - 2.1 AP dim ES, LAX 3.8 cm 3.0 - 4.0 FS, LAX 30 % 25 - 43 SI dim ES, LAX 3.8 cm ESD 3.3 cm 2.5 - 4.0 LA/Ao root ratio 1.22 ESD/bsa 1.7 cm/m 2 1.3 - 2.1 AP dim, ES MM 4.2 cm 3.0 - 4.0 FS 30 % 25 - 43 LA/Ao root ratio, MM 1.25 PW, ED 1.1 cm 0.6 - 1.0 PW, ES 1.3 cm --------- Aortic valve Value Ref IVS/PW, ED 1.01 --------- Leaflet sep, MM PATIENT NAME: JENNA GUEVARA 2.14 cm EF 57 % 52 - 72 Peak v, S 1.22 m/sec EF, SMM Teich. 57 % >=55 Mean v, S 0.84 m/sec IVRT 148 ms --------- VTI, S 32.2 cm Mean grad, S 3.2 mm Hg LVOT Value Ref Peak grad, S 6.0 mm Hg Diam, S 2.08 cm --------- LVOT/AV, VTI ratio 0.68 Area 3.4 cm 2 --------- AIMEE, VTI 2.30 cm 2 Peak mona, S 0.81 m/sec --------- LVOT/AV, Vpeak ratio 0.66 Mean mona, S 0.57 m/sec --------- AIMEE, Vmax 2.25 cm 2 VTI, S 21.9 cm --------- Peak grad, S 3 mm Hg --------- Mitral valve Value Ref Mean grad, S 1 mm Hg --------- Peak E 0.88 m/sec SV 74 ml --------- Peak A 0.77 m/sec Qs 5.07 L/min --------- Mean v, D 0.54 m/sec Qs/bsa 2.6 L/(min-m 2) --------- VTI leaflet coapt 30.2 cm SV/bsa 38 ml/m 2 --------- Decel time 272 ms PHT 81 ms Ventricular septum Value Ref Mean grad, D 1.4 mm Hg IVS, ED 1.1 cm 0.6 - 1.0 Peak grad, D 3.4 mm Hg IVS, ES 1.3 cm --------- Peak E/A ratio 1.14 MVA, PHT 2.7 cm 2 Right ventricle Value Ref MR vena contracta 2.8 cm JEREMY, LAX 2.8 cm --------- JEREMY 2.8 cm --------- Pulmonic valve Value Ref ND v, ED 0.68 m/sec RVOT Value Ref Peak v, S 0.52 m/sec --------- Aortic root Value Ref Peak grad, S 1 mm Hg --------- Root diam 3.1 cm <4.1 PATIENT NAME: JENNA GUEVARA Root diam, ED MM 3.39 cm Conclusions Summary: 1. Left ventricle: The cavity size is normal. Wall thickness is normal. Systolic function is normal. The estimated ejection fraction is 55-60%. Wall motion is normal; there are no regional wall motion abnormalities. Doppler parameters are consistent with abnormal left ventricular relaxation (grade 1 diastolic dysfunction). 2. Right ventricle: Systolic pressure is within the normal range. 3. Mitral valve: The annulus is mildly calcified. There is trivial regurgitation. Prepared and electronically signed by Ngozi Nicole MD 07/24/2018 08:33 at 0834 PATIENT NAME: JENNA GUEVARA 06:23:00 [id number] [address] PATIENT NAME: JENNA GUEVARA ADMIT DATE: 07/24/18 ACCOUNT NO: [id number] ROOM NO: Z.358 AGE: 78 REPORT TYPE: ELECTROCARDIOGRAM SEX: M ADMITTING PHYSICIAN:Ruth Ann Gonzalez MD ATTENDING PHYSICIAN:Ruth Ann Gonzalez MD Order: [id number] Test Reason : CHEST PAIN Test Date/Time Stamp: SatJul 24 2018 06:23:58 Blood Pressure : / mmHG Vent. Rate : 055 BPM Atrial Rate : 055 BPM P-R Int : 194 ms QRS Dur : 080 ms QT Int : 424 ms P-R-T Axes : 029 081 080 degrees QTc Int : 405 ms Sinus bradycardia Otherwise normal ECG No previous ECGs available Confirmed by NGOZI NICOLE ([id number]) on 07/24/2018 7:15:52 AM Referred By: Ruth Ann Gonzalez Confirmed by:NGOZI NICOLE at 0716 PATIENT NAME: JENNA GUEVARA
[2024-05-30] MEDS ORDERED: NA CHLORIDE 0.9% 500 ML ONE (12:11)
[2024-05-30 12:18] LABS: Absolute Eosinophils 0.2 K/uL (0-0.5); Absolute Lymphocytes (CBC) 1.5 K/uL (0.7-4.9); Absolute Monocytes 0.6 K/uL (0.1-1.3); Absolute Neutrophil 5.1 K/uL (1.8-8.0); Basophils % 0.6 % (0-1.3); Eosinophils % 2.3 % (0-4.4); Hematocrit 44.1 % (39.6-49.0); Lymphocytes % 20.3 % (15.3-44.8); MCV 94.1 fL (80-100); MPV 6.9 fL (7.6-11.3); Monocytes % 8.3 % (3.3-12.3); Neutrophils % 68.5 % (41.7-73.7); Platelets 206 thou/uL (152-406); RBC Red Blood Cell Count 4.68 M/uL (4.33-5.43); Red Cell Distribution Width 12.8 % (12.1-15.2)
[2024-05-30 12:22] LABS: PT Prothrombin Time 10.7 SECONDS (9.4-12.5); Protime INR 0.95
--- NOTE | 2024-05-30 12:35 | RAD REPORT ---
EXAMINATION: CT HEAD WITHOUT CONTRAST CLINICAL INDICATION: Male, 84 years old.VISUAL DISTURBANCES TECHNIQUE: Axial CT images from the skull base to the vertex without intravenous contrast. Coronal an d sagittal reformatted images were created from the data set. One or more of the following dose reduction techniques were used: Automated exposure control, adjustment of the mA and/or kV according to patient size, and/or iterative reconstruction. Unless otherwise specified, incidental findings do not require dedicated imaging follow-up. [id number]. COMPARISON: 09/17/2018 FINDINGS: INTRACRANIAL: No acute intracranial hemorrhage. No hydrocephalus. No mass effect or midline shift. Ch ronic left frontal lobe encephalomalacia which may be from a remote infarct. Chronic small vessel ischemic changes which are [id number]. VASCULATURE: No visualized abnormalities in the arteries or dural venous sinuses. SCALP/SKULL: No significant soft tissue or osseous abnormalities. SINUSES: The visualized paranasal sinuses and mastoid air cells are predominantly clear. IMPRESSION: No acute intracranial abnormality.
[2024-05-30 12:40] LABS: Albumin 3.5 g/dL (3.4-5.0); Albumin/Globulin Ratio 1.1 (1.1-1.8); Anion Gap 10.5 mEq/L (5.0-15.0); Bilirubin Direct 0.3 mg/dL (0-0.2); Bilirubin Indirect, Calculated 0.5 mg/dL (0.2-0.8); Bilirubin Total 0.8 mg/dL (0.2-1.0); Globulin 3.1 g/dL (2.3-3.5); Magnesium 2.1 mg/dL (1.6-2.4); Potassium 4.5 mEq/L (3.5-5.1); Protein, Total 6.6 g/dL (6.4-8.2); Troponin High Sensitivity 5.1 pg/mL (<58.9)
--- NOTE | 2024-05-30 13:50 | RAD REPORT ---
EXAM: Chest Single View HISTORY: COUGH COMPARISON: 09/17/2018 FINDINGS: LUNGS/PLEURA: Low lung volumes. Linear opacities at the right lung base. MEDIASTINUM: The mediastinal silhouette is within normal limits. CARDIAC: The cardiac silhouette is within normal limits. UPPER ABDOMEN: No significant abnormality. BONES: No acute fracture. Remote right-sided rib fractures. LINES/TUBES/OTHER: Loop recorder. Pacemaker IMPRESSION: Low lung volumes with likely bibasilar atelectasis. Pneumonia at the lung bases difficult to entirely exclude.
--- NOTE | 2024-05-30 14:35 | EDPHYS ---
Physician Documentation [facility] Name: Eleazar Crawford Jr Age: 84 yrs Sex: Male : 1940 Arrival Date: 05/30/2024 Time: 11:45 Bed 2 Private MD: ED Physician Cristian Brennan HPI: 05/30 14:20 This 84 yrs old Male presents to ER via EMS with complaints of Blurred Vision.renato 14:20 The patient is experiencing blurred vision. Onset: The symptoms/episode began/occurred renato this morning, today. Duration: the symptoms are episodic, NORMAL. Aggravated by nothing. Alleviated by nothing. Associated signs and symptoms: Pertinent positives: None. Pertinent negatives: None. Patient wears glasses. Severity of symptoms: At their worst the symptoms were mild in the emergency department the symptoms have resolved and did so just prior to arrival. The patient has not experienced similar symptoms in the past. 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 - Infectious Disease History:: Denies. - Social history:: Smoking status: Patient denies any tobacco usage or history of. - Family history:: not pertinent. ROS: 14:20 Constitutional: Negative for fever, chills, and weight loss, ENT: Negative for injury, renato pain, and discharge, Neck: Negative for injury, pain, and swelling, Cardiovascular: Negative for chest pain, palpitations, and edema, Respiratory: Negative for shortness of breath, cough, wheezing, and pleuritic chest pain, Abdomen/GI: Negative for abdominal pain, nausea, vomiting, diarrhea, and constipation, Back: Negative for injury and pain, : Negative for injury, bleeding, discharge, and swelling, MS/Extremity: Negative for injury and deformity, Skin: Negative for injury, rash, and discoloration, Neuro: Negative for headache, weakness, numbness, tingling, and seizure, Psych: Negative for depression, anxiety, suicide ideation, homicidal ideation, and hallucinations, Allergy/Immunology: Negative for hives, rash, and allergies, Endocrine: Negative for neck swelling, polydipsia, polyuria, polyphagia, and marked weight changes, Hematologic/Lymphatic: Negative for swollen nodes, abnormal bleeding, and unusual bruising, 14:20 Eyes: Positive for blurry vision, of the iris of left eye, Exam: 14:20 Constitutional: This is a well developed, well nourished patient who is awake, alert, renato and in no acute distress. Head/Face: Normocephalic, atraumatic. Eyes: Pupils equal round and reactive to light, extra-ocular motions intact. Lids and lashes normal. Conjunctiva and sclera are non-icteric and not injected. Cornea within normal limits. Periorbital areas with no swelling, redness, or edema. ENT: Nares patent. No nasal discharge, no septal abnormalities noted. Tympanic membranes are normal and external auditory canals are clear. Oropharynx with no redness, swelling, or masses, exudates, or evidence of obstruction, uvula midline. Mucous membranes moist. Neck: Trachea midline, no thyromegaly or masses palpated, and no cervical lymphadenopathy. Supple, full range of motion without nuchal rigidity, or vertebral point tenderness. No Meningismus. Chest/axilla: Normal chest wall appearance and motion. Nontender with no deformity. No lesions are appreciated. Cardiovascular: Regular rate and rhythm with a normal S1 and S2. No gallops, murmurs, or rubs. Normal PMI, no JVD. No pulse deficits. Respiratory: Lungs have equal breath sounds bilaterally, clear to auscultation and percussion. No rales, rhonchi or wheezes noted. No increased work of breathing, no retractions or nasal flaring. Abdomen/GI: Soft, non-tender, with normal bowel sounds. No distension or tympany. No guarding or rebound. No evidence of tenderness throughout. Back: No spinal tenderness. No costovertebral tenderness. Full range of motion. Male : Normal genitalia with no discharge or lesions. Skin: Warm, dry with normal turgor. Normal color with no rashes, no lesions, and no evidence of cellulitis. MS/ Extremity: Pulses equal, no cyanosis. Neurovascular intact. Full, normal range of motion., bilateral aka Neuro: Awake and alert, GCS 15, oriented to person, place, time, and situation. Cranial nerves II-XII grossly intact. Motor strength 5/5 in all extremities. Sensory grossly intact. Cerebellar exam normal. Normal gait. Psych: Awake, alert, with orientation to person, place and time. Behavior, mood, and affect are within normal limits. 14:20 ECG was reviewed by the Attending Physician. 14:36 Musculoskeletal/extremity: DVT Exam: No signs of deep vein thrombosis. no pain, no renato swelling, no tenderness, negative Homans' sign noted on exam, no appreciated bluish discoloration, no erythema, no increased warmth, 14:36 Neuro: Orientation: is normal, appropriate for stated age, no acute changes, Mentation: is normal, appropriate for stated age, no acute changes, Memory: is normal, appropriate for stated age, no acute changes, Cranial nerves: grossly normal, is grossly normal based on the patient's age, no acute changes, Cerebellar function: is grossly normal, is grossly normal based on the patient's age, no acute changes, Motor: is normal, is grossly normal based on the patient's age, no acute changes, moves all fours, strength is normal, Sensation: is normal, no obvious gross deficits, appropriate no acute changes, numbness, is not appreciated, Gait: is steady, appropriate for age, Deep tendon reflexes are 2+ (normal) in the bilateral brachioradialis, bicep, tricep and patellar and Achilles tendons, Babinski testing is normal, seizure activity, is not displayed by the patient, Vital Signs: 11:53 BP 124 / 60; Pulse 63; Resp 15; Temp 97; Pulse Ox 98% ; ko1 13:05 BP 124 / 60; Pulse 69; Resp 15; Pulse Ox 100% ; ko1 14:00 BP 123 / 68; Pulse 62; Resp 15; Pulse Ox 97% ; jl7 NIH Stroke Scale Scores: 14:36 NIHSS Score: 0 renato [place] Coma Score: 14:36 Eye Response: spontaneous(4). Motor Response: obeys commands(6). Verbal Response: renato oriented(5). Total: 15. MDM: 11:51 Medical Screening Exam initiated renato 14:22 Differential diagnosis: Corneal abrasion of Foreign body in Acute glaucoma in left eye. [facility] Data reviewed: vital signs, nurses notes. Consideration of Admission/Observation Escalation of care including admission/observation considered. I considered the following discharge prescriptions or medication management in the emergency department Medications were administered in the Emergency Department. See MAR. Independent interpretation of the following test(s) in the Emergency Department EKG: See my EKG interpretation above. Test considered but Not performed: MRI: NO MRI BRAIN. Historians other than the Patient: Spouse/Significant Other: WELL INFORMED. Care significantly affected by the following chronic conditions: CVA HEMORRHAGE. Counseling: I had a detailed discussion with the patient and/or guardian regarding the historical points, exam findings, and any diagnostic results supporting the discharge/admit diagnosis, lab results, radiology results, the need for outpatient follow up, for definitive care, an opthalmologist, a family practitioner, a neurologist. 05/30 11:55 Order name: Basic Metabolic Panel; Complete Time: 13:53 [facility] 05/30 11:55 Order name: CBC with Diff; Complete Time: 13:53 [facility] 05/30 11:55 Order name: LFT's; Complete Time: 13:53 [facility] 05/30 11:55 Order name: Magnesium; Complete Time: 13:53 [facility] 05/30 11:55 Order name: NT PRO-BNP; Complete Time: 13:53 renato 05/30 11:55 Order name: PT-INR; Complete Time: 13:53 [facility] 05/30 11:55 Order name: Troponin HS; Complete Time: 13:53 [facility] 05/30 11:55 Order name: Lipase; Complete Time: 13:53 [facility] 05/30 11:55 Order name: XRAY Chest (1 view); Complete Time: 13:53 [facility] 05/30 11:55 Order name: CT Head Brain wo Cont; Complete Time: 13:53 [facility] 05/30 11:55 Order name: Cardiac monitoring; Complete Time: 12:03 [facility] 05/30 11:55 Order name: EKG - Nurse/Tech; Complete Time: 12:33 [facility] 05/30 11:55 Order name: IV Saline Lock; Complete Time: 12:03 [facility] 05/30 11:55 Order name: Labs collected and sent; Complete Time: 12:04 [facility] 05/30 11:55 Order name: O2 Per Protocol; Complete Time: 12:04 renato 05/30 11:55 Order name: O2 Sat Monitoring; Complete Time: 12:04 renato EC:20 Rate is 64 beats/min. Rhythm is regular. QRS [place] is Normal. [place] interval is prolonged renato at 236 msec. QRS interval is normal. QT interval is normal. No Q waves. T waves are Normal. No ST changes noted. Clinical impression: 1st degree heart block and No evidence of ischemia. Interpreted by me. Reviewed by me. Administered Medications: 15:05 Discontinued: ns 0.9% 500 ml 500 ml IV at 1 bolus once; to be given as a bolus over 30 jl7 minutes 12:30 Drug: NS 0.9% IV 500 ml 500 ml IV at 1 bolus once; to be given as a bolus over 30 ko1 minutes Volume: 500 ml; Route: IV; Rate: 1 bolus; Site: left forearm; 13:00 Follow up: Response: No adverse reaction; IV Status: Order to discontinue infusion; IV jl7 Intake: 150ml 13:25 Follow up: Response: No adverse reaction; IV Status: Completed infusion; IV Intake: ko1 500ml 15:04 Not Given (Patient Refused): aspirinchewable tablet 81 mg PO once jl7 15:04 Drug: Meclizine PO 25 mg PO once Route: PO; jl7 15:05 Follow up: Response: Medication administered at discharge. jl7 Disposition Summary: 05/30/24 14:35 Discharge Ordered Notes: Location: Home renato Problem: new renato Symptoms: have improved renato Condition: Stable renato Diagnosis - Low vision, left eye, normal vision right eye - BLURRY, RESOLVED renato Followup: renato - With: Private Physician - When: 2 - 3 days - Reason: Recheck today's complaints, Continuance of care, Re-evaluation by your physician Followup: renato - With: Luis Sethi MD - When: 2 - 3 days - Reason: Recheck today's complaints, Re-evaluation by your physician Discharge Instructions: - Discharge Summary Sheet renato - Blurred Vision, Adult renato - Aspirin and Your Heart renato Forms: - Medication Reconciliation Form renato - Antibiotic Education renato - Prescription Opioid Use renato - Patient Portal Instructions renato - Leadership Thank You Letter renato Prescriptions: - Meclizine 25 mg Oral Tablet - take 1 tablet ORAL route every 8 hours As needed; 30 tablet; Refills: 0, renato Product Selection Permitted - Plavix 75 mg Oral Tablet - take 1 tablet ORAL route once daily; 20 tablet; Refills: 0, Product Selection [facility] Permitted NIH Stroke Scale - NIH Stroke Score Date: 05/30/2024 Time: 14:36 Total Score = 0 10. Dysarthria (speech clarity - read or repeat words) - 0(Normal) 11. Extinction and Inattention (visual/tactile/auditory/spatial/personal) - 0(No abnormality) 1a. Level of Consciousness (LOC) - 0(Alert) 1b. Level of Consciousness (LOC) (Month \T\ Age) - 0(Both) 1c. LOC Commands (Open \T\ Closes Eyes/Division Manager) - 0(Both) 2. Best Gaze (Lateral Gaze Paresis) - 0(Normal) 3. Visual Field Loss - 0(No visual loss) 4. Facial Palsy - 0(Normal) 5a. Left Arm: Motor (10-second hold) - 0(No drift) 5b. Right Arm: Motor (10-second hold) - 0(No drift) 6a. Left Leg: Motor (5-second hold - always test supine) - 0(No drift) 6b. Right Leg: Motor (5-second hold - always test supine) - 0(No drift) 7. Limb Ataxia (finger/nose \T\ heel/tapia - test with eyes open) - 0(Absent) 8. Sensory Loss (pinprick arms/legs/face) - 0(Normal) 9. Best Language: Aphasia (description/naming/reading) - 0(No aphasia) Initials: [facility] Signatures: Dispatcher [employer] EDCristian Rondon MD MD cha Leal, Jahala RN RN jl7 Francy Goncalves RN RN ko1 Corrections: (The following items were deleted from the chart) 11:55 11:55 BASIC METABOLIC PANEL+C.LAB.BRZ ordered. EDMS EDMS 11:55 11:55 CBC+H.LAB.BRZ ordered. EDMS EDMS 11:55 11:55 HEPATIC FUNCTION+C.LAB.BRZ ordered. EDMS EDMS 11:55 11:55 MAGNESIUM+C.LAB.BRZ ordered. EDMS EDMS 11:55 11:55 PROBNP+C.LAB.BRZ ordered. EDMS EDMS 11:55 11:55 PROTIME (+INR)+COAG.LAB.BRZ ordered. EDMS EDMS 11: 11:55 Troponin High Sensitivity+C.LAB.BRZ ordered. EDMS EDMS 11: 11:55 Chest Single View+RAD.RAD.BRZ ordered. EDMS EDMS 11: 11:55 Head Brain Wo Cont+CT.RAD.BRZ ordered. EDMS EDMS 11: 11:55 LIPASE+C.LAB.BRZ ordered. EDMS EDMS 15:07 11:55 Urinalysis+U.LAB.BRZ ordered. EDMS EDMS
--- NOTE | 2024-05-30 14:35 | ER ---
Nurse's Notes [facility] Name: Eleazar Carwford Jr Age: 84 yrs Sex: Male : 1940 Arrival Date: 05/30/2024 Time: 11:45 Bed 2 Private MD: Diagnosis: Low vision, left eye, normal vision right eye-BLURRY, RESOLVED Presentation: 05/30 11:53 Chief complaint: EMS states: called for blurred vision in left eye since 08 this ko1 morning. Coronavirus screen: At this time, the client does not indicate any symptoms associated with coronavirus-19. Ebola Screen: No symptoms or risks identified at this time. Initial Sepsis Screen: Does the patient meet any 2 criteria? No. Patient's initial sepsis screen is negative. Does the patient have a suspected source of infection? No. Patient's initial sepsis screen is negative. Risk Assessment: Do you want to hurt yourself or someone else? Patient reports no desire to harm self or others. Onset of symptoms was May 30, 2024 at 08:30. Care prior to arrival: IV initiated. 20 GA, in the left forearm, Glucose check: 188. 11:53 Method Of Arrival: EMS: [facility] ko1 11:53 Acuity: ALMA 3 ko1 Triage Assessment: 11:56 General: Appears in no apparent distress. Behavior is calm, cooperative, appropriate ko1 for age. Pain: Denies pain. EENT: Reports blurred vision in left eye. Neuro: Reports difficulty with right leg from previous cva in the 1970s. Cardiovascular: No deficits noted. Reports None. Respiratory: No deficits noted. GI: No deficits noted. : No deficits noted. Derm: No deficits noted. Musculoskeletal: No deficits noted. 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 - Infectious Disease History:: Denies. - Social history:: Smoking status: Patient denies any tobacco usage or history of. - Family history:: not pertinent. Screenin:00 [facility] ED Fall Risk Assessment (Adult) History of falling in the last 3 months, ko1 including since admission No falls in past 3 months (0 pts) Confusion or Disorientation No (0 pts) Intoxicated or Sedated No (0 pts) Impaired Gait No (0 pts) Mobility Assist Device Used No (0 pt) Altered Elimination No (0 pt) Score/Fall Risk Level 0 - 2 = Low Risk Oriented to surroundings, Maintained a safe environment, Educated pt \T\ family on fall prevention, incl call for assistance when getting out of bed, Assessed \T\ reinforced patient's understanding of fall precautions, Provided non-skid footwear, Hourly rounding (assess needs \T\ fall precautionary measures) done. Abuse screen: Denies threats or abuse. Denies injuries from another. Nutritional screening: No deficits noted. Tuberculosis screening: No symptoms or risk factors identified. Assessment: 12:00 Reassessment: see triage note. ko1 13:00 Reassessment: Patient appears in no apparent distress at this time. No changes from jl7 previously documented assessment. Patient and/or family updated on plan of care and expected duration. Pain level reassessed. Patient is alert, oriented x 3, equal unlabored respirations, skin warm/dry/pink. 14:00 Reassessment: Patient appears in no apparent distress at this time. No changes from jl7 previously documented assessment. Patient and/or family updated on plan of care and expected duration. Pain level reassessed. Patient is alert, oriented x 3, equal unlabored respirations, skin warm/dry/pink. Vital Signs: 11:53 BP 124 / 60; Pulse 63; Resp 15; Temp 97; Pulse Ox 98% ; ko1 13:05 BP 124 / 60; Pulse 69; Resp 15; Pulse Ox 100% ; ko1 14:00 BP 123 / 68; Pulse 62; Resp 15; Pulse Ox 97% ; jl7 [place] Coma Score: 14:36 Eye Response: spontaneous(4). Motor Response: obeys commands(6). Verbal Response: renato oriented(5). Total: 15. NIH Stroke Scale Scores: 14:36 NIHSS Score: 0 [facility] ED Course: 11:48 Patient arrived in ED. ko1 11:51 Cristian Brennan MD is Attending Physician. [facility] 11:53 Francy Goncalves, SUSANA is Primary Nurse. ko1 11:55 Triage completed. ko1 11:56 Arm band placed on right wrist. Patient placed in an exam room, on a stretcher, on ko1 equipment monitor phototypesetting, on pulse oximetry, Patient notified of wait time. 12:00 Patient has correct armband on for positive identification. Fall risk band placed. Bed ko1 in low position. Call light in reach. Side rails up X2. Provided Education on: labs, tests. Client placed on continuous cardiac and pulse oximetry monitoring. NIBP monitoring applied. monitor car operator on. Door closed. Noise minimized. Lights dimmed. Warm blanket given. Pillow given. 12:00 Maintain EMS IV. Dressing intact. Good blood return noted. Site clean \T\ dry. Gauge \T\ ko 1 site: 20g left wrist/fa. Flushed with 10 mL NS. 12:13 Initial lab(s) drawn, by wy, sent to lab. jl7 12:26 CT Head Brain wo Cont In Process Unspecified. EDMS 12:34 EKG done, by ED staff, reviewed by Cristian Brennan MD. em1 13:24 No provider procedures requiring assistance completed. ko1 13:44 XRAY Chest (1 view) In Process Unspecified. EDMS 14:35 Luis Sethi MD is Referral Physician. renato 15:07 IV discontinued, intact, bleeding controlled, No redness/swelling at site. Pressure jl7 dressing applied. Administered Medications: 15:05 Discontinued: ns 0.9% 500 ml 500 ml IV at 1 bolus once; to be given as a bolus over 30 jl7 minutes 12:30 Drug: NS 0.9% IV 500 ml 500 ml IV at 1 bolus once; to be given as a bolus over 30 ko1 minutes Volume: 500 ml; Route: IV; Rate: 1 bolus; Site: left forearm; 13:00 Follow up: Response: No adverse reaction; IV Status: Order to discontinue infusion; IV jl7 Intake: 150ml 13:25 Follow up: Response: No adverse reaction; IV Status: Completed infusion; IV Intake: ko1 500ml 15:04 Not Given (Patient Refused): aspirinchewable tablet 81 mg PO once 7 15:04 Drug: Meclizine PO 25 mg PO once Route: PO; 15:05 Follow up: Response: Medication administered at discharge. Medication: 12:00 VIS not applicable for this client. ko1 Intake: 13:00 IV: 150ml; Total: 150ml. jl 13:25 IV: 500ml; Total: 650ml. ko1 Outcome: 14:35 Discharge ordered by . renato 15:07 Discharged to home via wheelchair, with family, [facility] 15:07 Condition: stable 15:07 Discharge instructions given to patient, family, Instructed on discharge instructions, follow up and referral plans. medication usage, Demonstrated understanding of instructions, follow-up care, medications, Prescriptions given X 2, 15:07 Patient left the ED. NIH Stroke Scale - NIH Stroke Score Date: 05/30/2024 Time: 14:36 Total Score = 0 10. Dysarthria (speech clarity - read or repeat words) - 0(Normal) 11. Extinction and Inattention (visual/tactile/auditory/spatial/personal) - 0(No abnormality) 1a. Level of Consciousness (LOC) - 0(Alert) 1b. Level of Consciousness (LOC) (Month \T\ Age) - 0(Both) 1c. LOC Commands (Open \T\ Closes Eyes/Courseware Developer) - 0(Both) 2. Best Gaze (Lateral Gaze Paresis) - 0(Normal) 3. Visual Field Loss - 0(No visual loss) 4. Facial Palsy - 0(Normal) 5a. Left Arm: Motor (10-second hold) - 0(No drift) 5b. Right Arm: Motor (10-second hold) - 0(No drift) 6a. Left Leg: Motor (5-second hold - always test supine) - 0(No drift) 6b. Right Leg: Motor (5-second hold - always test supine) - 0(No drift) 7. Limb Ataxia (finger/nose \T\ heel/tapia - test with eyes open) - 0(Absent) 8. Sensory Loss (pinprick arms/legs/face) - 0(Normal) 9. Best Language: Aphasia (description/naming/reading) - 0(No aphasia) Initials: [facility] Signatures: Dispatcher [employer] EDCristian Rondon MD MD cha Martinez, Patricio em1 Ariana Trevino, RN RN jl7 Francy Goncalves, RN RN ko1
[2024-05-30] MEDS ORDERED: MECLIZINE HCL 12.5 MG TAB ONE (14:45)
[2024-05-30] MEDS ORDERED: ASPIRIN EC 81 MG TAB PO ONE (14:46)
[2024-05-30 15:11] VITALS: TEMP 97
[2024-05-30 15:13] VITALS: BP 123/68; O2SAT 97
--- NOTE | 2024-05-31 14:13 | EKG ---
Test Date: 2024-05-30 Test Time: 12:31:13 Shook Machine Operator: TERESE MEASUREMENT RESULTS: Intervals: Rate: 64 WI: 236 QRSD: 96 QT: 408 QTc: 420 [place]: P: 73 WI: 236 QRS: 58 T: 82 INTERPRETIVE STATEMENTS: Sinus rhythm with 1st degree AV block Nonspecific T wave abnormality Abnormal ECG Compared to ECG 09/17/2018 14:17:18 First degree AV block now present T-wave abnormality now present Electronically Signed On 05-31-24 14:11:19 PRODUCT MARKETING DIRECTOR by Bennett Pineda
== END 2024-05-30 15:07 | disposition home or self-care (01) ==
LOC: ER 11:45
DX: H53.8 Other visual disturbances (principal); H54.52A1 Low vision left eye category 1, normal vision right eye; Z86.73 Personal history of transient ischemic attack (TIA), and cerebral infarction without residual deficits; Z79.01 Long term (current) use of anticoagulants
CPT/HCPCS: 93005; 85025; 80048; 36415; 83735; 85610; 80076; 84484; 83690; 83880; 70450; 71045; 99285; J8597; J7040